=== PATIENT | female | born 1945 | race Caucasian/White ===

== ENCOUNTER 2018-01-29 17:08 | Outpatient (REF) | payer MEDICARE, MEDICAID, SELFPAY ==
[2018-01-29 18:27] LABS: Uric Acid 9.8 mg/dL (2.6-6.0)
== END 2018-01-29 17:28 ==
LOC: LBN 17:08
PROVIDERS: PCP Student in an Organized Health Care Education/Training Program; Visit Provider Family Medicine
DX: E11.21 Type 2 diabetes mellitus with diabetic nephropathy (principal); N18.4 Chronic kidney disease, stage 4 (severe); E11.69 Type 2 diabetes mellitus with other specified complication; E03.9 Hypothyroidism, unspecified; E78.5 Hyperlipidemia, unspecified; I10 Essential (primary) hypertension
CPT/HCPCS: 84550

== ENCOUNTER 2018-02-23 11:20 | Outpatient (REF) | payer MEDICARE, MEDICAID, SELFPAY ==
[2018-02-23 11:59] LABS: BUN 58 mg/dL (7-18); CREATININE 1.81 mg/dL (0.55-1.02); Estimated GFR 27.48 (mL/min/1.73m2)
== END 2018-02-23 11:40 ==
LOC: LBN 11:20
PROVIDERS: PCP Student in an Organized Health Care Education/Training Program; Visit Provider Family Medicine
DX: E11.21 Type 2 diabetes mellitus with diabetic nephropathy (principal)
CPT/HCPCS: 84520; 82565

== ENCOUNTER 2018-03-07 13:57 | Outpatient (REF) | payer MEDICARE, MEDICAID, SELFPAY ==
[2018-03-07 15:05] LABS: Abs Immature Grans 0.02 k/cumm (0.0-0.09); Absolute Basophil Count 0.03 k/cumm (0.0-0.2); Absolute Eosinophil Count 0.27 k/cumm (0.0-0.7); Absolute Lymphocyte Count 2.96 k/cumm (1.2-3.4); Absolute Monocyte Count 0.45 k/cumm (0.11-0.7); Absolute Neutrophil Count 5.48 k/cumm (1.2-6.7); Basophils % 0.3; Eosinophils % 2.9; HCT 41.1 % (36.0-46.0); HGB 13.9 g/dL (12.0-15.5); Immature Grans % 0.2; Lymphocytes % 32.1; Mean Corp. HGB Concentration 33.8 g/dL (32.0-36.0); Mean Corpuscular Hemoglobin 31.2 pg (27.0-33.0); Mean Corpuscular Volume 92.4 fL (80-95); Mean Platelet Volume 11.5 fL (8.0-11.0); Monocytes % 4.9; Neutrophils % 59.6; Platelet Count 324 x1000/uL (130-400); RBC 4.45 m/cumm (4.00-5.20); RBC Distribution Width 13.4 % (11.7-14.6); White Blood Cell Count 9.21 k/cumm (4.4-10.8)
[2018-03-07 15:15] LABS: TSH 18.71 uIU/mL (0.358-3.74)
[2018-03-07 15:33] LABS: Hemoglobin A1C 11.5 % (4.5-6.2)
== END 2018-03-07 14:17 ==
LOC: LBN 13:57
PROVIDERS: PCP Student in an Organized Health Care Education/Training Program; Visit Provider Family Medicine
DX: E11.9 Type 2 diabetes mellitus without complications (principal); E03.9 Hypothyroidism, unspecified
CPT/HCPCS: 83036; 84443; 85025

== ENCOUNTER 2018-04-19 16:29 | Outpatient (REF) | payer MEDICARE, MEDICAID, SELFPAY ==
[2018-04-19 17:27] LABS: Anion Gap 13.4 mmol/L (3-11); BUN 51 mg/dL (7-18); CO2 23.6 mmol/L (21.0-32.0); CREATININE 1.85 mg/dL (0.55-1.02); Calcium 9.6 mg/dL (8.5-10.1); Chloride 101 mmol/L (98-107); Glucose 253 mg/dL (70-100); Potassium 4.4 mmol/L (3.5-5.1); Sodium 138 mmol/L (136-145)
== END 2018-04-19 16:49 ==
LOC: LBN 16:29
PROVIDERS: PCP Student in an Organized Health Care Education/Training Program; Visit Provider Family Medicine
DX: N18.4 Chronic kidney disease, stage 4 (severe) (principal); E11.9 Type 2 diabetes mellitus without complications; I10 Essential (primary) hypertension
CPT/HCPCS: 80048

== ENCOUNTER 2018-06-20 08:51 | Outpatient (REF) | payer MEDICARE, MEDICAID, SELFPAY ==
[2018-06-20 11:13] LABS: Abs Immature Grans 0.01 k/cumm (0.0-0.09); Absolute Basophil Count 0.03 k/cumm (0.0-0.2); Absolute Eosinophil Count 0.27 k/cumm (0.0-0.7); Absolute Lymphocyte Count 2.49 k/cumm (1.2-3.4); Absolute Monocyte Count 0.59 k/cumm (0.11-0.7); Absolute Neutrophil Count 3.72 k/cumm (1.2-6.7); Basophils % 0.4; Eosinophils % 3.8; HCT 40.8 % (36.0-46.0); HGB 13.8 g/dL (12.0-15.5); Immature Grans % 0.1; Mean Corp. HGB Concentration 33.8 g/dL (32.0-36.0); Mean Corpuscular Hemoglobin 32.1 pg (27.0-33.0); Mean Corpuscular Volume 94.9 fL (80-95); Mean Platelet Volume 10.9 fL (8.0-11.0); Monocytes % 8.3; Neutrophils % 52.4; Platelet Count 277 x1000/uL (130-400); RBC Distribution Width 12.1 % (11.7-14.6); White Blood Cell Count 7.11 k/cumm (4.4-10.8)
[2018-06-20 11:42] LABS: Anion Gap 9.1 mmol/L (3-11); BUN 44 mg/dL (7-18); CO2 28.9 mmol/L (21.0-32.0); CREATININE 1.99 mg/dL (0.55-1.02); Calcium 9.7 mg/dL (8.5-10.1); Chloride 104 mmol/L (98-107); Estimated GFR 24.63 (mL/min/1.73m2); Glucose 180 mg/dL (70-100); Potassium 4.3 mmol/L (3.5-5.1); Sodium 142 mmol/L (136-145); TSH 11.33 uIU/mL (0.358-3.74); Uric Acid 11.3 mg/dL (2.6-6.0)
[2018-06-20 12:00] LABS: Cholesterol 109 mg/dL (50-200); HDL Cholesterol 39 mg/dL (40-60); LDL CHOLESTEROL 55 mg/dL (<100); Triglyceride 77 mg/dL (30-150)
== END 2018-06-20 09:11 ==
LOC: LBN 08:51
PROVIDERS: PCP Student in an Organized Health Care Education/Training Program; Visit Provider Family Medicine
DX: E11.9 Type 2 diabetes mellitus without complications (principal); M10.9 Gout, unspecified; E03.9 Hypothyroidism, unspecified; N18.9 Chronic kidney disease, unspecified
CPT/HCPCS: 80048; 80061; 83721; 83036; 84443; 84550; 85025

== ENCOUNTER 2018-06-21 11:00 | Outpatient (CLI) | payer MEDICARE, MEDICAID, SELFPAY | END 2018-06-21 11:20 | PROVIDERS: PCP Student in an Organized Health Care Education/Training Program; Visit Provider Family Medicine | DX: N18.9 Chronic kidney disease, unspecified (principal) | CPT/HCPCS: 82043; 82570 ==

== ENCOUNTER 2018-08-09 12:08 | Outpatient (REF) | payer MEDICARE, MEDICAID, SELFPAY ==
[2018-08-09 14:21] LABS: TSH 3.24 uIU/mL (0.358-3.74)
== END 2018-08-09 12:28 ==
LOC: LBN 12:08
PROVIDERS: PCP Student in an Organized Health Care Education/Training Program; Visit Provider Family Medicine
DX: E03.9 Hypothyroidism, unspecified (principal)
CPT/HCPCS: 84443

== ENCOUNTER 2018-12-13 13:42 | Outpatient (CLI) | payer MEDICARE, MEDICAID, SELFPAY ==
--- NOTE | 2018-12-13 12:52 | DI.RAD_ITS ---
SYMPTOMS/DIAGNOSIS: LEFT WRIST INJURY LEFT WRIST: Three views. No acute fracture or dislocation is identified. Moderately severe arthritic changes are seen in the wrist, particularly the 1st carpometacarpal joint and the carpal joints. Vascular calcifications are seen in the soft tissues. There does appear to be soft tissue swelling of the wrist. IMPRESSION: No acute fracture or dislocation.
== END 2018-12-13 14:02 ==
PROVIDERS: PCP Student in an Organized Health Care Education/Training Program; Visit Provider Nurse Practitioner Adult Health
DX: M25.532 Pain in left wrist (principal); M18.12 Unilateral primary osteoarthritis of first carpometacarpal joint, left hand; M19.032 Primary osteoarthritis, left wrist; M79.89 Other specified soft tissue disorders
CPT/HCPCS: 73110

== ENCOUNTER 2018-12-30 07:41 | Outpatient (REF) | payer MEDICARE, MEDICAID, SELFPAY ==
[2018-12-30 10:18] LABS: Calculated LDL 79 mg/dL; Cholesterol 148 mg/dL (50-200); HDL Cholesterol 47 mg/dL (40-60); Triglyceride 113 mg/dL (30-150)
== END 2018-12-30 08:01 ==
LOC: LBN 07:41
PROVIDERS: PCP Student in an Organized Health Care Education/Training Program; Visit Provider Nurse Practitioner Adult Health
DX: E66.01 Morbid (severe) obesity due to excess calories (principal); E11.21 Type 2 diabetes mellitus with diabetic nephropathy; E03.9 Hypothyroidism, unspecified; E78.5 Hyperlipidemia, unspecified
CPT/HCPCS: 80061; 83721

== ENCOUNTER 2019-01-31 11:44 | Outpatient (CLI) | payer MEDICARE, MEDICAID, SELFPAY ==
[2019-01-31 14:02] LABS: Anion Gap 11.2 mmol/L (3-11); BUN 53 mg/dL (7-18); CO2 25.8 mmol/L (21.0-32.0); CREATININE 1.93 mg/dL (0.55-1.02); Calcium 8.8 mg/dL (8.5-10.1); Chloride 103 mmol/L (98-107); Estimated GFR 25.45 (mL/min/1.73m2); Glucose 217 mg/dL (70-100); Potassium 4.3 mmol/L (3.5-5.1); Sodium 140 mmol/L (136-145)
== END 2019-01-31 12:04 ==
PROVIDERS: PCP Student in an Organized Health Care Education/Training Program; Visit Provider Nurse Practitioner Adult Health
DX: E11.21 Type 2 diabetes mellitus with diabetic nephropathy (principal)
CPT/HCPCS: 80048

== ENCOUNTER 2019-03-22 14:19 | Outpatient (REF) | payer MEDICARE, MEDICAID, SELFPAY ==
[2019-03-22 14:24] LABS: Hemoglobin A1C 7.8 % (4.5-6.2)
[2019-03-22 14:57] LABS: Anion Gap 12.2 mmol/L (3-11); BUN 68 mg/dL (7-18); CO2 24.8 mmol/L (21.0-32.0); CREATININE 2.48 mg/dL (0.55-1.02); Calcium 9.2 mg/dL (8.5-10.1); Chloride 102 mmol/L (98-107); Estimated GFR 19.05 (mL/min/1.73m2); Glucose 201 mg/dL (70-100); Potassium 4.6 mmol/L (3.5-5.1); Sodium 139 mmol/L (136-145); Uric Acid 12.8 mg/dL (2.6-6.0)
== END 2019-03-22 14:39 ==
LOC: LBN 14:19
PROVIDERS: PCP Student in an Organized Health Care Education/Training Program; Visit Provider Nurse Practitioner Adult Health
DX: E11.319 Type 2 diabetes mellitus with unspecified diabetic retinopathy without macular edema (principal); N18.4 Chronic kidney disease, stage 4 (severe)
CPT/HCPCS: 80048; 83036; 84550

== ENCOUNTER 2019-04-18 10:59 | Outpatient (CLI) | payer MEDICARE, MEDICAID, SELFPAY ==
[2019-04-18 11:23] LABS: Anion Gap 10.5 mmol/L (3-11); BUN 62 mg/dL (7-18); CO2 24.5 mmol/L (21.0-32.0); Chloride 106 mmol/L (98-107); Estimated GFR 27.58 (mL/min/1.73m2); Glucose 230 mg/dL (74-106); Potassium 4.4 mmol/L (3.5-5.1); Sodium 141 mmol/L (136-145); Uric Acid 9.3 mg/dL (2.6-6.0)
== END 2019-04-18 11:19 ==
PROVIDERS: PCP Student in an Organized Health Care Education/Training Program; Visit Provider Nurse Practitioner Adult Health
DX: N18.4 Chronic kidney disease, stage 4 (severe) (principal); E11.319 Type 2 diabetes mellitus with unspecified diabetic retinopathy without macular edema
CPT/HCPCS: 36415; 80048; 84550

== ENCOUNTER 2019-05-09 10:26 | Outpatient (REF) | payer MEDICARE, MEDICAID, SELFPAY ==
[2019-05-09 11:38] LABS: Anion Gap 9.5 mmol/L (3-11); BUN 47 mg/dL (7-18); CO2 28.5 mmol/L (21.0-32.0); CREATININE 1.96 mg/dL (0.55-1.02); Calcium 8.8 mg/dL (8.5-10.1); Chloride 104 mmol/L (98-107); Glucose 136 mg/dL (74-106); Potassium 4.2 mmol/L (3.5-5.1); Sodium 142 mmol/L (136-145)
== END 2019-05-09 10:46 ==
LOC: LBO 10:26
PROVIDERS: Family Medicine; PCP Student in an Organized Health Care Education/Training Program; Visit Provider Nurse Practitioner Adult Health
DX: N18.4 Chronic kidney disease, stage 4 (severe) (principal); I10 Essential (primary) hypertension; D63.1 Anemia in chronic kidney disease; E03.9 Hypothyroidism, unspecified; E11.21 Type 2 diabetes mellitus with diabetic nephropathy
CPT/HCPCS: 36415; 80048

== ENCOUNTER 2019-05-23 12:04 | Outpatient (CLI) | payer MEDICARE, MEDICAID, SELFPAY ==
[2019-05-23 13:48] LABS: Abs Immature Grans 0.02 k/cumm (0.0-0.09); Absolute Basophil Count 0.03 k/cumm (0.0-0.2); Absolute Eosinophil Count 1.73 k/cumm (0.0-0.7); Absolute Lymphocyte Count 2.95 k/cumm (1.2-3.4); Absolute Monocyte Count 0.76 k/cumm (0.11-0.7); Absolute Neutrophil Count 5.31 k/cumm (1.2-6.7); Basophils % 0.3; HCT 40.7 % (36.0-46.0); HGB 13.4 g/dL (12.0-15.5); Immature Grans % 0.2 %; Lymphocytes % 27.3; Mean Corp. HGB Concentration 32.9 g/dL (32.0-36.0); Mean Corpuscular Hemoglobin 33.2 pg (27.0-33.0); Mean Corpuscular Volume 100.7 fL (80-95); Mean Platelet Volume 10.6 fL (8.0-11.0); Neutrophils % 49.2; Platelet Count 338 x1000/uL (130-400); RBC 4.04 m/cumm (4.00-5.20); RBC Distribution Width 13.8 % (11.7-14.6)
[2019-05-23 14:28] LABS: ESR 18 mm/hr (0-30)
[2019-05-23 15:11] LABS: ALT 31 U/L (14-59); AST 28 U/L (15-37); Albumin 3.6 g/dL (3.4-5.0); Alkaline Phosphatase 128 U/L (46-116); BUN 62 mg/dL (7-18); Bilirubin, Total 0.7 mg/dL (0.2-1.0); C-Reactive Protein 0.25 mg/dL (0.0-0.3); CREATININE 1.98 mg/dL (0.55-1.02); Calcium 9.1 mg/dL (8.5-10.1); Chloride 104 mmol/L (98-107); Estimated GFR 24.71 (mL/min/1.73m2); Glucose 147 mg/dL (74-106); Potassium 4.7 mmol/L (3.5-5.1); Sodium 143 mmol/L (136-145); Total Protein 7.2 g/dL (6.4-8.2); Uric Acid 10.3 mg/dL (2.6-6.0)
== END 2019-05-23 12:24 ==
PROVIDERS: PCP Student in an Organized Health Care Education/Training Program; Visit Provider Nurse Practitioner Adult Health
DX: I10 Essential (primary) hypertension (principal); D63.1 Anemia in chronic kidney disease; E78.5 Hyperlipidemia, unspecified; N18.4 Chronic kidney disease, stage 4 (severe)
CPT/HCPCS: 36415; 80053; 85652; 84550; 85025; 86140

== ENCOUNTER 2019-06-20 10:39 | Outpatient (CLI) | payer MEDICARE, MEDICAID, SELFPAY ==
[2019-06-20 11:45] LABS: Abs Immature Grans 0.02 k/cumm (0.0-0.09); Absolute Basophil Count 0.03 k/cumm (0.0-0.2); Absolute Eosinophil Count 0.78 k/cumm (0.0-0.7); Absolute Lymphocyte Count 2.28 k/cumm (1.2-3.4); Absolute Monocyte Count 0.64 k/cumm (0.11-0.7); Basophils % 0.4; Eosinophils % 9.7; HCT 40.2 % (36.0-46.0); HGB 13.1 g/dL (12.0-15.5); Immature Grans % 0.2 %; Lymphocytes % 28.3; Mean Corp. HGB Concentration 32.6 g/dL (32.0-36.0); Mean Corpuscular Volume 101.3 fL (80-95); Mean Platelet Volume 10.9 fL (8.0-11.0); Neutrophils % 53.4; Platelet Count 282 x1000/uL (130-400); RBC 3.97 m/cumm (4.00-5.20); RBC Distribution Width 12.8 % (11.7-14.6); White Blood Cell Count 8.05 k/cumm (4.4-10.8)
[2019-06-20 12:09] LABS: Anion Gap 9.6 mmol/L (3-11); BUN 55 mg/dL (7-18); CO2 29.4 mmol/L (21.0-32.0); CREATININE 2.16 mg/dL (0.55-1.02); Calcium 8.9 mg/dL (8.5-10.1); Chloride 104 mmol/L (98-107); Estimated GFR 22.35 (mL/min/1.73m2); Glucose 223 mg/dL (74-106); Hemoglobin A1C 7.6 % (3.8-5.6); Potassium 4.2 mmol/L (3.5-5.1); Sodium 143 mmol/L (136-145); Uric Acid 11.9 mg/dL (2.6-6.0)
== END 2019-06-20 10:59 ==
PROVIDERS: PCP Student in an Organized Health Care Education/Training Program; Visit Provider Nurse Practitioner Adult Health
DX: E11.21 Type 2 diabetes mellitus with diabetic nephropathy (principal); I10 Essential (primary) hypertension; E78.5 Hyperlipidemia, unspecified; N18.4 Chronic kidney disease, stage 4 (severe); D63.1 Anemia in chronic kidney disease; E11.319 Type 2 diabetes mellitus with unspecified diabetic retinopathy without macular edema
CPT/HCPCS: 80048; 83036; 84550; 85025

== ENCOUNTER 2019-09-18 20:46 | Outpatient (REF) | payer MEDICARE, MEDICAID, SELFPAY ==
[2019-09-18 17:35] LABS: BUN 57 mg/dL (7-18); CREATININE 2.07 mg/dL (0.55-1.02); Calcium 9.4 mg/dL (8.5-10.1); Chloride 100 mmol/L (98-107); Estimated GFR 23.47 (mL/min/1.73m2); Glucose 181 mg/dL (74-106); Potassium 4.3 mmol/L (3.5-5.1); Sodium 138 mmol/L (136-145)
== END 2019-09-18 21:06 ==
LOC: LBN 20:46
PROVIDERS: PCP Student in an Organized Health Care Education/Training Program; Visit Provider Nurse Practitioner Adult Health
DX: E78.5 Hyperlipidemia, unspecified (principal); N18.4 Chronic kidney disease, stage 4 (severe)
CPT/HCPCS: 80048

== ENCOUNTER 2019-12-19 14:19 | Outpatient (REF) | payer MEDICARE, MEDICAID, SELFPAY ==
[2019-12-19 14:42] LABS: Abs Immature Grans 0.02 10^3/uL (0.0-0.06); Absolute Basophil Count 0.04 10^3/uL (0.0-0.2); Absolute Eosinophil Count 0.44 10^3/uL (0.0-0.7); Absolute Lymphocyte Count 2.11 10^3/uL (1.2-3.4); Absolute Monocyte Count 0.51 10^3/uL (0.1-0.8); Basophils % 0.5; Eosinophils % 5.5; HCT 36.2 % (36.0-46.0); Immature Grans % 0.2; Lymphocytes % 26.3; MCHC 33.1 % (32.0-36.0); MCV 99.5 fL (80-95); MPV 11.1 fL (8.0-11.0); Monocytes % 6.4; Neutrophils % 61.1; Nucleated RBC 0 %; Platelet Count 324 10^3/uL (130-400); RBC 3.64 10^6/uL (3.93-5.22); RDW 11.9 % (11.7-14.6); RDW-SD 43.4 fL; WBC 8.02 10^3/uL (4.4-10.8)
[2019-12-19 14:49] LABS: Anion Gap 9.2 mmol/L (3-11); CO2 27.8 mmol/L (21.0-32.0); Calcium 9.5 mg/dL (8.5-10.1); Chloride 102 mmol/L (98-107); Estimated GFR 18.83 (mL/min/1.73m2); Glucose 221 mg/dL (74-106); Potassium 4.9 mmol/L (3.5-5.1); Sodium 139 mmol/L (136-145); Uric Acid 11.8 mg/dL (2.6-6.0)
[2019-12-19 14:56] LABS: BUN 93 mg/dL (7-18)
== END 2019-12-19 14:39 ==
LOC: LBN 14:19
PROVIDERS: PCP Student in an Organized Health Care Education/Training Program; Visit Provider Nurse Practitioner Adult Health
DX: E11.319 Type 2 diabetes mellitus with unspecified diabetic retinopathy without macular edema (principal); N18.4 Chronic kidney disease, stage 4 (severe)
CPT/HCPCS: 80048; 83036; 84550; 85025

== ENCOUNTER 2020-01-02 15:09 | Outpatient (REF) | payer MEDICARE, MEDICAID, SELFPAY ==
[2020-01-02 15:35] LABS: Abs Immature Grans 0.02 10^3/uL (0.0-0.06); Absolute Basophil Count 0.03 10^3/uL (0.0-0.2); Absolute Eosinophil Count 0.25 10^3/uL (0.0-0.7); Absolute Lymphocyte Count 1.89 10^3/uL (1.2-3.4); Absolute Neutrophil Count 4.58 10^3/uL (1.2-6.7); Basophils % 0.4; Eosinophils % 3.4; HCT 35.6 % (36.0-46.0); HGB 11.7 g/dL (11.2-15.7); Immature Grans % 0.3; Lymphocytes % 25.6; MCH 33.1 pg (27.0-33.0); MCHC 32.9 % (32.0-36.0); MCV 100.6 fL (80-95); MPV 10.7 fL (8.0-11.0); Monocytes % 8.1; Neutrophils % 62.2; Nucleated RBC 0 %; Platelet Count 302 10^3/uL (130-400); RBC 3.54 10^6/uL (3.93-5.22); RDW 12.1 % (11.7-14.6); RDW-SD 44.9 fL; WBC 7.37 10^3/uL (4.4-10.8)
[2020-01-02 15:46] LABS: Anion Gap 10.7 mmol/L (3-11); BUN 54 mg/dL (7-18); CO2 27.3 mmol/L (21.0-32.0); CREATININE 1.95 mg/dL (0.55-1.02); Chloride 105 mmol/L (98-107); Estimated GFR 25.08 (mL/min/1.73m2); Glucose 197 mg/dL (74-106); Potassium 4.8 mmol/L (3.5-5.1); Sodium 143 mmol/L (136-145); Uric Acid 10.9 mg/dL (2.6-6.0)
[2020-01-02 16:33] LABS: Hemoglobin A1C 6.8 % (3.8-5.6)
== END 2020-01-02 15:29 ==
LOC: LBN 15:09
PROVIDERS: PCP Student in an Organized Health Care Education/Training Program; Visit Provider Nurse Practitioner Adult Health
DX: E11.319 Type 2 diabetes mellitus with unspecified diabetic retinopathy without macular edema (principal); N18.4 Chronic kidney disease, stage 4 (severe)
CPT/HCPCS: 80048; 83036; 84550; 85025

== ENCOUNTER 2020-03-26 13:44 | Outpatient (REF) | payer MEDICARE, MEDICAID, SELFPAY ==
[2020-03-26 14:38] LABS: Hemoglobin A1C 6.3 % (<5.7)
[2020-03-26 14:39] LABS: Anion Gap 9.7 mmol/L (3-11); BUN 60 mg/dL (7-18); CO2 27.3 mmol/L (21.0-32.0); CREATININE 1.92 mg/dL (0.55-1.02); Calcium 9.3 mg/dL (8.5-10.1); Chloride 104 mmol/L (98-107); Estimated GFR 25.53 (mL/min/1.73m2); Glucose 210 mg/dL (74-106); Potassium 4.6 mmol/L (3.5-5.1); Sodium 141 mmol/L (136-145); Uric Acid 10.4 mg/dL (2.6-6.0)
== END 2020-03-26 14:04 ==
LOC: LBN 13:44
PROVIDERS: PCP Student in an Organized Health Care Education/Training Program; Visit Provider Nurse Practitioner Adult Health
DX: E79.0 Hyperuricemia without signs of inflammatory arthritis and tophaceous disease (principal); N18.4 Chronic kidney disease, stage 4 (severe); E78.5 Hyperlipidemia, unspecified; E11.21 Type 2 diabetes mellitus with diabetic nephropathy
CPT/HCPCS: 80048; 83036; 84550

== ENCOUNTER 2020-06-22 14:15 | Outpatient (REF) | payer MEDICARE, MEDICAID, SELFPAY ==
[2020-06-22 14:45] LABS: Abs Immature Grans 0.02 10^3/uL (0.0-0.06); Absolute Basophil Count 0.04 10^3/uL (0.0-0.2); Absolute Eosinophil Count 0.33 10^3/uL (0.0-0.7); Absolute Lymphocyte Count 2.08 10^3/uL (1.2-3.4); Absolute Monocyte Count 0.61 10^3/uL (0.1-0.8); Absolute Neutrophil Count 4.64 10^3/uL (1.2-6.7); Basophils % 0.5; Eosinophils % 4.3; Immature Grans % 0.3; Lymphocytes % 26.9; MCH 31.7 pg (27.0-33.0); MCHC 32.4 % (32.0-36.0); MCV 97.6 fL (80-95); MPV 10.5 fL (8.0-11.0); Monocytes % 7.9; Neutrophils % 60.1; Nucleated RBC 0 %; Platelet Count 330 10^3/uL (130-400); RBC 3.79 10^6/uL (3.93-5.22); RDW 12.2 % (11.7-14.6); RDW-SD 43.4 fL; WBC 7.72 10^3/uL (4.4-10.8)
[2020-06-22 14:54] LABS: Anion Gap 9.5 mmol/L (3-11); BUN 57 mg/dL (7-18); CO2 28.5 mmol/L (21.0-32.0); CREATININE 2.1 mg/dL (0.55-1.02); Calcium 9.3 mg/dL (8.5-10.1); Chloride 104 mmol/L (98-107); Estimated GFR 23.02 (mL/min/1.73m2); Glucose 193 mg/dL (74-106); Potassium 4.8 mmol/L (3.5-5.1); Sodium 142 mmol/L (136-145); Uric Acid 10.9 mg/dL (2.6-6.0)
[2020-06-22 14:59] LABS: Hemoglobin A1C 6.7 % (<5.7)
== END 2020-06-22 14:16 | disposition home or self-care (01) ==
LOC: LBN 14:15
PROVIDERS: PCP Student in an Organized Health Care Education/Training Program; Visit Provider Nurse Practitioner Adult Health
DX: E11.319 Type 2 diabetes mellitus with unspecified diabetic retinopathy without macular edema (principal); E78.5 Hyperlipidemia, unspecified; N18.4 Chronic kidney disease, stage 4 (severe); D63.1 Anemia in chronic kidney disease; E79.0 Hyperuricemia without signs of inflammatory arthritis and tophaceous disease
CPT/HCPCS: 80048; 83036; 84550; 85025

== ENCOUNTER 2020-09-24 13:29 | Outpatient (REF) | payer MEDICARE, MEDICAID, SELFPAY ==
[2020-09-24 12:43] LABS: Anion Gap 10.9 mmol/L (3-11); CO2 24.1 mmol/L (21.0-32.0); CREATININE 2.3 mg/dL (0.55-1.02); Calcium 9.1 mg/dL (8.5-10.1); Chloride 106 mmol/L (98-107); Estimated GFR 20.73 (mL/min/1.73m2); Glucose 186 mg/dL (74-106); Sodium 141 mmol/L (136-145); Uric Acid 10.7 mg/dL (2.6-6.0)
[2020-09-24 12:44] LABS: Hemoglobin A1C 6.7 % (<5.7)
[2020-09-24 12:49] LABS: BUN 83 mg/dL (7-18)
== END 2020-09-24 13:30 | disposition home or self-care (01) ==
LOC: LBN 13:29
PROVIDERS: PCP Student in an Organized Health Care Education/Training Program; Visit Provider Family Medicine
DX: E11.319 Type 2 diabetes mellitus with unspecified diabetic retinopathy without macular edema (principal); N18.4 Chronic kidney disease, stage 4 (severe); E11.21 Type 2 diabetes mellitus with diabetic nephropathy; D63.1 Anemia in chronic kidney disease; M10.9 Gout, unspecified
CPT/HCPCS: 80048; 83036; 84550

== ENCOUNTER 2020-10-10 18:08 | Outpatient (REF) | payer MEDICARE, MEDICAID, SELFPAY ==
[2020-10-10 19:57] LABS: Bilirubin Negative (Negative); Blood Trace-lysed (Negative); Clarity Sl Cloudy (Clear); Glucose Negative (Negative); Ketones Negative (Negative); Leukocyte Esterase Large (Negative); Nitrite Negative (Negative); Urobilinogen 0.2 EU/dL (Up TO 0.2); pH 5.5 (5-8)
[2020-10-10 20:18] LABS: Bacteria Many HPF (Negative); C & S Indicated? C&S Done As Ordered; Casts Negative LPF (Negative); Crystals Negative HPF (Negative); Epithelial Cells Few HPF (Negative); Mucus Negative (Negative); Other Cells Negative (Negative); RBC 0-2 HPF (0-2); WBC >50 HPF (0-5)
== END 2020-10-10 18:09 | disposition home or self-care (01) ==
LOC: LBN 18:08
PROVIDERS: PCP Student in an Organized Health Care Education/Training Program; Visit Provider Nurse Practitioner Family
DX: N39.0 Urinary tract infection, site not specified (principal)
CPT/HCPCS: 87077; 81003; 81015; 87086; 87186

== ENCOUNTER 2020-10-17 19:45 | Outpatient (REF) | payer MEDICARE, MEDICAID, SELFPAY ==
[2020-10-17 19:55] LABS: Abs Immature Grans 0.02 10^3/uL (0.0-0.06); Absolute Basophil Count 0.03 10^3/uL (0.0-0.2); Absolute Eosinophil Count 0.23 10^3/uL (0.0-0.7); Absolute Lymphocyte Count 2.42 10^3/uL (1.2-3.4); Absolute Monocyte Count 1.01 10^3/uL (0.1-0.8); Absolute Neutrophil Count 4.92 10^3/uL (1.2-6.7); Basophils % 0.3; Eosinophils % 2.7; HCT 33.6 % (36.0-46.0); HGB 11.3 g/dL (11.2-15.7); Immature Grans % 0.2; MCH 32.7 pg (27.0-33.0); MCHC 33.6 % (32.0-36.0); MCV 97.1 fL (80-95); MPV 9.7 fL (8.0-11.0); Monocytes % 11.7; Neutrophils % 57.1; Nucleated RBC 0 %; Platelet Count 337 10^3/uL (130-400); RBC 3.46 10^6/uL (3.93-5.22); RDW 12.7 % (11.7-14.6); RDW-SD 44.6 fL; WBC 8.63 10^3/uL (4.4-10.8)
[2020-10-17 20:39] LABS: Anion Gap 7.6 mmol/L (3-11); BUN 43 mg/dL (7-18); CO2 27.4 mmol/L (21.0-32.0); CREATININE 1.9 mg/dL (0.55-1.02); Calcium 9.4 mg/dL (8.5-10.1); Chloride 103 mmol/L (98-107); Estimated GFR 25.84 (mL/min/1.73m2); Glucose 101 mg/dL (74-106); Potassium 4.6 mmol/L (3.5-5.1); Sodium 138 mmol/L (136-145)
== END 2020-10-17 19:46 | disposition home or self-care (01) ==
LOC: LBN 19:45
PROVIDERS: PCP Student in an Organized Health Care Education/Training Program; Visit Provider Family Medicine
DX: I10 Essential (primary) hypertension (principal); N18.4 Chronic kidney disease, stage 4 (severe)
CPT/HCPCS: 80048; 85025

== ENCOUNTER 2020-10-26 04:18 | Outpatient (REF) | payer MEDICARE, MEDICAID, SELFPAY ==
[2020-10-26 04:30] LABS: Bilirubin Negative (Negative); Blood Negative (Negative); Clarity Sl Cloudy (Clear); Glucose Negative (Negative); Ketones Negative (Negative); Leukocyte Esterase Small (Negative); Nitrite Negative (Negative); Urobilinogen 0.2 EU/dL (Up TO 0.2); pH 5.5 (5-8)
[2020-10-26 04:38] LABS: Bacteria Moderate HPF (Negative); Casts Negative LPF (Negative); Crystals Negative HPF (Negative); Epithelial Cells Many HPF (Negative); Mucus Negative (Negative); WBC 20-50 HPF (0-5)
[2020-10-26 04:39] LABS: C & S Indicated? C&S Done As Ordered
== END 2020-10-26 04:19 | disposition home or self-care (01) ==
LOC: LBN 04:18
PROVIDERS: PCP Student in an Organized Health Care Education/Training Program; Visit Provider Family Medicine
DX: N39.0 Urinary tract infection, site not specified (principal)
CPT/HCPCS: 81003; 81015; 87086

== ENCOUNTER 2020-11-09 11:08 | Outpatient (REF) | payer MEDICARE, MEDICAID, SELFPAY ==
--- OUTSIDE RECORDS SUMMARY | 2020-11-09 11:14 | XMS_ITS ---
:1945 Author Care Team Providers Name Role Phone DR. MARCELLA SILVA Primary Care Provider [phone] MARCELLA SILVA Referring Provider [phone] DR. ISAIAH VIRGEN Primary Care Provider [phone] DR. ISAIAH VIRGEN Referring Provider [phone] Allergies Code Code System Name Reaction Severity Status Onset NKDA ? Medications Name Status Start Date Stop Date ? ? acetaminophen ER 650 mg tablet,extended release Active ? Not available Take 1 tablet twice a day by oral route. allopurinol 100 mg tabs Active ? Not elaine ilable augmented betamethasone dipropionat e 0.05 Active ? Not available % crea augmented betamethasone dipropionat e 0.05 Active ? Not available % lotn [place] Saline 0.65 % nasal spray aerosol Active ? Not available Take 1 spray 3 times a day by nasal route. clotrim/beta cre diprop Active ? Not avai lable doxycycline hyclate 100 mg caps Active ? Not available doxycycline hyclate 100 mg tabs Active ? Not available furosemide 20 mg tabs Active ? Not avail able furosemide 40 mg tabs Active ? Not avail able furosemide 20 mg tablet Active ? Not avai lable Take 1 tablet twice a day by oral route. Glucagon Emergency Kit 1 mg solution for injection Active ? Not available INJECT 1 MILLILITER (1 MG) BY SUBCUTANE OUS ROUTE ONCE IN THIGH, UPPERARM, OR BUTTOCKS humalog 100 unit/ml soln Active ? Not av ailable hydroxyzine HCl 25 mg tablet Active ? Not available Take 1 tablet every 6 hours by oral route as needed. lantus solostar 100 unit/ml sopn Active ? Not available Lantus Solostar U-100 Insulin 100 unit/mL (3 mL) subcutaneous pe n Active ? Not available Inject 10 units every day by subcutaneous route at bedtime. levothyroxine 50 mcg tablet Active ? Not available Take 1 tablet every day by oral route in the morning. levothyroxine sodium 75 mcg tabs Active ? Not available lisinopril 10 mg tabs Active ? Not avail able losartan potassium 50 mg tabs Active ? N ot available metoprolol tartrate 50 mg tabs Active ? Not available Miralax 17 gram/dose oral powder Active ? Not available TAKE 17 GRAM MIXED WITH 8 OZ. WATER, JU ICE, SODA, COFFEE OR TEA BY ORAL ROUTE ONCE DAILY multivitamin Active ? Not available once daily oseltamivir phosphate 30 mg caps Active ? Not available prednisone 5 mg tabs Active ? Not availa ble quetiapine fumarate 25 mg tabs Active ? Not available quetiapine fumarate 50 mg tabs Active ? Not available simvastatin 20 mg tabs Active ? Not avai lable tramadol hcl 50 mg tabs Active ? Not elaine ilable triamcinolone acetonide 0.1 % crea Active ? Not available Tylenol 325 mg tablet Active ? Not availa ble Take 2 tablets every 6 hours by oral route as needed. Problems Name Status Onset Date Source ? Type 2 Diabetes Mellitus Active 06/15/2018 ? Neuropathy Active 06/15/2018 ? Chronic Kidney Disease Active 06/15/2018 ? Muscle Weakness Active 06/15/2018 ? Abnormal Gait Active 06/15/2018 ? Recurrent Falls Active 06/15/2018 ? Hypothyroidism Active 07/04/2018 ? Hyperlipidemia Active 07/04/2018 ? Morbid Obesity Active 07/04/2018 ? Anemia Active 07/04/2018 ? Schizoaffective Disorder Active 07/04/2018 ? Obstructive Sleep Apnea Syndrome Active 07/04/2018 ? Bilateral Cataracts Active 07/04/2018 ? Essential Hypertension Active 07/04/2018 ? 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 Peripheral Venous Insufficiency Active 07/04/2018 ? Dependence on Supplemental Oxygen Active 07/04/2018 ? Procedures None recorded. Results Lab Results None recorded. Past Encounters None recorded. Social History Tobacco Smoking Status Never Smoker Notes: 09/20/18 Vaccine List None recorded. Plan of Care Reminders Provider Appointments None ? ? recorded. Lab None ? ? recorded. Referral None ? ? recorded. Procedures None ? ? recorded. Surgeries None ? ? recorded. Imaging None ? ? recorded. Vitals 09/20/2018 03:30PM Foot Care Weight Blood Pressure 132/68 mm[Hg] 07/12/2018 02:30PM NEW PATIENT Blood Pressure 128/78 mm[Hg]
--- OUTSIDE RECORDS SUMMARY | 2020-11-09 11:14 | XMS_ITS ---
:1945 Author Care Team Providers Name Role Phone Unavailable Primary Care Provider Unavailable Allergies None recorded. Medications Name Status Start Date Stop Date ? ? allopurinol 100 mg tablet Active ? Not av ailable betamethasone, augmented 0.05 % lotion Active ? Not available betamethasone, augmented 0.05 % topical Active ? Not available cream clotrimazole-betamethasone 1 %-0.05 % Active ? Not available topical cream doxycycline hyclate 100 mg capsule Active ? Not available doxycycline hyclate 100 mg tablet Active ? Not available furosemide 20 mg tablet Active ? Not avai lable furosemide 40 mg tablet Active ? Not avai lable Humalog U-100 Insulin 100 unit/mL Active ? Not available subcutaneous solution Lantus Solostar U-100 Insulin 100 unit/mL Active ? Not available (3 mL) subcutaneous pen levothyroxine 75 mcg tablet Active ? Not available lisinopril 10 mg tablet Active ? Not avai lable losartan 50 mg tablet Active ? Not availa ble metoprolol tartrate 50 mg tablet Active ? Not available oseltamivir 30 mg capsule Active ? Not av ailable prednisone 5 mg tablet Active ? Not avail able quetiapine 25 mg tablet Active ? Not avai lable quetiapine 50 mg tablet Active ? Not avai lable simvastatin 20 mg tablet Active ? Not elaine ilable tramadol 50 mg tablet Active ? Not availa ble triamcinolone acetonide 0.1 % topical Active ? Not available cream Problems Name Status Onset Date Source ? Hypothyroidism Active 01/09/2020 ? Hyperlipidemia Active 01/09/2020 ? Morbid Obesity Active 01/09/2020 ? Anemia Active 01/09/2020 ? Schizophrenia Active 01/09/2020 ? Essential Hypertension Active 01/09/2020 ? Chronic Cor Pulmonale Active 01/09/2020 ? Peripheral Venous Insufficiency Active 01/09/2020 ? Kidney Disease Active 01/09/2020 ? Type 2 Diabetes Mellitus Controlled by Active 0 ? Diet Obstructive Sleep Apnea Syndrome Active ? History Idiopathic Sleep Related Active ? History Non-obstructive Alveolar Hypoventilation Procedure by Method Active ? History Procedures None recorded. Results Lab Results None recorded. Past Encounters 01/10/2020 Obstructive Sleep Apnea Syndrome; Cramp in Lower Limb Associated with Sleep Yuri Hollingsworth MD, Board Certified Sleep Ph ysician: [address] [place] [address] [address], [place] [address], Ph. Social History Tobacco Smoking Status Never Smoker Vaccine List None recorded. Plan of Care Patient Instructions We went over your 2016 sleep study showed Mild Obstructive Sleep Apnea that was severe in REM sleep, You have a cpap machine and need a new mask. I gave you one from our supply but going forward in future, we will need to get you connect ed with [employer] company that can give you supplies regularly. I have sent a script for [employer] machine supplies including mask cushions, mask headgear, filters, hose and humidifier tank to the following Durable Medical Equipment Provider. Please contact them in 2 week if you do not hear from them by then. [x ] [id number] ry: Making the effort to use your machine ev emani time you sleep is very important, especially as you get used to therapy. Please call them if you have any questions on how to use machine or use your mask. Ca ll them if your mask is not fitting righ t and need to be fitted with a new one. This is important to do as early as possible. Follow up in about 4 months to check how well your machine is working for you. We will coordinate with the [facility] to schedule this appointment. Reminders Provider Appointments None recorded. ? ? Lab None recorded. ? ? Referral None recorded. ? ? Procedures None recorded. ? ? Surgeries None recorded. ? ? Imaging None recorded. ? ? Vitals 01/10/2020 09:00AM Office 30 Height Weight BMI Blood Pressure 160.02 cm 119.29 kg 46.6 kg/m2 128/70 mm[Hg] 03/30/2016 Height Weight Blood Pressure 162.56 cm 94.8 kg 120/70 mm[Hg] 02/24/2016 Height Weight Blood Pressure 162.56 cm 94.8 kg 118/60 mm[Hg] 11/29/2015 Height Weight Blood Pressure 162.56 cm 94.86 kg 118/60 mm[Hg] 10/10/2015 Height Weight Blood Pressure 160.02 cm 95.25 kg 122/76 mm[Hg]
[2020-11-09 11:41] LABS: Anion Gap 11.8 mmol/L (3-11); BUN 20 mg/dL (7-18); CO2 23.2 mmol/L (21.0-32.0); CREATININE 1.7 mg/dL (0.55-1.02); Calcium 8.8 mg/dL (8.5-10.1); Chloride 107 mmol/L (98-107); Estimated GFR 29.38 (mL/min/1.73m2); Glucose 151 mg/dL (74-106); Potassium 4.6 mmol/L (3.5-5.1); Sodium 142 mmol/L (136-145)
== END 2020-11-09 11:09 | disposition home or self-care (01) ==
LOC: LBN 11:08
PROVIDERS: PCP Student in an Organized Health Care Education/Training Program; Visit Provider Family Medicine
DX: N18.4 Chronic kidney disease, stage 4 (severe) (principal)
CPT/HCPCS: 80048

== ENCOUNTER 2020-12-16 15:41 | Outpatient (REF) | payer MEDICARE, MEDICAID, SELFPAY ==
[2020-12-16 17:25] LABS: Hemoglobin A1C 6.2 % (<5.7)
[2020-12-16 17:27] LABS: BUN 47 mg/dL (7-18); Calcium 9.1 mg/dL (8.5-10.1); Chloride 105 mmol/L (98-107); Estimated GFR 24.29 (mL/min/1.73m2); Glucose 211 mg/dL (74-106); Potassium 4.8 mmol/L (3.5-5.1); Sodium 140 mmol/L (136-145); Uric Acid 11.3 mg/dL (2.6-6.0)
== END 2020-12-16 15:42 | disposition home or self-care (01) ==
LOC: LBN 15:41
PROVIDERS: PCP Student in an Organized Health Care Education/Training Program; Visit Provider Family Medicine
DX: E11.319 Type 2 diabetes mellitus with unspecified diabetic retinopathy without macular edema (principal); N18.4 Chronic kidney disease, stage 4 (severe); I87.2 Venous insufficiency (chronic) (peripheral)
CPT/HCPCS: 80048; 83036; 84550

== ENCOUNTER 2021-03-06 09:39 | Inpatient (IN) | payer MEDICARE, MEDICAID, SELFPAY ==
[2021-03-06] VITALS (37 sets, daily range): BP systolic 102–161; BP diastolic 36–73; PULSE 42–74; RESP 6–25; TEMP 35.6–36.4; O2SAT 100
--- NOTE | 2021-03-06 09:30 | RT.EKG_ITS ---
APPROVED REPORT Exam: Resting ECG Reason for Exam: syncope Patient Location: E HR:53 bpm ECG Measurements Heart Rate 53 AXIS TN [id number] P [id number] QRSd 103 QRS 55 QT 496 T 46 QTc 467 Conclusion Atrial fibrillation...? atrial activity
--- NOTE | 2021-03-06 10:00 | DI.RAD_ITS ---
Exam(s) XR PORTABLE CHEST AP EXAM: XR PORTABLE CHEST AP CLINICAL HISTORY: syncope. TECHNIQUE: 2D digital imaging was performed. COMPARISON: CR CHEST 2 VIEWS PA,LAT from 07/18/2015 FINDINGS: Heart size is upper normal. The mediastinum is not widened. Right lung is clear. Mild increased markings in the lateral left lung base are unchanged from 2016. No pleural effusions. No pulmonary edema. No pneumothorax. No ominous pulmonary nodules. Regional bones appear unremarkable. IMPRESSION: No acute pulmonary findings on this single AP portable view of the chest. Benign-appearing increased markings in the lateral left lung base are unchanged from 2016. DATA REPOSITORY: RADIATION DOSE DELIVERED: All CT scans at this facility use at least one of these dose optimization techniques: automated exposure control; mA and/or kV adjustment per patient size (includes targeted e xams where dose is matched to clinical indication); or iterative reconstruction.
--- NOTE | 2021-03-06 10:02 | ED.GENADUL_ITS ---
Discharge Plan Disposition Patient Disposition: [facility] INPATIENT Condition: Stable Discharge Details Clinical Impression: Chronic kidney disease (CKD), Anemia, General weakness, Urinary tract infection Primary Care Provider: Unknown,Unknown ED Provider: Nabeel Martinez Home Meds and New Rx's Prescriptions: No Action ONE TOUCH ULTRA 1 EACH EACH 1 ea Miscellaneous DAILY Qty: 90 RF: 4 simvastatin 20 MG tablet 20 mg PO DAILY Qty: 90 RF: 3 aspirin [Aspir-81] 81 MG tablet,delayed release (DR/EC) 81 mg PO DAILY Qty: 90 RF: 3 (DME) lancets [Speed CommerceTouch UltraSoft Lancets] 1 EACH misc 1 ea Miscellaneous DAILY Qty: 90 RF: 4 (DME) blood sugar diagnostic [Speed CommerceTouch Ultra Test] 1 EACH strip 1 ea Miscellaneous DAILY Qty: 100 RF: 2 elastic stockings 2 u DAILY Qty: 2 RF: 0 (DME) wheelchair 1 EACH device 1 ea Miscellaneous DAILY Qty: 1 RF: 0 transfer bench 1 unit Miscellaneous DAILY PRNQty: 1 RF: 0 Diabetic Footwear Miscellaneous DAILY Qty: 1 RF: 1 furosemide 20 MG tablet 20 mg PO BID Qty: 1 RF: 11 (DME) foot care products [Cushion Insole] 1 EACH pad 1 ea Miscellaneous DAILY 365 Days Qty: 1 RF: 0 hydroxyzine HCl 25 MG tablet 25 mg PO QID PRN PRNQty: 100 RF: 1 losartan 50 mg tablet 50 mg PO DAILY RF: 0 quetiapine 25 mg tablet 25 mg PO DAILY RF: 0 levothyroxine 75 mcg tablet 75 mcg PO DAILY RF: 0 loratadine-pseudoephedrine [Loratadine-D] 10-240 mg Tablet Extended Release 24 Hr 1 tab PO DAILY RF: 0 Lantus Solostar U-100 Insulin 100 unit/mL (3 mL) insulin pen 18 unit SUBCUT DAILY RF: 0 acetaminophen 500 mg Tablet 1,000 mg PO TID RF: 0 triamcinolone acetonide 0.5 % cream TOPICAL RF: 0 Refresh Liquigel 1 % Drops, Liquid Gel 1 drp ophthalmic (eye) DAILY RF: 0 multivitamin with iron [One Daily Plus Iron] Tablet 1 tab PO DAILY RF: 0 sodium chloride [Saline Mist] 0.65 % Aerosol,[place] 1 spray INTRANASAL TID RF: 0 diclofenac sodium 1 % Gel 1 applic TOPICAL PRN PRNRF: 0 simethicone 80 mg Tablet 80 mg PO QID RF: 0 Systane Balance 0.6 % Drops 1 drp ophthalmic (eye) QID RF: 0 polyethylene glycol 3350 4 gram Powder In Packet 17 g PO DAILY RF: 0 Medical Decision Making 75 yo female with hx of prior tobccue use, sleep apnea, htn, hld, ckd, who comes in with ems from [facility] an rehab with reported syncope yesterday when trying to stand up and today was altered per report. On my exam she states her biggest complaint is a runny nose for several days. She is caox4 in no distress, no focal neuro deficits, no slurred speech, nih of 0 and has no unilateral weakness. She denies chest pain, dyspnea, abdominal pain, headaches, fevers/chills. She is noted to be in afib with rates in the 50's which could be due to her being on metoprolol. Unclear etiology at moment for her reported altered mental status and being lethargic earlier as she seems back to baseline. Given her syncope yesterday will obtain labs including cmp, cbc and troponin and ecg. No hypoxia or tachycardia or pleuritic chest pain and no evidence of dvt on exam so doubt PE. No findings on exam to suggest cva and no headache so do not feel head ct indicated. pt stable, heart rates in the 60's and otherwise stable. Labs show hemoglobin of 7.8, bun 141 with creatinine increased to 2.6 and last was 2.0 months ago. No vomit of blood and on bedside rectal exam has dark stool but is guiac negative on Exam. Ua consistent with uti as well. Given her uremia which I feel is likely prenal and syncope yesterday feel admission is warranted, will discuss with hospitalist Differential Diagnosis Differential Diagnosis: anemia, afib, bradycardia Medical Records Medical records reviewed: Yes I reviewed the patient's medical records. Imaging Data Radiologic Study: Attestation: I personally reviewed and interpreted this imaging study as follows: Imaging: X-Ray Radiologist's impression: IMPRESSION: No acute pulmonary findings on this single AP portable view of the chest. Benign-appearing increased markings in the lateral left lung base are unchanged from 2016. Lab Data Lab results reviewed: Yes I reviewed the patient's lab results. ECG Data Attestation: I personally reviewed and interpreted this ECG (s) as follows: Prior ECG tracings: not available for review Interpretation: afib, rate of 50, no acute st t wave ischemic findings HPI General Mode of arrival: EMS . Date/Time Provider Initiated Documentation: 03/06/21 09:50 . Limitations to Documentation: no limitations . Information obtained by: patient . History of Present Illness 75 year old F presents to the emergency department with the chief complaint of runny nose, described as mild, Patient started experiencing this day(s) (3) and it has been constant. No relieving factors improve symptom(s), No exacerbating factors reported . Patient did receive the following treatments prior to arrival, none Related Data Home Medications Medication Instructions Recorded Confirmed simvastatin 20 mg PO DAILY #90 tab 08/03/14 03/06/21 aspirin [Aspir-81] 81 mg PO DAILY #90 tab-cap 02/01/15 03/06/21 lancets [OneTouch UltraSoft #90 ea 02/07/15 Lancets] blood sugar diagnostic [OneTouch #100 strip 02/14/15 Ultra Test] wheelchair #1 06/07/15 Transfer Bench 1 unit MISCELLANEOUS DAILY PRN #1 07/09/15 07/18/15 unit hydroxyzine HCl 25 mg PO QID PRN PRN #100 tab-cap 07/23/15 03/06/21 furosemide 20 mg PO BID #1 tab-cap 04/23/16 03/06/21 foot care products [Cushion Insole] #1 ea 08/12/17 acetaminophen 1,000 mg PO TID 03/06/21 03/06/21 carboxymethylcellulose sodium 1 drp OPHTHALMIC (EYE) DAILY 03/06/21 03/06/21 [Refresh Liquigel] diclofenac sodium 1 applic TOPICAL PRN PRN 03/06/21 03/06/21 insulin glargine [Lantus Solostar 18 unit SUBCUT DAILY 03/06/21 03/06/21 U-100 Insulin] levothyroxine 75 mcg PO DAILY 03/06/21 03/06/21 loratadine-pseudoephedrine 1 tab PO DAILY 03/06/21 03/06/21 [Loratadine-D] losartan 50 mg PO DAILY 03/06/21 03/06/21 multivitamin with iron [One Daily 1 tab PO DAILY 03/06/21 03/06/21 Plus Iron] polyethylene glycol 3350 17 g PO DAILY 03/06/21 03/06/21 propylene glycol [Systane Balance] 1 drp OPHTHALMIC (EYE) QID 03/06/21 03/06/21 quetiapine 25 mg PO DAILY 03/06/21 03/06/21 simethicone 80 mg PO QID 03/06/21 03/06/21 sodium chloride [Saline Mist] 1 spray INTRANASAL TID 03/06/21 03/06/21 triamcinolone acetonide applic TOPICAL 03/06/21 Previous Rx's Medication Instructions Recorded hydroxyzine HCl 25 mg PO QID PRN PRN #100 tab-cap 07/23/15 foot care products [Cushion Insole] #1 ea 08/12/17 Allergies Allergy/AdvReac Type Severity Reaction Status Date / Time No Known Allergies Allergy Unverified 03/06/21 10:17 General Stated Complaint: AMS/LOC DEVONTE: 2 Review of Systems All systems reviewed & are unremarkable except as noted in HPI and below Constitutional Constitutional: Denies chills and Denies fever(s) Cardiovascular Cardiovascular: Denies chest pain and Denies dyspnea Respiratory Respiratory: Denies cough and Denies dyspnea Gastrointestinal Gastrointestinal: Denies abdominal pain, Denies nausea and Denies vomiting Musculoskeletal Musculoskeletal: Denies joint swelling Psychiatric Psychiatric: Denies depression [facility] Medical History (Updated 03/06/21 @ 12:04 by Nabeel Martinez MD) Anemia Cataracts, bilateral Chronic kidney disease Diabetes Hyperlipidemia Hypertension Obesity Partial blindness Schizophrenia Surgical History (Updated 10/22/16 @ 15:29 by Gomez Fu MD) cataract 03/27/16-od [facility] 04/27/16 os Colonoscopy - IV Sedation (06/11/14) per Dr. Slater, pre-malignant polyps removed Social History Smoking/Tobacco Use Status: Former Tobacco Use Smoking risk assessment performed?: Yes Drug use: Never Do you feel safe at home: Yes Do you feel safe in your relationship?: Yes Exam Const General: no acute distress Orientation: alert HENIA Head: normal to inspection Ears: external ears normal General nose exam: external nose normal Mouth: moist mucous membranes Eyes General: appearance normal, both eyes and all related structures Neck Neck: normal visual inspection Resp Effort & Inspection: normal respiratory effort and able to speak in complete sentences Cardio Rate: bradycardic GI Palpation: soft and nontender Skin General skin exam: no rashes or lesions noted Neuro General: patient alert and patient oriented x3 Extrem General: normal to inspection Psych Mental Status: mental status grossly normal Course Vital Signs Vital signs: Vital Signs Temperature 36.4 C L 03/06/21 09:41 Pulse 42 L 03/06/21 09:41 Respiratory Rate 15 03/06/21 09:41 Blood Pressure 111/50 L 03/06/21 09:41 Pulse Oximetry 100 03/06/21 09:41 Temperature 36.4 C L 03/06/21 09:41 Temperature Source Temporal Artery Scan 03/06/21 09:41 Pulse 42 L 03/06/21 09:41 Respiratory Rate 15 03/06/21 09:41 Blood Pressure 111/50 L 03/06/21 09:41 Blood Pressure Position Supine 03/06/21 09:41 Pulse Oximetry 100 03/06/21 09:41 Oxygen Delivery Method Room Air 03/06/21 09:41 Oxygen Flow Rate 0 03/06/21 09:41 Pain Level 8 03/06/21 09:41 Lab/Test Results Lab/Test Results: 03/06/21 09:35 Blood Blood Culture - Pending 03/06/21 09:35 Blood Blood Culture - Pending
[2021-03-06 10:05] LABS: Abs Immature Grans 0.02 10^3/uL (0.0-0.06); Absolute Basophil Count 0.03 10^3/uL (0.0-0.2); Absolute Eosinophil Count 0.15 10^3/uL (0.0-0.7); Absolute Monocyte Count 0.67 10^3/uL (0.1-0.8); Basophils % 0.4; Eosinophils % 1.8; HCT 23.2 % (36.0-46.0); HGB 7.8 g/dL (11.2-15.7); Immature Grans % 0.2; MCH 32.1 pg (27.0-33.0); MCHC 33.6 % (32.0-36.0); MCV 95.5 fL (80-95); MPV 10.7 fL (8.0-11.0); Monocytes % 8.1; Neutrophils % 66.5; Nucleated RBC 0 %; Platelet Count 272 10^3/uL (130-400); RBC 2.43 10^6/uL (3.93-5.22); RDW 12.8 % (11.7-14.6); RDW-SD 44.2 fL; Source Nasal/Nares; WBC 8.27 10^3/uL (4.4-10.8)
[2021-03-06 10:26] LABS: pCO2 (Venous) 40 mmHg (41-51); pH (Venous) 7.35 (7.31-7.41)
[2021-03-06 10:28] LABS: BE (Venous) -4 mmol/L (-2-3); HCO3 (Venous) 22 mmol/L (23-28); O2 Sat (Venous) 68 %; TCO2 (Venous) 23 mmol/l (24-29)
[2021-03-06 10:30] LABS: pO2 (Venous) 37 mmHg
[2021-03-06] MEDS: Normal Saline 1,000 ML 1000 ML IV ×2 (10:45→12:01)
[2021-03-06 10:49] LABS: Bilirubin Negative (Negative); Blood Negative (Negative); Clarity Sl Cloudy (Clear); Glucose Negative (Negative); Ketones Negative (Negative); Leukocyte Esterase Small (Negative); Nitrite Positive (Negative); Specific Gravity 1.015 (1.005-1.025); Urobilinogen 0.2 EU/dL (Up TO 0.2)
[2021-03-06 10:50] LABS: ALT 22 U/L (14-59); AST 18 U/L (15-37); Albumin 2.9 g/dL (3.4-5.0); Alkaline Phosphatase 101 U/L (46-116); Bilirubin, Direct 0.2 mg/dL (0.0-0.2); Bilirubin, Total 0.4 mg/dL (0.2-1.0); CREATININE 2.6 mg/dL (0.55-1.02); Calcium 8.8 mg/dL (8.5-10.1); Chloride 106 mmol/L (98-107); Creatine Kinase 28 U/L (26-192); Estimated GFR 17.94 (mL/min/1.73m2); Glucose 119 mg/dL (74-106); Magnesium 3.2 mg/dL (1.8-2.4); Potassium 4.6 mmol/L (3.5-5.1); Sodium 140 mmol/L (136-145); TSH (W/Ref FT4) 6.25 uIU/mL (0.36-3.74); Total Protein 5.6 g/dL (6.4-8.2)
[2021-03-06 10:52] LABS: BUN 141 mg/dL (7-18)
[2021-03-06 10:58] LABS: Bacteria Many HPF (Negative); C & S Indicated? Yes; Casts 0-2 Hyaline LPF (Negative); Crystals Negative HPF (Negative); Epithelial Cells Few HPF (Negative); Mucus Negative (Negative); RBC Negative HPF (0-2); WBC 20-50 HPF (0-5)
[2021-03-06 11:00] LABS: Troponin I < 0.05 ng/mL (<0.06)
[2021-03-06 11:08] LABS: FREE T4 0.84 ng/dL (0.76-1.46)
[2021-03-06 11:09] LABS: COVID-19 PCR Negative (Negative)
[2021-03-06] MEDS: cefTRIAXone 2 GM/50 ML BAG IVPB (11:22)
--- NOTE | 2021-03-06 13:07 | W.PM.HP.N ---
Date of service: 03/06/21 Time of Service: 13:08 Assessment and Plan Assessment and plan (1) Urinary tract infection: Status: Acute Assessment and plan: ceftriaxone day 1, cultures pending. (2) Diabetes mellitus type 2 with complications: Status: Acute Assessment and plan: diabetic diet, sliding scale ac/hs, continue home medication monitor and adjust as needed. A1C was 6.2 in december 2020 (3) Chronic kidney disease (CKD): Status: Acute Assessment and plan: creatinine 2.6, above her 1.7-2.0 baseline monitor I&O, give IV fluids renal dosing avoid nephrotoxic drugs suspect pre-renal (4) Hypertension: Status: Acute Assessment and plan: blood pressure stable. will hold losartan and lasix d/t dehydration and NORI (5) General weakness: Status: Acute Assessment and plan: PT consult (6) Schizophrenia: Status: None Assessment and plan: stable, continue home medication (7) Anemia: Status: None Assessment and plan: hemoglobin 7.8, stool negative for OB. add iron studies. (8) DVT prophylaxis: Status: Acute Assessment and plan: teds, scd hold off on pharmacological prophylaxis will low hemoglobin until active bleeding definitely ruled out. (9) Discharge planning issues: Status: Acute Assessment and plan: back to health and rehab when medically stable. discussed with Dr Orozco. History of Present Illness History of Present Illness Chief Complaint: weakness Narrative: patient presents to ED this morning with altered mental status, on arrival was oriented and alert. work up in ED shows UTI and anemia. her stool in negative for OB. she is also found to be in acute on chronic renal failure. she is started on ceftriaxone and given IV fluids. she is making urine. she will be admitted to med/surg on hospitalist services. Review of Systems All systems reviewed & are unremarkable except as noted in HPI and below PFSH Medical History (Updated 03/06/21 @ 13:16 by Lisa Quiroga NP) Anemia Cataracts, bilateral Chronic kidney disease Diabetes Hyperlipidemia Hypertension Obesity Partial blindness Schizophrenia Surgical History (Updated 10/22/16 @ 15:29 by Gomez Fu MD) cataract 03/27/16-od [facility] 04/27/16 os Colonoscopy - IV Sedation (06/11/14) per Dr. Slater, pre-malignant polyps removed Social History Smoking/Tobacco Use Status: Former Tobacco Use Smoking risk assessment performed?: Yes Drug use: Never Do you feel safe at home: Yes Do you feel safe in your relationship?: Yes Meds Allergies and Home Medications Allergies Allergy/AdvReac Type Severity Reaction Status Date / Time No Known Allergies Allergy Unverified 03/06/21 10:17 Home Medications Medication Instructions Recorded Confirmed Type One Touch Ultra 1 ea MISCELLANEOUS DAILY #90 ea 11/22/13 07/18/15 Clinic simvastatin 20 mg PO DAILY #90 tab 08/03/14 03/06/21 History aspirin [Aspir-81] 81 mg PO DAILY #90 tab-cap 02/01/15 03/06/21 History lancets [OneTouch UltraSoft #90 ea 02/07/15 History Lancets] blood sugar diagnostic [OneTouch #100 strip 02/14/15 History Ultra Test] Elastic Stockings 2 u DAILY #2 unit 05/31/15 07/18/15 Clinic wheelchair #1 06/07/15 History Transfer Bench 1 unit MISCELLANEOUS DAILY PRN #1 07/09/15 07/18/15 History unit Diabetic Footwear u MISCELLANEOUS DAILY #1 07/17/15 07/18/15 Clinic hydroxyzine HCl 25 mg PO QID PRN PRN #100 tab-cap 07/23/15 03/06/21 Rx furosemide 20 mg PO BID #1 tab-cap 04/23/16 03/06/21 History foot care products [Cushion Insole] #1 ea 08/12/17 Rx acetaminophen 1,000 mg PO TID 03/06/21 03/06/21 History carboxymethylcellulose sodium 1 drp OPHTHALMIC (EYE) DAILY 03/06/21 03/06/21 History [Refresh Liquigel] diclofenac sodium 1 applic TOPICAL PRN PRN 03/06/21 03/06/21 History insulin glargine [Lantus Solostar 18 unit SUBCUT DAILY 03/06/21 03/06/21 History U-100 Insulin] levothyroxine 75 mcg PO DAILY 03/06/21 03/06/21 History loratadine-pseudoephedrine 1 tab PO DAILY 03/06/21 03/06/21 History [Loratadine-D] losartan 50 mg PO DAILY 03/06/21 03/06/21 History multivitamin with iron [One Daily 1 tab PO DAILY 03/06/21 03/06/21 History Plus Iron] polyethylene glycol 3350 17 g PO DAILY 03/06/21 03/06/21 History propylene glycol [Systane Balance] 1 drp OPHTHALMIC (EYE) QID 03/06/21 03/06/21 History quetiapine 25 mg PO DAILY 03/06/21 03/06/21 History simethicone 80 mg PO QID 03/06/21 03/06/21 History sodium chloride [Saline Mist] 1 spray INTRANASAL TID 03/06/21 03/06/21 History triamcinolone acetonide applic TOPICAL 03/06/21 History Exam Const General: cooperative, comfortable, no acute distress, disheveled and ill appearing chronically Nutritional Appearance: overweight Orientation: alert, awake and oriented x3 HENMT Head: normal to inspection, normocephalic and atraumatic Mouth: oral mucosae normal Resp Effort & Inspection: normal respiratory effort Cardio Rate: regular rate Rhythm: regular rhythm GI Inspection: normal to inspection Palpation: soft Auscultation: normal bowel sounds Skin General skin exam: no rashes or lesions noted Neuro General: patient alert, patient awake, patient oriented x3 and no focal motor deficits Extrem General: normal to inspection, full ROM and no pedal edema Results Labs Result diagrams: 03/06/21 09:50 03/06/21 13:00 Labs: Laboratory Results - last 24 hr 03/06/21 03/06/21 03/06/21 09:50 09:50 09:50 WBC RBC Hgb Hct MCV MCH MCHC RDW Plt Count MPV Immature Gran % Neutrophils % Lymphocytes % Monocytes % Eosinophils % Basophils % Nucleated RBC % Absolute Neutrophils Absolute Lymphocytes Absolute Monocytes Absolute Eosinophils Absolute Basophils VBG pH 7.35 VBG pCO2 40 L VBG pO2 37 L* VBG HCO3 22 L VBG Total CO2 23 L VBG O2 Saturation 68 VBG Base Excess -4 L Sodium 140 Potassium 4.6 Chloride 106 Carbon Dioxide 25.0 Anion Gap 9.0 BUN 141 H* Creatinine 2.6 H Estimated GFR/1.73 m2 17.94 Glucose 119 H Calcium 8.8 Magnesium 3.2 H Total Bilirubin 0.4 Conjugated Bilirubin 0.2 AST 18 ALT 22 Alkaline Phosphatase 101 Creatine Kinase 28 Troponin I Total Protein 5.6 L Albumin 2.9 L TSH 6.25 H Free T4 0.84 Urine Color Urine Clarity Urine pH Ur Specific Vancleve Urine Protein Urine Ketones Urine Blood Urine Nitrite Urine Bilirubin Urine Urobilinogen Ur Leukocyte Esterase Urine RBC Urine WBC Ur Epithelial Cells Urine Crystals Urine Bacteria Urine Casts Urine Mucus Ur Culture Indicated? Urine Glucose COVID-19 Source Nasal/Nares SARS-CoV-2 (PCR) Negative 03/06/21 03/06/21 03/06/21 09:50 09:50 10:30 WBC 8.27 RBC 2.43 L Hgb 7.8 L Hct 23.2 L MCV 95.5 H MCH 32.1 MCHC 33.6 RDW 12.8 Plt Count 272 MPV 10.7 Immature Gran % 0.2 Neutrophils % 66.5 Lymphocytes % 23.0 Monocytes % 8.1 Eosinophils % 1.8 Basophils % 0.4 Nucleated RBC % 0 Absolute Neutrophils 5.50 Absolute Lymphocytes 1.90 Absolute Monocytes 0.67 Absolute Eosinophils 0.15 Absolute Basophils 0.03 VBG pH VBG pCO2 VBG pO2 VBG HCO3 VBG Total CO2 VBG O2 Saturation VBG Base Excess Sodium Potassium Chloride Carbon Dioxide Anion Gap BUN Creatinine Estimated GFR/1.73 m2 Glucose Calcium Magnesium Total Bilirubin Conjugated Bilirubin AST ALT Alkaline Phosphatase Creatine Kinase Troponin I < 0.05 Total Protein Albumin TSH Free T4 Urine Color Yellow Urine Clarity Sl Cloudy Urine pH 5.0 Ur Specific Vancleve 1.015 Urine Protein Trace H Urine Ketones Negative Urine Blood Negative Urine Nitrite Positive H Urine Bilirubin Negative Urine Urobilinogen 0.2 Ur Leukocyte Esterase Small H Urine RBC Negative Urine WBC 20-50 H Ur Epithelial Cells Few Urine Crystals Negative Urine Bacteria Many Urine Casts 0-2 Hyaline Urine Mucus Negative Ur Culture Indicated? Yes Urine Glucose Negative COVID-19 Source SARS-CoV-2 (PCR) Last Vital Signs Temp 36.4 C L 03/06/21 09:41 Pulse 53 L 03/06/21 10:30 Resp 20 03/06/21 10:50 BP 140/68 03/06/21 10:30 Pulse Ox 100 03/06/21 10:50
[2021-03-06 13:32] LABS: Anion Gap 11.9 mmol/L (3-11); CO2 23.1 mmol/L (21.0-32.0); CREATININE 2.4 mg/dL (0.55-1.02); Calcium 8.6 mg/dL (8.5-10.1); Chloride 106 mmol/L (98-107); Estimated GFR 19.68 (mL/min/1.73m2); Glucose 160 mg/dL (74-106); Potassium 4.7 mmol/L (3.5-5.1); Sodium 141 mmol/L (136-145)
[2021-03-06 13:34] LABS: BUN 138 mg/dL (7-18)
[2021-03-06 13:39] LABS: Troponin I < 0.05 ng/mL (<0.06)
[2021-03-06] MEDS: Simethicone 80 MG CHEW PO (18:58)
[2021-03-06] MEDS: Simvastatin 20 MG TAB PO (21:20)
[2021-03-06] MEDS: Acetaminophen 500 MG TAB 1000 MG PO (21:21)
[2021-03-06] MEDS: Normal Saline Flush 10 ML SYR IVP (21:22)
[2021-03-06] MEDS: Refresh PLUS Eye Drops 0.4ml 1 EACH OP (21:22)
[2021-03-06] MEDS: Normal Saline 1,000 ML 100 ML IV (21:22)
[2021-03-07] MEDS: Normal Saline 1,000 ML 100 ML IV ×2 (05:39→15:40)
[2021-03-07] MEDS: Levothyroxine 75 MCG TAB PO (05:39)
[2021-03-07 07:39] LABS: Anion Gap 9.9 mmol/L (3-11); CO2 23.1 mmol/L (21.0-32.0); CREATININE 2.5 mg/dL (0.55-1.02); Calcium 8.6 mg/dL (8.5-10.1); Chloride 110 mmol/L (98-107); Estimated GFR 18.78 (mL/min/1.73m2); Glucose 177 mg/dL (74-106); Potassium 4.7 mmol/L (3.5-5.1); Sodium 143 mmol/L (136-145)
[2021-03-07 07:40] LABS: BUN 122 mg/dL (7-18)
[2021-03-07] MEDS: Aspirin E.C. 81 MG TABEC PO (08:35)
[2021-03-07] MEDS: Loratidine 10 MG TAB PO (08:36)
[2021-03-07] MEDS: Multivitamin w/Minerals TAB 1 TAB PO (08:36)
[2021-03-07] MEDS: Polyethylene Glycol 3350 17 GM PACKET PO (08:36)
[2021-03-07] MEDS: Acetaminophen 500 MG TAB 1000 MG PO ×3 (08:36→20:53)
[2021-03-07] MEDS: QUEtiapine 25 MG TAB PO (08:36)
[2021-03-07] MEDS: Refresh PLUS Eye Drops 0.4ml OP (08:36)
[2021-03-07] MEDS: Insulin Glargine 300 UNITS/3 ML PEN 18 UNITS SC (08:37)
[2021-03-07 08:39] LABS: Abs Immature Grans 0.04 10^3/uL (0.0-0.06); Absolute Basophil Count 0.05 10^3/uL (0.0-0.2); Absolute Eosinophil Count 0.39 10^3/uL (0.0-0.7); Absolute Lymphocyte Count 2.63 10^3/uL (1.2-3.4); Absolute Monocyte Count 0.62 10^3/uL (0.1-0.8); Absolute Neutrophil Count 4.27 10^3/uL (1.2-6.7); Basophils % 0.6; Eosinophils % 4.9; HCT 23.4 % (36.0-46.0); HGB 7.8 g/dL (11.2-15.7); Immature Grans % 0.5; Lymphocytes % 32.9; MCH 31.8 pg (27.0-33.0); MCHC 33.3 % (32.0-36.0); MCV 95.5 fL (80-95); Monocytes % 7.8; Neutrophils % 53.3; Nucleated RBC 0 %; RBC 2.45 10^6/uL (3.93-5.22); RDW 13.3 % (11.7-14.6); RDW-SD 45.5 fL
[2021-03-07 08:41] VITALS: BP 112/71; PULSE 60; RESP 16; TEMP 36.6; O2SAT 99
[2021-03-07 08:58] LABS: Basophilic Stippling Present; Platelet Count 255 10^3/uL (130-400)
[2021-03-07 08:59] LABS: Polychromasia Present
--- NOTE | 2021-03-07 09:18 | INITIAL_ITS ---
- If Service Date Differs Date of service: 03/07/21 Time of Service: 09:18 Care Management Initial Assess REASON FOR HOSPITALIZATION:: Uti PAST MEDICAL HISTORY/PAST SURGICAL HISTORY:: Medical History (Updated 03/06/21 @ 13:16 by Lisa Quiroga NP). Anemia. Cataracts, bilateral. Chronic kidney disease. Diabetes. Hyperlipidemia. Hypertension. Obesity. Partial blindness. Schizophrenia. Surgical History (Updated 10/22/16 @ 15:29 by Gomez Fu MD). cataract. 03/27/16[place] [facility]16 os. Colonoscopy - IV Sedation (06/11/14). per Dr. Slater, pre-malignant polyps removed PREVIOUS FUNCTIONAL STATUS/SOCIAL/FAMILY SUPPORTS:: Merly came to [facility] from [facility] and [facility] where she has resided for the past 4 years. She stated that she mostly likes it there but that things have been difficult since [facility] started. Merly had 6 children but one of her sons in October; Merly thinks it may have been from [facility]. All of her children live out of state. CURRENT FUNCTIONAL STATUS:: Merly was sitting up in a chair when CM met with her. She was poilite but a bit guarded at first. As she began talking, however, Merly began sharing details about her family and some of her struggles. She stated that overall she enjoys being at [facility] and feels the staff is very caring.She did inform CM that it has been difficult not having her children closeby for support. ADVANCE DIRECTIVES:: none on file Has patient been provided with info about the portal/API?: Yes Did the patient sign up for the portal?: No CODE STATUS:: Full Code INSURANCE COVERAGE / FINANCIAL ISSUES:: Medicare. Medicaid CURRENT HOME/COMMUNITY SERVICES/EQUIPMENT:: lives in a SNF PRIMARY CARE PHYSICIAN:: [facility] provider PATIENT/FAMILY EDUCATION NEEDS:: Expectations, limitations, Ask Me Three TRANSPORTATION:: via facility wheelchair van PLAN:: Merly will return to [facility] when medically cleared. She will follow up with the facility provider and plan of care. CM will continue to support Merly and assess for discharge needs.
[2021-03-07] MEDS: Insulin Aspart 300 UNITS/3 ML PEN SC (12:05)
[2021-03-07] MEDS: Refresh PLUS Eye Drops 0.4ml 1 EACH OP ×3 (12:06→20:54)
--- NOTE | 2021-03-07 12:18 | W.DIABETESNO ---
Date of service: 03/07/21 Time of Service: 12:18 Diabetes Note NOTE: Ms. Rivera has excellent PO intake on carbohydrate consistent diet. BMI is 43.5 kg/m2 c/w class 3 obesity. Blood sugars slightly above target. Getting 18 units of glargine daily as well as correction insulin. Will continue to follow weight, PO intake, and blood sugars. Time Spent in Nutritional Counseling and Treatment: 0
[2021-03-07 15:31] VITALS: BP 152/50; PULSE 63; RESP 23; TEMP 36.6; O2SAT 100
--- NOTE | 2021-03-07 17:22 | PGE_ITS ---
Date of Service Date of service: 03/07/21 Time of Service: 17:23 Assessment and Plan Assessment and plan (1) Urinary tract infection: Start date: 03/07/21 Start time: 17:24 Status: Acute Assessment and plan: ceftriaxone day 2 cultures growing e. coli. (2) Diabetes mellitus type 2 with complications: Start date: 03/07/21 Start time: 17:24 Status: Acute Assessment and plan: diabetic diet, sliding scale ac/hs, continue home medication monitor and adjust as needed. A1C was 6.2 in december 2020 (3) Chronic kidney disease (CKD): Start date: 03/07/21 Start time: 17:25 Status: Acute Assessment and plan: Slight improvement creatinine 2.6, above her 1.7-2.0 baseline monitor I&O, give IV fluids renal dosing avoid nephrotoxic drugs suspect pre-renal (4) Hypertension: Start date: 03/07/21 Start time: 17:25 Status: Acute Assessment and plan: blood pressure stable. will hold losartan and lasix d/t dehydration and NORI (5) General weakness: Start date: 03/07/21 Start time: 17:25 Status: Acute Assessment and plan: PT consult (6) Schizophrenia: Start date: 03/07/21 Start time: 17:25 Status: None Assessment and plan: stable, continue home medication (7) Anemia: Start date: 03/07/21 Start time: 17:25 Status: None Assessment and plan: hemoglobin 7.8, stool negative for OB. add iron studies. (8) DVT prophylaxis: Start date: 03/07/21 Start time: 17:26 Status: Acute Assessment and plan: teds, scd hold off on pharmacological prophylaxis with low hemoglobin until active bleeding definitely ruled out. (9) Discharge planning issues: Start date: 03/07/21 Start time: 17:26 Status: Acute Assessment and plan: back to health and rehab when medically stable. discussed with Dr Orozco. Subjective Subjective Patient reports: other Interval history since last seen: Doing well. No pain. Renal u/s ordered. eating and drinking well. Exam Const General: cooperative, comfortable, no acute distress, disheveled and ill appearing chronically Nutritional Appearance: overweight Orientation: alert, awake and oriented x3 HENMT Head: normal to inspection, normocephalic and atraumatic Mouth: oral mucosae normal Resp Effort & Inspection: normal respiratory effort Cardio Rate: regular rate Rhythm: regular rhythm GI Inspection: normal to inspection Palpation: soft Auscultation: normal bowel sounds Skin General skin exam: no rashes or lesions noted Neuro General: patient alert, patient awake, patient oriented x3 and no focal motor deficits Extrem General: normal to inspection, full ROM and no pedal edema Objective Last Vital Signs Temp 36.6 C 03/07/21 15:31 Pulse 63 03/07/21 15:31 Resp 23 03/07/21 15:31 BP 152/50 H 03/07/21 15:31 Pulse Ox 100 03/07/21 15:31 Laboratory Results - last 24 hr 03/07/21 03/07/21 03/07/21 06:30 06:30 08:15 WBC Cancelled 8.00 RBC Cancelled 2.45 L Hgb Cancelled 7.8 L Hct Cancelled 23.4 L MCV Cancelled 95.5 H MCH Cancelled 31.8 MCHC Cancelled 33.3 RDW Cancelled 13.3 Plt Count Cancelled 255 MPV Cancelled 11.0 Immature Gran % Cancelled 0.5 Neutrophils % Cancelled 53.3 Band Neutrophils % Cancelled Lymphocytes % Cancelled 32.9 Atypical Lymphs % Cancelled Monocytes % Cancelled 7.8 Eosinophils % Cancelled 4.9 Basophils % Cancelled 0.6 Metamyelocytes % Cancelled Myelocytes % Cancelled Promyelocytes % Cancelled Other Cells % Cancelled Nucleated RBC % Cancelled 0 Absolute Neutrophils Cancelled 4.27 Absolute Lymphocytes Cancelled 2.63 Absolute Monocytes Cancelled 0.62 Absolute Eosinophils Cancelled 0.39 Absolute Basophils Cancelled 0.05 RBC Morphology Cancelled See Below Polychromasia Cancelled Present Hypochromasia Cancelled Poikilocytosis Cancelled Basophilic Stippling Cancelled Present Anisocytosis Cancelled Microcytosis Cancelled Macrocytosis Cancelled Spherocytes Cancelled Tear Drop Cells Cancelled Ovalocytes Cancelled Stomatocytes Cancelled [place] Bodies Cancelled Rhianna Cells/Echinocytes Cancelled Acanthocytes (Spur) Cancelled Schistocytes Cancelled Sodium 143 Potassium 4.7 Chloride 110 H Carbon Dioxide 23.1 Anion Gap 9.9 BUN 122 H* Creatinine 2.5 H Estimated GFR/1.73 m2 18.78 Glucose 177 H Calcium 8.6
--- NOTE | 2021-03-07 17:47 | CHAPLAIN ---
Merly was tucked into bed and resting when I visited. I explained my role and offered support. I'll try to catch up with her when she's more awake.
[2021-03-07] MEDS: Simvastatin 20 MG TAB PO (21:53)
[2021-03-07 23:10] VITALS: BP 142/72; PULSE 63; RESP 22; TEMP 36.7; O2SAT 100
--- NOTE | 2021-03-08 00:16 | ANES.VASC_ITS ---
Midline Placement Date Performed: 03/08/21 Procedure Time: 23:30 Requesting Provider: Morteza Mann Procedure Location: Med/Surg Sedation Given (Indicate Dose Given): No Sedation given Patient Mental Status: Awake Sterility: Hand Hygiene, Surgical Cap, Surgical Mask and Chlorhexidine Laterality: Left Insertion Site: Basilic Midline Device: PowerGlide Pro 18G Catheter Length: 10 cm Midline Procedure Procedure: 1% Lidocaine to skin and subcutaneous tissue with 25g needle Dressing: Other Blood Return: Absent Flushes: Other Ultrasound: Sterile probe cover and gel used Ultrasound Image Saved?: No Number of Attempts (See previous attempts in note section): 1 Procedure Tolerated: Patient did not tolerate well Procedure Outcome: Unsuccessful Procedure Comment:: Merly's IV came out at ~1730 03/07/21 per her. I was asked to place a midline catheter for IV antibiotics. On discussion of why I was there she expressed frustration with the inability to get IV access on her, but she agreed to proceed. An appropriate vessel was identified (left basilic). On ad vancement towards the vein Merly jumped and stated that she felt like she was shocked. The attempt was aborted, and it was discussed that it was possible that the needle came close to a nerve. Merly is refusing to allow additional IV attempts. A discussion was had about vascular access and how it can be tricky and take time, and also that her likely best option is to follow the hospitalists treatment plan, which involves access. She was informed that refusal of the IV being placed very likely could lead to her becoming much more sick and ultimately potentially her . She still refuses to proceed with placement. Again, we discussed that we can try on the other side, find a differnet vessel, and that the placement of the catheter is extremely important for her getting better, and that not having it can lead to increased complication, up to and including . She verbalized her understanding (maybe it is my time). Mackenzie was updated on the pts refusal. Performed By: jose
--- NOTE | 2021-03-08 00:42 | NUR.NOTE ---
Nursing Note: 03/08/21 0010 Patient continues to be without IV access, ZAFAR Warren in to attemp. Patient allowed AF attempt x 1 and patient refused during that attempt and refused to have subsequent attempts. This nurse and A.F. both explained risk of not receiving IV antibiotics at this time and the need for IV access. Risk including risk of . Patient continues to refuse attempt at IV access. MD Mann notified.
[2021-03-08] MEDS: Levothyroxine 75 MCG TAB PO (06:06)
[2021-03-08 07:46] LABS: Iron 35 ug/dL (50-170); Total Iron Binding Capacity 294 ug/dL (250-450); Transferrin Sat 12 % (15-50)
[2021-03-08 07:55] LABS: Anion Gap 8.5 mmol/L (3-11); CO2 24.5 mmol/L (21.0-32.0); Calcium 8.6 mg/dL (8.5-10.1); Chloride 110 mmol/L (98-107); Estimated GFR 24.29 (mL/min/1.73m2); Ferritin 53 ng/mL (8-252); Glucose 148 mg/dL (74-106); Magnesium 2.8 mg/dL (1.8-2.4); Potassium 4.6 mmol/L (3.5-5.1); Sodium 143 mmol/L (136-145)
[2021-03-08 07:59] LABS: BUN 93 mg/dL (7-18)
[2021-03-08 08:07] VITALS: BP 162/80; PULSE 72; RESP 18; TEMP 36.5; O2SAT 99
[2021-03-08 08:09] LABS: Folate 18.1 ng/mL (8.6-20.0); Vitamin B12 695 pg/mL (193-986)
[2021-03-08] MEDS: Polyethylene Glycol 3350 17 GM PACKET PO (08:46)
[2021-03-08] MEDS: Refresh PLUS Eye Drops 0.4ml OP (08:46)
[2021-03-08] MEDS: Insulin Glargine 300 UNITS/3 ML PEN 18 UNITS SC (08:46)
[2021-03-08] MEDS: Insulin Aspart 300 UNITS/3 ML PEN SC ×2 (08:47→12:26)
[2021-03-08] MEDS: Acetaminophen 500 MG TAB 1000 MG PO ×2 (08:48→19:33)
[2021-03-08] MEDS: Loratidine 10 MG TAB PO (08:48)
[2021-03-08] MEDS: Aspirin E.C. 81 MG TABEC PO (08:48)
[2021-03-08] MEDS: QUEtiapine 25 MG TAB PO (08:48)
[2021-03-08] MEDS: Multivitamin w/Minerals TAB 1 TAB PO (08:48)
[2021-03-08] MEDS: Refresh PLUS Eye Drops 0.4ml 1 EACH OP ×4 (08:50→19:33)
[2021-03-08] MEDS: Cefpodoxime 200 MG TAB PO (08:51)
[2021-03-08 08:54] LABS: Abs Immature Grans 0.04 10^3/uL (0.0-0.06); Absolute Basophil Count 0.03 10^3/uL (0.0-0.2); Absolute Eosinophil Count 0.36 10^3/uL (0.0-0.7); Absolute Lymphocyte Count 2.38 10^3/uL (1.2-3.4); Absolute Neutrophil Count 4.25 10^3/uL (1.2-6.7); Basophils % 0.4; Eosinophils % 4.6; HCT 22.3 % (36.0-46.0); HGB 7.3 g/dL (11.2-15.7); Immature Grans % 0.5; Lymphocytes % 30.7; MCH 32.2 pg (27.0-33.0); MCHC 32.7 % (32.0-36.0); MCV 98.2 fL (80-95); MPV 10.5 fL (8.0-11.0); Neutrophils % 54.8; Nucleated RBC 0 %; Platelet Count 267 10^3/uL (130-400); RBC 2.27 10^6/uL (3.93-5.22); RDW 13.6 % (11.7-14.6); RDW-SD 47.7 fL; WBC 7.76 10^3/uL (4.4-10.8)
--- NOTE | 2021-03-08 10:00 | DI.US_ITS ---
Exam(s) US RENAL EXAM: US RENAL CLINICAL HISTORY: NORI. TECHNIQUE: Hollingsworth scale, color and spectral Doppler were used. COMPARISON: No exams were available for comparison FINDINGS: Renal size in cm: Right: 9.7 left: 9.1 Echogenicity: Normal Hydronephrosis: Mild prominence of the right renal pelvis. Cyst or mass: No Nephrolithiasis: No Bladder:Normal Prevoid vol:363 Postvoid vol:69 IMPRESSION: Mild prominence of the right renal pelvis. Findings could represent mild hydronephrosis versus anato maida variant. DATA REPOSITORY:
--- NOTE | 2021-03-08 11:41 | DI.VRAD_ITS ---
PROCEDURE INFORMATION: Exam: US Retroperitoneal; Complete; Kidneys and Bladder Exam date and time: 03/08/2021 11:16 AM Age: 75 years old Clinical indication: Other: UTI, jovanni TECHNIQUE: Imaging protocol: Real-time ultrasound of the retroperitoneum with image documentation. Complete exam focused on the kidneys and bladder. COMPARISON: No relevant prior studies available. FINDINGS: Right kidney: Mild right hydronephrosis Left kidney: Normal. No stones. No hydronephrosis. Urinary bladder: small to moderate postvoid residual in the urinary bladder. Thickened urinary bladder wall IMPRESSION: 1. Mild right hydronephrosis. 2. Small to moderate postvoid residual in the urinary bladder 3. Possible cystitis Dictated and Authenticated by: Nyasia Lyons MD. Ordering:NAE Castelan MD
[2021-03-08 14:47] VITALS: BP 191/64; PULSE 55; RESP 18; TEMP 36.7; O2SAT 100
--- NOTE | 2021-03-08 15:09 | W.PM.PROGNOT ---
Date of Service Date of service: 03/08/21 Time of Service: 12:55 Assessment and Plan Assessment and plan (1) Urinary tract infection: Start date: 03/08/21 Start time: 12:56 Status: Acute Assessment and plan: Patient lost IV access urine cx pansensitive switched to cefpdoxime. cultures growing e. coli. Renal u/s revealing: IMPRESSION: 1. Mild right hydronephrosis. 2. Small to moderate postvoid residual in the urinary bladder 3. Possible cystitis She would benefit from a moreno giving these results, however she would benefit from this but freaked out and kicked me out the room Urology consult placed. (2) Diabetes mellitus type 2 with complications: Start date: 03/08/21 Start time: 12:56 Status: Acute Assessment and plan: diabetic diet, sliding scale ac/hs, continue home medication monitor and adjust as needed. A1C was 6.2 in december 2020 (3) Chronic kidney disease (CKD): Start date: 03/08/21 Start time: 12:56 Status: Acute Assessment and plan: Slight improvement creatinine 2.0, she is at baseline lost IV access, due to mood, she will not allow any one more to try, and she states I am not drinking any water avoid nephrotoxic drugs continue to monitor (4) Hypertension: Start date: 03/08/21 Start time: 12:56 Status: Acute Assessment and plan: blood pressure stable. will hold losartan and lasix d/t dehydration and NORI (5) General weakness: Start date: 03/08/21 Start time: 12:56 Status: Acute Assessment and plan: PT consult (6) Schizophrenia: Start date: 03/08/21 Start time: 12:56 Status: Chronic Assessment and plan: stable, continue home medication (7) Anemia: Start date: 03/08/21 Start time: 12:56 Status: Chronic Assessment and plan: hemoglobin 7.3, Iron levels low, started on Iron bid and vitamin C (8) DVT prophylaxis: Start date: 03/08/21 Start time: 12:56 Status: Acute Assessment and plan: teds, scd hold off on pharmacological prophylaxis with low hemoglobin until active bleeding definitely ruled out. (9) Discharge planning issues: Start date: 03/08/21 Start time: 12:56 Status: Acute Assessment and plan: back to health and rehab when medically stable. discussed with Dr Orozco. Subjective Subjective Patient reports: other Interval history since last seen: Patient freaked out when being told she would need a moreno after receiving the results of her renal u/s. She is refusing. She did not want to listen to reason. She kicked me out of her room. She stated she would refuse to drink, I told her that would make her renal function worse. She thought she was going back to [facility] I told her no one told her that and her renal function needed to improve. She lost IV access last night and anesthesia was unable to place IV after several attempts even with IV access. She kicked out of her room and would not let me evaluate her. Exam Narrative Exam Narrative: Patient would not allow me to assess as i was kicked out of her room because she was mad about having to stay and having a moreno placed. She did not like hearing the results of her u/s. Objective Last Vital Signs Temp 36.7 C 03/08/21 14:47 Pulse 55 L 03/08/21 14:47 Resp 18 03/08/21 14:47 BP 191/64 H 03/08/21 14:47 Pulse Ox 100 03/08/21 14:47 Laboratory Results - last 24 hr 03/08/21 03/08/21 03/08/21 06:30 06:30 06:30 WBC RBC Hgb Hct MCV MCH MCHC RDW Plt Count MPV Immature Gran % Neutrophils % Lymphocytes % Monocytes % Eosinophils % Basophils % Nucleated RBC % Absolute Neutrophils Absolute Lymphocytes Absolute Monocytes Absolute Eosinophils Absolute Basophils Sodium 143 Potassium 4.6 Chloride 110 H Carbon Dioxide 24.5 Anion Gap 8.5 BUN 93 H* D Creatinine 2.0 H Estimated GFR/1.73 m2 24.29 Glucose 148 H Calcium 8.6 Magnesium 2.8 H Iron 35 L TIBC 294 Transferrin % Sat 12 L Ferritin 53 Vitamin B12 695 Folate 18.1 03/08/21 06:30 WBC 7.76 RBC 2.27 L Hgb 7.3 L Hct 22.3 L MCV 98.2 H MCH 32.2 MCHC 32.7 RDW 13.6 Plt Count 267 MPV 10.5 Immature Gran % 0.5 Neutrophils % 54.8 Lymphocytes % 30.7 Monocytes % 9.0 Eosinophils % 4.6 Basophils % 0.4 Nucleated RBC % 0 Absolute Neutrophils 4.25 Absolute Lymphocytes 2.38 Absolute Monocytes 0.70 Absolute Eosinophils 0.36 Absolute Basophils 0.03 Sodium Potassium Chloride Carbon Dioxide Anion Gap BUN Creatinine Estimated GFR/1.73 m2 Glucose Calcium Magnesium Iron TIBC Transferrin % Sat Ferritin Vitamin B12 Folate
[2021-03-08] MEDS: Ascorbic Acid 500 MG TAB PO (19:34)
[2021-03-08] MEDS: Ferrous Sulfate 325 MG TAB PO (19:34)
[2021-03-08] MEDS: Simvastatin 20 MG TAB PO (21:15)
[2021-03-08 23:40] VITALS: BP 207/70; PULSE 61; RESP 16; TEMP 35.5; O2SAT 100
[2021-03-08 23:53] VITALS: BP 210/78; PULSE 59
[2021-03-09 01:40] VITALS: BP 183/66
[2021-03-09 04:16] VITALS: BP 163/74; PULSE 61; RESP 16; TEMP 36.4; O2SAT 100
[2021-03-09] MEDS: Levothyroxine 75 MCG TAB PO (06:17)
[2021-03-09 07:35] LABS: Abs Immature Grans 0.05 10^3/uL (0.0-0.06); Absolute Basophil Count 0.04 10^3/uL (0.0-0.2); Absolute Eosinophil Count 0.29 10^3/uL (0.0-0.7); Absolute Lymphocyte Count 2.18 10^3/uL (1.2-3.4); Absolute Monocyte Count 0.64 10^3/uL (0.1-0.8); Absolute Neutrophil Count 4.81 10^3/uL (1.2-6.7); Basophils % 0.5; Eosinophils % 3.6; HCT 23.6 % (36.0-46.0); HGB 7.8 g/dL (11.2-15.7); Immature Grans % 0.6; Lymphocytes % 27.2; MCH 32.4 pg (27.0-33.0); MCHC 33.1 % (32.0-36.0); MCV 97.9 fL (80-95); MPV 10.1 fL (8.0-11.0); Neutrophils % 60.1; Nucleated RBC 0 %; Platelet Count 318 10^3/uL (130-400); RBC 2.41 10^6/uL (3.93-5.22); RDW 13.2 % (11.7-14.6); RDW-SD 46.4 fL; WBC 8.01 10^3/uL (4.4-10.8)
[2021-03-09 07:49] LABS: Anion Gap 8.4 mmol/L (3-11); BUN 66 mg/dL (7-18); CO2 25.6 mmol/L (21.0-32.0); CREATININE 1.8 mg/dL (0.55-1.02); Calcium 9.3 mg/dL (8.5-10.1); Chloride 109 mmol/L (98-107); Estimated GFR 27.43 (mL/min/1.73m2); Glucose 161 mg/dL (74-106); Potassium 5.1 mmol/L (3.5-5.1); Sodium 143 mmol/L (136-145)
[2021-03-09] MEDS: Polyethylene Glycol 3350 17 GM PACKET PO (08:15)
[2021-03-09] MEDS: Refresh PLUS Eye Drops 0.4ml 1 EACH OP ×4 (08:15→20:37)
[2021-03-09] MEDS: Refresh PLUS Eye Drops 0.4ml OP (08:15)
[2021-03-09] MEDS: Multivitamin w/Minerals TAB 1 TAB PO (08:16)
[2021-03-09] MEDS: Ascorbic Acid 500 MG TAB PO ×2 (08:16→20:38)
[2021-03-09] MEDS: Aspirin E.C. 81 MG TABEC PO (08:16)
[2021-03-09] MEDS: Ferrous Sulfate 325 MG TAB PO ×2 (08:16→20:38)
[2021-03-09] MEDS: Insulin Glargine 300 UNITS/3 ML PEN 18 UNITS SC (08:16)
[2021-03-09] MEDS: Acetaminophen 500 MG TAB 1000 MG PO ×3 (08:16→20:37)
[2021-03-09] MEDS: Loratidine 10 MG TAB PO (08:16)
[2021-03-09] MEDS: Insulin Aspart 300 UNITS/3 ML PEN SC ×2 (08:16→11:54)
[2021-03-09] MEDS: QUEtiapine 25 MG TAB PO (08:16)
[2021-03-09] MEDS: Cefpodoxime 200 MG TAB PO (08:16)
[2021-03-09 08:51] VITALS: BP 171/87; PULSE 62; RESP 16; TEMP 36.2; O2SAT 100
[2021-03-09] MEDS: Sodium Chloride-Nasal SPRAY-ADULT 44 ML BTL NS (11:53)
[2021-03-09 12:25] LABS: Source Nasal/Nares
[2021-03-09 13:25] LABS: COVID-19 PCR Negative (Negative)
--- NOTE | 2021-03-09 13:42 | PGE_ITS ---
Date of Service Date of service: 03/09/21 Time of Service: 12:56 Assessment and Plan Assessment and plan (1) Urinary tract infection: Start date: 03/09/21 Start time: 10:56 Status: Acute Assessment and plan: day 2 cefpodoxime. She will need a total course of 10 days for complicated UTI. Renal u/s revealed urinary retention, she refused moreno. cultures growing e. coli. Renal u/s revealing: IMPRESSION: 1. Mild right hydronephrosis. 2. Small to moderate postvoid residual in the urinary bladder 3. Possible cystitis She would benefit from a moreno giving these results, however she would benefit from this but freaked out and kicked me out the room Urology consult placed. Qualifiers: Urinary tract infection type: acute cystitis Hematuria presence: without hematuria Qualified Code(s): N30.00 - Acute cystitis without hematuria (2) Diabetes mellitus type 2 with complications: Start date: 03/09/21 Start time: 10:56 Status: Acute Assessment and plan: diabetic diet, sliding scale ac/hs, Fingersticks have been under 180 continue home medication monitor and adjust as needed. A1C was 6.2 in december 2020 (3) Chronic kidney disease (CKD): Start date: 03/09/21 Start time: 10:56 Status: Acute Assessment and plan: creatinine at baseline, BUN improved at 66 from 93 Bun is also baseline for her continue fluids avoid nephrotoxic drugs continue to monitor Qualifiers: Chronic kidney disease stage: stage 3 (moderate) Chronic kidney disease stage 3 subtype: unspecified whether 3a or 3b Qualified Code(s): N18.30 - Chronic kidney disease, stage 3 unspecified (4) Hypertension: Start date: 03/09/21 Start time: 10:56 Status: Chronic Assessment and plan: blood pressure stable. will hold losartan and lasix d/t dehydration and NORI Qualifiers: Hypertension type: primary hypertension Qualified Code(s): I10 - Essential (primary) hypertension (5) General weakness: Start date: 03/09/21 Start time: 10:56 Status: Acute Assessment and plan: PT consult Worked with PT at [facility] Feeling much better, likely due to dehydration and infection (6) Schizophrenia: Start date: 03/09/21 Start time: 10:56 Status: Chronic Assessment and plan: stable, continue home medication Qualifiers: Schizophrenia type: unspecified Qualified Code(s): F20.9 - Schizophrenia, unspecified (7) Anemia: Start date: 03/09/21 Start time: 10:56 Status: Chronic Assessment and plan: hemoglobin 7.8 stable Iron levels low, started on Iron bid and vitamin C Qualifiers: Anemia type: iron deficiency Iron deficiency anemia type: unspecified i yudith deficiency Qualified Code(s): D50.9 - Iron deficiency anemia, unspecified (8) DVT prophylaxis: Start date: 03/09/21 Start time: 10:56 Status: Acute Assessment and plan: teds, scd hold off on pharmacological prophylaxis with low hemoglobin until active bleeding definitely ruled out. (9) Discharge planning issues: Start date: 03/09/21 Start time: 10:56 Status: Acute Assessment and plan: back to [facility] likely tomorrow. Repeat COVID today. discussed with Dr Hawkins Subjective Subjective Patient reports: no new complaints Interval history since last seen: Renal function near baseline. feeling better, wants to go back to [facility]. Repeat covid done today. Urology consult for tomorrow due to renal u/s. She is in a much better mood today. She will need a total of 10 day course of cefpodoxime for complicated UTI. PT consult placed as she stated she has not worked with anyone over here and she was doing PT at [facility]. Eating and drinking w/o difficulty. No difficulty with urination Exam Const General: cooperative, comfortable, no acute distress, disheveled and ill appearing chronically Nutritional Appearance: overweight Orientation: alert, awake and oriented x3 HENMA Head: normal to inspection, normocephalic and atraumatic Mouth: oral mucosae normal Resp Effort & Inspection: normal respiratory effort Cardio Rate: regular rate Rhythm: regular rhythm GI Inspection: normal to inspection Palpation: soft Auscultation: normal bowel sounds Skin General skin exam: no rashes or lesions noted Neuro General: patient alert, patient awake, patient oriented x3 and no focal motor deficits Extrem General: normal to inspection, full ROM and no pedal edema Objective Last Vital Signs Temp 36.2 C L 03/09/21 08:51 Pulse 62 03/09/21 08:51 Resp 16 03/09/21 08:51 BP 171/87 H 03/09/21 08:51 Pulse Ox 100 03/09/21 08:51 Laboratory Results - last 24 hr 03/09/21 03/09/21 03/09/21 06:42 06:42 11:49 WBC 8.01 RBC 2.41 L Hgb 7.8 L Hct 23.6 L MCV 97.9 H MCH 32.4 MCHC 33.1 RDW 13.2 Plt Count 318 MPV 10.1 Immature Gran % 0.6 Neutrophils % 60.1 Lymphocytes % 27.2 Monocytes % 8.0 Eosinophils % 3.6 Basophils % 0.5 Nucleated RBC % 0 Absolute Neutrophils 4.81 Absolute Lymphocytes 2.18 Absolute Monocytes 0.64 Absolute Eosinophils 0.29 Absolute Basophils 0.04 Sodium 143 Potassium 5.1 Chloride 109 H Carbon Dioxide 25.6 Anion Gap 8.4 BUN 66 H D Creatinine 1.8 H Estimated GFR/1.73 m2 27.43 Glucose 161 H Calcium 9.3 COVID-19 Source Nasal/Nares SARS-CoV-2 (PCR) Negative
[2021-03-09] MEDS: Triamcinolone 0.1% CR 15 GM TUBE TP ×2 (14:08→20:38)
[2021-03-09 16:48] VITALS: BP 191/78; PULSE 60; RESP 16; TEMP 36.4; O2SAT 100
[2021-03-09] MEDS: Simvastatin 20 MG TAB PO (22:44)
[2021-03-10 00:32] VITALS: BP 200/83; PULSE 62; RESP 16; TEMP 36.5; O2SAT 99
[2021-03-10 02:40] VITALS: BP 177/68; RESP 16; O2SAT 98
[2021-03-10] MEDS: Levothyroxine 75 MCG TAB PO (06:00)
[2021-03-10 07:00] VITALS: BP 194/71; PULSE 69; RESP 18; TEMP 36.7; O2SAT 100
[2021-03-10] MEDS: Multivitamin w/Minerals TAB 1 TAB PO (08:27)
[2021-03-10] MEDS: QUEtiapine 25 MG TAB PO (08:27)
[2021-03-10] MEDS: Cefpodoxime 200 MG TAB PO (08:27)
[2021-03-10] MEDS: Aspirin E.C. 81 MG TABEC PO (08:27)
[2021-03-10] MEDS: Acetaminophen 500 MG TAB 1000 MG PO ×2 (08:28→13:36)
[2021-03-10] MEDS: Refresh PLUS Eye Drops 0.4ml 1 EACH OP ×2 (08:28→12:37)
[2021-03-10] MEDS: Loratidine 10 MG TAB PO (08:28)
[2021-03-10] MEDS: Ferrous Sulfate 325 MG TAB PO (08:28)
[2021-03-10] MEDS: Ascorbic Acid 500 MG TAB PO (08:28)
[2021-03-10] MEDS: Insulin Aspart 300 UNITS/3 ML PEN SC ×2 (08:30→11:44)
[2021-03-10] MEDS: Triamcinolone 0.1% CR 15 GM TUBE TP ×2 (08:32→13:38)
[2021-03-10] MEDS: Sodium Chloride-Nasal SPRAY-ADULT 44 ML BTL NS (08:32)
[2021-03-10] MEDS: Polyethylene Glycol 3350 17 GM PACKET PO (08:33)
--- NOTE | 2021-03-10 08:33 | PCNE_ITS ---
Date of service: 03/10/21 Time of Service: 08:33 History of Present Illness Narrative: From [facility] Assessment and plan (1) Urinary tract infection: Start date: 03/09/21 Start time: 10:56 Status: Acute Assessment and plan: day 2 cefpodoxime. She will need a total course of 10 days for complicated UTI. Renal u/s revealed urinary retention, she refused moreno. cultures growing e. coli. Renal u/s revealing: IMPRESSION: 1. Mild right hydronephrosis. 2. Small to moderate postvoid residual in the urinary bladder 3. Possible cystitis She would benefit from a moreno giving these results, however she would benefit from this but freaked out and kicked me out the room Urology consult placed. Qualifiers: Urinary tract infection type: acute cystitis Hematuria presence: without hematuria Qualified Code(s): N30.00 - Acute cystitis without hematuria (2) Diabetes mellitus type 2 with complications: Start date: 03/09/21 Start time: 10:56 Status: Acute Assessment and plan: diabetic diet, sliding scale ac/hs, Fingersticks have been under 180 continue home medication monitor and adjust as needed. A1C was 6.2 in december 2020 (3) Chronic kidney disease (CKD): Start date: 03/09/21 Start time: 10:56 Status: Acute Assessment and plan: creatinine at baseline, BUN improved at 66 from 93 Bun is also baseline for her continue fluids avoid nephrotoxic drugs continue to monitor Qualifiers: Chronic kidney disease stage: stage 3 (moderate) Chronic kidney disease stage 3 subtype: unspecified whether 3a or 3b Qualified Code(s): N18.30 - Chronic kidney disease, stage 3 unspecified (4) Hypertension: Start date: 03/09/21 Start time: 10:56 Status: Chronic Assessment and plan: blood pressure stable. will hold losartan and lasix d/t dehydration and NORI Qualifiers: Hypertension type: primary hypertension Qualified Code(s): I10 - Essential (primary) hypertension (5) General weakness: Start date: 03/09/21 Start time: 10:56 Status: Acute Assessment and plan: PT consult Worked with PT at [facility] Feeling much better, likely due to dehydration and infection (6) Schizophrenia: Start date: 03/09/21 Start time: 10:56 Status: Chronic Assessment and plan: stable, continue home medication Qualifiers: Schizophrenia type: unspecified Qualified Code(s): F20.9 - Schizophrenia, unspecified (7) Anemia: Start date: 03/09/21 Start time: 10:56 Status: Chronic Assessment and plan: hemoglobin 7.8 stable Iron levels low, started on Iron bid and vitamin C Qualifiers: Anemia type: iron deficiency Iron deficiency anemia type: unspecified iron deficiency Qualified Code(s): D50.9 - Iron deficiency anemia, unspecified (8) DVT prophylaxis: Start date: 03/09/21 Start time: 10:56 Status: Acute Assessment and plan: teds, scd hold off on pharmacological prophylaxis with low hemoglobin until active bleeding definitely ruled out. (9) Discharge planning issues: Start date: 03/09/21 Start time: 10:56 Status: Acute Assessment and plan: back to [facility] likely tomorrow. Repeat COVID today. Interim Hx: Merly is a full code but refusing much of her care. She refused blood draws today. I came in to clarify her goals of care so that we can align her goals with what care she was receiving. She is interested to talk about this, but not today. There are some possible plans for her to remain return to [facility] today. If she is still here tonight I will come in and talk to her about her goals of care and her CODE STATUS Assessment and Plan Assessment and plan (1) Anemia: Status: Chronic Qualifiers: Anemia type: iron deficiency Iron deficiency anemia type: unspecified iron deficiency Qualified Code(s): D50.9 - Iron deficiency anemia, unspecified (2) Schizophrenia: Status: Chronic Qualifiers: Schizophrenia type: unspecified Qualified Code(s): F20.9 - Schizophrenia, unspecified (3) General weakness: Status: Acute (4) Urinary tract infection: Status: Acute Qualifiers: Urinary tract infection type: acute cystitis Hematuria presence: without hematuria Qualified Code(s): N30.00 - Acute cystitis without hematuria (5) Palliative care patient: Status: Acute Assessment and plan: I do think Merly would benefit from a discussion regarding her goals of care. I also do believe she needs a full discussion regarding CODE STATUS and what it means to be a full code. If this does not happen this evening at [facility], will follow up at [facility] re[facility] at a later date. She was very open to this discussion. Thank you very much for this consult Review of Systems Narrative: She states that she was hungry and wants to eat. She says she feels fine. [facility] Medical History (Updated 03/10/21 @ 10:34 by Najma Aviles MD, DC) Anemia Cataracts, bilateral Chronic kidney disease Diabetes Hyperlipidemia Hypertension Obesity Partial blindness Schizophrenia Surgical History (Updated 10/22/16 @ 15:29 by Gomez Fu MD) cataract 03/27/16-od [facility] 04/27/16 os Colonoscopy - IV Sedation (06/11/14) per Dr. Slater, pre-malignant polyps removed Social History Smoking/Tobacco Use Status: Former Tobacco Use Smoking risk assessment performed?: Yes Drug use: Never Do you feel safe at home: Yes Do you feel safe in your relationship?: Yes Exam Narrative Exam Narrative: She is sitting slumped in the chair. Nursing came in while we were chatting. She is speaking in complete sentences. Her heart is regular. She does not have a lot of airflow. Her abdomen is nontender but firm Results Last Vital Signs Temp 97.7 F 03/10/21 00:32 Pulse 62 03/10/21 00:32 Resp 16 03/10/21 02:40 BP 177/68 H 03/10/21 02:40 Pulse Ox 98 03/10/21 02:40 Labs Result diagrams: 03/09/21 06:42 03/09/21 06:42 Labs: Laboratory Results - last 24 hr 03/09/21 11:49 COVID-19 Source Nasal/Nares SARS-CoV-2 (PCR) Negative Laboratory Tests 03/06/21 03/06/21 03/08/21 09:50 09:50 06:30 Hgb Hct 23.2 L Creatinine 2.6 H 2.0 H 03/09/21 03/09/21 06:42 06:42 Hgb 7.8 L Hct 23.6 L Creatinine 1.8 H Urine: Urine Culture Preliminary 03/08/21-1021 Day 1 Result ISOLATES BELOW ISOLATE 1 COLONY COUNT >100,000 COLONIES/ML ISOLATE 1 APPEARANCE Gram Negative Alfonso ISOLATE 1 ACTION SUSCEPTIBILITY TO FOLLOW Day 2 Result ISOLATES BELOW ISOLATE 1 COLONY COUNT >100,000 COLONIES/ML ISOLATE 1 APPEARANCE Gram Negative Alfonso Organism 1 Escherichia coli COLONY COUNT >100,000 COLONIES/ML Esch coli Result Ampicillin S Ampicillin/Sulbactam S Cefazolin S Ceftazidime S CEFTRIAXONE S Ciprofloxacin S Gentamicin S Nitrofurantoin S Imipenem S Levofloxacin S Tobramycin S Trimethoprim/Sulfamethoxazole S Piperacillin/Tazobactam S
[2021-03-10] MEDS: Insulin Glargine 300 UNITS/3 ML PEN 18 UNITS SC (09:19)
--- NOTE | 2021-03-10 11:03 | PDOC.CMDIS ---
- If Service Date Differs Date of service: 03/10/21 Time of Service: 11:03 LACE Index Scoring Tool - Questions: Length of Stay (in days): 4 - 6 Acuity (Admit via E.D.?): Yes Comorbidities: Diabetes w/o Complication, Liver or Renal Disease E.D. Visits: 1 - Answers: Total Score: 13 Risk of Readmission: High Risk Care Management Discharge Reason for Hospitalization: Uti Discharge Plan: Merly will return to [facility] where she resides. She will follow up with the facility provider and plan of care and transport via wheelchair van. Patient/Family Education Needs: Expectations, limitations, Ask Me Three
[2021-03-10 11:37] VITALS: BP 184/71; PULSE 65; RESP 18; TEMP 36.2; O2SAT 100
--- NOTE | 2021-03-10 13:04 | DSE_ITS ---
Date of service: 03/10/21 Time of Service: 13:04 DS: Diagnosis Discharge Diagnosis (1) Anemia: Status: Chronic (2) Schizophrenia: Status: Chronic (3) General weakness: Status: Acute (4) Urinary tract infection: Status: Acute (5) Palliative care patient: Status: Acute Discharge Plan Disposition Patient Disposition: SNF (LEVEL 1) [facility] Condition: Stable Discharge Details Reason For Visit: UTI acute kidney injury Admit Date/Time: 03/06/21 12:44 Admit Provider: Ben Hurd Attending Provider: Ben Hurd Primary Care Provider: Unknown,Unknown Hospital Course Hospital Course: This patient presented to ED this morning with altered mental status, on arrival was oriented and alert. Work up in ED shows UTI and anemia. her stool in negative for OB. she was also found to be in acute on chronic renal failure. she is started on ceftriaxone and given IV fluids. she is making urine. she was admitted to med/surg on hospitalist services. she was found to be retaining urine and with hydronephrosis on right. She refused moreno catheter placement. A palliative care consult was also placed as she remains a full code, yet was refusing care in the ED including moreno placement, IV, blood draws. She was not willing to take with DR Aviles at the time of her visit but states she is willing to discuss it at another time. Her urine grew ecoli, menjivar sensitive, she will complete a 14 day course of cefpodoxime. discussed jovani cordero Home Meds and New Rx's Prescriptions: New cefpodoxime 200 mg Tablet 200 mg PO Q24H Qty: 14 RF: 0 Continued ONE TOUCH ULTRA 1 EACH EACH 1 ea Miscellaneous DAILY Qty: 90 RF: 4 simvastatin 20 MG tablet 20 mg PO DAILY Qty: 90 RF: 3 aspirin [Aspir-81] 81 MG tablet,delayed release (DR/EC) 81 mg PO DAILY Qty: 90 RF: 3 (DME) lancets [OneTouch UltraSoft Lancets] 1 EACH misc 1 ea Miscellaneous DAILY Qty: 90 RF: 4 (DME) blood sugar diagnostic [OneTouch Ultra Test] 1 EACH strip 1 ea Miscellaneous DAILY Qty: 100 RF: 2 elastic stockings 2 u DAILY Qty: 2 RF: 0 (DME) wheelchair 1 EACH device 1 ea Miscellaneous DAILY Qty: 1 RF: 0 transfer bench 1 unit Miscellaneous DAILY PRNQty: 1 RF: 0 Diabetic Footwear Miscellaneous DAILY Qty: 1 RF: 1 furosemide 20 MG tablet 20 mg PO BID Qty: 1 RF: 11 (DME) foot care products [Cushion Insole] 1 EACH pad 1 ea Miscellaneous DAILY 365 Days Qty: 1 RF: 0 hydroxyzine HCl 25 MG tablet 25 mg PO QID PRN PRNQty: 100 RF: 1 quetiapine 25 mg tablet 25 mg PO DAILY RF: 0 levothyroxine 75 mcg tablet 75 mcg PO DAILY RF: 0 loratadine-pseudoephedrine [Loratadine-D] 10-240 mg Tablet Extended Release 24 Hr 1 tab PO DAILY RF: 0 Lantus Solostar U-100 Insulin 100 unit/mL (3 mL) insulin pen 18 unit SUBCUT DAILY RF: 0 acetaminophen 500 mg Tablet 1,000 mg PO TID RF: 0 triamcinolone acetonide 0.5 % cream TOPICAL RF: 0 Refresh Liquigel 1 % Drops, Liquid Gel 1 drp ophthalmic (eye) DAILY RF: 0 multivitamin with iron Tablet 1 tab PO DAILY RF: 0 sodium chloride [Saline Mist] 0.65 % Aerosol,[place] 1 spray INTRANASAL TID RF: 0 diclofenac sodium 1 % Gel 1 applic TOPICAL PRN PRNRF: 0 simethicone 80 mg Tablet 80 mg PO QID RF: 0 Systane Balance 0.6 % Drops 1 drp ophthalmic (eye) QID RF: 0 polyethylene glycol 3350 4 gram Powder In Packet 17 g PO DAILY RF: 0 Discontinued losartan 50 mg tablet 50 mg PO DAILY RF: 0 Discharge Instructions Instructions: Urinary Tract Infection in Women (DC) Stand Alone Forms: Nursing Discharge Form Referrals: Olu Torres MD [ [facility] STAFF PHYSICIAN] - (Office will call with appointment.) Activity:: Activity as Tolerated Equipment/Supplies:: No Equipment Needed Diet:: Carb Counting Discharge Orders Discharge Orders: Discharge Order (Routine); Ordered 03/10/21 Ordered By: Lisa Quiroga Discharge Data Discharge Date/Time-TO BE ENTERED AT DEPARTURE: 03/10/21 15:07 DS: Summary Time Spent with Patient providing and/or coordinating discharge services: Less than 30 minutes Status at Discharge Functional status at discharge: uses cane/walker Overall status at discharge: patient is back to baseline Mental Status: mental status grossly normal Speech and Movement: speech and movement normal Mood: congruent mood Affect: normal affect Exam Const General: no acute distress, disheveled, frail appearing and ill appearing chronically Nutritional Appearance: obese Orientation: alert, awake and oriented x3 Resp Auscultation: clear to auscultation bilaterally Cardio Rate: regular rate Rhythm: regular rhythm GI Inspection: large pannus and obesity Neuro General: patient alert, patient awake and patient oriented x3 Extrem General: normal to inspection and full ROM Psych Mental Status: mental status grossly normal Speech and Movement: speech and movement normal Mood: congruent mood Affect: normal affect DS: Data Vitals/I&O Vitals and I&O: Vital Signs Temperature 36.2 C L 03/10/21 11:37 Temperature Source Tympanic 03/10/21 11:37 Pulse 65 03/10/21 11:37 Pulse Rhythm Regular 03/10/21 07:00 Pulse 65 03/06/21 13:16 Respiratory Rate 18 03/10/21 11:37 Respiratory Effort Non-Labored 03/10/21 07:00 Respiratory Depth Normal 03/10/21 07:00 Respiratory Pattern Normal 03/10/21 07:00 Blood Pressure 184/71 H 03/10/21 11:37 Blood Pressure Mean 72 03/06/21 13:16 Blood Pressure Position Supine 03/06/21 09:41 Pulse Oximetry 100 03/10/21 11:37 Oxygen Delivery Method Room Air 03/10/21 11:37 Oxygen Flow Rate 0 03/10/21 11:37 Pain Level 0 03/10/21 11:37 Comment 03/08/21 23:53 Intake & Output 03/09/21 03/10/21 03/10/21 23:59 11:59 23:59 Intake Total 540 / 790 240 / 240 Output Total 650 / 1000 350 / 1000 Balance 540 / 340 -410 / -760 -350 / -760 Intake: Oral 540 / 790 240 / 240 Output: Urine 650 / 1000 350 / 1000 Other: Urine Color Yellow Yellow Yellow Urine Appearance Clear Cloudy Clear Urine Odor Normal None Comment Voided x 1 to the toilet. Stool Size Smear Stool Characteristics Soft Black Voiding Methods Toilet Toilet Toilet Data Completed and Pending Labs on day of discharge: Labs from last 24 hours 03/10/21 03/09/21 05:35 11:49 Sodium Pending Potassium Pending Chloride Pending Carbon Dioxide Pending Anion Gap Pending BUN Pending Creatinine Pending Estimated GFR/1.73 m2 Pending Glucose Pending Calcium Pending SARS-CoV-2 (PCR) Negative Preliminary micro results at discharge 03/06/21 09:50 Blood Culture - Preliminary Blood NO GROWTH 96 [facility]RS [facility] Medical History (Updated 03/10/21 @ 10:34 by Najma Aviles MD, DC) Anemia Cataracts, bilateral Chronic kidney disease Diabetes Hyperlipidemia Hypertension Obesity Partial blindness Schizophrenia Surgical History (Updated 10/22/16 @ 15:29 by Gomez Fu MD) cataract 03/27/16-od [facility] 04/27/16 os Colonoscopy - IV Sedation (06/11/14) per Dr. Slater, pre-malignant polyps removed Social History Smoking/Tobacco Use Status: Former Tobacco Use Smoking risk assessment performed?: Yes Drug use: Never Do you feel safe at home: Yes Do you feel safe in your relationship?: Yes
--- NOTE | 2021-03-10 16:22 | NT_ITS ---
Date of service: 03/10/21 Time of Service: 16:22 PT Notes Visit Reasons: UTI acute kidney injury Patient returned to SNF today. No skilled services were provided to patient during this admission. Thank you for the opportunity to participate in the care of this patient. Ciarra Castro PT, DPT, CLT [facility] [place], [place]
--- NOTE | 2021-03-10 16:48 | UCONE_ITS ---
Date of service: 03/10/21 Time of Service: 14:48 Assessment and Plan Assessment and plan (1) Urinary tract infection: Status: Acute Assessment and plan: She has received antibiotics for her urinary tract infection. We talked about potential work-ups for her right kidney. She is not able to have IV contrast for a CT urogram, but I did offer a cystoscopy and retrograde pyelogram. She is not interested in any type of invasive treatment at this time. We talked about her incomplete bladder emptying. Typically, our recommended treatment is intermittent catheterization, but again the patient is not interested. She is, however, agreeable to a follow-up for renal ultrasound in about a month. That way, we can make sure there is not progressive dilation compared to the study done as an inpatient. Qualifiers: Hematuria presence: without hematuria Urinary tract infection type: acute cystitis Qualified Code(s): N30.00 - Acute cystitis without hematuria History of Present Illness History of Present Illness Chief Complaint: Right hydronephrosis Narrative: This is a 75-year-old woman who is currently hospitalized with plans on being discharged to the [facility] [place] later this afternoon. The patient was admitted with mental status changes. She was found to have E. coli in her urine and has received antibiotics. As part of her evaluation, she had a renal ultrasound. The ultrasound showed incomplete emptying of the bladder and mild right hydronephrosis. The patient has refused placement of a urethral catheter. The patient has a history of schizophrenia and is very difficult to keep on point while obtaining her history. As best I can tell, she does not have any flank pain or gross hematuria. She does not recall any prior urologic surgery or urologic issues. I do find some other positive urine cultures in her medical records, but it is not clear to me if she was symptomatic at that time. She does have a history of an elevated serum creatinine. It appears that her baseline is around 2 ng/mL, but she has been as high as 4.3 ng/mL back in 2016. I do not find any prior renal imaging (either ultrasound or CT) in her records. Review of Systems Constitutional Constitutional: Denies chills and Denies fever(s) [facility] Medical History (Updated 03/10/21 @ 10:34 by Najma Aviles MD, DC) Anemia Cataracts, bilateral Chronic kidney disease Diabetes Hyperlipidemia Hypertension Obesity Partial blindness Schizophrenia Surgical History (Updated 10/22/16 @ 15:29 by Gomez Fu MD) cataract 03/27/16-od [facility] 04/27/16 os Colonoscopy - IV Sedation (06/11/14) per Dr. Slater, pre-malignant polyps removed Social History Smoking/Tobacco Use Status: Former Tobacco Use Smoking risk assessment performed?: Yes Drug use: Never Do you feel safe at home: Yes Do you feel safe in your relationship?: Yes Exam Narrative Exam Narrative: She is an obese woman in no current distress. She appears chronically ill Her vital signs are documented elsewhere She is awake and alert, but it is not clear to me how much of our discussion she understands I reviewed her renal ultrasound on the PACS system. The left kidney appears perfectly normal. There is some mild dilation of the right renal pelvis (although in theory, this could be a parapelvic cyst) Results Last Vital Signs Temp 36.2 C L 03/10/21 11:37 Pulse 65 03/10/21 11:37 Resp 18 03/10/21 11:37 BP 184/71 H 03/10/21 11:37 Pulse Ox 100 03/10/21 11:37 Labs Result diagrams: 03/09/21 06:42 03/09/21 06:42
== END 2021-03-10 15:07 | disposition skilled nursing facility (03) | DRG 683 ==
LOC: ER 12:04 → MS 13:45
PROVIDERS: Nurse Practitioner Acute Care; Nurse Practitioner Family; Admitting Provider Family Medicine; Emergency Provider Emergency Medicine; Visit Provider Family Medicine
DX: N17.9 Acute kidney failure, unspecified (principal); N30.00 Acute cystitis without hematuria; Z68.41 Body mass index [BMI] 40.0-44.9, adult; N13.30 Unspecified hydronephrosis; E11.22 Type 2 diabetes mellitus with diabetic chronic kidney disease; Z79.4 Long term (current) use of insulin; Z87.891 Personal history of nicotine dependence; I12.9 Hypertensive chronic kidney disease with stage 1 through stage 4 chronic kidney disease, or unspecified chronic kidney disease; E78.5 Hyperlipidemia, unspecified; G47.30 Sleep apnea, unspecified; E66.9 Obesity, unspecified; F20.9 Schizophrenia, unspecified; E86.0 Dehydration; B96.20 Unspecified Escherichia coli [E. coli] as the cause of diseases classified elsewhere; R53.1 Weakness; R33.8 Other retention of urine; N18.30 Chronic kidney disease, stage 3 unspecified; D50.9 Iron deficiency anemia, unspecified; Z20.822 Contact with and (suspected) exposure to COVID-19
CPT/HCPCS: 36415; 36416; 76770; 80048; 80053; 82550; 82805; 87040; 87077; 87081; 87635; 90662; 93005; 99221; 71045; 81003; 81015; 82248; 82607; 82728; 82746; 83540; 83550; 83735; 84439; 84443; 84484; 85025; 87086; 87186; 93010; 99223; 99232; 99233; 99238

== ENCOUNTER → 2021-03-10 14:49 | Outpatient (BNVA) | payer MEDICARE, MEDICAID, SELFPAY | PROVIDERS: Visit Provider Urology | DX: R69 Illness, unspecified (principal) ==

== ENCOUNTER 2021-04-21 00:25 | Outpatient (CLI) | payer MEDICARE, MEDICAID, SELFPAY ==
--- NOTE | 2021-04-21 07:15 | DI.US_ITS ---
Exam(s) US RENAL EXAM: US RENAL CLINICAL HISTORY: F/U RT HYDRONEPHROSIS, COMPARE TO RECENT US,N13.30 TECHNIQUE: Ultrasound of both kidneys performed using standard protocol. COMPARISON: US US RENAL from 03/08/2021 FINDINGS: RIGHT KIDNEY: Measures 10 cm in length. No cysts evident. Normal cortical thickness and corticomedullary differenti ation .No solid masses No intrarenal calculi nor hydronephrosis. LEFT KIDNEY: Measures 9 cm in length. No cysts evident. Normal cortical thickness and corticomedullary differenti aion. No solids masses. No intrarenal calculi nor hydonephrosis. URINARY BLADDER: Prevoid volume is 153 cc Postvoid volume is 11 cc Urinary bladder wall slightly uniformly thickened. Ureterovesical jets: Right ureterovesical jet was seen. Left was not seen. IMPRESSION: 1. No significant ultrasound findings in the kidneys. 2. Right ureterovesical jet was seen. Left was not. However, there is no hydronephrosis the left s sweta. 3. Mild uniform thickening of the urinary bladder wall. No discrete mass. No diverticuli in the bl adder evident. No radiopaque calculi in the urinary bladder lumen. DATA REPOSITORY:
== END 2021-04-21 00:45 ==
PROVIDERS: Visit Provider Urology
DX: N13.30 Unspecified hydronephrosis (principal)
CPT/HCPCS: 76770

== ENCOUNTER 2021-06-26 07:43 | Outpatient (REF) | payer MEDICARE, MEDICAID, SELFPAY ==
[2021-06-26 09:06] LABS: HCT 34.2 % (36.0-46.0); HGB 10.7 g/dL (11.2-15.7); MCH 27.8 pg (27.0-33.0); MCHC 31.3 % (32.0-36.0); MCV 88.8 fL (80-95); MPV 10.3 fL (8.0-11.0); Platelet Count 292 10^3/uL (130-400); RBC 3.85 10^6/uL (3.93-5.22); RDW 16.5 % (11.7-14.6); RDW-SD 53.7 fL; WBC 5.95 10^3/uL (4.4-10.8)
[2021-06-26 09:35] LABS: Anion Gap 9.2 mmol/L (3-11); BUN 58 mg/dL (7-18); CO2 27.8 mmol/L (21.0-32.0); CREATININE 1.9 mg/dL (0.55-1.02); Calcium 9.2 mg/dL (8.5-10.1); Chloride 105 mmol/L (98-107); Estimated GFR 25.77 (mL/min/1.73m2); Glucose 75 mg/dL (74-106); Potassium 4.3 mmol/L (3.5-5.1); Sodium 142 mmol/L (136-145)
== END 2021-06-26 07:44 | disposition home or self-care (01) ==
LOC: LBN 07:43
PROVIDERS: Visit Provider Family Medicine
DX: I10 Essential (primary) hypertension (principal); N17.9 Acute kidney failure, unspecified; E11.39 Type 2 diabetes mellitus with other diabetic ophthalmic complication
CPT/HCPCS: 80048; 85027; 83036

== ENCOUNTER 2021-09-22 20:31 | Outpatient (REF) | payer MEDICARE, MEDICAID, SELFPAY ==
[2021-09-22 21:40] LABS: Abs Immature Grans 0.03 10^3/uL (0.0-0.06); Absolute Basophil Count 0.03 10^3/uL (0.0-0.2); Absolute Eosinophil Count 0.17 10^3/uL (0.0-0.7); Absolute Lymphocyte Count 2.85 10^3/uL (1.2-3.4); Absolute Monocyte Count 0.86 10^3/uL (0.1-0.8); Absolute Neutrophil Count 6.22 10^3/uL (1.2-6.7); Basophils % 0.3; Eosinophils % 1.7; HCT 39.7 % (36.0-46.0); HGB 12.6 g/dL (11.2-15.7); Immature Grans % 0.3; Lymphocytes % 28.1; MCH 31.3 pg (27.0-33.0); MCHC 31.7 % (32.0-36.0); MCV 99 fL (80-95); MPV 10.8 fL (8.0-11.0); Monocytes % 8.5; Neutrophils % 61.1; Platelet Count 342 10^3/uL (130-400); RBC 4.03 10^6/uL (3.93-5.22); RDW 13.2 % (11.7-14.6); WBC 10.16 10^3/uL (4.4-10.8)
[2021-09-22 21:55] LABS: Hemoglobin A1C 6.6 % (<5.7)
== END 2021-09-22 20:32 | disposition home or self-care (01) ==
LOC: LBN 20:31
PROVIDERS: Visit Provider Nurse Practitioner Family
DX: E11.319 Type 2 diabetes mellitus with unspecified diabetic retinopathy without macular edema (principal); N17.9 Acute kidney failure, unspecified
CPT/HCPCS: 80048; 80061; 83036; 84443; 85025

== ENCOUNTER 2021-12-19 18:55 | Outpatient (REF) | payer MEDICARE, MEDICAID, SELFPAY ==
[2021-12-19 20:24] LABS: Abs Immature Grans 0.02 10^3/uL (0.0-0.06); Absolute Basophil Count 0.03 10^3/uL (0.0-0.2); Absolute Eosinophil Count 0.22 10^3/uL (0.0-0.7); Absolute Lymphocyte Count 2.01 10^3/uL (1.2-3.4); Absolute Monocyte Count 0.75 10^3/uL (0.1-0.8); Absolute Neutrophil Count 4.09 10^3/uL (1.2-6.7); Basophils % 0.4; Eosinophils % 3.1; HCT 38.8 % (36.0-46.0); Immature Grans % 0.3; Lymphocytes % 28.2; MCHC 33.5 % (32.0-36.0); MCV 99 fL (80-95); MPV 10.9 fL (8.0-11.0); Monocytes % 10.5; Neutrophils % 57.5; Platelet Count 274 10^3/uL (130-400); RBC 3.94 10^6/uL (3.93-5.22); RDW 12.5 % (11.7-14.6); WBC 7.12 10^3/uL (4.4-10.8)
[2021-12-19 20:37] LABS: Hemoglobin A1C 6.6 % (<5.7)
[2021-12-19 21:44] LABS: Anion Gap 11.5 mmol/L (3-11); BUN 53 mg/dL (7-18); CO2 26.5 mmol/L (21.0-32.0); CREATININE 1.8 mg/dL (0.55-1.02); Calcium 9.3 mg/dL (8.5-10.1); Calculated LDL 52 mg/dL (<100); Chloride 103 mmol/L (98-107); Cholesterol 130 mg/dL (<200); Estimated GFR 27.36 (mL/min/1.73m2); Glucose 152 mg/dL (74-106); HDL Cholesterol 48 mg/dL (40-60); Potassium 4.2 mmol/L (3.5-5.1); Sodium 141 mmol/L (136-145); T4 5.2 ug/mL (4.7-13.3); TSH (W/Ref FT4) 6.17 uIU/mL (0.36-3.74); Triglyceride 151 mg/dL (<150)
== END 2021-12-19 18:56 | disposition home or self-care (01) ==
LOC: LBN 18:55
PROVIDERS: PCP Family Medicine; Visit Provider Family Medicine
DX: E11.9 Type 2 diabetes mellitus without complications (principal); E03.9 Hypothyroidism, unspecified; N17.9 Acute kidney failure, unspecified; I10 Essential (primary) hypertension
CPT/HCPCS: 80048; 80061; 83036; 84436; 84439; 84443; 85025

== ENCOUNTER 2022-05-12 13:32 | Outpatient (REF) | payer MEDICARE, MEDICAID, SELFPAY ==
[2022-05-12 11:49] LABS: HCT 38.3 % (36.0-46.0); HGB 12.6 g/dL (11.2-15.7); MCH 32.3 pg (27.0-33.0); MCHC 32.9 % (32.0-36.0); MCV 98 fL (80-95); MPV 10.8 fL (8.0-11.0); Platelet Count 253 10^3/uL (130-400); RDW 12.7 % (11.7-14.6); RDW-SD 44.9 fL; WBC 9.08 10^3/uL (4.4-10.8)
[2022-05-12 12:10] LABS: ALT 20 U/L (14-59); AST 33 U/L (15-37); Albumin 3.1 g/dL (3.4-5.0); Alkaline Phosphatase 144 U/L (46-116); Anion Gap 6.6 mmol/L (3-11); BUN 44 mg/dL (7-18); Bilirubin, Total 0.6 mg/dL (0.2-1.0); CO2 29.4 mmol/L (21.0-32.0); CREATININE 1.9 mg/dL (0.55-1.02); Calcium 8.9 mg/dL (8.5-10.1); Chloride 105 mmol/L (98-107); Estimated GFR 27.03 (mL/min/1.73m2); Glucose 138 mg/dL (74-106); NT-proBNP 2402 pg/mL (<300); Potassium 4.2 mmol/L (3.5-5.1); Sodium 141 mmol/L (136-145); Total Protein 7.4 g/dL (6.4-8.2)
== END 2022-05-12 13:33 | disposition home or self-care (01) ==
LOC: LBN 13:32
PROVIDERS: PCP Family Medicine; Visit Provider Family Medicine
DX: Z86.16 Personal history of COVID-19 (principal); E11.319 Type 2 diabetes mellitus with unspecified diabetic retinopathy without macular edema
CPT/HCPCS: 80053; 85027; 83880

== ENCOUNTER 2022-09-18 16:18 | Outpatient (REF) | payer MEDICARE, MEDICAID, SELFPAY ==
[2022-09-18 16:22] LABS: Hemoglobin A1C 6.3 % (<5.7)
== END 2022-09-18 16:19 | disposition home or self-care (01) ==
LOC: LBN 16:18
PROVIDERS: PCP Family Medicine; Visit Provider Physician Assistant
DX: E11.9 Type 2 diabetes mellitus without complications (principal)
CPT/HCPCS: 83036

== ENCOUNTER 2022-10-23 17:05 | Outpatient (REF) | payer MEDICARE, MEDICAID, SELFPAY ==
[2022-10-23 18:11] LABS: TSH 5.44 uIU/mL (0.36-3.74)
== END 2022-10-23 17:06 | disposition home or self-care (01) ==
LOC: LBN 17:05
PROVIDERS: PCP Family Medicine; Visit Provider Physician Assistant
DX: E03.9 Hypothyroidism, unspecified (principal)
CPT/HCPCS: 84443

== ENCOUNTER 2022-12-15 13:31 | Outpatient (REF) | payer MEDICARE, MEDICAID, SELFPAY ==
[2022-12-15 13:51] LABS: Anion Gap 10.2 mmol/L (3-11); BUN 74 mg/dL (7-18); CO2 27.8 mmol/L (21.0-32.0); CREATININE 2.4 mg/dL (0.55-1.02); Calcium 9.7 mg/dL (8.5-10.1); Chloride 105 mmol/L (98-107); Estimated GFR 20.29 (mL/min/1.73m2); Glucose 153 mg/dL (74-106); Potassium 4.4 mmol/L (3.5-5.1); Sodium 143 mmol/L (136-145); TSH 2.16 uIU/mL (0.36-3.74)
== END 2022-12-15 13:32 | disposition home or self-care (01) ==
LOC: LBN 13:31
PROVIDERS: PCP Family Medicine; Visit Provider Family Medicine
DX: I10 Essential (primary) hypertension (principal); E03.9 Hypothyroidism, unspecified; N18.4 Chronic kidney disease, stage 4 (severe)
CPT/HCPCS: 80048; 84443

== ENCOUNTER 2023-03-17 20:53 | Outpatient (REF) | payer MEDICARE, MEDICAID, SELFPAY ==
[2023-03-17 16:38] LABS: HCT 33.4 % (36.0-46.0); HGB 10.5 g/dL (11.2-15.7); MCH 29.6 pg (27.0-33.0); MCHC 31.4 % (32.0-36.0); MCV 94 fL (80-95); MPV 10.1 fL (8.0-11.0); Platelet Count 338 10^3/uL (130-400); RBC 3.55 10^6/uL (3.93-5.22); RDW 13.4 % (11.7-14.6); RDW-SD 46.2 fL; WBC 7.95 10^3/uL (4.4-10.8)
[2023-03-17 16:51] LABS: BUN 66 mg/dL (7-18); CREATININE 2.5 mg/dL (0.55-1.02); Calcium 9.8 mg/dL (8.5-10.1); Chloride 101 mmol/L (98-107); Estimated GFR 19.32 (mL/min/1.73m2); Glucose 228 mg/dL (74-106); Potassium 4.6 mmol/L (3.5-5.1); Sodium 138 mmol/L (136-145)
[2023-03-17 17:08] LABS: Hemoglobin A1C 6.2 % (<5.7)
== END 2023-03-17 20:54 | disposition home or self-care (01) ==
LOC: LBN 20:53
PROVIDERS: PCP Family Medicine; Visit Provider Nurse Practitioner Adult Health
DX: N18.4 Chronic kidney disease, stage 4 (severe) (principal); E11.22 Type 2 diabetes mellitus with diabetic chronic kidney disease
CPT/HCPCS: 80048; 85027; 83036

== ENCOUNTER 2023-04-16 15:18 | Outpatient (REF) | payer MEDICARE, MEDICAID, SELFPAY ==
[2023-04-16 13:21] LABS: HCT 34.1 % (36.0-46.0); HGB 10.5 g/dL (11.2-15.7); MCH 27.5 pg (27.0-33.0); MCHC 30.8 % (32.0-36.0); MCV 89 fL (80-95); MPV 10.2 fL (8.0-11.0); Platelet Count 339 10^3/uL (130-400); RBC 3.82 10^6/uL (3.93-5.22); RDW 14.7 % (11.7-14.6); RDW-SD 47.8 fL; WBC 8.54 10^3/uL (4.4-10.8)
[2023-04-16 13:48] LABS: ALT 20 U/L (14-59); AST 24 U/L (15-37); Albumin 3.8 g/dL (3.4-5.0); Alkaline Phosphatase 114 U/L (46-116); Anion Gap 12.8 mmol/L (3-11); BUN 62 mg/dL (7-18); Bilirubin, Total 0.5 mg/dL (0.2-1.0); CO2 26.2 mmol/L (21.0-32.0); CREATININE 2.6 mg/dL (0.55-1.02); Calcium 9.4 mg/dL (8.5-10.1); Calculated LDL 51 mg/dL (<100); Chloride 103 mmol/L (98-107); Cholesterol 116 mg/dL (<200); Estimated GFR 18.44 (mL/min/1.73m2); Glucose 70 mg/dL (74-106); HDL Cholesterol 50 mg/dL (40-60); Potassium 4.5 mmol/L (3.5-5.1); Sodium 142 mmol/L (136-145); Total Protein 7.6 g/dL (6.4-8.2); Triglyceride 75 mg/dL (<150)
== END 2023-04-16 15:19 | disposition home or self-care (01) ==
LOC: LBN 15:18
PROVIDERS: PCP Family Medicine; Visit Provider Family Medicine
DX: E11.21 Type 2 diabetes mellitus with diabetic nephropathy (principal); E11.319 Type 2 diabetes mellitus with unspecified diabetic retinopathy without macular edema; E78.5 Hyperlipidemia, unspecified; E03.9 Hypothyroidism, unspecified; I10 Essential (primary) hypertension
CPT/HCPCS: 80053; 80061; 85027; 83036; 84443

== ENCOUNTER 2023-10-27 18:19 | Outpatient (REF) | payer MEDICARE, MEDICAID, SELFPAY ==
[2023-10-27 18:42] LABS: Anion Gap 10.8 mmol/L (3-11); BUN 67 mg/dL (7-18); CO2 26.2 mmol/L (21.0-32.0); CREATININE 2.5 mg/dL (0.55-1.02); Calcium 9.7 mg/dL (8.5-10.1); Chloride 103 mmol/L (98-107); Estimated GFR 19.32 (mL/min/1.73m2); Glucose 131 mg/dL (74-106); Potassium 4.4 mmol/L (3.5-5.1); Sodium 140 mmol/L (136-145)
== END 2023-10-27 18:20 | disposition home or self-care (01) ==
LOC: LBN 18:19
PROVIDERS: PCP Family Medicine; Visit Provider Nurse Practitioner Family
DX: E11.9 Type 2 diabetes mellitus without complications (principal); I10 Essential (primary) hypertension
CPT/HCPCS: 80048; 83036

== ENCOUNTER 2023-10-28 11:14 | Outpatient (REF) | payer MEDICARE, MEDICAID, SELFPAY ==
[2023-10-28 13:56] LABS: Hemoglobin A1C 6.3 % (<5.7)
== END 2023-10-28 11:15 | disposition home or self-care (01) ==
LOC: LBN 11:14
PROVIDERS: PCP Family Medicine; Visit Provider Nurse Practitioner Family
DX: E11.319 Type 2 diabetes mellitus with unspecified diabetic retinopathy without macular edema (principal)
CPT/HCPCS: 83036

== ENCOUNTER 2024-01-26 19:14 | Outpatient (REF) | payer MEDICARE, MEDICAID, SELFPAY ==
--- OUTSIDE RECORDS SUMMARY | 2024-01-26 19:17 | XMS_ITS | Encounter Summary ---
[place] [address] Care Team Providers Care Chip Tuner Name Role Phone Emre Fonseca MD Primary Care Provider + Reason for Visit * Reason Comments Procedure Pre operative measur ements for cataract surgery Encounter Details Date Type Department Care Team (Latest Contact Info) Description 02/05/2016 10:45 AM EDT Procedure [place] [address] Combined forms of age-related cataract of both eyes Social History Tobacco Use Types Packs/Day Years Used Date Smoking Tobacco: Former Alcohol Use Standard Drinks/Week Comments No 0 (1 standard drink = 0.6 oz pur e alcohol) Sex and Gender Information Value Date Recorded Sex Assigned at Not on file Gender Identity Not on file Sexual Orientation Not on file documented as of this encounter Plan of Treatment Not on file documented as of this encounter Procedures Procedure Name Priority Date/Time Associated Diagnosis Comments US EYE BIOMETRY W IOL CALC - OU - BOTH EYES Routine 02/17/2016 8:35 PM EDT Combined forms of age-related cataract of both eyes documented in this encounter Results * US EYE BIOMETRY W IOL CALC - OU - BOTH EYES (02/17/2016 8:35 PM EDT) Anatomical Region Laterality Modality Other Narrative 02/17/2016 8:35 PM EDT POM reviewed. Lenstar: Poor quality scans Immersion U/S ??OD: good quality scans ? OS: poor quality scans K's: ?? 0.25 D cyl OD, 0.75D cyl OS See paper POM form for IOL calculations. Bay Jaffe MD OPHTHALMOLOGY SERVIC ES ORDERABLES documented in this encounter Visit Diagnoses Diagnosis Combined forms of age-related cataract of both eyes Other and combined forms of senile cataract documented in this encounter Care Teams Chip Tuner Relationship Specialty Start Date End Date Emre Fonseca MD [address] [place] [address] PCP - General 04/08/10 09/29/16 documented as of this encounter
--- OUTSIDE RECORDS SUMMARY | 2024-01-26 19:17 | XMS_ITS | Encounter Summary ---
[place] [address] Care Team Providers Care Panelboard Operator Name Role Phone Emre Fonseca MD Primary Care Provider + Reason for Visit * Reason Comments Dermatitis Encounter Details Date Type Department Care Team (Late st Contact Info) Description 09/14/2011 2:45 PM EDT Office Visit Dermatology [address] [place] [address] Moreno Guardado MD [address] [place] [address] Stasis dermatitis (Primary Dx) Social History Tobacco Use Types Packs/Day Years Used Date Smoking Tobacco: Never Sex and Gender Information Value Date Recorded Sex Assigned at Not on file Gender Identity Not on file Sexual Orientation Not on file documented as of this encounter Progress Notes * Moreno Guardado MD - 09/14/2011 3:15 PM EDT Problem: Followup stasis dermatitis, lower extremities. Merly follows up today with her case preparer and liner, Tiffany. Her legs have been doing better, but recently she noted some increased redness on the left anterior conrad, more so on the right. She states, It feels like somebody's kicking me all the time. She uses hydrocortisone cream 2.5% and emollient cream. She is also on Lasix prescribed by Dr. Fonseca for her lower extremity edema. Physical examination today reveals a pleasant, 65-year-old woman who has [id number] Tubigrip stockings in place on both lower extremities. She has +1 pitting edema underneath the support stockings, +2 above them. She has a low-level, mild degree of subcutaneous hemosiderin deposition on both anterior shins and on the right conrad, and on the left side an ecchymosis where she may have banged her conrad in this location. There is only a slight area of erythema on the right lower anterior conrad. She has no active stasis dermatitis. She has no vesicles. She states there were no vesicles on the anterior conrad where these current areas of erythema now are. Assessment and Plan: Stasis lower extremities in a diabetic with anterior conrad ecchymoses. a. May continue emollient cream and 2.5% hydrocortisone cream. b. Continue Lasix per Dr. Fonseca. c. Reassured the patient that in fact I think she is doing quite well. Today she was given two pair of Tubigrip support stockings, size G, 21-inch single layer, 42 inches per pair; and as mentioned, two pair were given. They will need to be used during the waking hours on an ongoing, permanent basis. She may take them off when she goes to sleep at night. d. Return to clinic here p.r.n. Copy: Emre Fonseca M.D. documented in this encounter Plan of Treatment Not on file documented as of this encounter Visit Diagnoses Diagnosis Stasis dermatitis- Primary Varicose veins of lower extremities with inflammation documented in this encounter Care Teams Panelboard Operator Relationship Specialty Start Date End Date Emre Fonseca MD [address] [place] [address] PCP - General 04/08/10 09/29/16 documented as of this encounter
--- OUTSIDE RECORDS SUMMARY | 2024-01-26 19:17 | XMS_ITS | Clinical Summary ---
Author Organization [facility] Address [address] [facility] [place] [address] Care Team Providers Care Auto Travel Counselor Name Role Phone Mary Jane Colon MD Primary Care Provider Allergies Active Allergy Reactions Criticality Noted Date Comments Benzodiazepines Other (See Comments) 12/25/2015 Hallucinations Medications Medication Sig Dispensed Refills Start Date End Date Status acetaminophen (TYLENOL) 325 mg TabletIndications: fever Take 650 mg by mouth every 6 hours as needed for Pain. Indications: Fever Active aspirin 81 mg Tablet, Delayed Release (E.C.) Take 81 mg by mouth daily. Active bisacodyl (DULCOLAX) [address] 10 mg rectally three times a week. Active enalapril (VASOTEC) 10 mg TabletIndications: hypertension Take 10 mg by mouth daily. Indications: Hypertension Active felodipine (PLENDIL) 10 mg Tablet Sustained Release 24 hrIndications:hype rtension Take 10 mg by mouth daily. Indications: Hypertension Active furosemide (LASIX) 40 mg TabletIndications: renal disease with edema Take 40 mg by mouth 2 times daily. Indications: Renal Disease with Edema Active glipiZIDE (GLUCOTROL) 5 mg Tablet Take 5 mg by mouth 2 times daily (before meals). Active hydrOXYzine (ATARAX) 25 mg Tablet Take 25 mg by mouth every 6 hours as needed for Itching. Active meTOPROLOL succinate (TOPROL-XL) 50 mg Tablet Sustained Release 24 hrIndications:hype rtension Take 50 mg by mouth 2 times daily. Indications: Hypertension Active MAGNESIUM HYDROXIDE (MILK OF MAGNESIA ORAL) Take 1,200 mg by mouth daily as needed (for constipation). Active polyethylene glycol (MIRALAX) 17 gram Powder in Packet Take 17 g by mouth daily. Active QUEtiapine (SEROQUEL) 100 mg TabletIndications: Schizoaffective disorder Take 200 mg by mouth daily. Indications: Schizoaffective disorder Active simvastatin (ZOCOR) 20 mg TabletIndications: hyperlipidemia Take 20 mg by mouth nightly. Indications: Hyperlipidemia Active simethicone (MYLICON) 80 mg Tablet, Chewable Take 80 mg by mouth 4 times daily as needed for Flatulence. Active Active Problems Problem Noted Date Diagnosed Date Pseudophakia of both eyes (OD: 03/26/2016, OS: ) 07/31/2016 Stasis dermatitis 09/14/2011 Family History Medical History Relation Comments Cataracts Maternal Grandmother Diabetes Maternal Grandmother Relation Status Comments Maternal Grandmother Social History Tobacco Use Types Packs/Day Years Used Date Smoking Tobacco: Former Smokeless Tobacco: Never Alcohol Use Standard Drinks/Week Comments No 0 (1 standard drink = 0.6 oz pur e alcohol) Sex and Gender Information Value Date Recorded Sex Assigned at Not on file Gender Identity Not on file Sexual Orientation Not on file Last Filed Vital Signs Vital Sign Reading Time Taken Comments Blood Pressure 121/54 07/03/2016 10:16 AM EST Pulse 70 07/03/2016 9:45 AM EST Temperature 37.1 ??C (98.8 ??F) 07/03/2016 9:45 AM ES T Respiratory Rate 18 07/03/2016 9:45 AM EST Oxygen Saturation 99% 07/03/2016 10:00 AM EST Inhaled Oxygen Concentration - - Weight 100.7 kg (222 lb) 07/03/2016 7:28 AM EST Height 160 cm (5' 3) 07/03/2016 7:28 AM EST Body Mass Index 39.33 07/03/2016 7:28 AM EST Plan of Treatment Health Maintenance Due Date Last Done Comments Hepatitis C Screening 12/12/1963 Tdap adult 1964 Tetanus vaccine 1964 Zoster vaccine (1 of 2) 12/12/1995 Advance Directive 2000 Bone Density Scan 2010 Pneumoccocal Vaccine: 65+ (1 of 1 - PCV) 2010 Covid-19 Vaccine ( season) 2024 Influenza (Flu) vaccine (1 o f 1 - Influenza standard series) 01/16/2024 Medical Devices Implanted Type Area Public Finance Specialist Device Identifier Shelf Expiration Date Model / Serial / Lot Iol,[id number],23. 0 ([id number]) (Autoreq) - [id number] Implanted:Qty: 1 on 03/26/2016 by Bay Jaffe MD at [facility] Right: [employer] - [id number] 03/16/2019 SN60WF 23.0 / [id number] / Iol,Sn60wf,19. 0 ([id number]) ([employer]) - [id number] Implanted:Qty: 1 on 07/03/2016 by Bay Jaffe MD at [facility] Left: [employer] - [id number] 07/03/2020 SN60WF 19.0 / [id number] / Advance Directives * Full Code (Latest Code Status on File) Date Activated Date Inactivated Comments 03/26/2016 9:56 AM 03/26/2016 12:25 PM Question Answer Comments Does patient have capacity t o make decision: Yes Content of discussion: patient wants to wake up and see. This is consistent with notation from Dr. Fonseca' (PCP) prep discussion. * Full Code Date Activated Date Inactivated Comments 03/26/2016 9:51 AM 03/26/2016 9:56 AM Question Answer Comments Does patient have capacity to make decision: Yes Care Teams Auto Travel Counselor Relationship Specialty Start Date End Date Mary Jane Colon MD PCP - General Family Medicine 07/13/19
--- OUTSIDE RECORDS SUMMARY | 2024-01-26 19:17 | XMS_ITS | Encounter Summary ---
Author Organization [facility] [place] [address] Care Team Providers Care Housing Court Judge Name Role Phone Emre Fonseca MD Primary Care Provider + Reason for Visit * Reason Onset Date Comments Other 03/23/2016 Kelsey from [facility] called for instructions on any pre op procedures regarding eye drops for the patient. She has not been given any orders or instructions regarding this. Encounter Details Date Type Department Care Team (Late st Contact Info) Description 03/23/2016 [place] [id number] Bay Jaffe MD [facility] [place] [address] Other (Kelsey from [facility] called for instructions on any pre op procedures regarding eye drops for the patient. She has not been given any orders or instructions regarding this.) Social History Tobacco Use Types Packs/Day Years Used Date Smoking Tobacco: Former Alcohol Use Standard Drinks/Week Comments No 0 (1 standard drink = 0.6 oz pur e alcohol) Sex and Gender Information Value Date Recorded Sex Assigned at Not on file Gender Identity Not on file Sexual Orientation Not on file documented as of this encounter Miscellaneous Notes * Telephone Encounter - Merna Funes - 03/23/2016 8:42 AM EST Kelsey from [facility] called for instructions on any pre op procedures regardingeye drops for the patient. She has not been given any orders or instructions regarding this documented in this encounter Plan of Treatment Not on file documented as of this encounter Visit Diagnoses Not on filedocumented in this encounter Care Teams Housing Court Judge Relationship Specialty Start Date End Date Emre Fonseca MD [address] [place] [address] PCP - General 04/08/10 09/29/16 documented as of this encounter
--- OUTSIDE RECORDS SUMMARY | 2024-01-26 19:17 | XMS_ITS | Encounter Summary ---
Author Organization [place] [address] Care Team Providers Care Grinder Operator Tool Name Role Phone Emre Fonseca MD Primary Care Provider + Reason for Visit * Reason Comments Blurred Vision CATATRACT EVAL OU SE NT BY DR. CALVIN. Encounter Details Date Type Department Care Team (Late st Contact Info) Description 12/16/2015 1:30 PM EDT Office [place] [address] Bay Jaffe MD [facility] [place] [address] Senile cataracts of both eyes (Primary Dx) Social History Tobacco Use Types Packs/Day Years Used Date Smoking Tobacco: Former Alcohol Use Standard Drinks/Week Comments No 0 (1 standard drink = 0.6 oz pur e alcohol) Sex and Gender Information Value Date Recorded Sex Assigned at Not on file Gender Identity Not on file Sexual Orientation Not on file documented as of this encounter Progress Notes * Bay Jaffe MD - 12/16/2015 1:30 PM EDT Assessment/Plan: Merly Rivera is a 70 y.o. female with the following ophthalmic issues: 1. Advanced nuclear/cortical cataracts OU 2. Posterior synechiae OS Comment: Her Bscan was normal OU Advanced cataracts, will need extra time and retina backup - Main OR. Discussed cataract surgery, process, recovery, Risks/Benefits/Alternatives, and the option of waiting. AAO cataract surgery pamphlet given to patient. Reviewed the chance of WORSE vision, damage to the eye, need for further treatment or surgery, possible need for strong glasses, imbalance between eyes, other problems possible. Lens options and refractive targets reviewed. Reiterated that refractive target is an estimate; we do not have full control over what the end result is. Questions answered. Merly Rivera expresses understanding, requests cataract surgery OU, OD first. Discussed option of presbyopic IOL to try to minimize need for glasses (not being used at [facility], butavailable elsewhere). Mrely Rivera declines presbyopic IOL and requests single vision IOL. Amount of astigmatism unknown: no toric IOL anticipated Dominant eye: unknown Refractive target: distance documented in this encounter Plan of Treatment Not on file documented as of this encounter Procedures Procedure Name Priority Date/Time Associated Diagnosis Comments US B-SCAN - OU - BOTH EYES Routine 12/16/2015 3:37 PM EDT Senile cataracts of both eyes CATARACT EXTRACTION, EXTRACAPSULAR, W/ LENS INSERTION, COMPLEX Routine 12/16/2015 3:33 PM EDT Senile cataracts of both eyes documented in this encounter Results * US B-SCAN - OU - BOTH EYES (12/16/2015 3:37 PM EDT) Anatomical Region Laterality Modality Other Narrative 12/16/2015 3:37 PM EDT Bscan OU Indication: opaque media Quality: good Result: no RD, tumor, VH Interpretation: normal Bscan OU Bay Jaffe MD OPHTHALMOLOGY SERVIC ES ORDERABLES documented in this encounter Visit Diagnoses Diagnosis Senile cataracts of both eyes- Primary Senile cataract, unspecified documented in this encounter Care Teams Grinder Operator Tool Relationship Specialty Start Date End Date Emre Fonseca MD [address] [place] [address] PCP - General 04/08/10 09/29/16 documented as of this encounter
--- OUTSIDE RECORDS SUMMARY | 2024-01-26 19:17 | XMS_ITS | Encounter Summary ---
[place] [address] Care Team Providers Care Manager Quality Compliance Name Role Phone Emre Fonseca MD Primary Care Provider + Reason for Visit * Reason Onset Date Comments Appointment 11/08/2014 mess Appointment 11/08/2014 message Encounter Details Date Type Department Care Team (Late st Contact Info) Description 11/08/2014 Tele[place] [address] Bay Jaffe MD [facility] [place] [address] Appointment (mess); Appointment (message) Social History Tobacco Use Types Packs/Day Years Used Date Smoking Tobacco: Never Sex and Gender Information Value Date Recorded Sex Assigned at Not on file Gender Identity Not on file Sexual Orientation Not on file documented as of this encounter Miscellaneous Notes * Telephone Encounter - Juan Henderson - 03/12/2015 4:42 PM EDT complex case manager amaury 12;14 wanting to confirm appointment and also tosee if an earlier time is possible documented in this encounter Plan of Treatment Not on file documented as of this encounter Visit Diagnoses Not on filedocumented in this encounter Care Teams Manager Quality Compliance Relationship Specialty Start Date End Date Emre Fonseca MD [address] [place] [address] PCP - General 04/08/10 09/29/16 documented as of this encounter
--- OUTSIDE RECORDS SUMMARY | 2024-01-26 19:17 | XMS_ITS | Encounter Summary ---
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 Hypertensive retinopathy, bilateral Referred by Dr. Jaffe for NPDR/DME OD Exam/Findings Today 05/17/17: OD: Moderate NPDR, no DME OS: Moderate NPDR, no DME OD: Vision does not correct to 20/20. This may be due to some macular thinning noted on OCT PLAN: Observe from retina standpoint, no indication for any treatment She is very pleased with her vision following cataract surgery She does improve with pinhole, and if she wishes could get an updated refraction at any point. There is already a plan in place to follow up with Dr. Vargas for annual routine eye care. Retina PRN The Ophthalmology scribe for this encounter is DIANA Combs. I performed and personally participated in the gracia and critical portions of the service. I have reviewed/updated the documentation, and confirm that all of the information is accurate as described. 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 Scan locations included subfoveal. Findings include normal observations, normal foveal contour. Left Eye Quality was good. Scan locations included subfoveal. Findings include normal observations, normal foveal contour. 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
--- OUTSIDE RECORDS SUMMARY | 2024-01-26 19:17 | XMS_ITS | Encounter Summary ---
[place] [address] Care Team Providers Care Chemistry Technical Officer Name Role Phone Emre Fonseca MD Primary Care Provider + Encounter Details Date Type Department Care Team (Late Contact [facility]) Description 12/16/2015 3:45 PM EDT [place] [id number] Social History Tobacco Use Types Packs/Day Years Used Date Smoking Tobacco: Former Alcohol Use Standard Drinks/Week Comments No 0 (1 standard drink = 0.6 oz pur e alcohol) Sex and Gender Information Value Date Recorded Sex Assigned at Not on file Gender Identity Not on file Sexual Orientation Not on file documented as of this encounter Last Filed Vital Signs Vital Sign Reading Time Taken Comments Blood Pressure - - Pulse 77 12/16/2015 3:59 PM EDT Temperature - - Respiratory Rate - - Oxygen Saturation 99% 12/16/2015 3:59 PM EDT Inhaled Oxygen Concentration - - Weight 91.6 kg (202 lb) 12/16/2015 3:59 PM EDT Height 160 cm (5' 3) 12/16/2015 3:59 PM EDT Body Mass Index 35.78 12/16/2015 3:59 PM EDT documented in this encounter Progress Notes * Lyubov Dodge RN - 12/16/2015 3:45 PM EDT PAT questionnaire reviewed with patient and Mary Kay dyer from [facility] while in Pre Admission testing. Previous anesthesia. Seen by Dr. Francisco Espinoza from anesthesia. Pre-operative instruction booklet reviewed. Patient verbalizes a good understanding of all information reviewed. PLAN: Testing: None ordered today. Special medication instructions: n/a Procedure date: Not booked at this time with Dr. Jaffe documented in this encounter Plan of Treatment Not on file documented as of this encounter Visit Diagnoses Not on filedocumented in this encounter Care Teams Chemistry Technical Officer Relationship Specialty Start Date End Date Emre Fonseca MD [address] [place] [address] PCP - General 04/08/10 09/29/16 documented as of this encounter
--- OUTSIDE RECORDS SUMMARY | 2024-01-26 19:17 | XMS_ITS | Encounter Summary ---
Author Organization [facility] Address [address] [place] [address] Care Team Providers Care Anodize Machine Operator Name Role Phone Unknown, Provider Primary Care Provider [phone] Encounter Details Date Type Department Care Team (Late st Contact Info) Description 06/11/2014 Results Only [facility] [phone] Maria E Garrison MD [facility] [place], [place] [id number] Social History Tobacco Use Types Packs/Day Years Used Date Smoking Tobacco: Never Assessed Sex and Gender Information Value Date Recorded Sex Assigned at Not on file Gender Identity Not on file Sexual Orientation Not on file documented as of this encounter Plan of Treatment Not on file documented as of this encounter Procedures Procedure Name Priority Date/Time Associated Diagnosis Comments SURGICAL PATHOLOGY Routine 06/11/2014 18 :35 EST documented in this encounter Results * SURGICAL PATHOLOGY (06/11/2014 18:35 EST) Pathology Report: SURGICAL PATHOLOGY REPORT Reports generated via electronic interface contain original data; however they are lacking the format of the original report. Caution should be taken when reading/interpret ing unformatted reports. Name: ? MERLY THOMAS ? Accession #: ? [id number] ? : ? 1945 (Age: 68) ??F ? Collect Date: ? 06/11/2014 ? Location: ? [facility] ? Receive Date: ? 06/11/2014 ? Provider: MARIA E GRARISON MD Copy to: IGGY PERALTA MD ? Final Pathologic Diagnosis: A. COLON, TRANSVERSE, POLYP, BIOPSIES: - ??Fragments of tubular adenoma. B. COLON, DESCENDING, POLYPS X3, BIOPSIES: - ??Tubular adenomas. Document reviewed and electronically signed by: BORIS CLARK MD Report ??Date: 06/13/2014 18:09 By the signature above, the attending physician certifies that he/she has personally conducted a gross and/or microscopic examination of the described specimens and rendered or confirmed the above diagnosis. Specimen(s) Received: A. ??Transverse colon polyp (#1) B. ??Descending colon polyps x3 (#2) Clinical History: Anemia, weight loss Gross Description: A. ?Received in formalin labelled with proper patient identification (initials L, P) and transverse colon polyp are six pink-levine tissues (0.2 x 0.2 x 0.1 cm to 0.5 x 0.2 x 0.1 cm). Entirely submitted in A1 and A2. B. ?Received in formalin labelled with proper patient identification (initials L, P) and descending colon polyps x3 are four pink-levine tissues (0.3 x 0.2 x 0.1 cm to 0.6 x 0.2 x 0.1 cm). Entirely submitted in B1 and B2. Joycelyn Danielson 06/12/2014 08:12 AM End of Report [facility] 06/11/2014 18:3 5 EST 06/11/2014 18:35 EST Maria E Garrison MD PATHOLOGY ORDERAndreia OCAMPO [facility] Organization Address City/State/ZIP Co de Phone Number [facility] [address] [place] [id number] documented in this encounter Visit Diagnoses Not on filedocumented in this encounter Care Teams Anodize Machine Operator Relationship Specialty Start Date End Date Unknown, Provider, PCP - General 06/11/14 documented as of this encounter
--- OUTSIDE RECORDS SUMMARY | 2024-01-26 19:17 | XMS_ITS | Encounter Summary ---
Author Organization [facility] Address [address] [place] [id number] Care Team Providers Care Teaching Aide Name Role Phone Unknown, Provider Primary Care Provider [phone] Encounter Details Date Type Department Care Team (Latest Contact Info) Description 06/11/2014 14:54 EST - 06/11/2014 23:59 EST Hospital Encounter [address] [address] Unknown, Provider, Discharge Disposition: Home or Self Care Social History Tobacco Use Types Packs/Day Years Used Date Smoking Tobacco: Never Assessed Sex and Gender Information Value Date Recorded Sex Assigned at Not on file Gender Identity Not on file Sexual Orientation Not on file documented as of this encounter Discharge Disposition Disposition Code Departure Means Destination Home or Self Halfway documented in this encounter Plan of Treatment Not on file documented as of this encounter Visit Diagnoses Not on filedocumented in this encounter Care Teams Teaching Aide Relationship Specialty Start Date End Date Unknown, Provider, PCP - General 06/11/14 documented as of this encounter
--- OUTSIDE RECORDS SUMMARY | 2024-01-26 19:17 | XMS_ITS | Encounter Summary ---
Author Organization [facility] [place] [address] Care Team Providers Care Refuse Driver Name Role Phone Emre Fonseca MD Primary Care Provider + Reason for Visit * Reason Comments Post Op S/P 1 month CE/IOL O S Pseudophakia CE/IOL OU Encounter Details Date Type Department Care Team (Late st Contact Info) Description 07/31/2016 8:30 AM EDT Office [place] [id number] Bay Jaffe MD [facility] [address] Pseudophakia of both eyes (OD: 03/26/2016, OS: 07/03/2016) Social History Tobacco Use Types Packs/Day Years Used Date Smoking Tobacco: Former Alcohol Use Standard Drinks/Week Comments No 0 (1 standard drink = 0.6 oz pur e alcohol) Sex and Gender Information Value Date Recorded Sex Assigned at Not on file Gender Identity Not on file Sexual Orientation Not on file documented as of this encounter Progress Notes * Bay Jaffe MD - 07/31/2016 8:30 AM EDT Assessment/Plan: 1. 1 month s/p CE/IOL OS Doing well with normal post-op appearance, off drops 2. 4 month s/p CE/IOL OD Doing well off drops with a normal post operative appearance. 3. 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 Bartholomew/[facility] Rx written. Follow up: Retina in coming weeks With Dr. Vargas in 4 months. Patient to call for appointment documented in this encounter Plan of Treatment Not on file documented as of this encounter Visit Diagnoses Diagnosis Pseudophakia of both eyes (OD: 03/26/2016, OS: 07/03/2016) Lens replaced by other means documented in this encounter Care Teams Refuse Driver Relationship Specialty Start Date End Date Emre Fonseca MD [address] [place] [address] PCP - General 04/08/10 09/29/16 documented as of this encounter
--- OUTSIDE RECORDS SUMMARY | 2024-01-26 19:17 | XMS_ITS | Encounter Summary ---
Author Organization [facility] [place] [address] Care Team Providers Care Local Delivery Driver Name Role Phone Emre Fonseca MD Primary Care Provider + Reason for Visit * Auth/Cert Specialty Diagnoses / Procedures Referred By Sondra t Referred To Contact Diagnoses Unspecified age-related cataract Cataract Procedures PRO REMV CATARACT EXTRACAP,INSERT LENS,COMP PRO VITRECTOMY,FOCAL LASER RX RETINA CATARACT EXTRACTION, EXTRACAPSULAR, WITH LENS INSERTION, COMPLEX Referral ID Status Reason Start Date Expiration Date Visits Re quested Visits Authorized [id number] 1 1 Encounter Details Date Type Department Care Team (Late st Contact Info) Description 03/26/2016 10:14 AM EST - 03/26/2016 12:03 PM EST Surgery [place] [address] Bay Jaffe MD [facility] [address] CATARACT EXTRACTION, EXTRACAPSULAR, WITH LENS INSERTION, COMPLEX (WRVU 10.25) Social History Tobacco Use Types Packs/Day Years [...] Sign Reading Time Taken Comments Blood Pressure 134/63 03/26/2016 12:00 PM EST Pulse 67 03/26/2016 12:00 PM EST Temperature 36.2 ??C (97.2 ??F) 03/26/2016 11:[address] Respiratory Rate 16 03/26/2016 12:00 PM EST Oxygen Saturation 96% 03/26/2016 12:00 PM EST Inhaled Oxygen Concentration - - Weight 99.9 kg (220 lb 3.2 oz) 03/26/2016 9:05 A M EST Height 152.4 cm (5') 03/26/2016 9:05 AM EST Body Mass Index 43 03/26/2016 9:05 AM EST documented in this encounter Discharge Instructions * Discharge Instructions* Wilma Artis RN - 03/26/2016 11:34 AM EST POST ANESTHESIA INSTRUCTIONS Go home, rest, use caution on stairs. Change positions slowly. Do not smoke if you are alone. Diet light to regular as tolerated today. If nausea occurs start with clear liquids and progress slowly. No driving, operating machinery, alcoholic beverages and no important decisions for 24 hours. Monitor IV site for signs and symptoms of infection: increasing redness, swelling, foul drainage, if occurs contact M.D. Patients who have had endotrachial tubes (this tube, used by anesthesia department, is passed down your throat after you are asleep, to ensure safe air passage during your operation). A sore throat is normal due to the tube. Cold liquids or soothing lozenges will help ease the discomfort. The generalized muscle aches are due to the medication given to you just before the tube is inserted. As the medication wears off, you may develop muscle soreness, which usually goes away in 12-24 hours. documented in this encounter Medications at Time of Discharge Medication Sig Dispensed Refills Start Date End Date acetaminophen (TYLENOL) 325 mg TabletIndications:feve r Take 650 mg by mouth every 6 hours as needed for Pain. Indications: Fever aspirin 81 mg Tablet, Delayed Release (E.C.) Take 81 mg by mouth daily. bisacodyl (DULCOLAX) [address] 10 mg rectally three times a week. enalapril (VASOTEC) 10 mg TabletIndications:hype rtension Take 10 mg by mouth daily. Indications: Hypertension felodipine (PLENDIL) 10 mg Tablet Sustained Release 24 hrIndications:hyperten lia Take 10 mg by mouth daily. Indications: Hypertension furosemide (LASIX) 40 mg TabletIndications:kortney l disease with edema Take 40 mg by mouth 2 times daily. Indications: Renal Disease with Edema glipiZIDE (GLUCOTROL) 5 mg Tablet Take 5 mg by mouth 2 times daily (before meals). hydrOXYzine (ATARAX) 25 mg Tablet Take 25 mg by mouth every 6 hours as needed for Itching. meTOPROLOL succinate (TOPROL-XL) 50 mg Tablet Sustained Release 24 hrIndications:hyperten lia Take 50 mg by mouth 2 times daily. Indications: Hypertension MAGNESIUM HYDROXIDE (MILK OF MAGNESIA ORAL) Take 1,200 mg by mouth daily as needed (for constipation). polyethylene glycol (MIRALAX) 17 gram Powder in Packet Take 17 g by mouth daily. QUEtiapine (SEROQUEL) 100 mg TabletIndications:Schi zoaffective disorder Take 200 mg by mouth daily. Indications: Schizoaffective disorder simvastatin (ZOCOR) 20 mg TabletIndications:hype rlipidemia Take 20 mg by mouth nightly. Indications: Hyperlipidemia documented as of this encounter H&P Notes * Bay Jaffe MD - 03/26/2016 9:54 AM EST Merly Rivera was examined in the preoperative area. She reports no new symptoms or other change in her health since her preoperative history and physical exam was performed less than 30 days ago. Her exam reveals no significant changes. She is breathing comfortably, without cyanosis or use of accessory muscles. Vital signs are within acceptable parameters. The eyes are quiet without discharge or other signs of active infection. The anesthesia plan (GA) was reviewed with Dr. Koch and Merly Duránach and she expressed understanding and agreement. Merly Rivera has cataracts OU. Today's surgery is on the R side. * Bay Jaffe MD - 03/26/2016 9:53 AM EST See H&P from Emre Fonseca documented in this encounter Miscellaneous Notes * Op Note - Bay Jaffe MD - 03/26/2016 11:14 AM EST Pre-op diagnosis: Advanced white cataract, left eye Post-op diagnosis: Same Surgeon: Bay Jaffe MD Name of procedure: Phacoemulsification of cataract with posterior chamber intraocular lens implant,complex, left eye Anesthesia: Subtenons retrobulbar block, GETA Description of procedure: The left eye was marked preoperatively. A latex-free procedure was performed. The patient was brought into the operating suite, positioned in the supine position, and the patient's identity was verified by the surgeon and operative team. Monitors were placed by the plant physiology teacher. After satisfactory general endotracheal anesthesia was obtained by Dr. Koch and his team, topical anaesthetic was placed in the left eye. The patient's left eye was prepped with Betadine, including a drop of Betadine in the cul-de-sac. The eye was draped in the usual fashion for intraocular surgery, isolating the eyelashes from the surgical field. An open wire lid speculum was placed. The operating microscope was positioned. A buttonhole incision was made in conjunctiva and tenons capsule in the inferonasal quadrant. Bleeders cauterized. Subtenons retrobulbar anesthesia was administered through a cannula with 2.0cc of 2%lidocaine mixed with 0.75% bupivicaine. A superior conjunctival peritomy was made, followed by gentle hemostasis with eraser-tip bipolar cautery. A half-thickness scleral groove incision was made 1mm posterior to the limbus. A limbal stab incision was made at 2:00. Filtered air was instilled in the AC. Trypan blue dye was instilled to stain the anterior capsule. The eye was entered at the 95 degree meridian with a 2.4mm keratome. Provisc was instilled in the AC, flushing out excess blue dye. A continuous curvilinear capsulorhexis wasmade with a cystotome. The lens was loosened with hydrodissection. Viscoat was instilled to coat the corneal endothelium. The nucleus was emulsified with the phacoemulsification handpiece in a divide-and- conquer fashion. Residual cortical material was removed with the automated irrigation/aspiration unit. The posterior capsule was vacuum-polished. The capsular bag was inflated with viscoelastic. An Suhas Model SN60WF posterior chamber lens with a 6mm acrylic optic was inspected and found to be without defects, placed in the [place] III production packager cartridge, and injected into the capsular bag without difficulty. The lens was secure and well-centered. Viscoelastic was thoroughly removed with the irrigation/aspiration handpiece. Miostat was instilled in the AC. The anterior chamber was filled with BSS to normal intraocular pressure. The wounds were checked for leakage and there was none. Conjunctiva was closed with cautery. Subconjunctival injections of dexamethasone and cefazolin were given inferiorly. One drop of Vigamox, Cosopt, and Maxitrol ointment were instilled, followed by a patch and shield over the operated eye. Anesthesia was stopped and the endotracheal tube was removed with out difficulty. The patient was taken to [facility] in stable condition. Lens: Suhas SN60WF +23.0 diopter PCIOL EBL <1cc Specimen Removed: None (cataract emulsified, not saved as specimen) Drains: None Surgical Closure: Primary Complications: None Attestation: I performed this procedure without the involvement of a resident. documented in this encounter Plan of Treatment Not on file documented as of this encounter Procedures Procedure Name Priority Date/Time Associated Diagnosis Comments CATARACT EXTRACTION, EXTRACAPSULAR, WITH LENS INSERTION, COMPLEX (WRVU 10.25) 03/26/2016 10:13 AM EST Senile cataracts of both eyes POCT GLUCOSE Routine 03/26/2016 9:08 AM EST IMPLANTABLE DEVICES SCAN 03/26/2016 12:00 AM EST documented in this encounter Results * POCT Glucose (03/26/2016 9:08 AM EST) Glucose, POC 113 65 - 199 mg/dL [facility] Comment: Supplemental ranges: <140 mg/dL before meals <180 mg/dL all other times of the day Blood specimen (specimen) 03/26/2016 9:08 AM EST 03/26/2016 9:08 AM EST Bay Jaffe MD POINT OF CARE TEST O RDERABLES [facility] [place] [address] * SCAN DOC: IMPLANTABLE DEVICES (03/26/2016 12:00 AM EST) Scanning Provider MEDIA MGR SCAN EXT O RDR/RSLT documented in this encounter Visit Diagnoses Diagnosis Senile cataracts of both eyes Senile cataract, unspecified Senile cataracts of both eyes Senile cataract, unspecified documented in this encounter Administered Medications Inactive Administered Medications - up to 3 most recent administrations Medication Order MAR Action Action Date Dose Rate Site balanced salt (BSS PLUS) irrigation solution ONCE PRN, Starting on Mami 03/26/16 at 1044, Until Mami 03/26/16 at 1426, Intra-Operative (Intra-Procedure), Routine Given 03/26/2016 10:44 AM EST 1 Bottle Right Eye balanced salt (BSS) irrigation solution ONCE PRN, Starting on Mami 03/26/16 at 1044, Until Mami 03/26/16 at 1426, Intra-Operative (Intra-Procedure), Routine Given 03/26/2016 10:44 AM EST 15 mLs Right Eye BUpivacaine (PF) (MARCAINE) 0.75 % (7.5 mg/mL) injection ONCE PRN, Starting on Mami 03/26/16 at 1044, Until Mami 03/26/16 at 1426, Intra-Operative (Intra-Procedure), Routine Given 03/26/2016 10:44 AM EST 1 mL Right Eye carbachol (MIOSTAT) 0.01 % ophthalmic solution ONCE PRN, Starting on Mami 03/26/16 at 1112, Until Mami 03/26/16 at 1426, Intra-Operative (Intra-Procedure), Routine Given 03/26/2016 11:12 AM EST 0.5 mLs Right Eye chondroitin-sodium hyaluronate (DUOVISC) intra-ocular kit ONCE PRN, Starting on Mami 03/26/16 at 1044, Until Mami 03/26/16 at 1426, Intra-Operative (Intra-Procedure), Routine Given 03/26/2016 10:44 AM EST 1.1 mLs Right Eye cyclopentolate (CYCLODRYL) 1 % ophthalmic solution 1 drop 1 drop, Right Eye, EVERY 5 MIN, 3 doses, First dose on Mami 03/26/16 at 0930, Last dose on Mami 03/26/16 at 0940, 1 drop to the operative eye every 5 minutes times 3. Start day of surgery, Day of Surgery (Day of Procedure), Routine Given 03/26/2016 9:43 AM EST 1 drop Given 03/26/2016 9:34 AM EST 1 drop Given 03/26/2016 9:16 AM EST 1 drop dorzolamide-timolol (PF) (COSOPT) 2-0.5 % ophthalmic solution ONCE PRN, Starting on Mami 03/26/16 at 1115, Until Mami 03/26/16 at 1426, Intra-Operative (Intra-Procedure), Routine Given 03/26/2016 11:15 AM EST 1 drop Right Eye EPINEPHrine injection solution ONCE PRN, Starting on Mami 03/26/16 at 1044, Until Mami 03/26/16 at 1426, Intra-Operative (Intra-Procedure), Routine Given 03/26/2016 10:44 AM EST 0.5 mg ketorolac tromethamine (ACULAR) 0.5 % ophthalmic solution 1 drop 1 drop, Right Eye, ONCE, 1 dose, On Mami 03/26/16 at 0930, 1 drop to the operative eye once, start on day of surgery, Day of Surgery (Day of Procedure), Routine Given 03/26/2016 9:16 AM EST 1 drop lactated ringers infusion 1,000 mL 1,000 mL, at 100 mL/hr, Intravenous, CONTINUOUS, Starting on Mami 03/26/16 at 0930, Until Mami 03/26/16 at 1225, Day of Surgery (Day of Procedure) New Bag 03/26/2016 9:40 AM EST 1,000 mLs 100 mL/hr lidocaine (XYLOCAINE) 20 mg/mL (2 %) injection ONCE PRN, Starting on Mami 03/26/16 at 1044, Until Mami 03/26/16 at 1426, Intra-Operative (Intra-Procedure), Routine Given 03/26/2016 10:44 AM EST 1 mL Right Eye moxifloxacin (VIGAMOX) 0.5 % ophthalmic solution 1 drop 1 drop, Right Eye, EVERY 5 MIN, 3 doses, First dose on Mami 03/26/16 at 0930, Last dose on Mami 03/26/16 at 0940, 1 drop to the operative eye every 5 minutes times 3. Start on the day of surgery., Day of Surgery (Day of Procedure), Routine Given 03/26/2016 9:44 AM EST 1 drop Given 03/26/2016 9:33 AM EST 1 drop Given 03/26/2016 9:14 AM EST 1 drop moxifloxacin (VIGAMOX) 0.5 % ophthalmic solution ONCE PRN, Starting on Mami 03/26/16 at 1107, Until Mami 03/26/16 at 1426, Intra-Operative (Intra-Procedure), Routine Given 03/26/2016 11:14 AM EST 1 drop Righ t Eye ftpvvpro-alwsdqvwr-tgclxifbesqkf (DEXACINE) 3.5 mg/g-10,000 unit/g-0.1 % ophthalmic ointment ONCE PRN, Starting on Mami 03/26/16 at 1114, Until Mami 03/26/16 at 1426, Intra-Operative (Intra-Procedure), Routine Given 03/26/2016 11:14 AM EST 1 Tube Righ t Eye PHENYLephrine (MYDFRIN) 2.5 % ophthalmic solution 1 drop 1 drop, Right Eye, EVERY 5 MIN, 3 doses, First dose on Mami 03/26/16 at 0930, Last dose on Mami 03/26/16 at 0940, 1 drop to the operative eye every 5 minutes times 3. Start on the day of surgery., Day of Surgery (Day of Procedure), Routine Given 03/26/2016 9:44 AM EST 1 drop Given 03/26/2016 9:33 AM EST 1 drop Given 03/26/2016 9:17 AM EST 1 drop povidone-iodine 5 % ophthalmic solution ONCE PRN, Starting on Mami 03/26/16 at 1035, Until Mami 03/26/16 at 1426, Intra-Operative (Intra-Procedure), Routine Given 03/26/2016 10:35 AM EST 30 mLs Right Eye prednisoLONE acetate (PRED FORTE) 1 % ophthalmic suspension 1 drop 1 drop, Right Eye, ONCE, 1 dose, On Mami 03/26/16 at 0930, 1 drop to the operative eye once, start on day of surgery, Day of Surgery (Day of Procedure), Routine Given 03/26/2016 9:17 AM EST 1 drop sodium hyaluronate (PROVISC) ophthalmic injection ONCE PRN, Starting on Mami 03/26/16 at 1050, Until Mami 03/26/16 at 1426, Intra-Operative (Intra-Procedure), Routine Given 03/26/2016 10:50 AM EST 0.85 mLs Right Eye trypan blue 0.06 % solution ONCE PRN, Starting on Mami 03/26/16 at 1050, Until Mami 03/26/16 at 1426, Intra-Operative (Intra-Procedure), Routine Given 03/26/2016 10:50 AM EST 0.5 mLs Right Eye documented in this encounter Active and Recently Administered Medications Times are shown in EST. Scheduled Medication Order 03/24/2016 03/25/2016 03/26/2016 cyclopentolate (CYCLODRYL) 1 % ophthalmic solution 1 drop (COMPLETED) 1 drop, Right Eye, EVERY 5 MIN, 3 doses, First dose on Mami 03/26/16 at 0930, Last dose on Mami 03/26/16 at 0940, 1 drop to the operative eye every 5 minutes times 3. Start day of surgery, Day of Surgery (Day of Procedure), Routine 915 (Given - Provid er: Opal Canales RN)0934 (Given - Provider: Opal Canales RN)0943 (Given - Provider: Opal Canales RN) ketorolac tromethamine (ACULAR) 0.5 % ophthalmic solution 1 drop (COMPLETED) 1 drop, Right Eye, ONCE, 1 dose, On Mami 03/26/16 at 0930, 1 drop to the operative eye once, start on day of surgery, Day of Surgery (Day of Procedure), Routine 915 (Given - Provid er: Opal Canales RN) moxifloxacin (VIGAMOX) 0.5 % ophthalmic solution 1 drop 1 drop, Right Eye, EVERY 5 MIN, 3 doses, First dose on Mami 03/26/16 at 0930, Last dose on Mami 03/26/16 at 0940, 1 drop to the operative eye every 5 minutes times 3. Start on the day of surgery., Day of Surgery (Day of Procedure), Routine 0914 (Given - Provid er: Opal Canales RN)0933 (Given - Provider: Opal Canales RN)0944 (Given - Provider: Opal Canales RN) PHENYLephrine (MYDFRIN) 2.5 % ophthalmic solution 1 drop 1 drop, Right Eye, EVERY 5 MIN, 3 doses, First dose on Mami 03/26/16 at 0930, Last dose on Mami 03/26/16 at 0940, 1 drop to the operative eye every 5 minutes times 3. Start on the day of surgery., Day of Surgery (Day of Procedure), Routine 0917 (Given - Provid er: Opal Canales RN)0933 (Given - Provider: Opal Canales RN)0944 (Given - Provider: Opal Canales RN) prednisoLONE acetate (PRED FORTE) 1 % ophthalmic suspension 1 drop (COMPLETED) 1 drop, Right Eye, ONCE, 1 dose, On Mami 03/26/16 at 0930, 1 drop to the operative eye once, start on day of surgery, Day of Surgery (Day of Procedure), Routine 0917 (Given - Provid er: Opal Canales RN) sodium chloride 0.9 % flush 5 mL 5 mL, Intravenous, EVERY 12 HOURS, First dose on Mami 03/26/16 at 0930, Until Discontinued, Day of Surgery (Day of Procedure), Routine 0930 (Due) Continuous Medication Order 03/24/2016 03/25/2016 03/26/2016 lactated ringers infusion 1,000 mL 1,000 mL, at 100 mL/hr, Intravenous, CONTINUOUS, Starting on Mami 03/26/16 at 0930, Until Mami 03/26/16 at 1225, Day of Surgery (Day of Procedure) 0940 (New Bag - Prov ider: Opal Canales RN)1124 (Anesthesia Volume Adjustment - Provider: Servando Tobias CRNA) PRN Medication Order 03/24/2016 03/25/2016 03/26/2016 acetaminophen (TYLENOL) tablet 650 mg 650 mg, Oral, ONCE PRN, 1 dose, Starting on Mami 03/26/16 at 1131, Until Mami 03/26/16 at 1426, Pain, Maximum dose of acetaminophen is 4000 mg from all sources in 24 hours., Recovery (Recovery-Hospital Unit), Routine balanced salt (BSS PLUS) irrigation solution (CANCELED) ONCE PRN, Starting on Mami 03/26/16 at 1044, Until Mami 03/26/16 at 1426, Intra-Operative (Intra-Procedure), Routine 1044 (Given - Provid er: Bay Jaffe MD - Comment: 0.5 ml epinephrine added) balanced salt (BSS) irrigation solution (CANCELED) ONCE PRN, Starting on Mami 03/26/16 at 1044, Until Mami 03/26/16 at 1426, Intra-Operative (Intra-Procedure), Routine 1044 (Given - Provid er: Bay Jaffe MD) BUpivacaine (PF) (MARCAINE) 0.75 % (7.5 mg/mL) injection (CANCELED) ONCE PRN, Starting on Mami 03/26/16 at 1044, Until Mami 03/26/16 at 1426, Intra-Operative (Intra-Procedure), Routine 1044 (Given - Provid er: Bay Jaffe MD - Comment: 0.75% marciane and 2 % lidocaine mixed 1:1 total of 2 ml used.) carbachol (MIOSTAT) 0.01 % ophthalmic solution (CANCELED) ONCE PRN, Starting on Mami 03/26/16 at 1112, Until Mami 03/26/16 at 1426, Intra-Operative (Intra-Procedure), Routine 111 (Given - Provid er: Bay Jaffe MD) chondroitin-sodium hyaluronate (DUOVISC) intra-ocular kit (CANCELED) ONCE PRN, Starting on Mami 03/26/16 at 1044, Until Mami 03/26/16 at 1426, Intra-Operative (Intra-Procedure), Routine 1044 (Given - Provid er: Bay Jaffe MD) dorzolamide-timolol (PF) (COSOPT) 2-0.5 % ophthalmic solution (CANCELED) ONCE PRN, Starting on Mami 03/26/16 at 1115, Until Mami 03/26/16 at 1426, Intra-Operative (Intra-Procedure), Routine 111 (Given - Provid er: Hetal Ro RN - Comment: topical) EPINEPHrine injection solution (CANCELED) ONCE PRN, Starting on Mami 03/26/16 at 1044, Until Mami 03/26/16 at 1426, Intra-Operative (Intra-Procedure), Routine 1044 (Given - Provid er: Bay Jaffe MD - Comment: added to 5000 ml BSS plus) lidocaine (XYLOCAINE) 10 mg/mL (1 %) injection 3 mg 3 mg (0.3 mL), Subcutaneous, ONCE PRN, 1 dose, Starting on Mami 03/26/16 at 0907, Until Mami 03/26/16 at 1225, for discomfort with PIV insertion, Day of Surgery (Day of Procedure), Routine lidocaine (XYLOCAINE) 20 mg/mL (2 %) injection (CANCELED) ONCE PRN, Starting on Mami 03/26/16 at 1044, Until Mami 03/26/16 at 1426, Intra-Operative (Intra-Procedure), Routine 1044 (Given - Provid er: Bay Jaffe MD - Comment: 0.75% marciane and 2 % lidocaine mixed 1:1 total of 2 ml used.) moxifloxacin (VIGAMOX) 0.5 % ophthalmic solution (CANCELED) ONCE PRN, Starting on Mami 03/26/16 at 1107, Until Mami 03/26/16 at 1426, Intra-Operative (Intra-Procedure), Routine 1112 (Canceled Entry - Provider: Hetal Ro RN - Comment: topical)1114 (Given - Provider: Hetal Ro RN - Comment: topical) nsbyqieu-iomdecoxe-xqhdkbkyummxu (DEXACINE) 3.5 mg/g-10,000 unit/g-0.1 % ophthalmic ointment (CANCELED) ONCE PRN, Starting on Mami 03/26/16 at 1114, Until Mami 03/26/16 at 1426, Intra-Operative (Intra-Procedure), Routine 1114 (Given - Provid er: Bay Jaffe MD - Comment: topical) povidone-iodine 5 % ophthalmic solution (CANCELED) ONCE PRN, Starting on Mami 03/26/16 at 1035, Until Mami 03/26/16 at 1426, Intra-Operative (Intra-Procedure), Routine 1035 (Given - Provid er: Hetal Ro RN - Comment: 1 gtt to right eye remaining used as prep) sodium chloride 0.9 % flush 5-20 mL 5-20 mL, Intravenous, EVERY 1 MIN PRN, Starting on Mami 03/26/16 at 0907, Until Mami 03/26/16 at 1225, flush, Flush pertains to all indwelling lines. Flush per protocol found in the job aid using the link provided on this medication record., Day of Surgery (Day of Procedure), Routine sodium hyaluronate (PROVISC) ophthalmic injection (CANCELED) ONCE PRN, Starting on Mami 03/26/16 at 1050, Until Mami 03/26/16 at 1426, Intra-Operative (Intra-Procedure), Routine 1050 (Given - Provid er: Bay Jaffe MD) trypan blue 0.06 % solution (CANCELED) ONCE PRN, Starting on Mami 03/26/16 at 1050, Until Mami 03/26/16 at 1426, Intra-Operative (Intra-Procedure), Routine 1050 (Given - Provid er: Bay Jaffe MD) documented in this encounter Care Teams Local Delivery Driver Relationship Specialty Start Date End Date Emre Fonseca MD [address] [facility] [place] [address] PCP - General 04/08/10 09/29/16 documented as of this encounter
--- OUTSIDE RECORDS SUMMARY | 2024-01-26 19:17 | XMS_ITS | Encounter Summary ---
Author Organization [facility] [place] [address] Care Team Providers Care Visual Merchandising Coordinator Name Role Phone Emre Fonseca MD Primary Care Provider + Reason for Visit * Reason Onset Date Comments Referral 08/03/2016 Encounter Details Date Type Department Care Team (Late st Contact Info) Description 08/03/2016 Telephone [place]hthalmology [place] [address] Austin Bartholomew MD [facility] [place] [address] Referral Social History Tobacco Use Types Packs/Day Years Used Date Smoking Tobacco: Former Alcohol Use Standard Drinks/Week Comments No 0 (1 standard drink = 0.6 oz pur e alcohol) Sex and Gender Information Value Date Recorded Sex Assigned at Not on file Gender Identity Not on file Sexual Orientation Not on file documented as of this encounter Miscellaneous Notes * Telephone Encounter - Hilaria Coates - 08/10/2016 11:40 AM EDT Patient Scheduled * Telephone Encounter - Hilaria Coates - 08/06/2016 10:58 AM EDT I have called pt again to schedule. No voicemail available * Telephone Encounter - Hilaria Coates - 08/03/2016 1:52 PM EDT Patient referred to [facility]. I have called and left a message for patient to call and schedule an appointment. Reviewed records. This is NOT urgent. She can be scheduled next available. Thanks NNB documented in this encounter Plan of Treatment Not on file documented as of this encounter Visit Diagnoses Not on filedocumented in this encounter Care Teams Visual Merchandising Coordinator Relationship Specialty Start Date End Date Emre Fonseca MD [address] [place] [address] PCP - General 04/08/10 09/29/16 documented as of this encounter
--- OUTSIDE RECORDS SUMMARY | 2024-01-26 19:17 | XMS_ITS | Encounter Summary ---
Author Organization [facility] [place] [address] Care Team Providers Care Wrapper Opener Name Role Phone Emre Fonseca MD Primary Care Provider + Encounter Details Date Type Department Care Team (Latest Contact Info) Description 07/03/2016 6:39 AM EST - 07/03/2016 10:58 AM EST Hospital Encounter [place] [address] Bay Jaffe MD [facility] [place] [address] Discharge Disposition: Home Social History Tobacco Use Types Packs/Day Years [...] Mass Index 39.33 07/03/2016 7:28 AM EST documented in this encounter Discharge Instructions * Discharge Instructions* Bettie Carpenter RN - 07/03/2016 9:50 AM EST POST ANESTHESIA INSTRUCTIONS Go home, [...] H&P Notes * Bay Jaffe MD - 07/03/2016 7:18 AM EST Merly Rivera was examined in [...] or other signs of active infection. The sedation plan was reviewed with Merly Rivera and she expressed understanding and agreement. Merly Rivera has cataract OS. Today's surgery is on the L side. * Bay Jaffe MD - 07/03/2016 7:18 AM EST See H&P from Gomez Fu documented in this encounter Miscellaneous Notes * Op Note - Bay Jaffe MD - 07/03/2016 9:33 AM EST Pre-op diagnosis: Advanced white cortical/nuclear cataract, left eye Post-op diagnosis: Same Surgeon: [...] operative team. Monitors were placed by the turn laster. After satisfactory general endotracheal anesthesia was obtained by Dr. Peters and his team, topical anaesthetic was placed [...] limbal stab incision was made at 2:00. The eye was entered at the 95 degree meridian with a 2.4mm keratome. A filtered air bubble was introduced into the AC, followed by Trypan Blue dye to stain the anterior capsule. The AC was filled with Provisc, flushing out the air and blue dye. A continuous curvilinear capsulorhexis was made with a cystotome. The lens was loosened with hydrodissection. Viscoat was The nucleus was emulsified with the phacoemulsification handpiece in a quoxqq-lpx-afzegsg fashion. The lens was very hard and additional Viscoat was added to protect the cornea. Residual cortical material was removed with the automated irrigation/aspiration unit. The posterior capsule was vacuum-polished.The capsular bag was inflated with viscoelastic. An Suhas Model SN60WF posterior chamber lens with a 6mm acrylic optic was inspected and found to be without defects, placed in the [place] II insertercartridge, and injected into the capsular bag without difficulty. The lens was secure and well-centered. Viscoelastic was thoroughly removed with the irrigation/aspiration handpiece. Miostat was instilled in the AC. The anterior chamber was filled with BSS to normal intraocular pressure. The woundswere checked for leakage and there was none. Conjunctiva was closed with cautery. Subconjunctival injections of dexamethasone and cefazolin were given inferiorly. One drop of Vigamox, Cosopt, and Maxitrol ointment were instilled, followed by a patch and shield over the operated eye. The patient wastaken to Same Day Recovery in stable condition. Lens: Suhas SN60WF +19.0 diopter PCIOL EBL <1cc Specimen Removed: None (cataract emulsified, not saved as specimen) Drains: None Surgical Closure: Primary Complications: None Attestation: I performed this procedure without the involvement of a resident. documented in this encounter Plan of Treatment Not on file documented as of this encounter Procedures Procedure Name Priority Date/Time Associated Diagnosis Comments CATARACT EXTRACTION, EXTRACAPSULAR, WITH LENS INSERTION, COMPLEX (WRVU 10.25) Yes 07/03/2016 8:28 AM EST Combined forms of age-related cataract, left eye POCT GLUCOSE Routine 07/03/2016 7:57 AM EST IMPLANTABLE DEVICES SCAN 07/03/2016 12:00 AM EST documented in this encounter Results * (ABNORMAL) POCT Glucose (07/03/2016 7:57 AM EST) Glucose, POC 210(H) 65 - 199 mg/dL [facility] Comment: Supplemental ranges: <140 mg/dL before meals <180 mg/dL all other times of the day Blood specimen (specimen) 07/03/2016 7:57 AM EST 07/03/2016 7:57 AM EST Bay Jaffe MD POINT OF CARE TEST O RDERABLES [facility] [place] [address] * SCAN DOC: IMPLANTABLE DEVICES (07/03/2016 12:00 AM EST) Scanning Provider MEDIA MGR SCAN EXT O RDR/RSLT documented in this encounter Visit Diagnoses Not on filedocumented in this encounter Administered Medications Inactive Administered Medications - up to 3 most recent administrations Medication Order MAR Action Action Date Dose Rate Site cyclopentolate (CYCLODRYL) 1 % ophthalmic solution 1 drop 1 drop, Right Eye, EVERY 5 MIN, 3 doses, First dose on Wed07/03/16 at 0745, Last dose on Wed07/03/16 at 0755, 1 drop to the operative eye every 5 minutes times 3. Start day of surgery, Day of Surgery (Day of Procedure), Routine Given 07/03/2016 7:55 AM EST 1 drop Given 07/03/2016 7:50 AM EST 1 drop Given 07/03/2016 7:45 AM EST 1 drop ketorolac tromethamine (ACULAR) 0.5 % ophthalmic solution 1 drop 1 drop, Right Eye, ONCE, 1 dose, On Wed07/03/16 at 0745, 1 drop to the operative eye once, start on day of surgery, Day of Surgery (Day of Procedure), Routine Given 07/03/2016 7:45 AM EST 1 drop moxifloxacin (VIGAMOX) 0.5 % ophthalmic solution 1 drop 1 drop, Right Eye, EVERY 5 MIN, 3 doses, First dose on Wed07/03/16 at 0745, Last dose on Wed07/03/16 at 0755, 1 drop to the operative eye every 5 minutes times 3. Start on the day of surgery., Day of Surgery (Day of Procedure), Routine Given 07/03/2016 7:55 AM EST 1 drop Given 07/03/2016 7:50 AM EST 1 drop Given 07/03/2016 7:45 AM EST 1 drop PHENYLephrine (MYDFRIN) 2.5 % ophthalmic solution 1 drop 1 drop, Right Eye, EVERY 5 MIN, 3 doses, First dose on Wed07/03/16 at 0745, Last dose on Wed07/03/16 at 0755, 1 drop to the operative eye every 5 minutes times 3. Start on the day of surgery., Day of Surgery (Day of Procedure), Routine Given 07/03/2016 7:50 AM EST 1 drop Given 07/03/2016 7:45 AM EST 1 drop prednisoLONE acetate (PRED FORTE) 1 % ophthalmic suspension 1 drop 1 drop, Right Eye, ONCE, 1 dose, On Wed07/03/16 at 0745, 1 drop to the operative eye once, start on day of surgery, Day of Surgery (Day of Procedure), Routine Given 07/03/2016 7:45 AM EST 1 drop documented in this encounter Active and Recently Administered Medications Times are shown in EST. Scheduled Medication Order 07/01/2016 07/02/2016 07/03/2016 cyclopentolate (CYCLODRYL) 1 % ophthalmic solution 1 drop (COMPLETED) 1 drop, Right Eye, EVERY 5 MIN, 3 doses, First dose on Wed07/03/16 at 0745, Last dose on Wed07/03/16 at 0755, 1 drop to the operative eye every 5 minutes times 3. Start day of surgery, Day of Surgery (Day of Procedure), Routine 0745 (Given - Provid er: Petty Costello RN)0750 (Given - Provider: Petty Costello RN)0755 (Given - Provider: Petty Costello RN) ketorolac tromethamine (ACULAR) 0.5 % ophthalmic solution 1 drop (COMPLETED) 1 drop, Right Eye, ONCE, 1 dose, On Wed07/03/16 at 0745, 1 drop to the operative eye once, start on day of surgery, Day of Surgery (Day of Procedure), Routine 0745 (Given - Provid er: Petty Costello RN) moxifloxacin (VIGAMOX) 0.5 % ophthalmic solution 1 drop (COMPLETED) 1 drop, Right Eye, EVERY 5 MIN, 3 doses, First dose on Wed07/03/16 at 0745, Last dose on Wed07/03/16 at 0755, 1 drop to the operative eye every 5 minutes times 3. Start on the day of surgery., Day of Surgery (Day of Procedure), Routine 0745 (Given - Provid er: Petty Costello RN)0750 (Given - Provider: Petty Costello RN)0755 (Given - Provider: Petty Costello RN) PHENYLephrine (MYDFRIN) 2.5 % ophthalmic solution 1 drop 1 drop, Right Eye, EVERY 5 MIN, 3 doses, First dose on Wed07/03/16 at 0745, Last dose on Wed07/03/16 at 0755, 1 drop to the operative eye every 5 minutes times 3. Start on the day of surgery., Day of Surgery (Day of Procedure), Routine 0745 (Given - Provid er: Petty Costello RN)0750 (Given - Provider: Petty Costello RN)0755 (Due) prednisoLONE acetate (PRED FORTE) 1 % ophthalmic suspension 1 drop (COMPLETED) 1 drop, Right Eye, ONCE, 1 dose, On Wed07/03/16 at 0745, 1 drop to the operative eye once, start on day of surgery, Day of Surgery (Day of Procedure), Routine 0745 (Given - Provid er: Petty Costello RN) sodium chloride 0.9 % flush 5 mL 5 mL, Intravenous, EVERY 12 HOURS, First dose on Wed07/03/16 at 0745, Until Discontinued, Day of Surgery (Day of Procedure), Routine 0745 (Due) Continuous Medication Order 07/01/2016 07/02/2016 07/03/2016 lactated ringers infusion 1,000 mL 1,000 mL, at 100 mL/hr, Intravenous, CONTINUOUS, Starting on Wed07/03/16 at 0745, Until Wed07/03/16 at 1057, Day of Surgery (Day of Procedure) 0826 (New Bag - Prov ider: Ailin Bello CRNA)0848 (Anesthesia Volume Adjustment - Provider: Ailin Bello CRNA)0900 (Anesthesia Volume Adjustment - Provider: Ailin Bello CRNA)0935 (New Bag - Provider: Ailin Bello CRNA)0944 (Anesthesia Volume Adjustment - Provider: Ailin Bello CRNA) PRN Medication Order 07/01/2016 07/02/2016 07/03/2016 acetaminophen (TYLENOL) tablet 650 mg 650 mg, Oral, ONCE PRN, 1 dose, Starting on Wed07/03/16 at 0945, Until Wed07/03/16 at 1259, Pain, Maximum dose of acetaminophen is 4000 mg from all sources in 24 hours., Recovery (Recovery-Hospital Unit), Routine balanced salt (BSS PLUS) irrigation solution (CANCELED) ONCE PRN, Starting on Wed07/03/16 at 0908, Until Wed07/03/16 at 1259, Intra-Operative (Intra-Procedure), Routine 0908 (Given - Provid er: Bay Jaffe MD) balanced salt (BSS) irrigation solution (CANCELED) ONCE PRN, Starting on Wed07/03/16 at 0909, Until Wed07/03/16 at 1259, Intra-Operative (Intra-Procedure), Routine 908 (Given - Provid er: Bay Jaffe MD) BUpivacaine (PF) (MARCAINE) 0.75 % (7.5 mg/mL) injection (CANCELED) ONCE PRN, Starting on Wed07/03/16 at 0909, Until Wed07/03/16 at 1259, Intra-Operative (Intra-Procedure), Routine 908 (Given - Provid er: Bay Jaffe MD - Comment: subtenon's block) carbachol (MIOSTAT) 0.01 % ophthalmic solution (CANCELED) ONCE PRN, Starting on Wed07/03/16 at 0930, Until Wed07/03/16 at 1259, Intra-Operative (Intra-Procedure), Routine 929 (Given - Provid er: Bay Jaffe MD) ceFAZolin (ANCEF) injection (CANCELED) ONCE PRN, Starting on Wed07/03/16 at 0914, Until Wed07/03/16 at 1259, Intra-Operative (Intra-Procedure), Routine 913 (Given - Provid er: Bay Jaffe MD - Comment: post op subconjunctival injection) chondroitin-sodium hyaluronate (DUOVISC) intra-ocular kit (CANCELED) ONCE PRN, Starting on Wed07/03/16 at 0915, Until Wed07/03/16 at 1259, Intra-Operative (Intra-Procedure), Routine 914 (Given - Provid er: Bay Jaffe MD) dexamethasone (DECADRON) injection (CANCELED) ONCE PRN, Starting on Wed07/03/16 at 0913, Until Wed07/03/16 at 1259, Intra-Operative (Intra-Procedure), Routine 912 (Given - Provid er: Bay Jaffe MD - Comment: post op subconjunctival injection) dorzolamide-timolol (PF) (COSOPT) 2-0.5 % ophthalmic solution (CANCELED) ONCE PRN, Starting on Wed07/03/16 at 0910, Until Wed07/03/16 at 1259, Intra-Operative (Intra-Procedure), Routine 0910 (Given - Provid er: Bay Jaffe MD - Comment: post op) EPINEPHrine injection solution (CANCELED) ONCE PRN, Starting on Wed07/03/16 at 0910, Until Wed07/03/16 at 1259, Intra-Operative (Intra-Procedure), Routine 09 (Given - Provid er: Nyasia Estrada RN - Comment: added to BSS Plus 500ml) lidocaine (XYLOCAINE) 10 mg/mL (1 %) injection 3 mg 3 mg (0.3 mL), Subcutaneous, ONCE PRN, 1 dose, Starting on Wed07/03/16 at 0720, Until Wed07/03/16 at 1057, for discomfort with PIV insertion, Day of Surgery (Day of Procedure), Routine lidocaine (XYLOCAINE) 20 mg/mL (2 %) injection (CANCELED) ONCE PRN, Starting on Wed07/03/16 at 0909, Until Wed07/03/16 at 1259, Intra-Operative (Intra-Procedure), Routine 908 (Given - Provid er: Bay Jaffe MD - Comment: subtenon's) hkglnjfw-dcskgwrfx-eclsjqfmezam e (DEXACINE) 3.5 mg/g-10,000 unit/g-0.1 % ophthalmic ointment (CANCELED) ONCE PRN, Starting on Wed07/03/16 at 0911, Until Wed07/03/16 at 1259, Intra-Operative (Intra-Procedure), Routine 09 (Given - Provid er: Bay Jaffe MD - Comment: post op) povidone-iodine 5 % ophthalmic solution (CANCELED) ONCE PRN, Starting on Wed07/03/16 at 0900, Until Wed07/03/16 at 1259, Intra-Operative (Intra-Procedure), Routine 09 (Given - Provid er: Nyasia Estrada RN - Comment: prep) proparacaine (ALCAINE) 0.5 % ophthalmic solution (CANCELED) ONCE PRN, Starting on Wed07/03/16 at 0839, Until Wed07/03/16 at 1259, Intra-Operative (Intra-Procedure), Routine 0839 (Given - Provid er: Bay Jaffe MD) sodium chloride 0.9 % flush 5-20 mL 5-20 mL, Intravenous, EVERY 1 MIN PRN, Starting on Wed07/03/16 at 0720, Until Wed07/03/16 at 1057, flush, Flush pertains to all indwelling lines. Flush per protocol found in the job aid using the link provided on this medication record., Day of Surgery (Day of Procedure), Routine trypan blue 0.06 % solution (CANCELED) ONCE PRN, Starting on Wed07/03/16 at 0915, Until Wed07/03/16 at 1259, Intra-Operative (Intra-Procedure), Routine 0915 (Given - Provid er: Bay Jaffe MD) documented in this encounter Care Teams Wrapper Opener Relationship Specialty Start Date End Date Emre Fonseca MD [address] [place] [address] PCP - General 04/08/10 09/29/16 documented as of this encounter
--- OUTSIDE RECORDS SUMMARY | 2024-01-26 19:17 | XMS_ITS | Clinical Summary ---
Author Organization [facility] Address [address] [place] [address] Care Team Providers Care Brass Roller Name Role Phone Unknown, Provider Primary Care Provider Social History Tobacco Use Types Packs/Day Years Used Date Smoking Tobacco: Never Assessed Sex and Gender Information Value Date Recorded Sex Assigned at Not on file Gender Identity Not on file Sexual Orientation Not on file Plan of Treatment Health Maintenance Due Date Last Done Comments Hepatitis C Screen 1945 RSV Immunization ( o r 60+ Years) (1 - 1-dose 60+ series) 2005 Fall Risk Screening 2010 COVID-19 Vaccine (2022-24 season) 2023 Care Teams Brass Roller Relationship Specialty Start Date End Date Unknown, Provider, PCP - General 06/11/14
--- OUTSIDE RECORDS SUMMARY | 2024-01-26 19:17 | XMS_ITS | Encounter Summary ---
[place] [address] Care Team Providers Care Student Driving Instructor Name Role Phone Emre Fonseca MD Primary Care Provider + Reason for Visit * Reason Comments Post Op S/P 1 week CE/IOL OD 03/26/2016 Encounter Details Date Type Department Care Team (Late st Contact Info) Description 04/02/2016 9:30 AM EST Office Visit [place] [address] Bay Jaffe MD [facility] [place] [address] S/P cataract extraction and insertion of intraocular lens, right; Combined forms of age-related cataract, left eye Social History Tobacco Use Types Packs/Day Years Used Date Smoking Tobacco: Former Alcohol Use Standard Drinks/Week Comments No 0 (1 standard drink = 0.6 oz pur e alcohol) Sex and Gender Information Value Date Recorded Sex Assigned at Not on file Gender Identity Not on file Sexual Orientation Not on file documented as of this encounter Progress Notes * Bay Jaffe MD - 04/02/2016 9:30 AM EST Assessment/Plan: 1. 1 week s/p CE/IOL OD Doing well with normal postop appearance Stop Vigamox drops Continue prednisolone and ketorolac drops 3x/day for 2 weeks and d/c 2. Advanced Cataract OS - visually significant Re-reviewed R/B/Alt to cataract surgery, chance of complications, option of waiting. Lens options and refractive target reviewed. Questions answered. Ms. Rivera expresses understanding, requests cataract surgery OS. 3. 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 Follow up: Cataract surgery second eye, 2 weeks Retina evaluation after cataract surgery for diabetic retinopathy documented in this encounter Plan of Treatment Not on file documented as of this encounter Procedures Procedure Name Priority Date/Time Associated Diagnosis Comments CATARACT EXTRACTION, EXTRACAPSULAR, W/ LENS INSERTION, COMPLEX Routine 04/02/2016 10:50 AM EST Combined forms of age-related cataract, left eye documented in this encounter Visit Diagnoses Diagnosis S/P cataract extraction and insertion of intraocular lens, right Combined forms of age-related cataract, left eye documented in this encounter Care Teams Student Driving Instructor Relationship Specialty Start Date End Date Emre Fonseca MD [address] [facility] [place] [address] PCP - General 04/08/10 09/29/16 documented as of this encounter
--- OUTSIDE RECORDS SUMMARY | 2024-01-26 19:17 | XMS_ITS | Encounter Summary ---
Author Organization [facility] [place] [address] Care Team Providers Care Head Grower Name Role Phone Emre Fonseca MD Primary Care Provider + Reason for Visit * Auth/Cert Specialty Diagnoses / Procedures Referred By Sodnra t Referred To Contact Diagnoses Unspecified age-related cataract Cataract Procedures PRO REMV CATARACT EXTRACAP,INSERT LENS,COMP PRO VITRECTOMY,FOCAL LASER RX RETINA CATARACT EXTRACTION, EXTRACAPSULAR, WITH LENS INSERTION, COMPLEX Referral ID Status Reason Start Date Expiration Date Visits Re quested Visits Authorized [id number] 1 1 Encounter Details Date Type Department Care Team (Latest Contact Info) Description 03/26/2016 8:37 AM EST - 03/26/2016 12:26 PM [facility] Hospital Encounter [place] [address] Bay Jaffe MD [facility] [place] [address] Senile cataracts of both eyes Discharge Disposition: Home Social History Tobacco Use [...] was reviewed with Dr. Koch and Merly Rivera and she expressed understanding and [...] operative team. Monitors were placed by the dining car hop. After satisfactory general endotracheal anesthesia was obtained [...] to be without defects, placed in the [place] III presser cotton ginning cartridge, and injected into the capsular bag [...] Glucose, POC 113 65 - 199 mg/dL [facility] Comment: Supplemental ranges: <140 mg/dL before meals <180 mg/dL all other times of the day Blood specimen (specimen) 03/26/2016 9:08 AM EST 03/26/2016 9:08 AM EST Bay Jaffe MD POINT OF CARE TEST O RDERABLES [facility] [place] [address] * SCAN DOC: IMPLANTABLE DEVICES (03/26/2016 12:00 [...] Given 03/26/2016 9:16 AM EST 1 drop ketorolac tromethamine (ACULAR) [...] at 100 mL/hr, Intravenous, CONTINUOUS, Starting on Ammi 03/26/16 at 0930, Until Mami 03/26/16 at 1225, Day of Surgery (Day of Procedure) New Bag 03/26/2016 9:40 AM EST 1,000 mLs 100 mL/hr moxifloxacin (VIGAMOX) 0.5 % ophthalmic solution 1 [...] Given 03/26/2016 9:14 AM EST 1 drop PHENYLephrine (MYDFRIN) 2.5 [...] Given 03/26/2016 9:17 AM EST 1 drop prednisoLONE acetate (PRED FORTE) 1 % ophthalmic suspension 1 drop 1 drop, Right Eye, ONCE, 1 dose, On Mami 03/26/16 at 0930, 1 drop to the operative eye once, start on day of surgery, Day of Surgery (Day of Procedure), Routine Given 03/26/2016 9:17 AM EST 1 drop documented in this [...] Day of Surgery (Day of Procedure), Routine 0916 (Given - Provid er: Opal Canales RN) moxifloxacin (VIGAMOX) 0.5 % ophthalmic solution 1 drop 1 drop, Right Eye, EVERY 5 MIN, 3 doses, First dose on Mami 1116 at 0930, Last dose on Mami 1116 at 0940, 1 drop to the operative [...] MIN, 3 doses, First dose on Mami 1116 at 0930, Last dose on Mami 03/26/16 [...] Day of Surgery (Day of Procedure), Routine 09 (Given - Provid er: Opal Canales RN) [...] 03/26/16 at 1426, Intra-Operative (Intra-Procedure), Routine 1112 (Given - Provid er: Bay Jaffe MD) chondroitin-sodium hyaluronate (DUOVISC) intra-ocular kit (CANCELED) ONCE PRN, Starting on Mami 03/26/16 at 1044, Until Mami 03/26/16 at 1426, Intra-Operative (Intra-Procedure), Routine 1044 (Given - Provid er: Bay Jaffe MD) dorzolamide-timolol (PF) (COSOPT) 2-0.5 % ophthalmic solution (CANCELED) ONCE PRN, Starting on Mami 03/26/16 at 1115, Until Mami 03/26/16 at 1426, Intra-Operative (Intra-Procedure), Routine 1115 (Given - Provid er: Hetal Ro RN [...] Provider: Hetal Ro RN - Comment: topical) sawhekub-mzjozwtbc-zinzmamcvzjsa (DEXACINE) 3.5 mg/g-10,000 unit/g-0.1 % ophthalmic ointment [...] (Intra-Procedure), Routine 1050 (Given - Provid er: Bya Jaffe MD) documented in this encounter Care Teams Head Grower Relationship Specialty Start Date End Date Emre Fonseca MD [address] [place] [address] PCP - General 04/08/10 09/29/16 documented as of this encounter
--- OUTSIDE RECORDS SUMMARY | 2024-01-26 19:17 | XMS_ITS | Encounter Summary ---
Author Organization [facility] [place] [address] Care Team Providers Care Fountain Dispenser Name Role Phone Emre Fonseca MD Primary Care Provider + Reason for Visit * Reason Comments Post Op S/P 1 week CE/IOL OS Encounter Details Date Type Department Care Team (Late st Contact Info) Description 07/09/2016 8:00 AM EST Office [place] [address] Bay Jaffe MD [facility] [place] [address] S/P cataract extraction and insertion of intraocular lens, left Social History Tobacco Use Types Packs/Day Years Used Date Smoking Tobacco: Former Alcohol Use Standard Drinks/Week Comments No 0 (1 standard drink = 0.6 oz pur e alcohol) Sex and Gender Information Value Date Recorded Sex Assigned at Not on file Gender Identity Not on file Sexual Orientation Not on file documented as of this encounter Progress Notes * Bay Jaffe MD - 07/09/2016 8:00 AM EST Assessment/Plan: 1. 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 She appears to be tolerating well Stop Vigamox drops Continue prednisolone and ketorolac drops 3x/day for 2 weeks and d/c 2. PCIOL OD 3. IDDM with NPDR Follow up: 1 month DMM, for final postop visit and glasses Rx documented in this encounter Plan of Treatment Not on file documented as of this encounter Visit Diagnoses Diagnosis S/P cataract extraction and insertion of intraocular lens, left documented in this encounter Care Teams Fountain Dispenser Relationship Specialty Start Date End Date Emre Fonseca MD [address] [place] [address] PCP - General 04/08/10 09/29/16 documented as of this encounter
--- OUTSIDE RECORDS SUMMARY | 2024-01-26 19:17 | XMS_ITS | Encounter Summary ---
Author Organization Formerly [facility] Address [facility] [place] [address] Care Team Providers Care Digital Hardware Design Engineer Name Role Phone Emre Fonseca MD Primary Care Provider + Encounter Details Date Type Department Care Team (Late st Contact Info) Description 07/03/2016 8:26 AM EST Anesthesia [place] [address] Mario Peters MD [facility] [place] [address] Ailin Michaels I, DRAIN TILER [place] [address] Anesthesia Record Procedure Summary Procedure Name Responsible Anesthesiologist Anesthesia Start Time Anesthesia Stop Time CATARACT EXTRACTION, EXTRACAPSULAR, WITH LENS INSERTION, COMPLEX (WRVU 10.25) (Left: Eye) Mario Peters MD 07/03/16 0826 07/03/16 0945 Events Date Time Event Comment 07/03/2016 0742 0826 AN Verify 0826 Start 0829 An Start Data 0834 An Induction 0839 An Intubation 0841 Anesthesia Ready 0903 Quick Note Block by surgeo n 0926 Break/Relief In Mario gonzales MD 0937 Extubation/LMA Out 0937 an stop data 0937 Break/Relief Out 0944 Recovery or ICU Handoff Lyudmila ent care was transferred to the destination unit staff after review of the patient's medical history, current anesthetic/surgical status and plan, according to the Provider Handoff Checklist. 0945 Stop Meds Name Total IV Lidocaine 100 mg Propofol 290 mg PHENYLephrine 480 mcg ePHEDrine 20 mg Dexamethasone 4 mg Propofol INF 485.88 mg lactated ringers infusion 1,000 mL 1,200 mL * Agents Name O2 Air N2O Sevoflurane (et) O2 Auxiliary Flowmeter 1 * Blood No blood administrations on file. Lines, Drains, and Airways Type Details Placement Removal Incision 03/26/16; 1044; eye; 01/12/22 (LDA cleanup utility RA#[id number]); 1715 (LDA cleanup utility RA#[id number]) 03/26/16 1044 by Hetal Ro RN 01/12/22 1715 by Bushra Ryan Incision 07/03/16; eye; 01/12 (LDA cleanup utility RA#[id number]); 1715 (LDA cleanup utility RA#[id number]) 07/03/16 0000 by Nyasia Estrada RN 01/12/22 1715 by Bushra Ryan (RETIRED) Peripheral IV Line - Single Lumen 07/03/16; 0811; median cubital vein (antecubital fossa), right; [id number] catheter system; 18 gauge, 1 in length; Shayne Lubin RN; intradermal injection, appears to be in pain, tolerated well, age-appropriate response; 0; 07/03/16; 1057 07/03/16 0811 by Petty Costello RN 07/03/16 1057 by Wilma Artis RN ETT Mask Ventilation: Hardy sy (1); ETT Type: Cuffed; ETT Size: 7.5 mm; Jaffe Blade: 2; Notes: Asleep, Pre-O2, Stylette; Attempts: 1; Laryngoscopy Grade: 1; ETT Placement Verified By: Auscultation, Capnometry, Visual; Secured at Teeth: 22 cm; Inserted by: Xenia; Removal Date: 07/03/16; Removal Time: 93607/03/16 08 by Ailin Michaels CRNA 07/03/16 09 by Ailin Michaels CRNA documented in this encounter Social History Tobacco Use Types Packs/Day Years Used Date Smoking Tobacco: Former Alcohol Use Standard Drinks/Week Comments No 0 (1 standard drink = 0.6 oz pur e alcohol) Sex and Gender Information Value Date Recorded Sex Assigned at Not on file Gender Identity Not on file Sexual Orientation Not on file documented as of this encounter OR Notes * Anesthesia Postprocedure Evaluation - Mario Peters MD - 07/05/2016 5:24 PM EST [facility] [place] Department of Anesthesiology Post-procedure Note Patient: Merly Rivera Procedure Summary Date Anesthesia Start Anesthesia Stop Room / Location 07/03/16 0826 0945 [facility] OR [facility] MAIN OR Procedure Diagnosis Surgeon Responsible Provider CATARACT EXTRACTION, EXTRACAPSULAR, WITH LENS INSERTION, COMPLEX (WRVU 11.08) (Left Eye) Combined forms of age-related cataract, left eye (Cataract) Bay Jaffe MD Gandevia, Vijay V, MD All Anesthesia Providers: Anesthesiologist: Mario Peters MD DRAIN TILER: Ailin Michaels CRNA Last (1hr) Vitals: BP Temp Pulse Resp SpO2 Patient Location: PACU/[facility] Level of Consciousness: Awake and Alert Pain Management: Satisfactory Analgesia PONV: None Cardiovascular Status: At Baseline Respiratory Status: At Baseline Postoperative Fluid Status: Intravascular EUvolemia Possible Anesthetic Complications: NONE apparent at time of evaluation Final Primary Anesthesia Type: General (The anesthetic type performed was the same as planned.) Comments: * Anesthesia Postprocedure Evaluation - Mario Peters MD - 07/03/2016 10:01 AM EST [facility] [place] Department of Anesthesiology Post-procedure Note Patient: Merly Rivera Procedure Summary Date Anesthesia Start Anesthesia Stop Room / Location 07/03/16 0826 0945 [facility] OR [facility] MAIN OR Procedure Diagnosis Surgeon Responsible Provider CATARACT EXTRACTION, EXTRACAPSULAR, WITH LENS INSERTION, COMPLEX (WRVU 11.08) (Left Eye) Combined forms of age-related cataract, left eye (Cataract) Bay Jaffe MD Gandevia, Vijay V, MD All Anesthesia Providers: Anesthesiologist: Mario Peters MD DRAIN TILER: Ailin Michaels CRNA Last (1hr) Vitals: BP 105/40 (07/03/16 0945) Temp 37.1 ??C (98.8 ??F) (07/03/16 0945) Pulse 70 (07/03/16 0945) Resp 18 (07/03/16 0945) SpO2 96 % (07/03/16 0945) Patient Location: PACU/[facility] Level of Consciousness: Awake and Alert Pain Management: Satisfactory Analgesia PONV: None Cardiovascular Status: At Baseline Respiratory Status: Supplemental O2 (NC or FM) Postoperative Fluid Status: Intravascular EUvolemia Possible Anesthetic Complications: NONE apparent at time of evaluation Final Primary Anesthesia Type: General (The anesthetic type performed was the same as planned.) Comments: * Anesthesia Preprocedure Evaluation - Mario Peters MD - 07/02/2016 2:32 PM EST Images from the original note were not included. Pre-Anesthesia Evaluation for: Merly Rivera a 70 y.o. female. Procedure(s): CATARACT EXTRACTION, EXTRACAPSULAR, WITH LENS INSERTION, COMPLEX Patient Active Problem List Diagnosis ??? Stasis dermatitis Past Medical History Diagnosis Date ??? Anxiety ??? Cataract ??? Chronic kidney disease ??? COPD (chronic obstructive pulmonary disease) ??? Diabetes mellitus ??? Diabetic oculopathy ??? 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 Hypertension ??? Skin disease ??? Thyroid disease ??? Trauma FALLS Past Surgical History Procedure Laterality Date ??? Cataract removal Right 03/26/2016 CE/IOL DMM ??? Pro remv cataract extracap,insert lens,comp Right 03/26/2016 CATARACT EXTRACTION, EXTRACAPSULAR, WITH LENS INSERTION, COMPLEX performed by Bay Jaffe MD at [facility] MAIN OR Social History Substance Use Topics ??? Smoking status: Former Smoker ??? Smokeless tobacco: Not on file ??? Alcohol use No History Drug Use Not on file Allergies Allergen Reactions ??? Benzodiazepines Other (See Comments) Hallucinations Medications: MAR and/or home medications have been reviewed. Physical Exam: There were no vitals filed for this visit. There is no height or weight on file to calculate BMI. Airway Assessment: Mallampati: I TM distance: >3 FB Neck ROM: full Cardiovascular Assessment: cardiovascular exam normal Pulmonary Assessment: pulmonary exam normal Dental Assessment: Misc Assessment: Patient is wearing No contact(s). IV access: Peripheral line Anesthesia Plan: ASA 3 general, with a(n) intravenous induction 70 year old female for complex cataract extraction. Had GETA for same procedure on the other eye in03/2016. Tolerated without issues. History notable for elevated BMI, DM, HTN, COPD, CKD Plan: GETA Region - Other Informed Consent: Anesthetic plan and risks discussed with patient. Use of blood products discussed with patient who consented to blood products. Plan discussed with DRAIN TILER. PAT Staff Documentation: Reason for PAT Contact: Patient Request Surgeon Request Was Patient Seen in PAT? Additional/Outside Data Requested? Findings, Assessment and Action: I was asked to provide a pre-operative consultation given patient concern regarding hallucinations after a recent endoscopy procedure performed at an OSH. I do not currently have access to those records, but it sounds like she received conscious sedation by her description. I suspect that she had aparadoxical reaction to a benzodiazepine and/ or diphenhydramine, which are commonly used in that setting. I have assured that the patient that we will attempt to avoid those medications during her upcoming and am hopeful that she will not have a similar experience. I did explain, however, that a previous history of post- procedural cognitive dysfunction is a risk factor for future occurrences. All of the patients questions and concerns were addressed during this consultation. Please contact me with any additional issues. Mina Espinoza MD Pager [phone] documented in this encounter Plan of Treatment Not on file documented as of this encounter Visit Diagnoses Not on filedocumented in this encounter Administered Medications Inactive Administered Medications - up to 3 most recent administrations Medication Order MAR Action Action Date Dose Rate Site dexamethasone (DECADRON) injection PRN, Starting on Wed07/03/16 at 0847, Until Wed07/03/16 at 0945, Anesthesia Intra-op, Routine Given 07/03/2016 8:47 AM EST 4 mg ePHEDrine 5 mg/mL multi-dose injection PRN, Starting on Wed07/03/16 at 0853, Until Wed07/03/16 at 0945, Anesthesia Intra-op, Routine Given 07/03/2016 8:53 AM EST 10 mg Given 07/03/2016 8:51 AM EST 10 mg lactated ringers infusion 1,000 mL 1,000 mL, at 100 mL/hr, Intravenous, CONTINUOUS, Starting on Wed07/03/16 at 0745, Until Wed07/03/16 at 1057, Day of Surgery (Day of Procedure) New Bag 07/03/2016 9:35 AM EST New Bag 07/03/2016 8:26 AM EST lidocaine (PF) (XYLOCAINE) 100 mg/5 mL (2 %) injection PRN, Starting on Wed07/03/16 at 0836, Until Wed07/03/16 at 0945, Anesthesia Intra-op, Routine Given 07/03/2016 8:39 AM EST 50 mg Given 07/03/2016 8:36 AM EST 50 mg PHENYLephrine HCl in NS (PF) (SANGEETHA-SYNEPHRINE) 0.8 mg/10 mL (80 mcg/mL) multi-dose injection Syrg PRN, Starting on Wed07/03/16 at 0854, Until Wed07/03/16 at 0945, Anesthesia Intra-op, Routine Given 07/03/2016 9:18 AM EST 80 mcg Given 07/03/2016 9:14 AM EST 80 mcg Given 07/03/2016 9:03 AM EST 80 mcg propofol (DIPRIVAN) 10 mg/mL bolus injection (Anesthesia) PRN, Starting on Wed07/03/16 at 0836, Until Wed07/03/16 at 0945, Anesthesia Intra-op Given 07/03/2016 9:28 AM EST 20 mg Given 07/03/2016 9:03 AM EST 20 mg Given 07/03/2016 8:38 AM EST 50 mg propofol (DIPRIVAN) infusion CONTINUOUS PRN, Starting on Wed07/03/16 at 0840, Until Wed07/03/16 at 0945, Anesthesia Intra-op, Routine Rate/Dose Change 07/03/2016 9:08 AM EST 75 mcg/kg/min 45.3 mL/hr Rate/Dose Change 07/03/2016 8:58 AM EST 100 mcg/kg/min 60. 4 mL/hr Rate/Dose Change 07/03/2016 8:50 AM EST 75 mcg/kg/min 45.3 mL/hr documented in this encounter Care Teams Digital Hardware Design Engineer Relationship Specialty Start Date End Date Emre Fonseca MD [address] [place] [address] PCP - General 04/08/10 09/29/16 documented as of this encounter
--- OUTSIDE RECORDS SUMMARY | 2024-01-26 19:17 | XMS_ITS | Encounter Summary ---
[facility] [place] [address] Care Team Providers Care Dental Secretary Name Role Phone Mary Jane Colon MD Primary Care Provider [phone] Reason for Visit * Reason Comments Skin Check * Consultation (Routine) - Specialty Diagnoses / Procedures Referred By Sondra sinclair Referred To Contact Dermatology Diagnoses Rash and other nonspecific skin eruption Rash Procedures Consult Cher Jensen, KAVITA [address] [facility] [place] [address] Moreno Guardado MD [address] [place] [address], [facility] [place] [address] Referral ID Status Reason Start Date Expiration Date V isits Requested Visits Authorized [id number] 06/22/2019 06/21/2020 1 1 Encounter Details Date Type Department Care Team (Late st Contact Info) Description 07/13/2019 2:00 PM EST Office Visit Dermatology at [address] [address] Moreno Guardado MD [address] [place] [address], [facility] [place] [address] Venous stasis dermatitis of both lower extremities Social History Tobacco Use Types Packs/Day Years [...] Progress Notes * Moreno Guardado MD - 07/13/2019 2:00 PM EST Problem: 1. Itchy legs/diffuse pruritus 2. Last seen in this office in 2011 for stasis dermatitis of the lower extremities in a diabetic Merly follows up today after I last saw her some 8 years ago. She has had a problem with a very itchy rash on the legs the torso the breasts in the upper extremities. She has swelling of both lowerextremities. She is diabetic. She is a resident in [facility]. The patient is seen inconsultation today for Dr. Colon. Physical examination reveals a very pleasant alert and talkative 73-year-old woman who has +2 pitting edema of both lower extremities with stasis dermatitis present left worse than right. She has a single healing bullae present on the left lower extremity. She has eczema craquele present on the right lower extremity on both left and right breasts patchy involvement on the forearms and excoriationdiffusely on her back. The bulla site appears to be healing well, it has re-epithelialized on the left lower extremity. Two earlier sites of bulla formation have already healed well. Assessment plan: Stasis dermatitis with auto eczematization 1. Recommend that the patient wear Tubigrip stockings during the day take off at night. She should be able to get these on and off herself. We measured her and she would take size F 22 inch long Tubigrip stockings. We have given her 2 pair to use, and when these wear out, [facility] should be able to order these for her. 2. Recommend that she apply triamcinolone 0.1% cream twice daily to affected areas. Staff can help her with this. Discontinue once rash has healed. 3. Written sheet filled out for Merly to bring back with her to the residents. 4. Return to clinic here PRN. CC: MD Cher Wilson APRN documented in this encounter Plan of Treatment Not on file documented as of this encounter Visit Diagnoses Diagnosis Venous stasis dermatitis of both lower extremities documented in this encounter Care Teams Dental Secretary Relationship Specialty Start Date End Date Mary Jane Colon MD PCP - General Family Medicine 07/13/19 documented as of this encounter
--- OUTSIDE RECORDS SUMMARY | 2024-01-26 19:17 | XMS_ITS | Encounter Summary ---
Author Organization [facility] [place] [address] Care Team Providers Care Petrophysical Engineer Name Role Phone Emre Fonseca MD Primary Care Provider + Reason for Visit * Reason Onset Date Comments Bumped Appointment 09/16/2016 Encounter Details Date Type Department Care Team (Late st Contact Info) Description 09/16/2016 Telephone [place] [address] Austin Bartholomew MD [facility] [place] [address] Bumped Appointment Social History Tobacco Use Types Packs/Day Years [...] * Telephone Encounter - Hilaria Coates - 09/17/2016 10:14 AM EDT Patient Scheduled * Telephone Encounter - Ofe Jiménez - 09/17/2016 10:06 AM EDT Lisa from facility that patient lives at called to reschedule this bumped appointment and is expecting a call back to reschedule, Hilaria Gonzalez gave me her direct number to call her to schedule and it is * Telephone Encounter - Hilaria Coates - 09/16/2016 10:01 AM EDT Patient's appointment was bumped. Left message for them to call back and reschedule. 09/18/16 appt needs to be rescheduled with in 1 month documented in this encounter Plan of Treatment Not on file documented as of this encounter Visit Diagnoses Not on filedocumented in this encounter Care Teams Petrophysical Engineer Relationship Specialty Start Date End Date Emre Fonseca MD [address] [place] [address] PCP - General 04/08/10 09/29/16 documented as of this encounter
--- OUTSIDE RECORDS SUMMARY | 2024-01-26 19:17 | XMS_ITS | Encounter Summary ---
[place] [address] Care Team Providers Care Advertising Assistant Manager Name Role Phone Emre Fonseca MD Primary Care Provider + Encounter Details Date Type Department Care Team (Late st Contact Info) Description 12/16/2015 4:00 PM EDT Clinical [place] [address] Social History Tobacco Use Types Packs/Day Years [...] on filedocumented in this encounter Care Teams Advertising Assistant Manager Relationship Specialty Start Date End Date Emre Fonseca MD [address] [facility] [place] [address] PCP - General 04/08/10 09/29/16 documented as of this encounter
--- OUTSIDE RECORDS SUMMARY | 2024-01-26 19:17 | XMS_ITS | Encounter Summary ---
Author [facility] [place] [address] Care Team Providers Care Inspector Watch Train Name Role Phone Emre Fonseca MD Primary Care Provider + Reason for Visit * Reason Onset Date Comments Post Op S/P 1 day CE/IOL OD 03/26/2016 Post Op 03/27/2016 Encounter Details Date Type Department Care Team (Late st Contact Info) Description 03/27/2016 10:00 AM EST Office [place] [address] Bay Jaffe MD [facility] [place] [place] [address] S/P cataract extraction and insertion of intraocular lens, right Social History Tobacco Use Types Packs/Day Years Used Date Smoking Tobacco: Former Alcohol Use Standard Drinks/Week Comments No 0 (1 standard drink = 0.6 oz pur e alcohol) Sex and Gender Information Value Date Recorded Sex Assigned at Not on file Gender Identity Not on file Sexual Orientation Not on file documented as of this encounter Progress Notes * Bay Jaffe MD - 03/27/2016 11:00 AM EST Assessment/Plan: 1. 1 day s/p cataract surgery OD Doing well with a normal post operative appearance except corneal edema. - Prednisolone acetate 1% 6x/d in operative eye - Moxifloxicin 3x/d in operative eye - Ketorolac 3x/d in operative eye - Post op precaution sheet reviewed and given to patient 2. Advanced cataract OS Anticipate CE/IOL 4 weeks Follow up: - 1 week DMM, sooner as needed. - Refract (prelim), dilate prn, and consent 2nd eye surgery documented in this encounter Plan of Treatment Not on file documented as of this encounter Visit Diagnoses Diagnosis S/P cataract extraction and insertion of intraocular lens, right documented in this encounter Care Teams Inspector Watch Train Relationship Specialty Start Date End Date Emre Fonseca MD [address] [place] [address] PCP - General 04/08/10 09/29/16 documented as of this encounter
--- OUTSIDE RECORDS SUMMARY | 2024-01-26 19:17 | XMS_ITS | Encounter Summary ---
Author Organization [facility] [place] [address] Care Team Providers Care Box Sealing Machine Operator Name Role Phone Emre Fonseca MD Primary Care Provider + Reason for Visit * Auth/Cert Specialty Diagnoses / Procedures Referred By Sondra t Referred To Contact Diagnoses Unspecified age-related cataract Cataract Procedures PRO REMV CATARACT EXTRACAP,INSERT LENS,COMP PRO VITRECTOMY,FOCAL LASER RX RETINA CATARACT EXTRACTION, EXTRACAPSULAR, WITH LENS INSERTION, COMPLEX Referral ID Status Reason Start Date Expiration Date Visits Re quested Visits Authorized [id number] 1 1 Encounter Details Date Type Department Care Team (Late st Contact Info) Description 03/26/2016 10:13 AM EST Anesthesia Event [place] [address] Eliezer Steele MD [facility] [place] [address] Mina Espinoza MD [facility] [place] [address] Anesthesia Record Procedure Summary Procedure Name Responsible Anesthesiologist Anesthesia Start Time Anesthesia Stop Time CATARACT EXTRACTION, EXTRACAPSULAR, WITH LENS INSERTION, COMPLEX (WRVU 10.25) (Right: Eye) Eliezer Steele MD 03/26/16 1013 03/26/16 1124 Events Date Time Event Comment 03/26/2016 0951 1013 AN Verify 1013 Start 1013 An Start Data 1019 An Induction 1020 An Intubation 1022 Anesthesia Ready 1044 Procedure Start 1116 Extubation/LMA Out 1118 an stop data 1124 Recovery or ICU Handoff Lyudmila ent care was transferred to the destination unit staff after review of the patient's medical history, current anesthetic/surgical status and plan, according to the Provider Handoff Checklist. 1124 Stop Meds Name Total Propofol 220 mg ePHEDrine 15 mg Propofol INF 721.78 mg lactated ringers infusion 1,000 mL 600 m L * Agents Name O2 Air N2O * Blood No blood administrations on file. Lines, Drains, and Airways Type Details Placement Removal (RETIRED) Peripheral IV Line - Single Lumen 03/26/16; 0935; median cubital vein (antecubital fossa), right; brlq-kjl-sitbac catheter system; 18 gauge; Devonte Steele MD; intradermal injection, tolerated well; 03/26/16; 1224 03/26/16 0935 by Opal Canales RN 03/26/16 1224 by Wilma Artis RN ETT Mask Ventilation: Ea sy (1); ETT Type: Cuffed, Oral; ETT Size: 7 mm; Jaffe Blade: 2; Notes: Asleep, Pre-O2, Stylette; Attempts: 1; Laryngoscopy Grade: 1; ETT Placement Verified By: Auscultation, Capnometry, Visual; Secured at Teeth: 21 cm; Inserted by: Micheline; Removal Date: 03/26/16; Removal Time: 1116 03/26/16 1020 by Servando Tobias CRNA 03/26/16 1116 by Servando Tobias CRNA Incision 03/26/16; 1044; eye; 01/12/22 (LDA cleanup utility RA#[id number]); 1715 (LDA cleanup utility RA#[id number]) 03/26/16 1044 by Hetal Ro RN 01/12/22 1715 by Bushra Ryan documented in this encounter Social History Tobacco [...] OR Notes * Anesthesia Postprocedure Evaluation - Eliezer Steele MD - 03/26/2016 12:07 PM EST [facility] Department of Anesthesiology Post-procedure Note Patient: Merly Rivera Procedure Summary Date Anesthesia Start Anesthesia Stop Room / Location 03/26/16 1013 1124 [facility] OR 21 / [facility] MAIN OR Procedure Diagnosis Surgeon Responsible Provider CATARACT EXTRACTION, EXTRACAPSULAR, WITH LENS INSERTION, COMPLEX (Right Eye) Senile cataracts of both eyes (cataract) Bay Jaffe MD Cotoi, Daniel, MD All Anesthesia Providers: Anesthesiologist: Eliezer Steele MD MEDICAL ASSISTANT PRN: Servando Tobias CRNA Last (1hr) Vitals: BP 118/63 (03/26/16 1122) Temp 36.2 ??C (97.2 ??F) (03/26/16 1122) Pulse 66 (03/26/16 1122) Resp 16 (03/26/16 1122) SpO2 100 % (03/26/16 1122) Patient Location: PACU/[facility] Level of Consciousness: Awake and Alert Pain Management: Satisfactory Analgesia PONV: None Cardiovascular Status: At Baseline and Hemodynamically Stable Respiratory Status: At Baseline and Room Air Postoperative Fluid Status: Intravascular EUvolemia Possible Anesthetic Complications: NONE apparent at time of evaluation Final Primary Anesthesia Type: General (The anesthetic type performed was the same as planned.) Comments: ELIEZER STEELE MD * Anesthesia Preprocedure Evaluation - Eliezer Steele MD - 12/25/2015 10:47 AM EDT Pre-Anesthesia Evaluation for: Merly Rivera a 70 [...] disease ??? Thyroid disease ??? Trauma FALLS No past surgical history on file. Social History Substance Use Topics ??? Smoking status: Former Smoker ??? Smokeless tobacco: Not on file ??? Alcohol use No History Drug Use Not on file No Known Allergies Medications: MAR and/or home medications have been reviewed. Physical Exam: There were no vitals filed for this visit. There is no height or weight on file to calculate BMI. Airway Assessment: Cardiovascular Assessment: Pulmonary Assessment: Dental Assessment: (+) lower dentures and upper dentures Misc Assessment: Anesthesia Plan: ASA 4 general, with a(n) intravenous induction Will avoid benzodiazepines and diphenhydramine. Will need GA given extensive lens, and possible retina work. Discussed risk for cognitive dysfunction. Consent obtained. Region - Other Informed Consent: Anesthetic plan and risks discussed with patient. Use of blood products discussed with patient who consented to blood products. Plan discussed with MEDICAL ASSISTANT PRN. PAT Staff Documentation: Reason for PAT Contact: [...] any additional issues. Mina Espinoza MD Pager [phone] documented in this encounter Plan of Treatment Not on file documented as of this encounter Visit Diagnoses Not on filedocumented in this encounter Administered Medications Inactive Administered Medications - up to 3 most recent administrations Medication Order MAR Action Action Date Dose Rate Site ePHEDrine 5 mg/mL multi-dose injection PRN, Starting on Mami 03/26/16 at 1031, Until Mami 03/26/16 at 1124, Anesthesia Intra-op, Routine Given 03/26/2016 10:39 AM EST 5 mg Given 03/26/2016 10:31 AM EST 10 mg propofol (DIPRIVAN) 10 mg/mL bolus injection (Anesthesia) PRN, Starting on Mami 03/26/16 at 1019, Until Mami 03/26/16 at 1124, Anesthesia Intra-op Given 03/26/2016 11:00 AM EST 2 0 mg Given 03/26/2016 10:19 AM EST 200 mg propofol (DIPRIVAN) infusion CONTINUOUS PRN, Starting on Mami 03/26/16 at 1019, Until Mami 03/26/16 at 1124, Anesthesia Intra-op, Routine Rate/Dose Change 03/26/2016 11:01 AM EST 100 mcg/kg/min 59.9 mL/hr Rate/Dose Change 03/26/2016 10:44 AM EST 75 mcg/kg/min 45 mL/hr Rate/Dose Change 03/26/2016 10:42 AM EST 100 mcg/kg/min 59 .9 mL/hr documented in this encounter Care Teams Box Sealing Machine Operator Relationship Specialty Start Date End Date Emre Fonseca MD [address] [place] [address] PCP - General 04/08/10 09/29/16 documented as of this encounter
--- OUTSIDE RECORDS SUMMARY | 2024-01-26 19:17 | XMS_ITS | Encounter Summary ---
[place] [address] Care Team Providers Care Pediatric Dietician Name Role Phone Emre Fonseca MD Primary Care Provider + Encounter Details Date Type Department Care Team (Late st Contact Info) Description 07/03/2016 8:30 AM EST - 07/03/2016 10:29 AM EST [place] [address] Bay Jaffe MD [facility] [place] [address] CATARACT EXTRACTION, EXTRACAPSULAR, WITH LENS INSERTION, COMPLEX [...] operative team. Monitors were placed by the coat feller. After satisfactory general endotracheal anesthesia was obtained [...] emulsified with the phacoemulsification handpiece in a kkskls-obu-lnhtbiv fashion. The lens was very hard and additional Viscoat was added to protect the cornea. Residual cortical material was removed with the automated irrigation/aspiration unit. The posterior capsule was vacuum-polished.The capsular bag was inflated with viscoelastic. An Suhas Model SN60WF posterior chamber lens with a 6mm acrylic optic was inspected and found to be without defects, placed in the Alpine II insertercartridge, and injected into the capsular [...] Glucose, POC 210(H) 65 - 199 mg/dL [facility] Comment: Supplemental ranges: <140 mg/dL before meals <180 mg/dL all other times of the day Blood specimen (specimen) 07/03/2016 7:57 AM EST 07/03/2016 7:57 AM EST Bay Jaffe MD POINT OF CARE TEST O RDERABLES [facility] [place] [address] * SCAN DOC: IMPLANTABLE DEVICES (07/03/2016 12:00 AM EST) Scanning Provider MEDIA MGR SCAN EXT O RDR/RSLT documented in this encounter Visit Diagnoses Diagnosis Combined forms of age-related cataract, left eye documented in this encounter Administered Medications Inactive Administered Medications - up to 3 most recent administrations Medication Order MAR Action Action Date Dose Rate Site balanced salt (BSS PLUS) irrigation solution ONCE PRN, Starting on Wed07/03/16 at 0908, Until Wed07/03/16 at 1259, Intra-Operative (Intra-Procedure), Routine Given 07/03/2016 9:08 AM EST 1 Bottle Left Eye balanced salt (BSS) irrigation solution ONCE PRN, Starting on Wed07/03/16 at 0909, Until Wed07/03/16 at 1259, Intra-Operative (Intra-Procedure), Routine Given 07/03/2016 9:09 AM EST 2 Bottles Left Eye BUpivacaine (PF) (MARCAINE) 0.75 % (7.5 mg/mL) injection ONCE PRN, Starting on Wed07/03/16 at 0909, Until Wed07/03/16 at 1259, Intra-Operative (Intra-Procedure), Routine Given 07/03/2016 9:09 AM EST 1.25 mLs Left Eye carbachol (MIOSTAT) 0.01 % ophthalmic solution ONCE PRN, Starting on Wed07/03/16 at 0930, Until Wed07/03/16 at 1259, Intra-Operative (Intra-Procedure), Routine Given 07/03/2016 9:30 AM EST 1 mL ceFAZolin (ANCEF) injection ONCE PRN, Starting on Wed07/03/16 at 0914, Until Wed07/03/16 at 1259, Intra-Operative (Intra-Procedure), Routine Given 07/03/2016 9:14 AM EST 100 mg Left Eye chondroitin-sodium hyaluronate (DUOVISC) intra-ocular kit ONCE PRN, Starting on Wed07/03/16 at 0915, Until Wed07/03/16 at 1259, Intra-Operative (Intra-Procedure), Routine Given 07/03/2016 9:15 AM EST 1 mL Left Eye cyclopentolate (CYCLODRYL) 1 % ophthalmic solution [...] Given 07/03/2016 7:45 AM EST 1 drop dexamethasone (DECADRON) injection ONCE PRN, Starting on Wed07/03/16 at 0913, Until Wed07/03/16 at 1259, Intra-Operative (Intra-Procedure), Routine Given 07/03/2016 9:13 AM EST 2 mg Left Eye dorzolamide-timolol (PF) (COSOPT) 2-0.5 % ophthalmic solution ONCE PRN, Starting on Wed07/03/16 at 0910, Until Wed07/03/16 at 1259, Intra-Operative (Intra-Procedure), Routine Given 07/03/2016 9:10 AM EST 1 drop EPINEPHrine injection solution ONCE PRN, Starting on Wed07/03/16 at 0910, Until Wed07/03/16 at 1259, Intra-Operative (Intra-Procedure), Routine Given 07/03/2016 9:10 AM EST 0.5 mg 20-Other (document i n comment section) ketorolac tromethamine (ACULAR) 0.5 % ophthalmic solution 1 drop 1 drop, Right Eye, ONCE, 1 dose, On Wed07/03/16 at 0745, 1 drop to the operative eye once, start on day of surgery, Day of Surgery (Day of Procedure), Routine Given 07/03/2016 7:45 AM EST 1 drop lidocaine (XYLOCAINE) 20 mg/mL (2 %) injection ONCE PRN, Starting on Wed07/03/16 at 0909, Until Wed07/03/16 at 1259, Intra-Operative (Intra-Procedure), Routine Given 07/03/2016 9:09 AM EST 1.25 mLs Left Eye moxifloxacin (VIGAMOX) 0.5 % ophthalmic solution [...] Given 07/03/2016 7:45 AM EST 1 drop irdqnfkl-jlcnsoeix-fvqjdhgvpgwyf (DEXACINE) 3.5 mg/g-10,000 unit/g-0.1 % ophthalmic ointment ONCE PRN, Starting on Wed07/03/16 at 0911, Until Wed07/03/16 at 1259, Intra-Operative (Intra-Procedure), Routine Given 07/03/2016 9:11 AM EST 0.25 Tubes PHENYLephrine (MYDFRIN) 2.5 % ophthalmic solution 1 [...] Given 07/03/2016 7:45 AM EST 1 drop povidone-iodine 5 % ophthalmic solution ONCE PRN, Starting on Wed07/03/16 at 0900, Until Wed07/03/16 at 1259, Intra-Operative (Intra-Procedure), Routine Given 07/03/2016 9:00 AM EST 30 mLs prednisoLONE acetate (PRED FORTE) 1 % ophthalmic suspension 1 drop 1 drop, Right Eye, ONCE, 1 dose, On Wed07/03/16 at 0745, 1 drop to the operative eye once, start on day of surgery, Day of Surgery (Day of Procedure), Routine Given 07/03/2016 7:45 AM EST 1 drop proparacaine (ALCAINE) 0.5 % ophthalmic solution ONCE PRN, Starting on Wed07/03/16 at 0839, Until Wed07/03/16 at 1259, Intra-Operative (Intra-Procedure), Routine Given 07/03/2016 8:39 AM EST 1 drop trypan blue 0.06 % solution ONCE PRN, Starting on Wed07/03/16 at 0915, Until Wed07/03/16 at 1259, Intra-Operative (Intra-Procedure), Routine Given 07/03/2016 9:15 AM EST 0.5 mLs Left Eye documented in this encounter Active and [...] 09 (Given - Provid er: Bay Jaffe MD) balanced salt (BSS) irrigation solution (CANCELED) ONCE PRN, Starting on Wed07/03/16 at 0909, Until Wed07/03/16 at 1259, Intra-Operative (Intra-Procedure), Routine 09 (Given - Provid er: Bay Jaffe MD) [...] Until Wed07/03/16 at 1259, Intra-Operative (Intra-Procedure), Routine 909 (Given - Provid er: Bay Jaffe MD - Comment: post op) EPINEPHrine injection solution (CANCELED) ONCE PRN, Starting on Wed07/03/16 at 0910, Until Wed07/03/16 at 1259, Intra-Operative (Intra-Procedure), Routine 0910 (Given - Provid er: Nyasia Estrada RN [...] Until Wed07/03/16 at 1259, Intra-Operative (Intra-Procedure), Routine 0909 (Given - Provid er: Bay Jaffe MD - Comment: subtenon's) wolnxzer-amgqkaqny-xheumzgkxuvf e (DEXACINE) 3.5 mg/g-10,000 unit/g-0.1 % ophthalmic ointment (CANCELED) ONCE PRN, Starting on Wed07/03/16 at 0911, Until Wed07/03/16 at 1259, Intra-Operative (Intra-Procedure), Routine 0911 (Given - Provid er: Bay Jaffe MD - Comment: post op) povidone-iodine 5 % ophthalmic solution (CANCELED) ONCE PRN, Starting on Wed07/03/16 at 0900, Until Wed07/03/16 at 1259, Intra-Operative (Intra-Procedure), Routine 0900 (Given - Provid er: Nyasia Estrada RN [...] MD) documented in this encounter Care Teams Pediatric Dietician Relationship Specialty Start Date End Date Emre Fonseca MD [address] [place] [address] PCP - General 04/08/10 09/29/16 documented as of this encounter
--- OUTSIDE RECORDS SUMMARY | 2024-01-26 19:17 | XMS_ITS | Referral Summary ---
Author Organization [facility] Address [address] [place] [address] Care Team Providers Care Accounts Payable Accountant Name Role Phone Unknown, Provider Primary Care Provider [phone] Social History Tobacco Use Types Packs/Day Years Used Date Smoking Tobacco: Never Assessed Sex and Gender Information Value Date Recorded Sex Assigned at Not on file Gender Identity Not on file Sexual Orientation Not on file Plan of Treatment Not on file Care Teams Accounts Payable Accountant Relationship Specialty Start Date End Date Unknown, Provider, PCP - General 06/11/14
[2024-01-26 20:22] LABS: TSH (W/Ref FT4) 0.07 uIU/mL (0.36-3.74)
[2024-01-26 21:02] LABS: FREE T4 0.79 ng/dL (0.76-1.46)
== END 2024-01-26 19:15 | disposition home or self-care (01) ==
LOC: LBN 19:14
PROVIDERS: PCP Family Medicine; Visit Provider Family Medicine
DX: E11.21 Type 2 diabetes mellitus with diabetic nephropathy (principal); E03.9 Hypothyroidism, unspecified
CPT/HCPCS: 83036; 84439; 84443

== ENCOUNTER 2024-03-23 11:58 | Outpatient (REF) | payer MEDICARE, MEDICAID, SELFPAY ==
[2024-03-23 11:58] LABS: Abs Immature Grans 0.02 10^3/uL (0.0-0.06); Absolute Basophil Count 0.04 10^3/uL (0.0-0.2); Absolute Eosinophil Count 0.25 10^3/uL (0.0-0.7); Absolute Lymphocyte Count 2.18 10^3/uL (1.2-3.4); Absolute Monocyte Count 0.56 10^3/uL (0.1-0.8); Absolute Neutrophil Count 3.77 10^3/uL (1.2-6.7); Basophils % 0.6 %; Eosinophils % 3.7 %; HCT 34.2 % (36.0-46.0); HGB 11.3 g/dL (11.2-15.7); Immature Grans % 0.3 %; MCV 100 fL (80-95); Monocytes % 8.2 %; Neutrophils % 55.2 %; Platelet Count 251 10^3/uL (130-400); RBC 3.42 10^6/uL (3.93-5.22); RDW 12.2 % (11.7-14.6); RDW-SD 44.7 fL; WBC 6.82 10^3/uL (4.4-10.8)
--- OUTSIDE RECORDS SUMMARY | 2024-03-23 12:03 | XMS_ITS | Encounter Summary ---
Author Organization [facility] Address [address] [place] [address] Care Team Providers Care Performance Analyst Name Role Phone Unknown, Provider Primary Care Provider Unava ilable Encounter Details Date Type Department Care Team (Late st Contact Info) Description 06/11/2014 Results Only [facility] [phone] Maria E Garrison MD [address] [place], [place] [id number] Social History Tobacco Use Types Packs/Day Years [...] ? MERLY THOMAS ? Accession #: ? [id number] ? : ? 1945 (Age: 68) ??F ? Collect Date: ? 06/11/2014 ? Location: ? [facility] ? Receive Date: ? 06/11/2014 ? Provider: MARIA E GARRISON MD Copy to: IGGY PERALTA MD ? [...] Danielson 06/12/2014 08:12 AM End of Report [facility] 06/11/2014 18:3 5 EST 06/11/2014 18:35 EST Maria E Garrison MD PATHOLOGY ORDERAndreia [facility] Organization Address City/State/ZIP Co de Phone Number [facility] [address] [place] [address] documented in this encounter Visit Diagnoses Not on filedocumented in this encounter Care Teams Performance Analyst Relationship Specialty Start Date End Date Unknown, Provider, PCP - General 06/11/14 documented as of this encounter
--- OUTSIDE RECORDS SUMMARY | 2024-03-23 12:03 | XMS_ITS | Encounter Summary ---
[facility] [place] [address] Care Team Providers Care Tattoo And Body Artist Name Role Phone Emre Fonseca MD Primary Care Provider + Reason for Visit * Reason Comments Post Op S/P 1 month CE/IOL O S Pseudophakia CE/IOL OU Encounter Details Date Type Department Care Team (Late st Contact Info) Description 07/31/2016 8:30 AM EDT Office [place] [address] Bay Jaffe MD [facility] [place] [address] Pseudophakia of both eyes (OD: 03/26/2016, OS: [...] means documented in this encounter Care Teams Tattoo And Body Artist Relationship Specialty Start Date End Date Emre Fonseca MD [address] [place] [address] PCP - General 04/08/10 09/29/16 documented as of this encounter
--- OUTSIDE RECORDS SUMMARY | 2024-03-23 12:03 | XMS_ITS | Encounter Summary ---
Author Organization [facility] [place] [address] Care Team Providers Care Hostess Cashier Name Role Phone Emre Fonseca MD Primary Care Provider + Reason for Visit * Reason Comments Blurred Vision CATATRACT EVAL OU SE NT BY DR. CALVIN. Encounter Details Date Type Department Care Team (Late st Contact Info) Description 12/16/2015 1:30 PM EDT [place] [address] Bay Jaffe MD [facility] [place] [address] Senile cataracts of both eyes (Primary Dx) [...] MD - 12/16/2015 1:30 PM EDT Assessment/Plan: eMrly Rivera is a 70 y.o. female with [...] need for glasses (not being used at [facility], butavailable elsewhere). Merly Rivera declines presbyopic IOL and requests single [...] unspecified documented in this encounter Care Teams Hostess Cashier Relationship Specialty Start Date End Date Emre Fonseca MD [address] [place] [address] PCP - General 04/08/10 09/29/16 documented as of this encounter
--- OUTSIDE RECORDS SUMMARY | 2024-03-23 12:03 | XMS_ITS | Encounter Summary ---
Author Organization [facility] [place] [address] Care Team Providers Care Director Quality Assurance Name Role Phone Emre Fonseca MD Primary Care Provider + Reason for Visit * Reason Comments Post Op S/P 1 week CE/IOL OS Encounter Details Date Type Department Care Team (Late st Contact Info) Description 07/09/2016 8:00 AM EST Office Visit [place] [address] Bay Jaffe MD [facility] [place] [address] S/P cataract extraction and insertion of intraocular [...] left documented in this encounter Care Teams Director Quality Assurance Relationship Specialty Start Date End Date Emre Fonseca MD [address] [place] [address] PCP - General 04/08/10 09/29/16 documented as of this encounter
--- OUTSIDE RECORDS SUMMARY | 2024-03-23 12:03 | XMS_ITS | Clinical Summary ---
Author Organization [facility] Address [address] [place] [address] Care Team Providers Care Acquisitions Assistant Name Role Phone Unknown, Provider Primary Care Provider Unava ilable Social History Tobacco Use Types Packs/Day Years [...] COVID-19 Vaccine (2022-24 season) 2023 Care Teams Acquisitions Assistant Relationship Specialty Start Date End Date Unknown, Provider, PCP - General 06/11/14
--- OUTSIDE RECORDS SUMMARY | 2024-03-23 12:03 | XMS_ITS | Encounter Summary ---
[place] [address] Care Team Providers Care Linoleum Mechanic Name Role Phone Emre Fonseca MD Primary Care Provider + Reason for Visit * Reason Onset Date Comments Appointment 11/08/2014 mess Appointment 11/08/2014 message Encounter Details Date Type Department Care Team (Late st Contact Info) Description 11/08/2014 Telephone [place] [address] Bay Jaffe MD [facility] [place] [address] Appointment (mess); Appointment (message) Social History Tobacco Use Types Packs/Day Years Used Date Smoking Tobacco: Never Sex and Gender Information Value Date Recorded Sex Assigned at Not on file Gender Identity Not on file Sexual Orientation Not on file documented as of this encounter Miscellaneous Notes * Telephone Encounter - Juan Henderson - 03/12/2015 4:42 PM EDT manager case management amaury 12;14 wanting to confirm appointment and also tosee if an earlier time is possible documented in this encounter Plan of Treatment Not on file documented as of this encounter Visit Diagnoses Not on filedocumented in this encounter Care Teams Linoleum Mechanic Relationship Specialty Start Date End Date Emre Fonseca MD [address] [place] [address] PCP - General 04/08/10 09/29/16 documented as of this encounter
--- OUTSIDE RECORDS SUMMARY | 2024-03-23 12:03 | XMS_ITS | Encounter Summary ---
Author Organization [facility] [place] [address] Care Team Providers Care Laminating Machine Operator Name Role Phone Emre Fonseca MD Primary Care Provider + Reason for Visit * Reason Onset Date Comments Other 03/23/2016 Kelsey from [facility] called for instructions on any pre op procedures regarding eye drops for the patient. She has not been given any orders or instructions regarding this. Encounter Details Date Type Department Care Team (Late st Contact Info) Description 03/23/2016 [place] [address] Bay Jaffe MD [facility] [address] Other (Kelsey from [facility] called for instructions on any pre op [...] on filedocumented in this encounter Care Teams Laminating Machine Operator Relationship Specialty Start Date End Date Emre Fonseca MD [address] [place] [address] PCP - General 04/08/10 09/29/16 documented as of this encounter
--- OUTSIDE RECORDS SUMMARY | 2024-03-23 12:03 | XMS_ITS | Encounter Summary ---
Author Organization [facility] [place] [address] Care Team Providers Care Satellite Technician Name Role Phone Mary Jane Colon MD Primary Care Provider [phone] Reason for Visit * Reason Comments Skin Check * Consultation (Routine) - Specialty Diagnoses / Procedures Referred By Sondra sinclair Referred To Contact Dermatology Diagnoses Rash and other nonspecific skin eruption Rash Procedures Consult Cher Jensen, KAVITA [address] [place] [address] Moreno Guardado MD [address] [place] [address], [facility] [place] [address] Referral ID Status Reason Start Date Expiration Date V isits Requested Visits Authorized [id number] 06/22/2019 06/21/2020 1 1 Encounter Details Date Type Department Care Team (Late st Contact Info) Description 07/13/2019 2:00 PM EST Office Visit Dermatology at [address] [address] Moreno Guardado MD [address] [place] [address], [facility] [place] [address] Venous stasis dermatitis of both [...] is diabetic. She is a resident in [facility]. The patient is seen inconsultation [...] to use, and when these wear out, [facility] should be able to order [...] extremities documented in this encounter Care Teams Satellite Technician Relationship Specialty Start Date End Date Mary Jane Colon MD PCP - General Family Medicine 07/13/19 documented as of this encounter
--- OUTSIDE RECORDS SUMMARY | 2024-03-23 12:03 | XMS_ITS | Encounter Summary ---
Author Organization Formerly [facility] [place] [address] Care Team Providers Care Tape Stringer Name Role Phone Emre Fonseca MD Primary Care Provider + Reason for Visit * Auth/Cert Specialty Diagnoses / Procedures Referred By oSndra t Referred To Contact Diagnoses Unspecified age-related cataract Cataract Procedures PRO REMV CATARACT EXTRACAP,INSERT LENS,COMP PRO VITRECTOMY,FOCAL LASER RX RETINA CATARACT EXTRACTION, EXTRACAPSULAR, WITH LENS INSERTION, COMPLEX Referral ID Status Reason Start Date Expiration Date Visits Re quested Visits Authorized [id number] 1 1 Encounter Details Date Type Department Care Team (Latest Contact Info) Description 03/26/2016 8:37 AM EST - 03/26/2016 12:26 PM [facility] Hospital Encounter [place] [address] Bay Jaffe MD [facility] [place] [address] Senile cataracts of both eyes Discharge Disposition: [...] operative team. Monitors were placed by the document review attorney. After satisfactory general endotracheal anesthesia was obtained [...] to be without defects, placed in the [place] III mobile application engineer cartridge, and injected into the capsular bag [...] Glucose, POC 113 65 - 199 mg/dL [facility] Comment: Supplemental ranges: <140 mg/dL before meals <180 mg/dL all other times of the day Blood specimen (specimen) 03/26/2016 9:08 AM EST 03/26/2016 9:08 AM EST Bay Jaffe MD POINT OF CARE TEST O RDERABLES [facility] [place] [address] * SCAN DOC: IMPLANTABLE DEVICES (03/26/2016 12:00 [...] Opal Canales RN)0944 (Given - Provider: Opal Canalse RN) PHENYLephrine (MYDFRIN) 2.5 % ophthalmic solution [...] Provider: Hetal Ro RN - Comment: topical) bhlfltyh-qjllmpjvs-lygpdusiyziqg (DEXACINE) 3.5 mg/g-10,000 unit/g-0.1 % ophthalmic ointment [...] MD) documented in this encounter Care Teams Tape Stringer Relationship Specialty Start Date End Date Emre Fonseca MD [address] [place] [address] PCP - General 04/08/10 09/29/16 documented as of this encounter
--- OUTSIDE RECORDS SUMMARY | 2024-03-23 12:03 | XMS_ITS | Clinical Summary ---
Author Organization [facility] Address [facility] [place] [address] Care Team Providers Care Civil Preparedness Training Officer Name Role Phone Mary Jane Colon MD [...] Last Done Comments Hepatitis C Screening 12/12/1963 Tetanus/Diphtheria/Pertussis Vaccines (1 - Tdap) 12/11 Zoster vaccine (1 of 2) 12/12/1995 Advance Directive 2000 Bone Density Scan 2010 Pneumoccocal Vaccine: 65+ (1 of 1 - PCV) 2010 Covid-19 Vaccine (1 - 2024-25 season) 2024 Influenza (Flu) vaccine (1 o f 1 - Influenza standard series) 01/16/2024 Medical Devices Implanted Type Area Semi Driver Device Identifier Shelf Expiration Date Model / Serial / Lot Iol,Sn60wf,23. 0 ([id number]) (Autoreq) - [id number] Implanted:Qty: 1 on 03/26/2016 by Bay Jaffe MD at [facility] IMPLANTS Right: Eye [employer] - [id number] 03/16/2019 SN60WF 23.0 / [id number] / Iol,Sn60wf,19. 0 ([id number]) ([employer]) - [id number] Implanted:Qty: 1 on 07/03/2016 by Bay Jaffe MD at [facility] IMPLANTS Left: Eye [employer] - [id number] 07/03/2020 SN60WF 19.0 / [id number] / Advance Directives * Full Code [...] capacity to make decision: Yes Care Teams Civil Preparedness Training Officer Relationship Specialty Start Date End Date Mary Jane Colon MD PCP - General Family Medicine 07/13/19
--- OUTSIDE RECORDS SUMMARY | 2024-03-23 12:03 | XMS_ITS | Encounter Summary ---
Author Organization [facility] Address [facility] [place] [address] Care Team Providers Care Validation Manager Name Role Phone Emre Fonseca MD Primary Care Provider + Encounter Details Date Type Department Care Team (Late st Contact Info) Description 07/03/2016 8:26 AM EST Anesthesia Event [place] [address] Mario Peters MD [facility] [place] [address] Ailin Michaels I, PHYSICIAN UNDERWRITER [place] [address] Anesthesia Record Procedure Summary Procedure Name Responsible [...] 0811; median cubital vein (antecubital fossa), right; icgy-pag-keccyd catheter system; 18 gauge, 1 in length; [...] MD - 07/05/2016 5:24 PM EST [facility] Department of Anesthesiology Post-procedure Note Patient: Merly Rivera Procedure Summary Date Anesthesia Start Anesthesia Stop Room / Location 07/03/16 0826 0945 [facility] Procedure Diagnosis Surgeon Responsible Provider CATARACT EXTRACTION, EXTRACAPSULAR, WITH LENS INSERTION, COMPLEX (WRVU 11.08) (Left Eye) Combined forms of age-related cataract, left eye (Cataract) Bay Jaffe MD Gandevia, Vijay V, MD All Anesthesia Providers: Anesthesiologist: Mario Peters MD PHYSICIAN UNDERWRITER: Ailin Michaels CRNA Last (1hr) Vitals: BP Temp Pulse Resp SpO2 Patient Location: [facility] Level of Consciousness: Awake and Alert [...] MD - 07/03/2016 10:01 AM EST [facility] Department of Anesthesiology Post-procedure Note Patient: Merly Rivera Procedure Summary Date Anesthesia Start Anesthesia Stop Room / Location 07/03/16 0826 0945 [facility] OR [facility] MA[facility] OR Procedure Diagnosis Surgeon Responsible Provider CATARACT EXTRACTION, EXTRACAPSULAR, WITH LENS INSERTION, COMPLEX (WRVU 11.08) (Left Eye) Combined forms of age-related cataract, left eye (Cataract) Bay Jaffe MD Gandevia, Vijay V, MD All Anesthesia Providers: Anesthesiologist: Mario Peters MD PHYSICIAN UNDERWRITER: Ailin Michaels CRNA Last (1hr) Vitals: BP 105/40 (07/03/16 0945) Temp 37.1 ??C (98.8 ??F) (07/03/16 0945) Pulse 70 (07/03/16 0945) Resp 18 (07/03/16 0945) SpO2 96 % (07/03/16 0945) Patient Location: [facility]U/[facility] Level of Consciousness: Awake and Alert [...] COMPLEX performed by Bay Jaffe MD at [facility] MAIN OR Social History Substance Use Topics [...] consented to blood products. Plan discussed with PHYSICIAN UNDERWRITER. PAT Staff Documentation: Reason for PAT Contact: [...] any additional issues. Mina Espinoza MD Pager [phone] documented in this encounter Plan of Treatment [...] mL/hr documented in this encounter Care Teams Validation Manager Relationship Specialty Start Date End Date Emre Fonseca MD [address] [place] [address] PCP - General 04/08/10 09/29/16 documented as of this encounter
--- OUTSIDE RECORDS SUMMARY | 2024-03-23 12:03 | XMS_ITS | Encounter Summary ---
Author Organization [facility] [place] [address] Care Team Providers Care Stock Buyer Name Role Phone Emre Fonseca MD Primary Care Provider + Reason for Visit * Auth/Cert Specialty Diagnoses / Procedures Referred By Sondra t Referred To Contact Diagnoses Unspecified age-related cataract Cataract Procedures PRO REMV CATARACT EXTRACAP,INSERT LENS,COMP PRO VITRECTOMY,FOCAL LASER RX RETINA CATARACT EXTRACTION, EXTRACAPSULAR, WITH LENS INSERTION, COMPLEX Referral ID Status Reason Start Date Expiration Date Visits Re quested Visits Authorized [id number] 1 1 Encounter Details Date Type Department Care Team (Late st Contact Info) Description 03/26/2016 10:13 AM EST Anesthesia Event [place] [address] Eliezer Steele MD [facility] [place] [address] Mina Espinoza MD [facility] [place] [address] Anesthesia Record Procedure Summary Procedure Name Responsible [...] 0935; median cubital vein (antecubital fossa), right; cabo-byq-ipcbnk catheter system; 18 gauge; Devonte Steele MD; [...] Steele MD - 03/26/2016 12:07 PM EST [facility] Department of Anesthesiology Post-procedure Note Patient: Merly Rivera Procedure Summary Date Anesthesia Start Anesthesia Stop Room / Location 03/26/16 1013 1124 [facility] OR 21 / [facility] MAIN OR Procedure Diagnosis Surgeon Responsible Provider CATARACT EXTRACTION, EXTRACAPSULAR, WITH LENS INSERTION, COMPLEX (Right Eye) Senile cataracts of both eyes (cataract) Bay Jaffe MD Cotoi, Daniel, MD All Anesthesia Providers: Anesthesiologist: Eliezer Steele MD [employer] TE[employer]ER: Servando Tobias CRNA Last (1hr) Vitals: BP 118/63 (03/26/16 1122) Temp 36.2 ??C (97.2 ??F) (03/26/16 1122) Pulse 66 (03/26/16 1122) Resp 16 (03/26/16 1122) SpO2 100 % (03/26/16 1122) Patient Location: PACU/[facility] Level of Consciousness: Awake and Alert [...] consented to blood products. Plan discussed with [employer] PE TEACHER. PAT Staff Documentation: Reason for PAT Contact: [...] any additional issues. Mina Espinoza MD Pager [phone] documented in this encounter Plan of Treatment [...] mL/hr documented in this encounter Care Teams Stock Buyer Relationship Specialty Start Date End Date Emre Fonseca MD [address] [place] [address] PCP - General 04/08/10 09/29/16 documented as of this encounter
--- OUTSIDE RECORDS SUMMARY | 2024-03-23 12:03 | XMS_ITS | Encounter Summary ---
[place] [address] Care Team Providers Care Road Consultant Name Role Phone Erme Fonseca MD Primary Care Provider + Reason for Visit * Reason Comments Post Op S/P 1 week CE/IOL OD 03/26/2016 Encounter Details Date Type Department Care Team (Late st Contact Info) Description 04/02/2016 9:30 AM EST Office [place] [address] Bay Jaffe MD [facility] [place] [address] S/P cataract extraction and insertion of intraocular [...] eye documented in this encounter Care Teams Road Consultant Relationship Specialty Start Date End Date Emre Fonseca MD [address] [facility] [place] [address] PCP - General 04/08/10 09/29/16 documented as of this encounter
--- OUTSIDE RECORDS SUMMARY | 2024-03-23 12:03 | XMS_ITS | Encounter Summary ---
Author Organization [facility] Address [address] [place] [address] Care Team Providers Care Cognos Lead Name Role Phone Unknown, Provider Primary Care Provider Unava ilable Encounter Details Date Type Department Care Team (Latest Contact Info) Description 06/11/2014 14:54 EST - 06/11/2014 23:59 EST Hospital Encounter [address] [address] Unknown, ProviderMD Discharge Disposition: Home or Self Care Social History Tobacco Use Types Packs/Day Years Used Date Smoking Tobacco: Never Assessed Sex and Gender Information Value Date Recorded Sex Assigned at Not on file Gender Identity Not on file Sexual Orientation Not on file documented as of this encounter Discharge Disposition Disposition Code Departure Means Destination Home or Self Penitentiary documented in this encounter Plan of Treatment Not on file documented as of this encounter Visit Diagnoses Not on filedocumented in this encounter Care Teams Cognos Lead Relationship Specialty Start Date End Date Unknown, ProviderMD PCP - General 06/11/14 documented as of this encounter
--- OUTSIDE RECORDS SUMMARY | 2024-03-23 12:03 | XMS_ITS | Encounter Summary ---
Author [facility] [place] [address] Care Team Providers Care Receptionist Name Role Phone Emre Fonseca MD Primary Care Provider + Reason for Visit * Reason Onset Date Comments Bumped Appointment 09/16/2016 Encounter Details Date Type Department Care Team (Late st Contact Info) Description 09/16/2016 [place] [address] Austin Bartholomew MD [facility] [place] [address] Bumped Appointment Social History Tobacco Use Types [...] on filedocumented in this encounter Care Teams Receptionist Relationship Specialty Start Date End Date Emre Fonseca MD [address] [place] [address] PCP - General 04/08/10 09/29/16 documented as of this encounter
--- OUTSIDE RECORDS SUMMARY | 2024-03-23 12:03 | XMS_ITS | Encounter Summary ---
[place] [address] Care Team Providers Care Data Migration Lead Name Role Phone Emre Fonseca MD Primary Care Provider + Encounter Details Date Type Department Care Team (Late Contact [facility]) Description 12/16/2015 3:45 PM EDT [place] [address] Social History Tobacco Use Types Packs/Day Years [...] on filedocumented in this encounter Care Teams Data Migration Lead Relationship Specialty Start Date End Date Emre Fonseca MD [address] [place] [address] PCP - General 04/08/10 09/29/16 documented as of this encounter
--- OUTSIDE RECORDS SUMMARY | 2024-03-23 12:03 | XMS_ITS | Encounter Summary ---
[place] [address] Care Team Providers Care Transportation Director Name Role Phone Emre Fonseca MD Primary Care Provider + Reason for Visit * Reason Comments Dermatitis Encounter Details Date Type Department Care Team (Late st Contact Info) Description 09/14/2011 2:45 PM EDT Office Visit Dermatology [address] [facility] [address] [place] [address] Moreno Guardado MD [address], [place] [address] Stasis dermatitis (Primary Dx) Social History Tobacco [...] extremities. Merly follows up today with her director case, Tiffany. Her legs have been doing better, [...] reveals a pleasant, 65-year-old woman who has fwo-errt-jgv Tubigrip stockings in place on both lower [...] inflammation documented in this encounter Care Teams Transportation Director Relationship Specialty Start Date End Date Emre Fonseca MD [address] [place] [address] PCP - General 04/08/10 09/29/16 documented as of this encounter
--- OUTSIDE RECORDS SUMMARY | 2024-03-23 12:03 | XMS_ITS | Encounter Summary ---
[place] [address] Care Team Providers Care Public Health Sanitarian Technician Name Role Phone Emre Fonseca MD Primary Care Provider + Reason for Visit * Reason Comments Procedure Pre operative measur ements for cataract surgery Encounter Details Date Type Department Care Team (Latest Contact Info) Description 02/05/2016 10:45 AM EDT Procedure [place] [address] Combined forms of age-related cataract of both [...] cataract documented in this encounter Care Teams Public Health Sanitarian Technician Relationship Specialty Start Date End Date Emre Fonseca MD [address] [place] [address] PCP - General 04/08/10 09/29/16 documented as of this encounter
--- OUTSIDE RECORDS SUMMARY | 2024-03-23 12:03 | XMS_ITS | Referral Summary ---
Author Organization [facility] Address [address] [place] [address] Care Team Providers Care Marine Design Engineer Name Role Phone Unknown, Provider Primary Care Provider Unava ilable Social History Tobacco Use Types Packs/Day Years Used Date Smoking Tobacco: Never Assessed Sex and Gender Information Value Date Recorded Sex Assigned at Not on file Gender Identity Not on file Sexual Orientation Not on file Plan of Treatment Not on file Care Teams Marine Design Engineer Relationship Specialty Start Date End Date Unknown, Provider, PCP - General 06/11/14
--- OUTSIDE RECORDS SUMMARY | 2024-03-23 12:03 | XMS_ITS | Encounter Summary ---
Author Organization [facility] [address] Care Team Providers Care Therapist Asst Name Role Phone Emre Fonseca MD Primary Care Provider + Encounter Details Date Type Department Care Team (Latest Contact Info) Description 07/03/2016 6:39 AM EST - 07/03/2016 10:58 AM EST Hospital Encounter [place] [address] Bay Jaffe MD [facility] [place] [address] Discharge Disposition: Home Social History Tobacco Use [...] operative team. Monitors were placed by the inventory taker. After satisfactory general endotracheal anesthesia was obtained [...] emulsified with the phacoemulsification handpiece in a tejhci-dme-zzkewcu fashion. The lens was very hard and additional Viscoat was added to protect the cornea. Residual cortical material was removed with the automated irrigation/aspiration unit. The posterior capsule was vacuum-polished.The capsular bag was inflated with viscoelastic. An [employer] Model SN60WF posterior chamber lens with a 6mm acrylic optic was inspected and found to be without defects, placed in the [place] II insertercartridge, and injected into the capsular [...] Glucose, POC 210(H) 65 - 199 mg/dL [facility] Comment: Supplemental ranges: <140 mg/dL before meals <180 mg/dL all other times of the day Blood specimen (specimen) 07/03/2016 7:57 AM EST 07/03/2016 7:57 AM EST Bay Jaffe MD POINT OF CARE TEST O RDERABLES [facility] [place] [address] * SCAN DOC: IMPLANTABLE DEVICES (07/03/2016 12:00 [...] er: Bay Jaffe MD - Comment: subtenon's) wcnkkcac-xzpwcdbpb-ewifszdxbgqt e (DEXACINE) 3.5 mg/g-10,000 unit/g-0.1 % ophthalmic [...] MD) documented in this encounter Care Teams Therapist Asst Relationship Specialty Start Date End Date Emre Fonseca MD [address] [place] [address] PCP - General 04/08/10 09/29/16 documented as of this encounter
--- OUTSIDE RECORDS SUMMARY | 2024-03-23 12:03 | XMS_ITS | Encounter Summary ---
[place] [address] Care Team Providers Care Environmental Remediation Engineer Name Role Phone Emre Fonseca MD Primary Care Provider + Encounter Details Date Type Department Care Team (Late st Contact Info) Description 07/03/2016 8:30 AM EST - 07/03/2016 10:29 AM EST Surgery [place] [address] Bay Jaffe MD [facility] [place] [address] CATARACT EXTRACTION, EXTRACAPSULAR, WITH LENS INSERTION, COMPLEX [...] Rivera and she expressed understanding and agreement. Meryl Rivera has cataract OS. Today's surgery is [...] operative team. Monitors were placed by the mixing and molding machine operator. After satisfactory general endotracheal anesthesia was obtained [...] emulsified with the phacoemulsification handpiece in a pvybcy-byo-bmnnmhu fashion. The lens was very hard and additional Viscoat was added to protect the cornea. Residual cortical material was removed with the automated irrigation/aspiration unit. The posterior capsule was vacuum-polished.The capsular bag was inflated with viscoelastic. An [employer]has Model SN60WF posterior chamber lens with a 6mm acrylic optic was inspected and found to be without defects, placed in the [place] II insertercartridge, and injected into the capsular [...] TEST O RDERABLES [facility] [place] [address] * SCAN DOC: IMPLANTABLE DEVICES (07/03/2016 12:00 [...] Given 07/03/2016 7:45 AM EST 1 drop iyxxfkwc-ppxxveenz-wldetwxqsuhfk (DEXACINE) 3.5 mg/g-10,000 unit/g-0.1 % ophthalmic ointment [...] er: Bay Jaffe MD - Comment: subtenon's) nwzivcpy-xtxuikpzv-tiwsjpdiljfi e (DEXACINE) 3.5 mg/g-10,000 unit/g-0.1 % ophthalmic [...] MD) documented in this encounter Care Teams Environmental Remediation Engineer Relationship Specialty Start Date End Date Emre Fonseca MD [address] [place] [address] PCP - General 04/08/10 09/29/16 documented as of this encounter
--- OUTSIDE RECORDS SUMMARY | 2024-03-23 12:03 | XMS_ITS | Encounter Summary ---
[place] [address] Care Team Providers Care Fiction Writer Name Role Phone mEre Fonseca MD Primary Care Provider + Encounter Details Date Type Department Care Team (Late st Contact Info) Description 12/16/2015 4:00 PM EDT Clinical Support [place] [address] Social History Tobacco Use Types Packs/Day Years [...] on filedocumented in this encounter Care Teams Fiction Writer Relationship Specialty Start Date End Date Emre Fonseca MD [address] [facility] [place] [address] PCP - General 04/08/10 09/29/16 documented as of this encounter
--- OUTSIDE RECORDS SUMMARY | 2024-03-23 12:03 | XMS_ITS | Encounter Summary ---
Author Organization [facility] [place] [address] Care Team Providers Care Work Counselor Name Role Phone Emre Fonseca MD Primary Care Provider + Reason for Visit * Reason Onset Date Comments Post Op S/P 1 day CE/IOL OD 03/26/2016 Post Op 03/27/2016 Encounter Details Date Type Department Care Team (Late st Contact Info) Description 03/27/2016 10:00 AM EST Office [place] [address] Bay Jaffe MD [facility] [place] [address] S/P cataract extraction and insertion of intraocular [...] right documented in this encounter Care Teams Work Counselor Relationship Specialty Start Date End Date Emre Fonseca MD [address] [place] [address] PCP - General 04/08/10 09/29/16 documented as of this encounter
--- OUTSIDE RECORDS SUMMARY | 2024-03-23 12:03 | XMS_ITS | Encounter Summary ---
Author [facility] [place] [address] Care Team Providers Care Wood Milling Machine Hand Name Role Phone Emre Fonseca MD Primary Care Provider + Reason for Visit * Reason Onset Date Comments Referral 08/03/2016 Encounter Details Date Type Department Care Team (Late st Contact Info) Description 08/03/2016 Telephone [place] [address] Austin Bartholomew MD [facility] [place] [address] Referral Social History Tobacco Use Types Packs/Day [...] on filedocumented in this encounter Care Teams Wood Milling Machine Hand Relationship Specialty Start Date End Date Emre Fonseca MD [address] [place] [address] PCP - General 04/08/10 09/29/16 documented as of this encounter
--- OUTSIDE RECORDS SUMMARY | 2024-03-23 12:03 | XMS_ITS | Encounter Summary ---
[place] [address] Care Team Providers Care Assistant Research Scientist Name Role Phone Gomez Fu MD Primary Care Provider [phone] Reason for Visit * Reason Comments NPDR New patient evaluati on for NPDR with DME OD Encounter Details Date Type Department Care Team (Latest Contact Info) Description 09/30/2016 1:45 PM EDT Office [place] [address] Austin Bartholomew MD [facility] [place] [address] Moderate nonproliferative diabetic retinopathy of both eyes [...] documented in this encounter Results * OCT Dlymoq-LQ-LNWT EYES (09/30/2016 3:45 PM EDT) Anatomical Region [...] bilateral documented in this encounter Care Teams Assistant Research Scientist Relationship Specialty Start Date End Date Gomez Fu MD [address] [place] [address] PCP - General General Internal Medicine 09/30/16 2/11/03 documented as of this encounter
--- OUTSIDE RECORDS SUMMARY | 2024-03-23 12:03 | XMS_ITS | Encounter Summary ---
Author Organization [facility] [place] [address] Care Team Providers Care Scarifier Operator Name Role Phone Emre Fonseca MD Primary Care Provider + Reason for Visit * Auth/Cert Specialty Diagnoses / Procedures Referred By Sondra t Referred To Contact Diagnoses Unspecified age-related cataract Cataract Procedures PRO REMV CATARACT EXTRACAP,INSERT LENS,COMP PRO VITRECTOMY,FOCAL LASER RX RETINA CATARACT EXTRACTION, EXTRACAPSULAR, WITH LENS INSERTION, COMPLEX Referral ID Status Reason Start Date Expiration Date Visits Re quested Visits Authorized [id number] 1 1 Encounter Details Date Type Department Care Team (Late st Contact Info) Description 03/26/2016 10:14 AM EST - 03/26/2016 12:03 PM EST Surgery [place] [address] Bay Jaffe MD [facility] [place] [address] CATARACT EXTRACTION, EXTRACAPSULAR, WITH LENS INSERTION, COMPLEX [...] operative team. Monitors were placed by the curator horticultural museum. After satisfactory general endotracheal anesthesia was obtained [...] to be without defects, placed in the Trafford III angledozer operator cartridge, and injected into the capsular bag [...] Glucose, POC 113 65 - 199 mg/dL [facility] Comment: Supplemental ranges: <140 mg/dL before meals <180 mg/dL all other times of the day Blood specimen (specimen) 03/26/2016 9:08 AM EST 03/26/2016 9:08 AM EST Bay Jaffe MD POINT OF CARE TEST O RDERABLES [facility] [place] [address] * SCAN DOC: IMPLANTABLE DEVICES (03/26/2016 12:00 [...] 5 MIN, 3 doses, First dose on Maim 03/26/16 at 0930, Last dose on Mami [...] AM EST 1 drop Righ t Eye oobczejh-vdxjytnss-ihyyezdqoeqyc (DEXACINE) 3.5 mg/g-10,000 unit/g-0.1 % ophthalmic ointment [...] 0940 (New Bag - Prov ider: Opal aCnales RN)1124 (Anesthesia Volume Adjustment - Provider: Servando [...] Provider: Hetal Ro RN - Comment: topical) pvimljgs-slaucgkhl-uvqaafxnstzet (DEXACINE) 3.5 mg/g-10,000 unit/g-0.1 % ophthalmic ointment [...] MD) documented in this encounter Care Teams Scarifier Operator Relationship Specialty Start Date End Date Emre Fonseca MD [address] [facility] [place] [address] PCP - General 04/08/10 09/29/16 documented as of this encounter
[2024-03-23 12:15] LABS: Anion Gap 12.4 mmol/L (3-11); BUN 63 mg/dL (7-18); CO2 24.6 mmol/L (21.0-32.0); CREATININE 2.2 mg/dL (0.55-1.02); Calcium 9.3 mg/dL (8.5-10.1); Chloride 107 mmol/L (98-107); Estimated GFR 22.39 (mL/min/1.73m2); Glucose 156 mg/dL (74-106); Potassium 4.1 mmol/L (3.5-5.1); Sodium 144 mmol/L (136-145)
== END 2024-03-23 11:59 | disposition home or self-care (01) ==
LOC: LBN 11:58
PROVIDERS: PCP Family Medicine; Visit Provider Family Medicine
DX: I10 Essential (primary) hypertension (principal)
CPT/HCPCS: 80048; 84443; 85025

== ENCOUNTER 2024-10-02 16:34 | Emergency (ER) | payer MEDICARE, MEDICAID, SELFPAY ==
[2024-10-02] VITALS (13 sets, daily range): BP systolic 146–190; BP diastolic 47–96; PULSE 30–77; RESP 12–22; TEMP 36.6; O2SAT 97–98
--- NOTE | 2024-10-02 16:45 | DI.RAD_ITS ---
Exam(s) XR TOE RT GREAT EXAM: XR TOE RT GREAT CLINICAL HISTORY: toe swelling. TECHNIQUE: 2D digital imaging was performed of the right great toe. Three images were obtained. AP , oblique and lateral views were obtained. COMPARISON: CR RIGHT FOOT COMPLETE from 08/07/2015 FINDINGS: BONES: The bones are osteopenic. There are destructive changes seen at the lateral aspect of the bas e of the distal phalanx of the great toe. There also destructive changes seen at the base of the dis pola phalanx of the 2nd toe. There is a large cystic lesions seen in the head of the proximal phalanx of the great toe. There is a fracture seen at the head of the middle phalanx of the 2nd toe. JOINTS: No dislocation present. There is marked narrowing of the interphalangeal joint of the great t oe and the DIP joint of the 2nd toe. SOFT TISSUE: Vascular calcifications are present. There is soft tissue swelling of the great toe and the 2nd toe. No soft tissue gas is seen. IMPRESSION: Destructive changes and fractures are seen around the DIP joint of the 2nd toe and the interphalangea l joint of the great toe. There is soft tissue swelling of the great toe. No gas is seen. Differen tial considerations include septic arthritis or inflammatory arthritis. Osteomyelitis should be cons idered involving the 1st and 2nd toes. Trauma cannot be entirely excluded. MRI should be considered for further evaluation. DATA REPOSITORY: RADIATION DOSE DELIVERED:
[2024-10-02] MEDS: Mupirocin 2% Oint. 22 GM TUBE TP (17:42)
[2024-10-02] MEDS: Sulfameth/Trimeth DS TAB 1 TAB PO (17:43)
--- NOTE | 2024-10-02 17:46 | W.ED.GENAD ---
Discharge Plan Disposition Patient Disposition: Home Condition: Stable Discharge Details Clinical Impression: Diabetic neuropathy associated with type 2 diabetes mellitus, Wound of foot Primary Care Provider: Silvino Albarado ED Provider: Anais Arambula Home Meds and New Rx's Prescriptions: New sulfamethoxazole-trimethoprim [Bactrim DS] 800-160 mg tablet 1 tab PO BID 10 Days Qty: 20 0RF No Action insulin lispro [Humalog KwikPen Insulin] 100 unit/mL insulin pen 3 unit subcut TID losartan 50 mg tablet 100 mg PO HS sertraline 50 mg tablet 50 mg PO DAILY zinc gluconate 50 mg tablet 50 mg PO DAILY ONE TOUCH ULTRA 1 EACH EACH 1 ea Miscellaneous DAILY Qty: 90 4RF Rx Instructions: pt w/DM 250.00, needs to identify BS QD to acheive A1c below 9. simvastatin 20 MG tablet 20 mg PO DAILY Qty: 90 Patient Comments: not on list aspirin [Aspir-81] 81 MG tablet,delayed release (DR/EC) 81 mg PO DAILY Qty: 90 (DME) lancets [OneTouch UltraSoft Lancets] 1 EACH misc 1 ea Miscellaneous DAILY Qty: 90 Rx Instructions: for DM 250.00 to identify BS to keep A1c<9 (DME) OneTouch Ultra Test 1 EACH strip 1 ea Miscellaneous DAILY Qty: 100 Rx Instructions: E11.22 to test blood glucose to maintain A1C less than 8.0 elastic stockings 2 u DAILY Qty: 2 0RF Rx Instructions: 1 pair of Jobst type elastic stockings; wear daily (DME) wheelchair 1 EACH device 1 ea Miscellaneous DAILY Qty: 1 Rx Instructions: Manual Wheelchair for use within pt's home due to unsteady gait. transfer bench 1 unit Miscellaneous DAILY PRNQty: 1 Rx Instructions: to promote safe transfer in and out of tub/shower. dx Diabetic Footwear Miscellaneous DAILY Qty: 1 1RF Rx Instructions: wear 1 pair daily E11.22 furosemide 20 MG tablet 20 mg PO BID Qty: 1 (DME) Cushion Insole 1 EACH pad 1 ea Miscellaneous DAILY 365 Days Qty: 1 0RF Rx Instructions: One pair of diabetic footwear, Dx E11.22, I83.12 hydroxyzine HCl 25 MG tablet 25 mg PO QID PRN PRNQty: 100 1RF Patient Comments: PRN-not on list Rx Instructions: prn itching loratadine-pseudoephedrine [Loratadine-D] 10-240 mg Tablet Extended Release 24 Hr 1 tab PO DAILY insulin glargine [Lantus Solostar U-100 Insulin] 100 unit/mL (3 mL) insulin pen 15 unit SUBCUT DAILY acetaminophen 500 mg Tablet 1,000 mg PO TID triamcinolone acetonide 0.5 % cream TOPICAL carboxymethylcellulose sodium [Refresh Liquigel] 1 % Drops, Liquid Gel 1 drp ophthalmic (eye) DAILY multivitamin with iron Tablet 1 tab PO DAILY Saline Mist 0.65 % Aerosol,Ledbetter 1 spray INTRANASAL TID simethicone 80 mg Tablet 80 mg PO QID Systane Balance 0.6 % Drops 1 drp ophthalmic (eye) QID polyethylene glycol 3350 4 gram Powder In Packet 17 g PO DAILY levothyroxine 75 mcg tablet 75 mcg PO DAILY quetiapine 25 mg tablet 50 mg PO BID amlodipine 10 mg tablet 10 mg PO DAILY cholecalciferol (vitamin D3) 125 mcg (5,000 unit) capsule 125 mcg PO DAILY bisacodyl [Dulcolax (bisacodyl)] 10 mg suppository 10 mg IA DAILY PRN Enema 19-7 gram/118 mL enema 118 ml IA DAILY PRN glucagon HCl [Glucagon (HCl) Emergency Kit] 1 mg recon soln 1 mg subcut Q20M PRN Rx Instructions: until target blood sugar attained hydralazine 10 mg tablet 10 mg PO TID loperamide [Anti-Diarrheal (loperamide)] 2 mg capsule 2 mg PO Q6H PRN magnesium hydroxide [Milk of Magnesia] 400 mg/5 mL suspension 30 ml PO DAILY PRN diclofenac sodium [Voltaren Arthritis Pain] 1 % gel 2 g topical QID Rx Instructions: apply to single elbow, wrist or hand; for hand includes palm/fingers/back of hand Discharge Instructions Additional Instructions: A wound culture and x-ray have been obtained per your request Patient should be treated topically with mupirocin ointment 3 times daily (tube provided in ED) Aggressive wound care and daily dressing changes should be adhered to. Patient should be seen by podiatry regularly Patient has been prescribed oral antibiotics to start. First dose given in the emergency department, the remaining treatment should be managed by your facility physician HPI General Date/Time Provider Initiated Documentation: 10/02/24 16:50. Limitations to Documentation: no limitations. Information obtained by: patient. HPI Narrative: 70-year-old female with past medical history of DVT, hypertension, diabetes, CKD presents for evaluation of right great toe wound. Patient reports that he had she is having this morning and had been receiving daily wound care with her nurse. she her nurse when out of town which stopped receiving antibiotics. Receiving dressing changes and wound care. She is having wounds removed. Will order lab work reporting pain, but she does not have much feeling in her foot. She reports that today her regular nurse returned from vacation and was concerned about the appearance of the wound. She noted that it was draining fluid so the patient was sent to the emergency department for a wound culture and x-ray. Related Data Home Medications ?Medication ?Instructions ?Recorded ?Confirmed simvastatin 20 mg tablet 20 mg PO DAILY #90 tabs 08/03/14 10/02/24 aspirin 81 mg tablet,delayed 81 mg PO DAILY #90 tab-caps 02/01/15 10/02/24 release (Aspir-) lancets (OneTouch UltraSoft #90 ea 02/07/15 Lancets) blood sugar diagnostic (OneTouch #100 strips 02/14/15 12/30/21 Ultra Test strips) wheelchair ##1 06/07/15 12/30/21 Transfer Bench 1 unit miscellaneous DAILY PRN #1 07/09/15 10/02/24 unit hydroxyzine HCl 25 mg tablet 25 mg PO QID PRN PRN #100 tab-caps 07/23/15 10/02/24 furosemide 20 mg tablet 20 mg PO BID #1 tab-cap 04/23/16 10/02/24 foot care products (Cushion Insole #1 ea 08/12/17 12/30/21 pads) acetaminophen 500 mg tablet 1,000 mg PO TID 03/06/21 10/02/24 carboxymethylcellulose sodium 1 % 1 drp ophthalmic (eye) DAILY 03/06/21 10/02/24 eye liquid gel drops (Refresh Liquigel) insulin glargine 100 unit/mL (3 15 unit subcut DAILY 03/06/21 10/02/24 mL) subcutaneous pen (Lantus Solostar U-100 Insulin) loratadine-pseudoephedrine ER 10 1 tab PO DAILY 03/06/21 03/06/21 mg-240 mg tablet,extended [id number] (Loratadine-D) multivitamin with iron 1 tab PO DAILY 03/06/21 03/06/21 polyethylene glycol 3350 4 gram 17 g PO DAILY 03/06/21 10/02/24 oral powder packet propylene glycol 0.6 % eye drops 1 drp ophthalmic (eye) QID 03/06/21 10/02/24 (Systane Balance) simethicone 80 mg tablet 80 mg PO QID 03/06/21 10/02/24 sodium chloride 0.65 % nasal spray 1 spray intranasal TID 03/06/21 10/02/24 aerosol (Saline Mist) triamcinolone acetonide 0.5 % applic topical 03/06/21 12/30/21 topical cream insulin lispro 100 unit/mL 3 unit subcut TID 12/29/21 12/30/21 subcutaneous pen (Humalog KwikPen (U-100) Insulin) losartan 50 mg tablet 100 mg PO HS 12/29/21 10/02/24 sertraline 50 mg tablet 50 mg PO DAILY 12/29/21 10/02/24 zinc gluconate 50 mg tablet 50 mg PO DAILY 12/29/21 10/02/24 levothyroxine 75 mcg tablet 75 mcg PO DAILY 12/30/21 10/02/24 quetiapine 25 mg tablet 50 mg PO BID 12/30/21 10/02/24 amlodipine 10 mg tablet 10 mg PO DAILY 10/02/24 10/02/24 bisacodyl 10 mg rectal suppository 10 mg IA DAILY PRN 10/02/24 10/02/24 (Dulcolax (bisacodyl)) cholecalciferol (vitamin D3) 125 125 mcg PO DAILY 10/02/24 10/02/24 mcg (5,000 unit) capsule diclofenac sodium 1 % topical gel 2 g topical QID 10/02/24 10/02/24 (Voltaren Arthritis Pain) glucagon HCl 1 mg solution for 1 mg subcut Q20M PRN 10/02/24 10/02/24 injection (Glucagon (HCl) Emergency Kit) hydralazine 10 mg tablet 10 mg PO TID 10/02/24 10/02/24 loperamide 2 mg capsule 2 mg PO Q6H PRN 10/02/24 10/02/24 (Anti-Diarrheal (loperamide)) magnesium hydroxide 400 mg/5 mL 30 ml PO DAILY PRN 10/02/24 10/02/24 oral suspension (Milk of Magnesia) sodium phosphates 19 gram-7 118 ml IA DAILY PRN 10/02/24 10/02/24 gram/118 mL enema (Enema) sulfamethoxazole 800 1 tab PO BID 10 days #20 tabs 10/02/24 mg-trimethoprim 160 mg tablet (Bactrim DS) Previous Rx's ?Medication ?Instructions ?Recorded hydroxyzine HCl 25 mg tablet 25 mg PO QID PRN PRN #100 tab-caps 07/23/15 foot care products (Cushion Insole #1 ea 08/12/17 pads) sulfamethoxazole 800 1 tab PO BID 10 days #20 tabs 10/02/24 mg-trimethoprim 160 mg tablet (Bactrim DS) Allergies Allergy/AdvReac Type Severity Reaction Status Date / Time No Known Allergies Allergy Unverified 10/02/24 17:07 General Stated Complaint: Cellulitis DEVONTE: 3 Exam Narrative Exam Narrative: Review of Systems: All systems reviewed & are unremarkable except as noted in HPI and below Well-developed, no acute distress, wearing a fabulous fur paul Afebrile NCAT RRR Unlabored respiratory effort Bilateral lower extremities wrapped in Corwin wrap which was taken down, no significant edema noted. Nose skin changes consistent with cellulitis appreciated. The left foot is unremarkable. The right foot has a well-healed hyperpigmentationspotonthemiddletoe the great toe is slightly enlarged and erythematous, nontender to palpation, there is a 0.5 cm scabbed ulceration as well as a 2 mm area of fluctuance that is draining some serosanguineous fluid. Erythema of the does not extend up the foot Course Vital Signs Vital signs: Vital Signs Temperature 36.6 C 10/02/24 16:36 Pulse 65 10/02/24 16:36 Respiratory Rate 18 10/02/24 16:36 Blood Pressure 146/64 H 10/02/24 16:36 Pulse Oximetry 98 10/02/24 16:36 Temperature 36.6 C 10/02/24 17:04 Temperature Source Tympanic 10/02/24 17:04 Pulse 65 10/02/24 17:42 Pulse 53 L 10/02/24 17:42 Respiratory Rate 12 10/02/24 17:42 Blood Pressure 176/79 H 10/02/24 17:42 Blood Pressure Mean 87 10/02/24 17:42 Pulse Oximetry 97 10/02/24 17:42 Oxygen Delivery Method Room Air 10/02/24 17:04 Oxygen Flow Rate 0 10/02/24 17:04 Lab/Test Results Lab/Test Results: 10/02/24 17:00 Toe - Right Big Toe Anaerobic Culture - Pending Medical Decision Making Emergent evaluation diabetic foot wound. The patient reports that she had been receiving daily wound care by her nurse who was on vacation for the last week and thus she has not received any wound care or antibiotics. She was not sent with a med rec so I do not know what medications she has been given. and no log of her blood sugars was sent. Per the patient she has been given any antibiotics recently. The wound appears localized to that great toe and does not appear consistent with an deep space infection or significant cellulitis. No suspicion for systemic illness given how well she appears. able to express a small amount of fluid from the area which was sent for culture. An x-ray was obtained which is chronically abnormal without any acute findings but this is not a definitive study to evaluate for osteomyelitis. Her blood sugar is less than 200.. Patient has been provided Bactrim as well as topical mupirocin. It is recommended that she follow-up closely with podiatry and receive regular wound care. Quality:SDOH Health Related Social Needs: No Data to Display PFSH All Active Problems (Updated 10/02/24 @ 17:33 by Anais Arambula MD) Wound of foot (Acute) Full code status (Acute) Discharge planning issues (Acute) DVT prophylaxis (Acute) Anemia (Chronic) Schizophrenia (Chronic) General weakness (Acute) Urinary tract infection (Acute) Epistaxis, recurrent (Acute) Weight loss (Acute 02/28/14) Venous stasis dermatitis of left lower extremity (Acute 05/31/15) Tubular adenoma of colon (Acute 06/11/14) REPEAT colonoscopy due 2020 Tobacco dependence in remission (Acute 03/13/16) History of tobacco use disorder (Acute 07/13/11) Subclinical hypothyroidism (Acute 02/28/14) per 2016 [facility] admission notes: ... TSH on 07/30 was 5.38 with FT-4 in the normal range. Other and unspecified hyperlipidemia (Acute 08/17/12) Obstructive sleep apnea (Acute 10/10/15) 10/22/15 study revealed mild HILDA severe in Rem sleep but minimal rem sleep. CPAP rx Dr. Holly Obesity, unspecified (Acute 07/13/11) Hypertension (Chronic 08/17/12) Hyperlipidemia (Acute 08/17/12) Edema (Acute 09/14/14) venous insufficency Diabetes mellitus with stage 4 chronic kidney disease (Acute 06/14/14) A1C goal 8 Chronic schizophrenia not affecting current episode of care (Acute 08/17/12) chronic Seroquel rx; [facility] 07/2015 due to hospitalization acute on chronic renal failure, edema with skin lesions, inadequate home care; home eval 08/2015 needs eye management prior to conside Chronic kidney disease, stage 4, severely decreased GFR (Acute 07/13/11) patient did not go to Nephrology appt [facility] 11/2011 Cataract (Acute 03/13/16) Hypertensive chronic kidney disease with stage 1 through stage 4 chronic kidney disease, or unspecified chronic kidney disease (Acute 07/13/11) patient did not go to Nephrology appt [facility] 11/2011 Anemia (Acute 02/28/14) CKD On admission to [facility]: .. has chronic anemia most likely related to the chronic kidney disease. Will monitor that issue at least yearly. Bilateral edema of lower extremity (Acute) Diabetes mellitus type 2 with complications (Acute) Chronic kidney disease (CKD) (Acute) Diabetic nephropathy associated with type 2 diabetes mellitus (Acute) Diabetic neuropathy associated with type 2 diabetes mellitus (Acute) Acute kidney injury (nontraumatic) (Acute) Obstructive sleep apnea (Acute) Right heart failure (Acute) Medical History (Updated 10/02/24 @ 17:33 by Anais Arambula MD) Palliative care patient Obesity Hypertension Cataracts, bilateral Partial blindness Chronic kidney disease Hyperlipidemia Diabetes Surgical History cataract 03/27/16-od [facility] 04/27/16 os Colonoscopy - IV Sedation (06/11/14) per Dr. Slater, pre-malignant polyps removed Social History Smoking/Tobacco Use Status: Former Tobacco Use Smoking risk assessment performed?: Yes Alcohol Intake: former Drug use: Never Substance use type: does not use Housing: [facility] Do you feel safe at home: Yes Do you feel safe in your relationship?: Yes
== END 2024-10-02 18:35 | disposition home or self-care (01) ==
LOC: ER 17:51
PROVIDERS: Emergency Provider Emergency Medicine; PCP Family Medicine
DX: E11.621 Type 2 diabetes mellitus with foot ulcer (principal); L97.518 Non-pressure chronic ulcer of other part of right foot with other specified severity; E78.5 Hyperlipidemia, unspecified; E11.22 Type 2 diabetes mellitus with diabetic chronic kidney disease; I12.9 Hypertensive chronic kidney disease with stage 1 through stage 4 chronic kidney disease, or unspecified chronic kidney disease; N18.9 Chronic kidney disease, unspecified; E11.40 Type 2 diabetes mellitus with diabetic neuropathy, unspecified; Z86.718 Personal history of other venous thrombosis and embolism; Z79.82 Long term (current) use of aspirin; Z79.4 Long term (current) use of insulin; Z87.891 Personal history of nicotine dependence
CPT/HCPCS: 82962; 99284; 73660; 87070; 87075; 87205

== ENCOUNTER → 2024-10-05 09:12 | Outpatient (BNVA) | payer MEDICARE, MEDICAID, SELFPAY | PROVIDERS: PCP Family Medicine; Referring Provider Family Medicine; Visit Provider Podiatrist | DX: Z51.89 Encounter for other specified aftercare (principal); L97.512 Non-pressure chronic ulcer of other part of right foot with fat layer exposed; L97.514 Non-pressure chronic ulcer of other part of right foot with necrosis of bone; M86.9 Osteomyelitis, unspecified; E11.8 Type 2 diabetes mellitus with unspecified complications; N18.4 Chronic kidney disease, stage 4 (severe); E55.9 Vitamin D deficiency, unspecified; E79.0 Hyperuricemia without signs of inflammatory arthritis and tophaceous disease; I73.89 Other specified peripheral vascular diseases; R09.89 Other specified symptoms and signs involving the circulatory and respiratory systems | CPT/HCPCS: 99214 ==

== ENCOUNTER 2024-10-05 10:37 | Outpatient (CLI) | payer MEDICARE, MEDICAID, SELFPAY ==
[2024-10-05 10:54] LABS: Abs Immature Grans 0.02 10^3/uL (0.0-0.06); Absolute Basophil Count 0.03 10^3/uL (0.0-0.2); Absolute Eosinophil Count 0.28 10^3/uL (0.0-0.7); Absolute Lymphocyte Count 1.66 10^3/uL (1.2-3.4); Absolute Monocyte Count 0.65 10^3/uL (0.1-0.8); Absolute Neutrophil Count 4.77 10^3/uL (1.2-6.7); Basophils % 0.4 %; Eosinophils % 3.8 %; HCT 31.9 % (36.0-46.0); HGB 10.6 g/dL (11.2-15.7); Immature Grans % 0.3 %; Lymphocytes % 22.4 %; MCH 32.9 pg (27.0-33.0); MCHC 33.2 % (32.0-36.0); MCV 99 fL (80-95); MPV 9.9 fL (8.0-11.0); Monocytes % 8.8 %; Neutrophils % 64.3 %; Platelet Count 298 10^3/uL (130-400); RBC 3.22 10^6/uL (3.93-5.22); RDW 12.9 % (11.7-14.6); RDW-SD 46.3 fL; WBC 7.41 10^3/uL (4.4-10.8)
[2024-10-05 10:56] LABS: ESR 36 mm/hr (0-30)
[2024-10-05 11:11] LABS: Uric Acid 10.1 mg/dL (2.6-6.0)
== END 2024-10-05 10:38 | disposition home or self-care (01) ==
PROVIDERS: PCP Family Medicine; Visit Provider Podiatrist
DX: M86.9 Osteomyelitis, unspecified (principal); L97.514 Non-pressure chronic ulcer of other part of right foot with necrosis of bone; E08.621 Diabetes mellitus due to underlying condition with foot ulcer; L97.512 Non-pressure chronic ulcer of other part of right foot with fat layer exposed; E79.0 Hyperuricemia without signs of inflammatory arthritis and tophaceous disease
CPT/HCPCS: 36415; 85652; 99214; 84550; 85025; 86140

== ENCOUNTER 2024-10-18 17:04 | Outpatient (REF) | payer MEDICARE, MEDICAID, SELFPAY ==
[2024-10-18 16:54] LABS: Hemoglobin A1C 5.8 % (<5.7)
== END 2024-10-18 17:05 | disposition home or self-care (01) ==
LOC: LBN 17:04
PROVIDERS: PCP Family Medicine; Visit Provider Family Medicine
DX: E11.319 Type 2 diabetes mellitus with unspecified diabetic retinopathy without macular edema (principal)
CPT/HCPCS: 83036

== ENCOUNTER 2024-10-19 09:07 | Outpatient (REF) | payer MEDICARE, MEDICAID, SELFPAY ==
--- NOTE | 2024-10-19 09:28 | BONE_PTH ---
PATIENT: Merly Rivera LOC: [facility] U#:[id number] AGE/SX: 78/F ROOM: RE10/19/[address]: Suzy Greenfield DPM : 1945 BED: DIS: 10/19/2024 SPEC #: [id number] RECD: 10/19/24 13:03 STATUS: DELMIS REQ #: [id number] TRACY: 10/19/24 09:[address]: Suzy Greenfield DEPT: Surgical Specimen RECD BY: Shantell Ornelas ENTERED: 10/19/24 13:04 SP TYPE: Bone OTHR DR: Silvino Albarado Tissues: 1 - BONE BX/CURRETTE NOT PATH FRACTURE 2 - BONE BX/CURRETTE NOT PATH FRACTURE Procedures: GROSS AND MICRO LEVEL 3 DECALCIFICATION Comments: [id number] (BOTH SAMPLES SUBMITTEDIN 100% ETHANOL)
== END 2024-10-19 09:08 | disposition home or self-care (01) ==
LOC: LBN 09:07
PROVIDERS: PCP Family Medicine; Visit Provider Podiatrist
DX: M1A.9XX1 Chronic gout, unspecified, with tophus (tophi) (principal)
CPT/HCPCS: 88304; 88311

== ENCOUNTER → 2024-10-19 09:07 | Outpatient (BNVA) | payer MEDICARE, MEDICAID, SELFPAY | PROVIDERS: PCP Family Medicine; Referring Provider Family Medicine; Visit Provider Podiatrist | DX: Z51.89 Encounter for other specified aftercare (principal); L97.512 Non-pressure chronic ulcer of other part of right foot with fat layer exposed; L97.514 Non-pressure chronic ulcer of other part of right foot with necrosis of bone; M86.9 Osteomyelitis, unspecified; M10.9 Gout, unspecified | CPT/HCPCS: 11042 ==

== ENCOUNTER 2024-10-24 14:49 | Outpatient (REF) | payer MEDICARE, MEDICAID, SELFPAY ==
[2024-10-24 16:11] LABS: Abs Immature Grans 0.03 10^3/uL (0.0-0.06); Absolute Basophil Count 0.06 10^3/uL (0.0-0.2); Absolute Eosinophil Count 0.24 10^3/uL (0.0-0.7); Absolute Lymphocyte Count 1.63 10^3/uL (1.2-3.4); Absolute Monocyte Count 0.87 10^3/uL (0.1-0.8); Absolute Neutrophil Count 5.01 10^3/uL (1.2-6.7); Basophils % 0.8 %; Eosinophils % 3.1 %; HCT 30.9 % (36.0-46.0); Immature Grans % 0.4 %; Lymphocytes % 20.8 %; MCH 32.8 pg (27.0-33.0); MCHC 32.4 % (32.0-36.0); MCV 101 fL (80-95); MPV 10.1 fL (8.0-11.0); Monocytes % 11.1 %; Neutrophils % 63.8 %; Platelet Count 285 10^3/uL (130-400); RBC 3.05 10^6/uL (3.93-5.22); RDW 13.9 % (11.7-14.6); RDW-SD 50.7 fL; WBC 7.84 10^3/uL (4.4-10.8)
[2024-10-24 16:25] LABS: Anion Gap 11.8 mmol/L (3-11); C-Reactive Protein 4.46 mg/dL (<or=0.5); CO2 24.2 mmol/L (21.0-32.0); CREATININE 3.2 mg/dL (0.55-1.02); Calcium 9.2 mg/dL (8.5-10.1); Chloride 105 mmol/L (98-107); Estimated GFR 14.28 (mL/min/1.73m2); Glucose 126 mg/dL (74-106); Potassium 4.5 mmol/L (3.5-5.1); Sodium 141 mmol/L (136-145)
[2024-10-24 16:39] LABS: BUN 80 mg/dL (7-18)
== END 2024-10-24 14:50 | disposition home or self-care (01) ==
LOC: LBN 14:49
PROVIDERS: PCP Family Medicine; Visit Provider Family Medicine
DX: L97.512 Non-pressure chronic ulcer of other part of right foot with fat layer exposed (principal)
CPT/HCPCS: 80048; 85025; 86140

== ENCOUNTER 2024-10-26 01:16 | Outpatient (CLI) | payer MEDICARE, MEDICAID, SELFPAY ==
--- NOTE | 2024-10-26 11:15 | DI.MRI_ITS ---
Exam(s) MR LOWER EXTREMITY RT WO EXAM: MR LOWER EXTREMITY RT WO CLINICAL HISTORY: Osteomyelitis vs gout vs septic arthritis, M86.9- osteomyelitis of great toe TECHNIQUE: Multiplanar multisequence MRI was performed. Patient refused IV contrast COMPARISON: CR XR TOE RT GREAT from 10/02/2024 FINDINGS: MARROW/ARTICULATIONS:There are prominent destructive arthritic changes at the interphalangeal joint of the great toe in a pattern consistent with probable advanced gouty arthritis with multiple erosions. The base of the distal phalanx appears somewhat fragmented. There is a joint effusion at this articulation which extends superiorly towards the skin surface. There is bone edema in the distal aspect of the proximal phalanx and distal phalanx of the great toe as seen on the STIR images, extending to the tip of the distal phalanx. However, in the marrow not affected by the erosions there does not appear to be confluent hypointense T1 signal which would be more specific for osteomyelitis. In melida tion, please note that the patient refused IV contrast. There also relatively smooth erosive changes in the great toe metatarsophalangeal joint, more so medially than laterally. There appears to be a small erosion in the distal medial aspect of the more medial of the 2 sesamoid bones subjacent to the great toe metatarsal head. The more lateral of these 2 sesamoids appears unremarkable. There are also similar well-defined erosions on both sides of the head of the 2nd metatarsal. There also some well-defined erosive changes more proximally in the bases of the 2nd, 3rd, and 4th metatarsals and also involving the 2nd tarsometatarsal joint on its medial aspect. Also involving the articulation between the medial and middle cuneiform. LISFRANC LIGAMENT: Appears intact with no evidence of tear. MUSCLES: There is some her feet signal in the musculature on the plantar aspect of the foot but no distinct intramuscular collections. ACHILLES TENDON: There is abnormal signal at the insertional aspect of the Achilles tendon on the posterior calcaneus region of enthesophyte. Consistent with partial tearing at this level. The Achilles tendon above this level appears relatively unremarkable. TENDONS: No obvious tears nor tenosynovitis in the field of view of this study. PLANTAR FASCIA: There is evidence of mild plantar fasciitis in the medial aspect. No significant signal abnormality in the calcaneus. SINUS TARSI: Exhibits normal fat signal and intact inter osseous ligament. Also no evidence of sinus tarsi ganglion cyst. EXTRAMUSCULAR SOFT TISSUES: There is a superficial fluid collection over the posterior lateral aspect of the skin-subcutaneous tissue over the posterior calcaneus. This has the appearance of a probable blister measuring 2.8 x 1.3 cm. There is edema over the dorsal aspect of the foot but without a drainable fluid collection. IMPRESSION: 1. Findings are consistent with advanced gouty arthritis, involving multiple bones of the forefoot and midfoot; most marked at the interphalangeal joint of the great toe where there also destructive changes and interphalangeal joint effusion. In addition to tophaceous gout at this articulation cannot also exclude superimposed septic arthritis and osteomyelitis. Correlation clinically with presence of any ulcer in the great toe recommended. Unfortunately the patient refused IV contrast injection. 2. Multi articular and multi osseous involvement as detailed individually above having the appearance of advanced gouty involvement. 3. Other findings as above. DATA REPOSITORY:
--- NOTE | 2024-10-26 18:06 | DI.VRAD_ITS ---
PROCEDURE INFORMATION: Exam: MR Right Lower Extremity Other Than Joint Without Contrast; Foot Exam date and time: 10/26/2024 2:08 PM Age: 78 years old Clinical indication: Pain; Toes; Right; Osteomylitis vs gout or septic arthritis of great toe TECHNIQUE: Imaging protocol: Magnetic resonance imaging of the right lower extremity without contrast. Exam focused on the foot. COMPARISON: CR XR TOE RT GREAT 10/02/2024 5:21 PM FINDINGS: Bones/joints: Prominent destructive arthritic change in the 1st IP joint in a pattern suggestive gouty arthritis, especially when correlated with conventional radiographs of 10/02/2024. The base of the distal phalanx appears fragmented. There is a 1st IP joint effusion which extends superiorly toward the skin surface. Correlate clinically if there is an ulceration in this region. Superimposed osteomyelitis cannot definitely be excluded. There also erosive changes with appearance compatible with gout in the 1st and 2nd MTP joints. Erosive changes in the base of the 2nd, 3rd, and 4th metatarsal, and throughout the tarsal bones. Marked soft tissue thickening about the 1st IP joint suspicious for gouty tophi. Recommend correlation with clinical history. LIGAMENTS: Lisfranc ligament: Unremarkable. No evidence of tear. TENDONS: Flexor tendons of foot: Unremarkable were seen. Inadequately visualized in the ankle Tibialis posterior tendon: Unremarkable as visualized. Peroneal tendons: Unremarkable as visualized. Extensor tendons of foot: Unremarkable were seen. Inadequately visualized in the ankle Tibialis anterior tendon: Unremarkable as visualized. Inadequately visualized in the ankle Tarsal canal (Sinus tarsi): Unremarkable. Tarsal tunnel: Incompletely visualized on this exam Soft tissues: Diffuse subcutaneous edema, especially over the top of the foot. Atrophy of the muscles of the foot. Plantar fascia: Thickening of the medial base of plantar fascia consistent sequelae of chronic plantar fasciitis. Achilles tendon: Achilles calcaneal spur with reactive edema. IMPRESSION: 1. Changes of gout throughout the visualized foot, most marked in the 1st IP joint with there are prominent destructive changes about the IP joint that are consistent with severe changes of gout with gouty tophi but superimposed infection cannot definitely be excluded. 2. Marked diffuse soft tissue edema Dictated and Authenticated by: Naya Turner MD. Orderin Gin Almonte MD
== END 2024-10-26 01:36 ==
LOC: DI 01:16
PROVIDERS: PCP Family Medicine; Visit Provider Podiatrist
DX: M86.9 Osteomyelitis, unspecified (principal); M10.071 Idiopathic gout, right ankle and foot
CPT/HCPCS: 73718

== ENCOUNTER 2024-11-14 23:01 | Inpatient (IN) | payer MEDICARE, MEDICAID, SELFPAY ==
[2024-11-14] VITALS (7 sets, daily range): BP systolic 168–197; BP diastolic 87–93; PULSE 84–94; RESP 23–36; TEMP 39.6; O2SAT 94–99
--- NOTE | 2024-11-14 23:00 | RT.EKG_ITS ---
APPROVED REPORT Exam: Resting ECG Reason for Exam: sepsis Patient Location: E HR:88 bpm ECG Measurements Heart Rate 88 AXIS MA [id number] P [id number] QRSd 141 QRS 69 QT 382 T -18 QTc 464 Conclusion Atrial fibrillation...V-rate 72- 97, irreg A-activity Right bundle branch block...QRSd>120, terminal axis(90,270) Normal [place] Nonspecific ST-T changes, nothing acute
--- NOTE | 2024-11-14 23:00 | DI.RAD_ITS ---
Exam(s) XR PORTABLE CHEST AP EXAM: XR PORTABLE CHEST AP CLINICAL HISTORY: fever, sob TECHNIQUE: 2D digital imaging was performed. COMPARISON: CR XR PORTABLE CHEST AP from 03/06/2021 FINDINGS: LUNGS: The lungs are poorly inflated. There is and area of consolidation versus atelectasis at the left lower lobe. There may also be a small left pleural effusion. The right lung is grossly clear. HEART: Normal size. AORTA: Normal diameter. BONES: Degenerative changes in the spine and shoulders. Soft tissues: Unremarkable splenic artery calcifications. IMPRESSION: Limited exam. Atelectasis versus infiltrate at the left lung base. The preliminary VRAD report was reviewed. DATA REPOSITORY: RADIATION DOSE DELIVERED:
--- NOTE | 2024-11-14 23:01 | W.ED.GENAD ---
Discharge Plan Disposition Patient Disposition: Admit to [facility] Condition: Poor Discharge Details Clinical Impression: Pneumonia, Sepsis, Atrial fibrillation, Demand ischemia Primary Care Provider: Silvino Albarado ED Provider: Juan C Willoughby Home Meds and New Rx's Prescriptions: No Action insulin lispro [Humalog KwikPen Insulin] 100 unit/mL insulin pen 3 unit subcut TID losartan 50 mg tablet 100 mg PO HS sertraline 50 mg tablet 50 mg PO DAILY zinc gluconate 50 mg tablet 50 mg PO DAILY sulfamethoxazole-trimethoprim [Bactrim DS] 800-160 mg tablet 1 tab PO BID mupirocin 2 % ointment 1 applic topical TID Santyl 250 unit/gram ointment 1 applic topical DAILY Qty: 90 0RF Dakin's Solution 0.125 % solution 1 applic topical DAILY Qty: 473 0RF ONE TOUCH ULTRA 1 EACH EACH 1 ea Miscellaneous DAILY Qty: 90 4RF Rx Instructions: pt w/DM 250.00, needs to identify BS QD to acheive A1c below 9. simvastatin 20 MG tablet 20 mg PO DAILY Qty: 90 Patient Comments: not on list aspirin [Aspir-81] 81 MG tablet,delayed release (DR/EC) 81 mg PO DAILY Qty: 90 (DME) lancets [OneTouch UltraSoft Lancets] 1 EACH misc 1 ea Miscellaneous DAILY Qty: 90 Rx Instructions: for DM 250.00 to identify BS to keep A1c<9 (DME) OneTouch Ultra Test 1 EACH strip 1 ea Miscellaneous DAILY Qty: 100 Rx Instructions: E11.22 to test blood glucose to maintain A1C less than 8.0 elastic stockings 2 u DAILY Qty: 2 0RF Rx Instructions: 1 pair of Jobst type elastic stockings; wear daily (DME) wheelchair 1 EACH device 1 ea Miscellaneous DAILY Qty: 1 Rx Instructions: Manual Wheelchair for use within pt's home due to unsteady gait. transfer bench 1 unit Miscellaneous DAILY PRNQty: 1 Rx Instructions: to promote safe transfer in and out of tub/shower. dx Diabetic Footwear Miscellaneous DAILY Qty: 1 1RF Rx Instructions: wear 1 pair daily E11.22 furosemide 20 MG tablet 20 mg PO BID Qty: 1 (DME) Cushion Insole 1 EACH pad 1 ea Miscellaneous DAILY 365 Days Qty: 1 0RF Rx Instructions: One pair of diabetic footwear, Dx E11.22, I83.12 hydroxyzine HCl 25 MG tablet 25 mg PO QID PRN PRNQty: 100 1RF Patient Comments: PRN-not on list Rx Instructions: prn itching Loratadine-D 10-240 mg Tablet Extended Release 24 Hr 1 tab PO DAILY insulin glargine [Lantus Solostar U-100 Insulin] 100 unit/mL (3 mL) insulin pen 15 unit SUBCUT DAILY acetaminophen 500 mg Tablet 1,000 mg PO TID triamcinolone acetonide 0.5 % cream TOPICAL carboxymethylcellulose sodium [Refresh Liquigel] 1 % Drops, Liquid Gel 1 drp ophthalmic (eye) DAILY multivitamin with iron Tablet 1 tab PO DAILY Saline Mist 0.65 % Aerosol,[place] 1 spray INTRANASAL TID simethicone 80 mg Tablet 80 mg PO QID Systane Balance 0.6 % Drops 1 drp ophthalmic (eye) QID polyethylene glycol 3350 4 gram Powder In Packet 17 g PO DAILY levothyroxine 75 mcg tablet 75 mcg PO DAILY quetiapine 25 mg tablet 50 mg PO BID amlodipine 10 mg tablet 10 mg PO DAILY cholecalciferol (vitamin D3) 125 mcg (5,000 unit) capsule 125 mcg PO DAILY bisacodyl [Dulcolax (bisacodyl)] 10 mg suppository 10 mg DE DAILY PRN Enema 19-7 gram/118 mL enema 118 ml DE DAILY PRN glucagon HCl [Glucagon (HCl) Emergency Kit] 1 mg recon soln 1 mg subcut Q20M PRN Rx Instructions: until target blood sugar attained hydralazine 10 mg tablet 10 mg PO TID loperamide [Anti-Diarrheal (loperamide)] 2 mg capsule 2 mg PO Q6H PRN magnesium hydroxide [Milk of Magnesia] 400 mg/5 mL suspension 30 ml PO DAILY PRN diclofenac sodium [Voltaren Arthritis Pain] 1 % gel 2 g topical QID Rx Instructions: apply to single elbow, wrist or hand; for hand includes palm/fingers/back of hand HPI General Mode of arrival: EMS. Date/Time Provider Initiated Documentation: 11/14/24 23:01. Limitations to Documentation: altered mental status. Information obtained by: patient, EMS, RN notes reviewed and old records reviewed. HPI Narrative: Patient presents to ED by ambulance from [facility] with fever and altered mental status. Patient found by staff to be off her baseline and confused. She initially refused transfer but then EMS was called back due to more confusion. EMS documented fever in the field. Patient arrives here awake and answering questions. She seems appropriate per EMS staff reporting that she is altered. She does follow commands. She does appear to be somewhat short of breath. Saturations on room air were in the mid 80s. She is on nasal cannula oxygen at this time, does not typically require oxygen. She does have history of diabetes with diabetic ulcer on her right foot being treated by podiatry. No report of vomiting or diarrhea. She is not complaining of chest pain or belly pain. Related Data Home Medications ?Medication ?Instructions ?Recorded ?Confirmed simvastatin 20 mg tablet 20 mg PO DAILY #90 tabs 08/03/14 11/15/24 aspirin 81 mg tablet,delayed 81 mg PO DAILY #90 tab-caps 02/01/15 11/15/24 release (Aspir-) lancets (EcoSwarmTouch UltraSoft #90 ea 02/07/15 11/15/24 Lancets) blood sugar diagnostic (EcoSwarmTouch #100 strips 02/14/15 11/15/24 Ultra Test strips) wheelchair ##1 06/07/15 11/15/24 Transfer Bench 1 unit miscellaneous DAILY PRN #1 07/09/15 11/15/24 unit hydroxyzine HCl 25 mg tablet 25 mg PO QID PRN PRN #100 tab-caps 07/23/15 11/15/24 furosemide 20 mg tablet 20 mg PO BID #1 tab-cap 04/23/16 11/15/24 foot care products (Cushion Insole #1 ea 08/12/17 11/15/24 pads) acetaminophen 500 mg tablet 1,000 mg PO TID 03/06/21 11/15/24 carboxymethylcellulose sodium 1 % 1 drp ophthalmic (eye) DAILY 03/06/21 11/15/24 eye liquid gel drops (Refresh Liquigel) insulin glargine 100 unit/mL (3 15 unit subcut DAILY 03/06/21 11/15/24 mL) subcutaneous pen (Lantus Solostar U-100 Insulin) loratadine-pseudoephedrine ER 10 1 tab PO DAILY 03/06/21 11/15/24 mg-240 mg tablet,extended [id number] (Loratadine-D) multivitamin with iron 1 tab PO DAILY 03/06/21 11/15/24 polyethylene glycol 3350 4 gram 17 g PO DAILY 03/06/21 11/15/24 oral powder packet propylene glycol 0.6 % eye drops 1 drp ophthalmic (eye) QID 03/06/21 11/15/24 (Systane Balance) simethicone 80 mg tablet 80 mg PO QID 03/06/21 11/15/24 sodium chloride 0.65 % nasal spray 1 spray intranasal TID 03/06/21 11/15/24 aerosol (Saline Mist) triamcinolone acetonide 0.5 % applic topical 03/06/21 10/19/24 topical cream insulin lispro 100 unit/mL 3 unit subcut TID 12/29/21 11/15/24 subcutaneous pen (Humalog KwikPen (U-100) Insulin) losartan 50 mg tablet 100 mg PO HS 12/29/21 11/15/24 sertraline 50 mg tablet 50 mg PO DAILY 12/29/21 11/15/24 zinc gluconate 50 mg tablet 50 mg PO DAILY 12/29/21 11/15/24 levothyroxine 75 mcg tablet 75 mcg PO DAILY 12/30/21 11/15/24 quetiapine 25 mg tablet 50 mg PO BID 12/30/21 11/15/24 amlodipine 10 mg tablet 10 mg PO DAILY 10/02/24 11/15/24 bisacodyl 10 mg rectal suppository 10 mg DE DAILY PRN 10/02/24 11/15/24 (Dulcolax (bisacodyl)) cholecalciferol (vitamin D3) 125 125 mcg PO DAILY 10/02/24 11/15/24 mcg (5,000 unit) capsule diclofenac sodium 1 % topical gel 2 g topical QID 10/02/24 11/15/24 (Voltaren Arthritis Pain) glucagon HCl 1 mg solution for 1 mg subcut Q20M PRN 10/02/24 11/15/24 injection (Glucagon (HCl) Emergency Kit) hydralazine 10 mg tablet 10 mg PO TID 10/02/24 11/15/24 loperamide 2 mg capsule 2 mg PO Q6H PRN 10/02/24 11/15/24 (Anti-Diarrheal (loperamide)) magnesium hydroxide 400 mg/5 mL 30 ml PO DAILY PRN 10/02/24 11/15/24 oral suspension (Milk of Magnesia) sodium phosphates 19 gram-7 118 ml DE DAILY PRN 10/02/24 11/15/24 gram/118 mL enema (Enema) mupirocin 2 % topical ointment 1 applic topical TID 10/04/24 11/15/24 sulfamethoxazole 800 1 tab PO BID 10/04/24 11/15/24 mg-trimethoprim 160 mg tablet (Bactrim DS) collagenase clostridium histo. 250 1 applic topical DAILY #90 grams 10/05/24 11/15/24 unit/gram topical ointment (Santyl) sodium hypochlorite 0.125 % 1 applic topical DAILY #473 mL 10/19/24 11/15/24 solution (Dakin's Solution) Previous Rx's ?Medication ?Instructions ?Recorded hydroxyzine HCl 25 mg tablet 25 mg PO QID PRN PRN #100 tab-caps 07/23/15 foot care products (Cushion Insole #1 ea 08/12/17 pads) collagenase clostridium histo. 250 1 applic topical DAILY #90 grams 10/05/24 unit/gram topical ointment (Santyl) sodium hypochlorite 0.125 % 1 applic topical DAILY #473 mL 10/19/24 solution (Dakin's Solution) Allergies Allergy/AdvReac Type Severity Reaction Status Date / Time No Known Allergies Allergy Unverified 10/05/24 09:36 General DEVONTE: 3 Exam Narrative Exam Narrative: Const: Obese elderly female who is tachypneic but not in distress. VS per triage. HEENT: NC/AT. Normal facial exam. Neck: Supple. Trachea midline. Lungs: Tachypnea with slight increased work of breathing. Lungs are clear on the right, rhonchi and diminished in the left base. Cor: irr/irr with loud murmur. Good radial pulses. GI: Soft/ND/NT. Neuro: Awake and alert answering questions. Normal speech. Cranial nerves II - XII grossly intact. Generally weak throughout. Ext: No C/C. BLE edema, mild venous stasis changes. Right heal ulcer is clean, no sign of infection. Medical Decision Making Patient presented to ED from [facility] with altered mental status. She is found to have fever, tachypnea, increased work of breathing but not in distress. She is requiring oxygen. She has diminished breath sounds with rhonchi in the left base. Abdomen appears to be benign. She has bilateral lower extremity edema and venous stasis changes but no evidence of cellulitis. She is not tachycardic or hypotensive. She is awake and alert and answering questions appropriately. IV established and laboratory studies obtained. EKG and portable chest x-ray ordered. Straight cath urine ordered. Blood cultures ordered. Given her work of breathing, oxygen requirement and lung sounds likely diagnosis is pneumonia. She is ordered for ceftriaxone and vancomycin. She has noted to be DNR/DNI on her paperwork and we have asked for the actual COLST form to be sent from [facility]. 01:50 - Patient's laboratory studies significant for a white count of 18. She is anemic which is baseline. Lactic acid elevated at 2.8. Venous gas is alkalotic with a pH of 7.42 and pCO2 of 35 related to her tachypnea. She has elevated but stable kidney function with a BUN of 70 and a creatinine of 2.9. Electrolytes are normal. Liver function unremarkable. Initial troponin elevated at 390. 1 hour troponin 526. Her EKG is rate controlled A-fib which is likely new as I find no documentation of A-fib in the past. She has right bundle branch block as well. She has no acute ST changes. She is not complaining of chest pain. She is hypertensive still and has never been hypotensive. Suspect this is more demand than anything. Chest x-ray per my read and preliminary radiology read with some increased interstitial markings left greater than right and opacity in the left base. I reached out to [facility] cardiology regarding elevated troponin. Given lack of chest pain and a febrile illness it is felt not likely to be NSTEMI or demand as well. Would not treat with aspirin. Would consider heparin mostly because she is in A-fib. Will obtain noncontrast head CT due to the mild altered mental status to be sure there is no evidence of bleed. Continue to trend troponins and obtain echo today to look for any evidence of wall motion abnormality or significantly depressed EF. At this time head CT, urinalysis, Fluvid are still pending. I will call and speak with hospitalist for admission to ICU here. 03:00 - CT head is negative for bleed. Fluvid is negative. Discussed with hospitalist for admission. Medical Records Medical records reviewed: Yes I reviewed the patient's medical records. Imaging Data Radiologic Study: Attestation: I personally reviewed and interpreted this imaging study as follows: Imaging: X-Ray My impression: see [facility] Lab Data Lab results reviewed: Yes I reviewed the patient's lab results. Lab results narrative: see [facility] ECG Data Attestation: I personally reviewed and interpreted this ECG (s) as follows: Prior ECG tracings: available for review Interpretation: see EKG/[facility] Critical Care Time Critical Care Time Critical Care Time: Yes Total Critical Care Time: 50 Attestation: Upon my evaluation, this patient had a high probability of imminent or life-threatening deterioration, which required my direct attention, intervention, and personal management. I have personally provided 50 minutes of critical care time exclusive of time spent on separately billable procedures. Time includes monitoring for potential decompensation, ordering of tests and medications, review of laboratory and radiology results, discussion with consultants and documentation . Interventions were performed as documented above in procedures. COUNTS INCLUDE 234 BEDS AT THE [facility] All Active Problems (Updated 11/15/24 @ 03:05 by Juan C Willoughby MD) Demand ischemia (Acute) Atrial fibrillation (Chronic) Sepsis (Acute) Pneumonia (Acute) Hx of falling (Acute) Osteomyelitis of great toe of right foot (Acute) Ischemic ulcer of right foot (Acute) Osteomyelitis of right foot (Acute) Ulcer of right foot with necrosis of bone (Acute) Diabetic ulcer of right foot associated with diabetes mellitus due to underlying condition, with fat layer exposed (Acute) Chronic ulcer of right foot (Acute) Non-healing ulcer of right foot (Acute) Nail dystrophy (Acute) Vitamin D deficiency (Acute) Contracture, left hand (Acute) Venous stasis dermatitis of left lower extremity (Acute 05/31/15) Tubular adenoma of colon (Acute 06/11/14) REPEAT colonoscopy due 2020 History of tobacco use disorder (Acute 07/13/11) Other and unspecified hyperlipidemia (Acute 08/17/12) Obstructive sleep apnea (Acute 10/10/15) 10/22/15 study revealed mild HILDA severe in Rem sleep but minimal rem sleep. CPAP rx Dr. Holly Bilateral edema of lower extremity (Acute) Diabetic nephropathy associated with type 2 diabetes mellitus (Acute) Medical History Chronic kidney disease (CKD) Anemia (02/28/14) CKD On admission to [facility]: .. has chronic anemia most likely related to the chronic kidney disease. Will monitor that issue at least yearly. Chronic schizophrenia not affecting current episode of care (08/17/12) chronic Seroquel rx; residential placement 07/2015 due to hospitalization acute on chronic renal failure, edema with skin lesions, inadequate home care; home eval 08/2015 needs eye management prior to conside Hypothyroidism Generalized anxiety disorder PAD (peripheral artery disease) Gout Palliative care patient Obesity Hypertension Partial blindness Chronic kidney disease Hyperlipidemia Diabetes Surgical History cataract 03/27/16-od [facility] 04/27/16 os Colonoscopy - IV Sedation (06/11/14) per Dr. Slater, pre-malignant polyps removed Social History Smoking/Tobacco Use Status: Former Tobacco Use Smoking risk assessment performed?: Yes Alcohol Intake: former Drug use: Never Substance use type: does not use Housing: residential Do you feel safe at home: Yes Do you feel safe in your relationship?: Yes
[2024-11-14 23:27] LABS: BE (Venous) -2 mmol/L (-2-3); HCO3 (Venous) 23 mmol/L (23-28); O2 Sat (Venous) 73 %; TCO2 (Venous) 21 mmol/L (24-29); pCO2 (Venous) 35 mmHg (41-51); pO2 (Venous) 38 mmHg
[2024-11-14 23:30] LABS: Abs Immature Grans 0.46 10^3/uL (0.0-0.06); HCT 31.1 % (36.0-46.0); HGB 9.9 g/dL (11.2-15.7); MCH 31.8 pg (27.0-33.0); MCHC 31.8 % (32.0-36.0); MCV 100 fL (80-95); MPV 10.5 fL (8.0-11.0); Platelet Count 217 10^3/uL (130-400); RBC 3.11 10^6/uL (3.93-5.22); RDW 13.7 % (11.7-14.6); RDW-SD 50.1 fL; WBC 18.09 10^3/uL (4.4-10.8)
[2024-11-14] MEDS: ACETAMINOPHEN 1,000 MG/100 ML BAG 400 MG IVPB (23:48)
[2024-11-14 23:49] LABS: ALT 17 U/L (14-59); AST 28 U/L (15-37); Albumin 2.8 g/dL (3.4-5.0); Alkaline Phosphatase 107 U/L (46-116); Anion Gap 12.3 mmol/L (3-11); BUN 70 mg/dL (7-18); Bilirubin, Total 1.5 mg/dL (0.2-1.0); CO2 23.7 mmol/L (21.0-32.0); Calcium 9.0 mg/dL (8.5-10.1); Chloride 105 mmol/L (98-107); Estimated GFR 16.07 (mL/min/1.73m2); Glucose 145 mg/dL (74-106); Magnesium 2.2 mg/dL (1.8-2.4); Potassium 4.3 mmol/L (3.5-5.1); Sodium 141 mmol/L (136-145); Total Protein 7.4 g/dL (6.4-8.2)
[2024-11-14] MEDS: cefTRIAXone 1 GM/50 ML BAG IVPB (23:49)
[2024-11-14 23:50] LABS: Immature Grans % 0.0 %
[2024-11-14 23:54] LABS: Troponin I 390 ng/L (<or=51)
[2024-11-15] VITALS (80 sets, daily range): BP systolic 121–201; BP diastolic 44–93; PULSE 59–92; RESP 15–37; TEMP 36.6–39.6; O2SAT 77–95
--- NOTE | 2024-11-15 | DI.RAD_ITS ---
Exam(s) XR HEEL RT OS CALCIS EXAM: XR HEEL RT OS CALCIS CLINICAL HISTORY: Gas?. TECHNIQUE: 2D digital imaging was performed. COMPARISON: No exams were available for comparison FINDINGS: Two views- lateral and Tobias axial views: No evidence of calcaneus fracture. There is a large inferior calcaneal spur. No calcification in the plantar fascia. There is vascular calcification noted in the posterior tibial and plantar arteries as well as in the anterior tibial and dorsalis pedis arteries. There appears to be a ulcer over the posterior aspect of the calcaneus. There is no obvious radiographic evidence of osteomyelitis in the calcaneus. However, there is a vertically orientated enthesophyte on the posterior calcaneus which measures 7 mm by a 3 mm, this immediately subjacent to the ulcer. Is difficult to determine if there is involvement of this enthesophyte. There is no obvious gas in the soft tissues. IMPRESSION: Posterior heel ulcer. No obvious radiographic evidence of osteomyelitis in the calcaneus. For, medially subjacent to the ulcer is a 7 by 3 mm enthesophyte. Cannot exclude subtle involvement of this bony excrescence. If clinically indicated follow-up MRI can be performed for added sensitivity and specificity. DATA REPOSITORY: RADIATION DOSE DELIVERED:
[2024-11-15] MEDS: VANCOMYCIN 2,000 MG in Normal Saline 500 ML 333.3333 MG IVPB (00:35)
--- NOTE | 2024-11-15 00:50 | DI.VRAD_ITS ---
PROCEDURE INFORMATION: Exam: XR Chest Exam date and time: 11/14/2024 11:44 PM Age: 78 years old Clinical indication: Fever and shortness of breath; Fever, SOB TECHNIQUE: Imaging protocol: Radiologic exam of the chest. Views: 1 view. COMPARISON: CR XR PORTABLE CHEST AP 03/06/2021 11:01 AM FINDINGS: Lungs: Interstitial opacities asymmetric to the left. Mild left basilar opacity Pleural spaces: No pleural effusion. No pneumothorax. Heart/Mediastinum: Grossly stable. Bones/joints: Unremarkable. Contrast in the stomach versus calcifications IMPRESSION: Interstitial pneumonitis versus edema left greater than right and mild left basilar opacity Dictated and Authenticated by: Carlos Alberto Maravilla MD. Orderin Case Irizarry MD
[2024-11-15 01:04] LABS: Troponin I 526 ng/L (<or=51)
[2024-11-15 01:17] LABS: COVID-19 PCR Negative (Negative); RSV PCR Negative (Negative)
--- NOTE | 2024-11-15 01:30 | DI.CT_ITS ---
Exam(s) CT HEAD WO EXAM: CT HEAD WO CLINICAL HISTORY: AMS. TECHNIQUE: Imaging Protocol: Axial computed tomography images with coronal and sagittal reformatted images were created and reviewed COMPARISON: No exams were available for comparison FINDINGS: Ventricles and Extra axial spaces: Normal in size and morphology for the patient's age. Hemorrhage: None. Cerebral parenchyma: No evidence of acute infarct or mass. Mild white matter changes of small vessel disease. Midline shift: None. Brainstem/Cerebellum: Normal. Bones: No skull or facial fractures. Visualized Paranasal sinuses:Clear. Mastoids: Clear. Soft Tissues: Unremarkable. ORBITS: Unremarkable. PITUITARY: Not enlarged. IMPRESSION: No acute intracranial process. The preliminary [facility] report was reviewed. RADIATION DOSE DELIVERED: 817.98mGy.cm Total DLP DATA REPOSITORY: All CT scans at this facility are submitted to the National Radiology Data Registry (NRDR) Dose Index Registry (DIR) with the [employer] ([employer]). RADIATION OPTIMIZATION: All CT scans at this facility use at least one of these dose optimization techniques: automated exposure control; mA and/or kV adjustment per patient size (includes targeted exams where dose is matched to clinical indication); or iterative reconstruction.
--- NOTE | 2024-11-15 02:52 | DI.VRAD_ITS ---
PROCEDURE INFORMATION: Exam: CT Head Without Contrast Exam date and time: 11/15/2024 2:03 AM Age: 78 years old Clinical indication: Altered mental status/memory loss; Confusion or disorientation; AMS TECHNIQUE: Imaging protocol: Computed tomography of the head without contrast. Radiation optimization: All CT scans at this facility use at least one of these dose optimization techniques: automated exposure control; mA and/or kV adjustment per patient size (includes targeted exams where dose is matched to clinical indication); or iterative reconstruction. COMPARISON: No relevant prior studies available. FINDINGS: Brain: No intracranial hemorrhage appreciated. No significant focal mass effect or significant midline shift. Generalized parenchymal volume loss. Chronic ischemic changes are noted. Cerebral ventricles: No disproportionate ventriculomegaly. Pituitary gland and sella: Empty sella configuration incidentally noted. Paranasal sinuses: No air-fluid levels seen. Mastoid air cells: Left mastoid effusion. Bones: No acute cranial vault fracture seen. Soft tissues: No acute findings. Vasculature: Arterial calcifications. IMPRESSION: No acute intracranial abnormality appreciated. Dictated and Authenticated by: Marlee Pepper MD. Orderin Case Irizarry MD
--- NOTE | 2024-11-15 03:05 | W.PM.HP.N ---
Date of service: 11/15/24 Time of Service: 03:06 Assessment and Plan Assessment and plan (1) Severe sepsis: Status: Acute Assessment and plan: - Patient meets criteria for severe sepsis with a fever of 103 ?F, white blood cell count of 18, source of infection being left lower lobe pneumonia, lactic acid of 2.3 and troponin of 500 attributed to demand ischemia - started on vancomycin and ceftriaxone, will continue as well as and doxycycline - Follow-up repeat lactic acid - Follow-up a.m. CBC and CMP (2) CAP (community acquired pneumonia): Status: Acute Assessment and plan: -Source of infection as noted above (3) Lactic acidosis: Status: Acute Assessment and plan: - Secondary to severe sepsis as noted above, initial lactate 2.3 - Follow-up repeat (4) Demand ischemia: Status: Acute Assessment and plan: - Troponin elevated, up to 500 - EKG without ST elevations, depressions or T wave inversions - Case was discussed with [facility] cardiology who agrees this is likely secondary to demand - Plan to trend troponins, if continues to elevate will initiate heparin drip - Additionally, will obtain echo and if any signs of regional wall motion abnormalities will initiate heparin - Upon review of patient's COLST, patient unlikely to want intervention including cardiac catheterization, though it was recommended that palliative care be involved and or this be discussed with patient's sons in the event that she were to potentially need cardiac catheterization (5) Atrial fibrillation: Status: Chronic Assessment and plan: - New diagnosis as seen on EKG though rate controlled (6) Chronic kidney disease (CKD): Assessment and plan: - Baseline (7) Diabetic nephropathy associated with type 2 diabetes mellitus: Status: Acute Assessment and plan: - Continue home Lantus - Sliding scale insulin, carb consistent diet (8) Hypertension: Assessment and plan: - Continue home antihypertensive regimen History of Present Illness History of Present Illness Chief Complaint: Altered mental status Narrative: 78-year-old female with past medical history of insulin-dependent type 2 diabetes, CKD stage IV, hypertension lives at [facility] and rehab presents emergency department with concerns for altered mental status. Staff at [facility] noted the patient appeared to have altered mental status and they brought her into the emergency department. No additional information was obtained from the rehab facility In the emergency department patient was noted as being conversive and did not appear confused. However, she was noted as having fever 103 ?F, was also found to have a white blood cell count of 18 and chest imaging consistent with a pneumonia. She also had a lactate of 2.3 and a troponin of about 500 which [address] discussion with [facility] cardiology was likely secondary to demand ischemia. EKG was without ST elevation, depression or T wave inversion but did note newly diagnosed rate controlled A-fib. Patient started on Vanco and doxycycline while in the emergency department. At which time emergency room physician his hospital service for patient with severe sepsis secondary to community-acquired pneumonia with associated lactic acidosis and type II demand ischemia. Review of Systems All systems reviewed & are unremarkable except as noted in HPI and below PFSH All Active Problems (Updated 11/15/24 @ 04:13 by TATIANA LOPEZ) Lactic acidosis (Acute) CAP (community acquired pneumonia) (Acute) Severe sepsis (Acute) Demand ischemia (Acute) Atrial fibrillation (Chronic) Sepsis (Acute) Pneumonia (Acute) Hx of falling (Acute) Osteomyelitis of great toe of right foot (Acute) Ischemic ulcer of right foot (Acute) Osteomyelitis of right foot (Acute) Ulcer of right foot with necrosis of bone (Acute) Diabetic ulcer of right foot associated with diabetes mellitus due to underlying condition, with fat layer exposed (Acute) Chronic ulcer of right foot (Acute) Non-healing ulcer of right foot (Acute) Nail dystrophy (Acute) Vitamin D deficiency (Acute) Contracture, left hand (Acute) Venous stasis dermatitis of left lower extremity (Acute 05/31/15) Tubular adenoma of colon (Acute 06/11/14) REPEAT colonoscopy due 2020 History of tobacco use disorder (Acute 07/13/11) Other and unspecified hyperlipidemia (Acute 08/17/12) Obstructive sleep apnea (Acute 10/10/15) 10/22/15 study revealed mild HILDA severe in Rem sleep but minimal rem sleep. CPAP rx Dr. Holly Bilateral edema of lower extremity (Acute) Diabetic nephropathy associated with type 2 diabetes mellitus (Acute) Medical History Chronic kidney disease (CKD) Anemia (02/28/14) CKD On admission to [facility]: .. has chronic anemia most likely related to the chronic kidney disease. Will monitor that issue at least yearly. Chronic schizophrenia not affecting current episode of care (08/17/12) chronic Seroquel rx; [facility] due to hospitalization acute on chronic renal failure, edema with skin lesions, inadequate home care; home eval 08/2015 needs eye management prior to conside Hypothyroidism Generalized anxiety disorder PAD (peripheral artery disease) Gout Palliative care patient Obesity Hypertension Partial blindness Chronic kidney disease Hyperlipidemia Diabetes Surgical History cataract 03/27/16-od [facility] 04/27/16 os Colonoscopy - IV Sedation (06/11/14) per Dr. Slater, pre-malignant polyps removed Social History Smoking/Tobacco Use Status: Former Tobacco Use Smoking risk assessment performed?: Yes Alcohol Intake: former Drug use: Never Substance use type: does not use Housing: [facility] Do you feel safe at home: Yes Do you feel safe in your relationship?: Yes Meds Allergies and Home Medications Allergies Allergy/AdvReac Type Severity Reaction Status Date / Time No Known Allergies Allergy Unverified 10/05/24 09:36 Home Medications ?Medication ?Instructions ?Recorded ?Confirmed ?Type One Touch Ultra 1 ea miscellaneous DAILY #90 ea 11/22/13 07/18/15 Clinic simvastatin 20 mg tablet 20 mg PO DAILY #90 tabs 08/03/14 11/15/24 History aspirin 81 mg tablet,delayed 81 mg PO DAILY #90 tab-caps 02/01/15 11/15/24 History release (Aspir-) lancets (OneTouch UltraSoft #90 ea 02/07/15 11/15/24 History Lancets) blood sugar diagnostic (OneTouch #100 strips 02/14/15 11/15/24 History Ultra Test strips) Elastic Stockings 2 u DAILY #2 units 05/31/15 07/18/15 Clinic wheelchair ##1 06/07/15 11/15/24 History Transfer Bench 1 unit miscellaneous DAILY PRN #1 07/09/15 11/15/24 History unit Diabetic Footwear u miscellaneous DAILY ##1 07/17/15 07/18/15 Clinic hydroxyzine HCl 25 mg tablet 25 mg PO QID PRN PRN #100 tab-caps 07/23/15 11/15/24 Rx furosemide 20 mg tablet 20 mg PO BID #1 tab-cap 04/23/16 11/15/24 History foot care products (Cushion Insole #1 ea 08/12/17 11/15/24 Rx pads) acetaminophen 500 mg tablet 1,000 mg PO TID 03/06/21 11/15/24 History carboxymethylcellulose sodium 1 % 1 drp ophthalmic (eye) DAILY 03/06/21 11/15/24 History eye liquid gel drops (Refresh Liquigel) insulin glargine 100 unit/mL (3 15 unit subcut DAILY 03/06/21 11/15/24 History mL) subcutaneous pen (Lantus Solostar U-100 Insulin) loratadine-pseudoephedrine ER 10 1 tab PO DAILY 03/06/21 11/15/24 History mg-240 mg tablet,extended [id number] (Loratadine-D) multivitamin with iron 1 tab PO DAILY 03/06/21 11/15/24 History polyethylene glycol 3350 4 gram 17 g PO DAILY 03/06/21 11/15/24 History oral powder packet propylene glycol 0.6 % eye drops 1 drp ophthalmic (eye) QID 03/06/21 11/15/24 History (Systane Balance) simethicone 80 mg tablet 80 mg PO QID 03/06/21 11/15/24 History sodium chloride 0.65 % nasal spray 1 spray intranasal TID 03/06/21 11/15/24 History aerosol (Saline Mist) triamcinolone acetonide 0.5 % applic topical 03/06/21 10/19/24 History topical cream insulin lispro 100 unit/mL 3 unit subcut TID 12/29/21 11/15/24 History subcutaneous pen (Humalog KwikPen (U-100) Insulin) losartan 50 mg tablet 100 mg PO HS 12/29/21 11/15/24 History sertraline 50 mg tablet 50 mg PO DAILY 12/29/21 11/15/24 History zinc gluconate 50 mg tablet 50 mg PO DAILY 12/29/21 11/15/24 History levothyroxine 75 mcg tablet 75 mcg PO DAILY 12/30/21 11/15/24 History quetiapine 25 mg tablet 50 mg PO BID 12/30/21 11/15/24 History amlodipine 10 mg tablet 10 mg PO DAILY 10/02/24 11/15/24 History bisacodyl 10 mg rectal suppository 10 mg NC DAILY PRN 10/02/24 11/15/24 History (Dulcolax (bisacodyl)) cholecalciferol (vitamin D3) 125 125 mcg PO DAILY 10/02/24 11/15/24 History mcg (5,000 unit) capsule diclofenac sodium 1 % topical gel 2 g topical QID 10/02/24 11/15/24 History (Voltaren Arthritis Pain) glucagon HCl 1 mg solution for 1 mg subcut Q20M PRN 10/02/24 11/15/24 History injection (Glucagon (HCl) Emergency Kit) hydralazine 10 mg tablet 10 mg PO TID 10/02/24 11/15/24 History loperamide 2 mg capsule 2 mg PO Q6H PRN 10/02/24 11/15/24 History (Anti-Diarrheal (loperamide)) magnesium hydroxide 400 mg/5 mL 30 ml PO DAILY PRN 10/02/24 11/15/24 History oral suspension (Milk of Magnesia) sodium phosphates 19 gram-7 118 ml NC DAILY PRN 10/02/24 11/15/24 History gram/118 mL enema (Enema) mupirocin 2 % topical ointment 1 applic topical TID 10/04/24 11/15/24 History sulfamethoxazole 800 1 tab PO BID 10/04/24 11/15/24 History mg-trimethoprim 160 mg tablet (Bactrim DS) collagenase clostridium histo. 250 1 applic topical DAILY #90 grams 10/05/24 11/15/24 Rx unit/gram topical ointment (Santyl) sodium hypochlorite 0.125 % 1 applic topical DAILY #473 mL 10/19/24 11/15/24 Rx solution (Dakin's Solution) Exam Narrative Exam Narrative: Fatigue well-appearing older female laying in bed in no acute distress, ANO x 4, irregularly irregular with rates in the 80s, lungs mildly diminished in bilateral bases less clear to auscultation bilaterally, abdomen soft, nontender, nondistended Results Labs 11/14/24 23:20 11/14/24 23:20 Labs: Laboratory Results - last 24 hr 11/14/24 11/15/24 23:20 00:33 WBC 18.09 H RBC 3.11 L Hgb 9.9 L Hct 31.1 L MCV 100 H MCH 31.8 MCHC 31.8 L RDW 13.7 Plt Count 217 MPV 10.5 Immature Gran % 0.0 Neutrophils % 86.0 Band Neutrophils % 3 Lymphocytes % 8.0 Monocytes % 3.0 Eosinophils % 0.0 Basophils % 0.0 Nucleated RBC % 0.0 Absolute Neutrophils 16.10 H Absolute Lymphocytes 1.45 Absolute Monocytes 0.54 Absolute Eosinophils 0.00 Absolute Basophils 0.00 VBG pH 7.42 H VBG pCO2 35 L VBG pO2 38 VBG HCO3 23 VBG Total CO2 21 L VBG O2 Saturation 73 VBG Base Excess -2 VBG Lactate 2.8 H* Sodium 141 Potassium 4.3 Chloride 105 Carbon Dioxide 23.7 Anion Gap 12.3 H BUN 70 H Creatinine 2.9 H Est GFR (CKD-EPI 2020) 16.07 Glucose 145 H Calcium 9.0 Magnesium 2.2 Total Bilirubin 1.5 H AST 28 ALT 17 Alkaline Phosphatase 107 Troponin I 390 H* 526 H* Total Protein 7.4 Albumin 2.8 L COVID-19 Source Nasopharynx SARS-CoV-2 (PCR) Negative Influenza Type A (PCR) Negative Influenza Type B (PCR) Negative RSV (PCR) Negative Last Vital Signs Temp 99.4 F 11/15/24 02:51 Pulse 71 11/15/24 02:49 Resp 25 H 11/15/24 02:49 BP 184/61 H 11/15/24 02:49 Pulse Ox 91 L 11/15/24 02:49 Time Spent Time spent with Patient: >75 minutes Time was spent: preparing to see the patient(eg.review tests), obtaining and/or reviewing separately otained hiistory, ordering medications,tests, procedures, referring, communicating with other health senior resident care director, indepentently interpreting results, counseling the patient and care coordination
[2024-11-15 03:24] LABS: Troponin I 657 ng/L (<or=51)
[2024-11-15] MEDS: Levothyroxine 75 MCG TAB PO (05:58)
[2024-11-15] MEDS: DOXYCYCLINE 100 MG in Normal Saline 100 ML IVPB ×2 (05:59→18:08)
[2024-11-15 06:55] LABS: HCT 28.0 % (36.0-46.0); HGB 9.1 g/dL (11.2-15.7); MCH 33.6 pg (27.0-33.0); MCHC 32.5 % (32.0-36.0); MCV 103 fL (80-95); MPV 11.0 fL (8.0-11.0); Platelet Count 193 10^3/uL (130-400); RBC 2.71 10^6/uL (3.93-5.22); RDW 13.8 % (11.7-14.6); RDW-SD 52.5 fL; WBC 19.82 10^3/uL (4.4-10.8)
[2024-11-15 07:14] LABS: Anion Gap 9.2 mmol/L (3-11); BUN 67 mg/dL (7-18); CO2 23.8 mmol/L (21.0-32.0); Calcium 8.5 mg/dL (8.5-10.1); Chloride 109 mmol/L (98-107); Estimated GFR 16.76 (mL/min/1.73m2); Glucose 141 mg/dL (74-106); Magnesium 2.1 mg/dL (1.8-2.4); Potassium 4.1 mmol/L (3.5-5.1); Sodium 142 mmol/L (136-145)
[2024-11-15] MEDS: Sertraline 50 MG TAB PO (08:48)
[2024-11-15] MEDS: amLODIPine 10 MG TAB PO (08:48)
[2024-11-15] MEDS: QUEtiapine 50 MG TAB PO ×2 (08:48→22:13)
[2024-11-15] MEDS: Furosemide 20 MG TAB PO ×2 (08:48→16:16)
[2024-11-15] MEDS: Aspirin E.C. 81 MG TABEC PO (08:48)
[2024-11-15] MEDS: hydrALAZINE 10 MG TAB PO ×3 (08:48→22:14)
[2024-11-15] MEDS: Normal Saline Flush 10 ML SYR IVP ×2 (08:49→18:08)
[2024-11-15] MEDS: Enoxaparin 30 MG/0.3 ML SYR SC (08:49)
[2024-11-15] MEDS: Insulin Aspart 300 UNITS/3 ML PEN SC ×3 (08:50→22:13)
[2024-11-15] MEDS: Insulin Glargine 300 UNITS/3 ML PEN 15 UNITS SC (08:50)
--- NOTE | 2024-11-15 09:24 | RESPIRATORY ---
Addendum entered by Angela Aguirre 11/15/24 18:40: This RT called the patient's rehab center who stated that the patient does not wear her CPAP at the rehab. Original Note: 11/15/2024 Spoke with patient regarding CPAP machine; pt states she has one but does not know if someone can bring her machine here. The patient would be willing to use our machine but does not have use of her hands so our machine is contraindicated.
[2024-11-15 10:13] LABS: Troponin I 619 ng/L (<or=51)
--- NOTE | 2024-11-15 10:28 | INITIAL_ITS ---
Date of service: 11/15/24 Time of Service: 10:28 Care Management Initial Assmt Initial Assessment Reason for Hospitalization: sepsis, pneumonia Functional Status/Living Situation Patient Presentation: Merly was lying in be when CM met with her. She was very sleepy and slow to respond to questions. Based on her answers it appeared that she was quite confused; this was confirmed by the nursing staff. Merly was admitted from [facility]. She informed that she has been there for about 7 years. When asked about her family and other things however, Merly was unable to answer most questions. Town of Residence: [facility] Resides with: Other (SNF) Significant Other/Family: Out of area (has 5 remaining children who live out of state) Natural Supports: caregivers at [facility] Employment Status: Retired Instrumental Activities of Daily Living (ADLs): Requires support Medications Medication Management: No Issues/Barriers identified Advance Directives Advance Directives: Do you have an Advance Directive: N , 10:47 AD On File at [facility]: N 11/30/12, 10:47 Date Asked 10/24/24 10/24/24, 12:57 AD Date Reviewed COLST On File at [facility] COLST Date Scanned Code Status Resuscitation Status DNR/DNI Portal Pt does not currently have a portal and education provided: Yes Insurance Coverage/Financial Issues Insurance: Medicare Medicaid Care Team Visit Care Team Role Provider Type Morteza Lau MD [facility] STAFF PHYSICIAN Silvino Albarado Primary Care Provider NON-[facility] STAFF PHYSICIAN Juan C Willoughby MD Emergency Provider [facility] STAFF PHYSICIAN Clifford Khan MD Admit Provider [facility] STAFF PHYSICIAN Attending Provider Discharge Potential Discharge Needs: Other (return to SNF) Anticipated Barriers to Discharge: None Identified Patient/Family Education Needs: Review discharge instructions, discuss Ask Me Three Transportation: RCT Plan: Anticipate Merly will return to [facility] when medically cleared. She will follow up with the facility providers and plan of care and transport via RCT. CM will follow and continue to support discharge planning efforts. Social Determinants of Health Screening Will the Patient Participate in the Screening?: Declined to provide PFSH All Active Problems (Updated 11/15/24 @ 17:01 by Suzy Greenfield DPM) Ischemic ulcer of right heel (Acute) Lactic acidosis (Acute) CAP (community acquired pneumonia) (Acute) Severe sepsis (Acute) Demand ischemia (Acute) Atrial fibrillation (Chronic) Sepsis (Acute) Pneumonia (Acute) Hx of falling (Acute) Osteomyelitis of great toe of right foot (Acute) Ischemic ulcer of right foot (Acute) Osteomyelitis of right foot (Acute) Ulcer of right foot with necrosis of bone (Acute) Diabetic ulcer of right foot associated with diabetes mellitus due to underlying condition, with fat layer exposed (Acute) Chronic ulcer of right foot (Acute) Non-healing ulcer of right foot (Acute) Nail dystrophy (Acute) Vitamin D deficiency (Acute) Contracture, left hand (Acute) Venous stasis dermatitis of left lower extremity (Acute 05/31/15) Tubular adenoma of colon (Acute 06/11/14) REPEAT colonoscopy due 2020 History of tobacco use disorder (Acute 07/13/11) Other and unspecified hyperlipidemia (Acute 08/17/12) Obstructive sleep apnea (Acute 10/10/15) 10/22/15 study revealed mild HILDA severe in Rem sleep but minimal rem sleep. CPAP rx Dr. Holly Bilateral edema of lower extremity (Acute) Diabetic nephropathy associated with type 2 diabetes mellitus (Acute) Medical History Chronic kidney disease (CKD) Anemia (02/28/14) CKD On admission to [facility]: .. has chronic anemia most likely related to the chronic kidney disease. Will monitor that issue at least yearly. Chronic schizophrenia not affecting current episode of care (08/17/12) chronic Seroquel rx; [facility] due to hospitalization acute on chronic renal failure, edema with skin lesions, inadequate home care; home eval 08/2015 needs eye management prior to conside Hypothyroidism Generalized anxiety disorder PAD (peripheral artery disease) Gout Palliative care patient Obesity Hypertension Partial blindness Chronic kidney disease Hyperlipidemia Diabetes Surgical History cataract 03/27/16-od [facility] 04/27/16 os Colonoscopy - IV Sedation (06/11/14) per Dr. Slater, pre-malignant polyps removed Social History Smoking/Tobacco Use Status: Former Tobacco Use Smoking risk assessment performed?: Yes Alcohol Intake: former Drug use: Never Substance use type: does not use Housing: jail Do you feel safe at home: Yes Do you feel safe in your relationship?: Yes
--- NOTE | 2024-11-15 15:37 | PHACLINREV_ITS ---
Pharmacy Admission Review Admission Clinical Review Admission Pharmacy Review: Lactic acidosis (Acute) CAP (community acquired pneumonia) (Acute) Severe sepsis (Acute) Demand ischemia (Acute) Sepsis (Acute) Pneumonia (Acute) Diabetic nephropathy associated with type 2 diabetes mellitus (Acute) No Known Allergies Allergy (Unverified 10/05/24 09:36) Resuscitation Status DNR/DNI Height 5 ft 2.5 in Weight 117.934 kg Pharmacy Admission Review Renal Dosing Renal Dosing: BUN 67 mg/dL (7-18) H 11/15/24 05:54 Creatinine 2.8 mg/dL (0.55-1.02) H 11/15/24 05:54 Medications needing adjustments: Reviewed (No dose adjustments needed at this time. Will keep monitoring since patient's Crcl is currently 20ml/min) Anticoagulation Anticoagulation: Hgb 9.1 g/dL (11.2-15.7) L 11/15/24 05:54 Hct 28.0 % (36.0-46.0) L 11/15/24 05:54 Plt Count 193 10^3/uL (130-400) 11/15/24 05:54 Creatinine 2.8 mg/dL (0.55-1.02) H 11/15/24 05:54 DVT Prophylaxis: Reviewed Medications: Enoxaparin Relevant Labs Relevant Labs: Sodium 142 mmol/L (136-145) 11/15/24 05:54 Potassium 4.1 mmol/L (3.5-5.1) 11/15/24 05:54 Chloride 109 mmol/L (98-107) H 11/15/24 05:54 Magnesium 2.1 mg/dL (1.8-2.4) 11/15/24 05:54 Electrolytes, C-Reactive P, ESR: Reviewed (Electrolytes stable but chloride slightly high, needs monitoring) DM Control DM Control: Reviewed (Patient's most recent A1C reported 10/18/24 was 5.8%. Finger stick today at 1129 was 179 with measured glucose levels at 141mg/dL reported 0554 ) Insulin Dosing, Diabetic Medication: Patient placed on a sliding scale and 15 units daily insulin glargine Cardiac Review Cardiac Review: Blood Pressure 121/44 Blood Pressure 155/78 Blood Pressure 145/62 Blood Pressure 149/55 Blood Pressure 141/55 Blood Pressure 145/64 Troponin I 619 ng/L (<or=51) H* 11/15/24 05:54 Troponin I > 500ng/L secondary to demand ischemia per [facility] cardiology input as reported in H&P notes, needs monitoring BP, HR, EF%: Reviewed QTc Review QTc: Reviewed (Patient's QTc 464 as reported on 11/14) List meds needing interventions: No medications need intervention per this results Home Meds Home Med List reviewed: Reviewed (All relevant home medications ordered) Current Meds Current Medication Order Review: Reviewed Pharmacy Antibiotic Review Relevant Labs: Patient's loading dose for vancomycin was 2g. Per Crcl, patient will need a Q24H dosing. Random Vancomycin level was ordered at 1200 today for dosing adjustment but no results yet as patient refused blood draw. Provider notified for possible change in therapy. In the mean time will re-order another vancomycin level with morning labs for continued therapy if no change occurs Pharmacy Antibiotic Activity: Abx regimen adjustment
--- NOTE | 2024-11-15 16:57 | W.PODCONSULT ---
Date of service: 11/15/24 Time of Service: 04:45 Assessment and Plan Assessment and plan (1) Severe sepsis: Status: Acute (2) Ischemic ulcer of right foot: Status: Acute (3) Osteomyelitis of right foot: Status: Acute (4) Gout: (5) Ischemic ulcer of right heel: Status: Acute (6) Diabetic nephropathy associated with type 2 diabetes mellitus: Status: Acute (7) Bilateral edema of lower extremity: Status: Acute (8) Venous stasis dermatitis of left lower extremity: Status: Acute (9) Non-healing ulcer of right foot: Status: Acute (10) Chronic ulcer of right foot: Status: Acute Assessment and plan: Patient was seen bedside today. There is a wound to the right hallux which has remained stable it does probe to bone I am concerned about osteomyelitis. She has a new wound to the right heel which has now odor and an eschar. This wound is ischemic in nature. Patient has nonpalpable pulses. She has severe edema. She has multiple comorbidities. She was referred for consultation with infectious disease however, it appears she did not go to her appointment. She was also referred to vascular however, she has not seen vascular. She will require some surgical intervention however I will hold off on it until vascular evaluation. I recommend transfer to [facility] for more comprehensive care. For now, I recommend daily dressing changes with Betadine, dry dressing to be changed by nursing daily. History of Present Illness Narrative: 78-year-old female patient familiar to our podiatry office seen for right foot wounds. She is admitted with sepsis. Chart was reviewed. Patient is a poor historian. She offers no pedal complaints today. [facility] All Active Problems (Updated 11/15/24 @ 17:01 by Suzy Greenfield DPM) Ischemic ulcer of right heel (Acute) Lactic acidosis (Acute) CAP (community acquired pneumonia) (Acute) Severe sepsis (Acute) Demand ischemia (Acute) Atrial fibrillation (Chronic) Sepsis (Acute) Pneumonia (Acute) Hx of falling (Acute) Osteomyelitis of great toe of right foot (Acute) Ischemic ulcer of right foot (Acute) Osteomyelitis of right foot (Acute) Ulcer of right foot with necrosis of bone (Acute) Diabetic ulcer of right foot associated with diabetes mellitus due to underlying condition, with fat layer exposed (Acute) Chronic ulcer of right foot (Acute) Non-healing ulcer of right foot (Acute) Nail dystrophy (Acute) Vitamin D deficiency (Acute) Contracture, left hand (Acute) Venous stasis dermatitis of left lower extremity (Acute 05/31/15) Tubular adenoma of colon (Acute 06/11/14) REPEAT colonoscopy due 2020 History of tobacco use disorder (Acute 07/13/11) Other and unspecified hyperlipidemia (Acute 08/17/12) Obstructive sleep apnea (Acute 10/10/15) 10/22/15 study revealed mild HILDA severe in Rem sleep but minimal rem sleep. CPAP rx Dr. Holly Diabetic nephropathy associated with type 2 diabetes mellitus (Acute) Bilateral edema of lower extremity (Acute) Medical History Gout PAD (peripheral artery disease) Generalized anxiety disorder Hypothyroidism Chronic schizophrenia not affecting current episode of care (08/17/12) chronic Seroquel rx; senior care placement 07/2015 due to hospitalization acute on chronic renal failure, edema with skin lesions, inadequate home care; home eval 08/2015 needs eye management prior to conside Anemia (02/28/14) CKD On admission to [facility]: .. has chronic anemia most likely related to the chronic kidney disease. Will monitor that issue at least yearly. Chronic kidney disease (CKD) Palliative care patient Obesity Hypertension Partial blindness Chronic kidney disease Hyperlipidemia Diabetes Surgical History cataract 03/27/16-od [facility] 04/27/16 os Colonoscopy - IV Sedation (06/11/14) per Dr. Slater, pre-malignant polyps removed Social History Smoking/Tobacco Use Status: Former Tobacco Use Smoking risk assessment performed?: Yes Alcohol Intake: former Drug use: Never Substance use type: does not use Housing: senior care Do you feel safe at home: Yes Do you feel safe in your relationship?: Yes Exam Extrem Other: Right lower extremity physical exam: Vascular: DP PT pulses are nonpalpable to the right, severe edema noted to the right. Skin is warm to touch skin is thin and shiny. MSK: No pain reported. Derm: Full-thickness ulcers x 2 with probe to bone noted to the dorsal aspect of the right hallux at the level of the IPJ with some erythema noted around the wound, there is gouty tophi noted to the wound. No proximal streaking no lymphangitis no malodor. Unstageable ulceration noted to the right heel with a 100% necrotic base, there is no odor to the heel wound, unable to determine depth due to ischemic/necrotic tissue. No periwound erythema no edema no drainage no proximal streaking or lymphangitis. Neither of the wounds have any bogginess no crepitus no fluctuance noted at this time. Neuro light touch sensation is absent as noted previously however currently not tested Results Last Vital Signs Temp 99.0 F 11/15/24 09:00 Pulse 68 11/15/24 15:27 Resp 24 11/15/24 15:27 BP 121/44 L 11/15/24 15:27 Pulse Ox 95 11/15/24 15:27 Labs 11/15/24 05:54 11/15/24 05:54 Labs: Laboratory Results - last 24 hr 11/14/24 11/15/24 11/15/24 23:20 00:33 02:50 WBC 18.09 H RBC 3.11 L Hgb 9.9 L Hct 31.1 L MCV 100 H MCH 31.8 MCHC 31.8 L RDW 13.7 Plt Count 217 MPV 10.5 Immature Gran % 0.0 Neutrophils % 86.0 Band Neutrophils % 3 Lymphocytes % 8.0 Monocytes % 3.0 Eosinophils % 0.0 Basophils % 0.0 Nucleated RBC % 0.0 Absolute Neutrophils 16.10 H Absolute Lymphocytes 1.45 Absolute Monocytes 0.54 Absolute Eosinophils 0.00 Absolute Basophils 0.00 VBG pH 7.42 H VBG pCO2 35 L VBG pO2 38 VBG HCO3 23 VBG Total CO2 21 L VBG O2 Saturation 73 VBG Base Excess -2 VBG Lactate 2.8 H* Sodium 141 Potassium 4.3 Chloride 105 Carbon Dioxide 23.7 Anion Gap 12.3 H BUN 70 H Creatinine 2.9 H Est GFR (CKD-EPI 2020) 16.07 Glucose 145 H Calcium 9.0 Magnesium 2.2 Total Bilirubin 1.5 H AST 28 ALT 17 Alkaline Phosphatase 107 Troponin I 390 H* 526 H* 657 H* Total Protein 7.4 Albumin 2.8 L COVID-19 Source Nasopharynx SARS-CoV-2 (PCR) Negative Influenza Type A (PCR) Negative Influenza Type B (PCR) Negative RSV (PCR) Negative 11/15/24 11/15/24 03:05 05:54 WBC 19.82 H RBC 2.71 L Hgb 9.1 L Hct 28.0 L MCV 103 H MCH 33.6 H MCHC 32.5 RDW 13.8 Plt Count 193 MPV 11.0 Immature Gran % Neutrophils % Band Neutrophils % Lymphocytes % Monocytes % Eosinophils % Basophils % Nucleated RBC % Absolute Neutrophils Absolute Lymphocytes Absolute Monocytes Absolute Eosinophils Absolute Basophils VBG pH VBG pCO2 VBG pO2 VBG HCO3 VBG Total CO2 VBG O2 Saturation VBG Base Excess VBG Lactate 2.2 H* Sodium 142 Potassium 4.1 Chloride 109 H Carbon Dioxide 23.8 Anion Gap 9.2 BUN 67 H Creatinine 2.8 H Est GFR (CKD-EPI 2020) 16.76 Glucose 141 H Calcium 8.5 Magnesium 2.1 Total Bilirubin AST ALT Alkaline Phosphatase Troponin I 619 H* Total Protein Albumin COVID-19 Source SARS-CoV-2 (PCR) Influenza Type A (PCR) Influenza Type B (PCR) RSV (PCR)
[2024-11-15] MEDS: Albuterol 2.5 MG/3 ML INH SOLN VIAL UPD (17:25)
--- NOTE | 2024-11-15 17:29 | CHAPLAIN ---
Merly was resting in bed when I visited. She opened her eyes when I spoke her name, but clearly was tired. I quickly introduced myself and will visit another time.
[2024-11-15] MEDS: Normal Saline 500 ML 30 ML IV (18:08)
--- NOTE | 2024-11-15 19:06 | W.EVENT ---
Date of service: 11/15/24 Time of Service: 12:06 Event Note: Patient admitted 7/2 AM for sepsis a/w pneumonia. She also has open wounds on her foot, has been seen by Podiatry 10/19 with likely osteomyelitis, MRI ordered but she refused contrast and was not clearly diagnostic for osteo. It did show tophaceous gout. She has been referred to ID and vascular but no-showed ID per Dr. Greenfield. Patient refused vancomycin levels being drawn. She was changed to daptomycin. Patient is not moving her arms. There is not clear documentation of this in her record, though bilateral hand contractures noted in the record indicating some neurologic pathology. SNF called, and we could not confirm this was or was not new, but she was more self sufficient in previous notes. She is holding her neck in posture to the right. She is mildly tender in mid cervical spine. She states she did fall a couple weeks ago. I tried to get reflexes and she has minimal 1+ bilaterally in UE and LE. She also retaining urine. She refused moreno. Will monitor. Given all these issues I am concerned for myelopathy, though time course is not clear. Will try to get MRI w w/o when available. She states she is willing to do this. Fortunately she has been hemodynamically stable. GPC in blood - from pneumonia or foot? Continue dapto and ceftriaxone She is refusing many elements of care. Will ask for palliative care help, try to clarify her goals. Time Spent with Patient Time spent in critical care(minutes): 55 Time Spent Included: Coordination of care, Chart review, Documenting critically ill care, Time at immediate bedside and Discussing critically ill care with other medical staff
--- NOTE | 2024-11-15 19:53 | W.PC.ACHO ---
Registration Status: ADM IN Primary Language: Preferred Language: Spanish ED Information & Data Chief Complaint Fever 11/15/24 02:49 Chief Complaint Fever 11/14/24 23:02 Other Complaint RespSymp 11/14/24 23:02 Triage Note Staff noticed decreased 11/14/24 23:02 level of consciousness along with fever starting today. PT reports feeling sore around her neck. PT confused about exact location and time of day. Very weak cough . Medical / Surgical History (Last Reviewed 11/15/24 @ 16:58 by Suzy Greenfield DPM) Chronic kidney disease (CKD) Anemia (02/28/14) Chronic schizophrenia not affecting current episode of care (08/17/12) Hypothyroidism Generalized anxiety disorder PAD (peripheral artery disease) Gout Palliative care patient Obesity Hypertension Partial blindness Chronic kidney disease Hyperlipidemia Diabetes (Last Reviewed 11/15/24 @ 16:58 by Suzy Greenfield DPM) cataract Colonoscopy - IV Sedation (06/11/14) Most Recent Vital Signs Temperature 37.2 C 11/15/24 15:40 Temperature Source Temporal Artery Scan 11/15/24 15:40 Pulse 61 11/15/24 17:32 Pulse 70 11/15/24 17:02 Respiratory Rate 23 11/15/24 17:32 Respiratory Effort Labored 11/15/24 04:00 Respiratory Depth Shallow 11/15/24 04:00 Respiratory Pattern Tachypnea 11/15/24 04:00 Blood Pressure 126/62 11/15/24 17:01 Blood Pressure Mean 77 11/15/24 17:01 Blood Pressure Position Sitting 11/14/24 23:02 Pulse Oximetry 95 11/15/24 17:02 Oxygen Delivery Method Nasal Cannula 11/15/24 15:40 Oxygen Flow Rate 5 11/15/24 15:40 Allergies No Known Allergies Allergy (Unverified 10/05/24 09:36) Active Medications Generic Name Dose Route Start Last Admin Trade Name Freq PRN Reason Stop Dose Admin Albuterol Sulfate 2.5 mg 11/15/24 16:55 11/15/24 17:25 Albuterol 2.5 Mg/3 Ml Inh Soln Vial UPD 2.5 mg Q4H PRN PRN Administration Amlodipine Besylate 10 mg 11/15/24 08:30 11/15/24 08:48 Amlodipine 10 Mg Tab PO 10 mg DAILY SARITA Administration Aspirin 81 mg 11/15/24 08:30 07/02/25 08:48 Aspirin E.C. 81 Mg Tabec PO 81 mg DAILY SARITA Administration Enoxaparin Sodium 30 mg 11/15/24 08:30 11/15/24 08:49 Enoxaparin 30 Mg/0.3 Ml Syr SC 30 mg DAILY SARITA Administration Furosemide 20 mg 11/15/24 08:30 11/15/24 16:16 Furosemide 20 Mg Tab PO 20 mg BID DIURETIC SARITA Administration Hydralazine HCl 10 mg 11/15/24 08:30 11/15/24 16:15 Hydralazine 10 Mg Tab PO 10 mg TID SARITA Administration Doxycycline Hyclate 100 mg/ 100 mls @ 100 mls/hr 11/15/24 06:00 11/15/24 18:08 Sodium Chloride IVPB 100 mls/hr Q12H SARITA Administration Sodium Chloride 500 mls @ 0 mls/hr 11/15/24 17:55 11/15/24 18:08 Saline 500ml Bag IV 30 mls/hr PRN PRN Administration As Directed Insulin Aspart 0 - 9 units 11/15/24 08:00 11/15/24 17:03 Insulin Aspart 300 Units/3 Ml Pen SC 2 units 0800,1200,1700,2200 SARITA Administration Protocol Insulin Glargine 15 units 11/15/24 08:30 11/15/24 08:50 Insulin Glargine 300 Units/3 Ml Pen SC 15 units DAILY SARITA Administration Levothyroxine Sodium 75 mcg 11/15/24 06:00 11/15/24 05:58 Levothyroxine 75 Mcg Tab PO 75 mcg 0600 SARITA Administration Quetiapine Fumarate 50 mg 11/15/24 08:30 11/15/24 08:48 Quetiapine 50 Mg Tab PO 50 mg BID SARITA Administration Sertraline HCl 50 mg 11/15/24 08:30 11/15/24 08:48 Sertraline 50 Mg Tab PO 50 mg DAILY SARITA Administration Sodium Chloride 0 ml 11/14/24 23:01 11/15/24 18:08 Normal Saline Flush 10 Ml Syr IVP 10 ml PRN PRN Administration Sodium Chloride 0 ml 11/15/24 08:30 11/15/24 08:49 Normal Saline Flush 10 Ml Syr IVP 20 ml BID SARITA Administration IV IV Catheter Type [Right Saline Lock Antecubital] IV Catheter Type [Left Saline Lock Antecubital] IV Catheter Gauge [Right 18 Antecubital] IV Catheter Gauge [Left 18 Antecubital] Diagnostics 11/15/24 11/15/24 11/15/24 Range/Units 12:00 05:54 03:05 WBC 19.82 H (4.4-10.8) 10^3/uL RBC 2.71 L (3.93-5.22) 10^6/uL Hgb 9.1 L (11.2-15.7) g/dL Hct 28.0 L (36.0-46.0) % MCV 103 H (80-95) fL MCH 33.6 H (27.0-33.0) pg MCHC 32.5 (32.0-36.0) % RDW 13.8 (11.7-14.6) % Plt Count 193 (130-400) 10^3/uL MPV 11.0 (8.0-11.0) fL Immature Gran % % Neutrophils % % Band Neutrophils % % Lymphocytes % % Monocytes % % Eosinophils % % Basophils % % Nucleated RBC % (0.0-0.3) % Absolute Neutrophils (1.2-6.7) 10^3/uL Absolute Lymphocytes (1.2-3.4) 10^3/uL Absolute Monocytes (0.1-0.8) 10^3/uL Absolute Eosinophils (0.0-0.7) 10^3/uL Absolute Basophils (0.0-0.2) 10^3/uL VBG pH (7.31-7.41) VBG pCO2 (41-51) mmHg VBG pO2 mmHg VBG HCO3 (23-28) mmol/L VBG Total CO2 (24-29) mmol/L VBG O2 Saturation % VBG Base Excess (-2-3) mmol/L VBG Lactate 2.2 H* (<or=2.0) mmol/L Sodium 142 (136-145) mmol/L Potassium 4.1 (3.5-5.1) mmol/L Chloride 109 H (98-107) mmol/L Carbon Dioxide 23.8 (21.0-32.0) mmol/L Anion Gap 9.2 (3-11) mmol/L BUN 67 H (7-18) mg/dL Creatinine 2.8 H (0.55-1.02) mg/dL Est GFR (CKD-EPI 2020) 16.76 (mL/min/1.73m2) Glucose 141 H (74-106) mg/dL Calcium 8.5 (8.5-10.1) mg/dL Magnesium 2.1 (1.8-2.4) mg/dL Total Bilirubin (0.2-1.0) mg/dL AST (15-37) U/L ALT (14-59) U/L Alkaline Phosphatase (46-116) U/L Troponin I 619 H* (<or=51) ng/L Total Protein (6.4-8.2) g/dL Albumin (3.4-5.0) g/dL Random Vancomycin Cancelled COVID-19 Source SARS-CoV-2 (PCR) (Negative) Influenza Type A (PCR) (Negative) Influenza Type B (PCR) (Negative) RSV (PCR) (Negative) 11/15/24 11/15/24 11/14/24 Range/Units 02:50 00:33 23:20 WBC 18.09 H (4.4-10.8) 10^3/uL RBC 3.11 L (3.93-5.22) 10^6/uL Hgb 9.9 L (11.2-15.7) g/dL Hct 31.1 L (36.0-46.0) % MCV 100 H (80-95) fL MCH 31.8 (27.0-33.0) pg MCHC 31.8 L (32.0-36.0) % RDW 13.7 (11.7-14.6) % Plt Count 217 (130-400) 10^3/uL MPV 10.5 (8.0-11.0) fL Immature Gran % 0.0 % Neutrophils % 86.0 % Band Neutrophils % 3 % Lymphocytes % 8.0 % Monocytes % 3.0 % Eosinophils % 0.0 % Basophils % 0.0 % Nucleated RBC % 0.0 (0.0-0.3) % Absolute Neutrophils 16.10 H (1.2-6.7) 10^3/uL Absolute Lymphocytes 1.45 (1.2-3.4) 10^3/uL Absolute Monocytes 0.54 (0.1-0.8) 10^3/uL Absolute Eosinophils 0.00 (0.0-0.7) 10^3/uL Absolute Basophils 0.00 (0.0-0.2) 10^3/uL VBG pH 7.42 H (7.31-7.41) VBG pCO2 35 L (41-51) mmHg VBG pO2 38 mmHg VBG HCO3 23 (23-28) mmol/L VBG Total CO2 21 L (24-29) mmol/L VBG O2 Saturation 73 % VBG Base Excess -2 (-2-3) mmol/L VBG Lactate 2.8 H* (<or=2.0) mmol/L Sodium 141 (136-145) mmol/L Potassium 4.3 (3.5-5.1) mmol/L Chloride 105 (98-107) mmol/L Carbon Dioxide 23.7 (21.0-32.0) mmol/L Anion Gap 12.3 H (3-11) mmol/L BUN 70 H (7-18) mg/dL Creatinine 2.9 H (0.55-1.02) mg/dL Est GFR (CKD-EPI 2020) 16.07 (mL/min/1.73m2) Glucose 145 H (74-106) mg/dL Calcium 9.0 (8.5-10.1) mg/dL Magnesium 2.2 (1.8-2.4) mg/dL Total Bilirubin 1.5 H (0.2-1.0) mg/dL AST 28 (15-37) U/L ALT 17 (14-59) U/L Alkaline Phosphatase 107 (46-116) U/L Troponin I 657 H* 526 H* 390 H* (<or=51) ng/L Total Protein 7.4 (6.4-8.2) g/dL Albumin 2.8 L (3.4-5.0) g/dL Random Vancomycin COVID-19 Source Nasopharynx SARS-CoV-2 (PCR) Negative (Negative) Influenza Type A (PCR) Negative (Negative) Influenza Type B (PCR) Negative (Negative) RSV (PCR) Negative (Negative) 11/14/24 23:38 Blood Culture - Preliminary Blood Gram positive cocci 11/14/24 23:20 Blood Culture - Preliminary Blood Gram positive cocci [id number] Documentation Fingerstick Glucose Start: 11/15/24 04:11 Freq: .ACHS Status: Active Protocol: Activity Type Activity Date Activity User E-sign Co-sign Detail Recorded Client Recorded Date Recorded By Document 11/15/24 16:34 BKOma DAOPALON(5) [id number] 11/15/24 16:35 BKG DAEMON(6) Intake and Output - 24 Hour Total 11/14/24 22:54 thru 11/15/24 16:40 Intake Total 3550 Balance 3550 Weight 117.934 kg Intake: IV 2750 Oral 800 Other: Comment pT is dry of urine at this time Stool Size Smear Stool Characteristics Soft Falls Risk Assessment History of Falls No History 11/15/24 04:00 Contributing Factors Confusion,Impairments 11/15/24 04:00 Ambulatory Aids Uses ambulatory device + 11/15/24 02:49 Tubes/Lines With any additional score 11/15/24 04:00 Gait Evaluation W/any additional score 11/15/24 04:00 Cognition Cognitive impairment 11/15/24 04:00 Fall Total Score 61 11/15/24 04:00 Level of Risk High Risk 11/15/24 04:00 Problems (Last Reviewed 11/15/24 @ 16:58 by Suzy Greenfield DPM) Ischemic ulcer of right heel (Acute) Lactic acidosis (Acute) CAP (community acquired pneumonia) (Acute) Severe sepsis (Acute) Demand ischemia (Acute) Atrial fibrillation (Chronic) Sepsis (Acute) Pneumonia (Acute) Ischemic ulcer of right foot (Acute) Osteomyelitis of right foot (Acute) Chronic ulcer of right foot (Acute) Non-healing ulcer of right foot (Acute) Venous stasis dermatitis of left lower extremity (Acute 05/31/15) Bilateral edema of lower extremity (Acute) Diabetic nephropathy associated with type 2 diabetes mellitus (Acute) Notes 11/15/24 09:24 Respiratory by Angela Aguirre Addendum entered by Angela Aguirre 11/15/24 18:40: This RT called the patient's rehab center who stated that the patient does not wear her CPAP at the rehab. Original Note: 11/15/2024 Spoke with patient regarding CPAP machine; pt states she has one but does not know if someone can bring her machine here. The patient would be willing to use our machine but does not have use of her hands so our machine is contraindicated. Initialized on 11/15/24 09:24 - END OF NOTE v v v v v v v v v Sending and/or Receiving Nurses: Please use comment section below to note any information pertinent to the patient hand-off not included above. Information / Comments: Report received from: Rasheeda Camilo RN
[2024-11-15] MEDS: DAPTOmycin 500 MG in Normal Saline 50 ML 100 MG IVPB (21:40)
[2024-11-15] MEDS: cefTRIAXone 1 GM/50 ML BAG IVPB (22:14)
[2024-11-15] MEDS: Losartan 50 MG TAB 100 MG PO (22:14)
[2024-11-16] MEDS: DOXYCYCLINE 100 MG in Normal Saline 100 ML IVPB (05:16)
[2024-11-16] MEDS: Levothyroxine 75 MCG TAB PO (05:24)
[2024-11-16 08:06] VITALS: BP 124/54; PULSE 70; RESP 16; TEMP 37.1; O2SAT 90
[2024-11-16 08:19] LABS: Abs Immature Grans 0.12 10^3/uL (0.0-0.06); HCT 26.1 % (36.0-46.0); HGB 8.5 g/dL (11.2-15.7); Immature Grans % 0.8 %; MCH 32.8 pg (27.0-33.0); MCHC 32.6 % (32.0-36.0); MCV 101 fL (80-95); MPV 11.0 fL (8.0-11.0); Platelet Count 173 10^3/uL (130-400); RBC 2.59 10^6/uL (3.93-5.22); RDW 14.0 % (11.7-14.6); RDW-SD 51.5 fL; WBC 14.78 10^3/uL (4.4-10.8)
[2024-11-16] MEDS: QUEtiapine 50 MG TAB PO (08:19)
[2024-11-16] MEDS: hydrALAZINE 10 MG TAB PO (08:19)
[2024-11-16] MEDS: amLODIPine 10 MG TAB PO (08:19)
[2024-11-16] MEDS: Aspirin E.C. 81 MG TABEC PO (08:20)
[2024-11-16] MEDS: Sertraline 50 MG TAB PO (08:20)
[2024-11-16] MEDS: Normal Saline Flush 10 ML SYR IVP (08:20)
[2024-11-16] MEDS: Furosemide 20 MG TAB PO (08:20)
[2024-11-16] MEDS: Enoxaparin 30 MG/0.3 ML SYR SC (08:20)
[2024-11-16] MEDS: Insulin Aspart 300 UNITS/3 ML PEN SC (08:21)
[2024-11-16] MEDS: Insulin Glargine 300 UNITS/3 ML PEN 15 UNITS SC (08:22)
[2024-11-16 08:53] LABS: Anion Gap 12.2 mmol/L (3-11); CO2 21.8 mmol/L (21.0-32.0); Calcium 8.6 mg/dL (8.5-10.1); Chloride 108 mmol/L (98-107); Estimated GFR 14.83 (mL/min/1.73m2); Glucose 161 mg/dL (74-106); Potassium 4.9 mmol/L (3.5-5.1); Sodium 142 mmol/L (136-145)
[2024-11-16 08:57] LABS: BUN 86 mg/dL (7-18); Troponin I 1281 ng/L (<or=51)
[2024-11-16 10:40] VITALS: O2SAT 69
[2024-11-16 10:45] VITALS: O2SAT 90
[2024-11-16 10:57] VITALS: O2SAT 93
[2024-11-16 11:14] VITALS: BP 81/31; PULSE 44; RESP 24; O2SAT 90
--- NOTE | 2024-11-16 11:20 | PDOC.CMPRO ---
Date of service: 11/16/24 Time of Service: 11:20 Care Management Progress Note Progress Note Text Progress Note Text: Merly's condition suddenly deteriorated over the course of the morning. She developed hypoxia with a drop in her O2 saturation requiring 15 L/min of supplemental O2 via oxymask. She became hypotensive, bradycardic and unresponsive. Dr. Lau reached out to her daughter Adina Olivares in [place] who indicated that she felt comfort directed care would be appropriate at this time. Before any actual orders were changed, Merly at 11:57 am. Merly did not have any burial arrangements made and her family indicated that they do not have the financial means to pay cremation or expenses. PIERCE contacted [facility] who agreed to accept Merly for cremation and to bill the state. They did request that a family member contact them to give permission to remove the body. PIERCE again called Adina who agreed to contact Milli directly. The nursing supervisor industrial arts education is aware of the arrangements. Social Determinants of Health Screening Will the Patient Participate in the Screening?: Declined to provide
--- NOTE | 2024-11-16 12:25 | W.PM.DDS ---
Date of service: 11/16/24 Time of Service: 12:26 Discharge Plan Disposition Patient Disposition: Discharge Details Reason For Visit: Severe sepsis CAP Admit Date/Time: 11/15/24 03:05 Admit Provider: Clifford Khan Attending Provider: Clifford Khan Primary Care Provider: Silvino Albarado Hospital Course Hospital Course: 78-year-old female with past medical history of insulin-dependent type 2 diabetes, CKD stage IV, hypertension who lived at [facility] presented to the emergency department with concerns for altered mental status. She had a fever to 103 and oxygen saturation in the 80s and appeared short of breath. Her WBC was 18 and lactic acid was 2.8 and creatinine was 2.9 which was slightly above her baseline. CXR revealed a pneumonia. Head CT was negative. Her troponin was elevated and she was in rate-controlled atrial fibrillation on EKG without ST changes. This was discussed with cardiology and felt to be demand ischemia. She was admitted for severe sepsis and treated with vancomycin, ceftriaxone, and doxycyline with the pneumonia being the presumed source. Her blood pressure was stable but she continued to be hypoxic. Drainage from her previous foot ulcer was noted and she had a new ulceration. This was evaluated by Podiatry and felt c/w osteomyelitis. She refused additional labs to measure vancomycin on 11/15 so she was switched to daptomycin. Her troponins started to trend down 11/15, but on 11/16 they doubled to 1281, though she did not have chest pain Her blood was growing MRSA in both cultures. It was also noted her neck was postured to the right and she was in pain when it was straitened. She had no report of fall before coming, but states she fell some weeks prior. She had no strength in her arms or legs. She was also retaining urine with bladder scan >700ml while refusing moreno catheter. With these factors she seemed to have a cervical myelopathy of unclear time course. MRI was ordered but was not done due to clinical instability. On the morning of 11/16 she was noted to be more hypoxic, needing NRB mask to bring oxygen up to 90%. This did improve with repositioning her neck, but this caused pain. NIV was considered, but family was notified first. Her daughter was contacted who felt the focus should be on comfort. Care was not withdrawn, however, by the time she passed shortly after that conversation. Discharge Data Cause of : Sepsis due to Staphylococcus aureus Discharge Sum: Prov Provider Consults: 11/15/24 14:59 Wound Care Consult [CONS] Routine Consultation Status:: Follow-up needed Clarification:: One time opinion Reason for consult:: right great toe and right heel wounds Discharge Sum: Diag PCOD Cause of : Sepsis due to Staphylococcus aureus Contributing Factors (1) Severe sepsis: (2) Ischemic ulcer of right foot: (3) Osteomyelitis of right foot: (4) Gout: (5) Ischemic ulcer of right heel: (6) Diabetic nephropathy associated with type 2 diabetes mellitus: (7) Bilateral edema of lower extremity: (8) Venous stasis dermatitis of left lower extremity: (9) Non-healing ulcer of right foot: (10) Chronic ulcer of right foot: Discharge Sum: Summary Date and Time Admission Date: 11/15/24 Date of : 11/16/24 Time of : 11:57 Summary Details: 78-year-old female with past medical history of insulin-dependent type 2 diabetes, CKD stage IV, hypertension who lived at [facility] presented to the emergency department with concerns for altered mental status. She had a fever to 103 and oxygen saturation in the 80s and appeared short of breath. Her WBC was 18 and lactic acid was 2.8 and creatinine was 2.9 which was slightly above her baseline. CXR revealed a pneumonia. Head CT was negative. Her troponin was elevated and she was in rate-controlled atrial fibrillation on EKG without ST changes. This was discussed with cardiology and felt to be demand ischemia. She was admitted for severe sepsis and treated with vancomycin, ceftriaxone, and doxycyline with the pneumonia being the presumed source. Her blood pressure was stable but she continued to be hypoxic. Drainage from her previous foot ulcer was noted and she had a new ulceration. This was evaluated by Podiatry and felt c/w osteomyelitis. She refused additional labs to measure vancomycin on 11/15 so she was switched to daptomycin. Her troponins started to trend down 11/15, but on 11/16 they doubled to 1281, though she did not have chest pain Her blood was growing MRSA in both cultures. It was also noted her neck was postured to the right and she was in pain when it was straitened. She had no report of fall before coming, but states she fell some weeks prior. She had no strength in her arms or legs. She was also retaining urine with bladder scan >700ml while refusing moreno catheter. With these factors she seemed to have a cervical myelopathy of unclear time course. MRI was ordered but was not done due to clinical instability. On the morning of 11/16 she was noted to be more hypoxic, needing NRB mask to bring oxygen up to 90%. This did improve with repositioning her neck, but this caused pain. NIV was considered, but family was notified first. Her daughter was contacted who felt the focus should be on comfort. Care was not withdrawn, however, by the time she passed shortly after that conversation. Additional Data Confirmation of as documented by pronouncing clinician: no pulse, no respirations and no heart sounds Family: contacted Attending/PCP notified?: Yes Attending Physician: Morteza Lau Was code activated?: No Autopsy requested?: No estate tax examiner notified?: No Organ bank notified?: Yes Hospice patient?: No
== END 2024-11-16 11:57 | disposition expired | DRG 871 ==
LOC: ER 11-15 03:39 → ICU 11-15 04:13 → MS 11-15 18:01
PROVIDERS: Admitting Provider Family Medicine; Emergency Provider Emergency Medicine; PCP Family Medicine; Responsible Provider Family Medicine; Visit Provider Family Medicine
DX: R65.20 Severe sepsis without septic shock; J18.9 Pneumonia, unspecified organism; E87.20 Acidosis, unspecified; I24.89 Other forms of acute ischemic heart disease; I48.91 Unspecified atrial fibrillation; E11.22 Type 2 diabetes mellitus with diabetic chronic kidney disease; I12.9 Hypertensive chronic kidney disease with stage 1 through stage 4 chronic kidney disease, or unspecified chronic kidney disease; M10.9 Gout, unspecified; L97.419 Non-pressure chronic ulcer of right heel and midfoot with unspecified severity; R60.0 Localized edema; I87.2 Venous insufficiency (chronic) (peripheral); A41.02 Sepsis due to Methicillin resistant Staphylococcus aureus; N18.4 Chronic kidney disease, stage 4 (severe); G95.89 Other specified diseases of spinal cord; M86.8X7 Other osteomyelitis, ankle and foot; L97.518 Non-pressure chronic ulcer of other part of right foot with other specified severity; Z79.4 Long term (current) use of insulin; R33.9 Retention of urine, unspecified; R09.02 Hypoxemia; E11.69 Type 2 diabetes mellitus with other specified complication; G47.33 Obstructive sleep apnea (adult) (pediatric); E78.5 Hyperlipidemia, unspecified; Z87.891 Personal history of nicotine dependence; E55.9 Vitamin D deficiency, unspecified; I73.9 Peripheral vascular disease, unspecified
CPT/HCPCS: 00123; 36415; 80048; 80053; 82805; 85027; 87040; 87077; 87637; 93005; 93308; 96365; 96366; 96367; 99222; 99291; 70450; 71045; 73650; 80202; 83605; 83735; 84484; 85025; 87186; 93010; 94640; 94667; 94760; 99223; 99239; J0131; J0696; J0878; J1650; J1815; J3373; J7613